=== PATIENT | male | born 1980 | race Caucasian/White ===

== ENCOUNTER 2017-03-17 15:28 | Emergency (ER) | payer MEDICAID ==
[~2017-03-17] VITALS: Ht 188 cm; Wt 129.7 kg
[2017-03-17 15:42] VITALS: BP 139/88
[2017-03-17 16:25] LABS: Basophils # (auto) 0.1 uL; Basophils % (auto) 1.5 % (0.0-2.0); CONDITION Y; Eosinophils # (auto) 0.3 uL; Eosinophils % (auto) 4.4 % (0.0-7.0); Hematocrit 28.3 % (41.0-53.0); Hemoglobin 9.5 g/dL (13.5-17.5); Lymphocytes # (auto) 1.1 uL; Lymphocytes % (auto) 18.2 % (10.0-50.0); Mean Corpuscular Hemoglobin 28.4 pg (28.0-32.0); Mean Corpuscular Hgb Conc. 33.5 g/dL (32.0-36.0); Mean Corpuscular Volume 84.9 fL (80.0-100.0); Mean Platelet Volume 8.2 fL (7.4-10.4); Monocytes # (auto) 0.4 uL; Monocytes % (auto) 6.9 % (0.0-12.0); Neutrophils # (auto) 4.1 uL; Platelet Count (auto) 464 10^3/uL (140-450); Red Cell Distribution Width 14.1 % (11.6-16.0); White Blood Cell 5.9 10^3/uL (4.4-10.8)
[2017-03-17 16:45] LABS: Albumin 2.4 g/dL (3.4-5.0); BUN/Creatinine Ratio 4.9; Calcium 8.5 mg/dL (8.5-10.1); Potassium 4.1 mmol/L (3.5-5.1)
[2017-03-17 16:55] LABS: Bilirubin, Total 0.2 mg/dL (0.2-1.0); Total Protein 7.8 g/dL (6.4-8.2)
== END 2017-03-17 21:22 | disposition left against medical advice (07) ==
LOC: ER 15:28
DX: M79.672 Pain in left foot (principal); Z53.21 Procedure and treatment not carried out due to patient leaving prior to being seen by health care provider
CPT/HCPCS: 36415; 80053; 85025

== ENCOUNTER 2017-03-18 08:30 | Emergency (ER) | payer MEDICAID ==
[~2017-03-18] VITALS: Ht 205.7 cm; Wt 127.0 kg
[2017-03-18 08:46] VITALS: BP 145/92
[2017-03-18 09:14] LABS: Basophils # (auto) 0 uL; Basophils % (auto) 0.7 % (0.0-2.0); CONDITION Y; Eosinophils # (auto) 0.3 uL; Eosinophils % (auto) 4.1 % (0.0-7.0); Hematocrit 29.2 % (41.0-53.0); Hemoglobin 9.9 g/dL (13.5-17.5); Lymphocytes % (auto) 16.4 % (10.0-50.0); Mean Corpuscular Hemoglobin 28.4 pg (28.0-32.0); Mean Corpuscular Hgb Conc. 34.1 g/dL (32.0-36.0); Mean Corpuscular Volume 83.4 fL (80.0-100.0); Monocytes # (auto) 0.5 uL; Monocytes % (auto) 7.9 % (0.0-12.0); Neutrophils # (auto) 4.3 uL; Neutrophils % (auto) 70.9 % (37.0-80.0); Platelet Count (auto) 502 10^3/uL (140-450); Red Cell Distribution Width 14.2 % (11.6-16.0); White Blood Cell 6.1 10^3/uL (4.4-10.8)
[2017-03-18 09:33] LABS: Albumin 2.5 g/dL (3.4-5.0); BUN/Creatinine Ratio 5.3; Calcium 8.9 mg/dL (8.5-10.1); Potassium 4.1 mmol/L (3.5-5.1)
[2017-03-18 09:35] LABS: Bilirubin, Total 0.3 mg/dL (0.2-1.0)
== END 2017-03-18 10:05 | disposition home or self-care (01) ==
LOC: ER 08:30
DX: M79.672 Pain in left foot (principal); E11.9 Type 2 diabetes mellitus without complications; F17.210 Nicotine dependence, cigarettes, uncomplicated
CPT/HCPCS: 36415; 73630; 80053; 85025

== ENCOUNTER 2021-09-18 11:24 | Emergency (ER) | payer MEDICAID ==
[~2021-09-18] VITALS: Ht 205.7 cm; Wt 136.1 kg
[2021-09-18 11:26] VITALS: BP 121/82
[2021-09-18] MEDS ORDERED: PERCOT PO (17:58)
== END 2021-09-18 18:01 | disposition home or self-care (01) ==
LOC: ER 11:43
DX: S29.011A Strain of muscle and tendon of front wall of thorax, initial encounter (principal); M25.532 Pain in left wrist; M79.601 Pain in right arm; M54.9 Dorsalgia, unspecified; R51.9 Headache, unspecified; E11.9 Type 2 diabetes mellitus without complications; F17.210 Nicotine dependence, cigarettes, uncomplicated; V49.49XA Driver injured in collision with other motor vehicles in traffic accident, initial encounter; Y93.89 Activity, other specified; Y92.410 Unspecified street and highway as the place of occurrence of the external cause; Y99.8 Other external cause status
CPT/HCPCS: 70450; 71045; 71250; 73130

== ENCOUNTER 2021-12-02 16:54 | Emergency (ER) | payer MEDICAID ==
[~2021-12-02] VITALS: Ht 205.7 cm; Wt 133.8 kg
[~2021-12-02 16:54] MED LIST: PERCOT PO
[2021-12-02 18:10] LABS: Urine Bacteria NONE SEEN /hpf (None Seen); Urine Blood TRACE /uL (Negative); Urine WBC 1 /hpf (0 - 3)
[2021-12-02 18:48] LABS: Basophils # (auto) 0.1 10 ^3/uL (0-0.2); Basophils % (auto) 0.8 % (0.0-2.0); Eosinophils # (auto) 0 10 ^3/uL (0-0.8); Eosinophils % (auto) 0.1 % (0.0-7.0); Hematocrit 35.9 % (41.0-53.0); Hemoglobin 12.7 g/dL (13.5-17.5); Lymphocytes # (auto) 1.1 10 ^3/uL (0.4-5.4); Lymphocytes % (auto) 11.9 % (10.0-50.0); Mean Corpuscular Hemoglobin 30.8 pg (28.0-32.0); Mean Corpuscular Hgb Conc. 35.4 g/dL (32.0-36.0); Monocytes # (auto) 0.4 10 ^3/uL (0-1.3); Monocytes % (auto) 4.5 % (0.0-12.0); Neutrophils # (auto) 7.7 10 ^3/uL (1.6-8.6); Neutrophils % (auto) 82.7 % (37.0-80.0); Nucleated Red Blood Cells % 0.1 %; Red Blood Cells 4.13 10^6/uL (4.5-5.90); Red Cell Distribution Width 13.1 % (11.8-14.3); White Blood Cell 9.3 10^3/uL (4.4-10.8)
[2021-12-02 19:03] LABS: Potassium 3.7 mmol/L (3.5-5.1)
[2021-12-02 19:07] LABS: Albumin 2.9 g/dL (3.4-5.0); BUN/Creatinine Ratio 11.4; Calcium 8.9 mg/dL (8.5-10.1)
[2021-12-02 19:10] LABS: Bilirubin, Total 0.6 mg/dL (0.2-1.0)
[2021-12-02] MEDS ORDERED: ONDANSETRON HCL 4 MG/2 ML VIAL IV ONE (19:15)
[2021-12-02] MEDS ORDERED: SODIUM CHLORIDE 0.9% 1,000 ML IV ONE ×2 (19:15→20:15)
[2021-12-02] MEDS ORDERED: INSLANTI SC (20:18)
[2021-12-02 23:33] VITALS: BP 137/81
== END 2021-12-02 23:35 | disposition home or self-care (01) ==
LOC: ER 16:54
DX: R53.1 Weakness (principal); R11.2 Nausea with vomiting, unspecified; E11.65 Type 2 diabetes mellitus with hyperglycemia; F17.210 Nicotine dependence, cigarettes, uncomplicated; Z79.899 Other long term (current) drug therapy
CPT/HCPCS: 36415; 80053; 81001; 83690; 85025; 96361; 96374; 99285; J2405; J7030

== ENCOUNTER 2021-12-04 13:22 | Inpatient (IN) | payer MEDICAID, OTHER ==
[~2021-12-04] VITALS: Ht 177.8 cm; Wt 130.8 kg
[~2021-12-04 13:22] MED LIST changes: +INSLANTI SC
[2021-12-04] MEDS ORDERED: PANTOPRAZOLE 40 MG/10 ML VIAL INJ IV ONE (13:45)
[2021-12-04] MEDS ORDERED: MORPHINE SULFATE 4 MG/ML SYR/VIAL IV ONE (13:45)
[2021-12-04] MEDS ORDERED: SODIUM CHLORIDE 0.9% 1,000 ML IVB ONE (13:45)
[2021-12-04] MEDS ORDERED: PROCHLORPERAZINE EDISYLATE 5 MG/ML 2ML VIAL IV ONE (13:45)
[2021-12-04 14:15] LABS: Basophils # (auto) 0.1 10 ^3/uL (0-0.2); Basophils % (auto) 1.2 % (0.0-2.0); Eosinophils # (auto) 0 10 ^3/uL (0-0.8); Eosinophils % (auto) 0.6 % (0.0-7.0); Hematocrit 38.4 % (41.0-53.0); Hemoglobin 13.3 g/dL (13.5-17.5); Lymphocytes # (auto) 1.4 10 ^3/uL (0.4-5.4); Lymphocytes % (auto) 18.7 % (10.0-50.0); Mean Corpuscular Hemoglobin 29.9 pg (28.0-32.0); Mean Corpuscular Hgb Conc. 34.5 g/dL (32.0-36.0); Mean Corpuscular Volume 86.7 fL (80.0-100.0); Monocytes # (auto) 0.5 10 ^3/uL (0-1.3); Monocytes % (auto) 7.4 % (0.0-12.0); Neutrophils # (auto) 5.3 10 ^3/uL (1.6-8.6); Neutrophils % (auto) 72.1 % (37.0-80.0); Nucleated Red Blood Cells % 0.1 %; Red Blood Cells 4.43 10^6/uL (4.5-5.90); Red Cell Distribution Width 13.5 % (11.8-14.3); White Blood Cell 7.3 10^3/uL (4.4-10.8)
[2021-12-04 14:32] LABS: Albumin 2.8 g/dL (3.4-5.0); Calcium 9.1 mg/dL (8.5-10.1); Potassium 3.4 mmol/L (3.5-5.1)
[2021-12-04 14:34] LABS: Bilirubin, Total 0.4 mg/dL (0.2-1.0); Total Protein 7.9 g/dL (6.4-8.2)
[2021-12-04] MEDS ORDERED: TEMAZEPAM 15 MG CAP PO PRN (22:30)
[2021-12-04] MEDS ORDERED: ACETAMINOPHEN 325 MG TAB PO PRN (22:30)
[2021-12-04] MEDS ORDERED: POTASSIUM CHL 20 Meq TABLET PO ONE (22:30)
[2021-12-04] MEDS ORDERED: DEXTROSE (50%) 50ML SYRG IV PRN (22:30)
[2021-12-04] MEDS: CARVEDILOL 3.125 MG TAB PO SCH (23:08)
[2021-12-04] MEDS: MORPHINE SULFATE INJECTION 2 MG/ML SYRG IV PRN (23:09)
[2021-12-04] MEDS: ONDANSETRON HCL 4 MG/2 ML VIAL IV PRN (23:09)
[2021-12-05 01:44] VITALS: BP 164/84
[2021-12-05] MEDS: HYDROcodone-ACET 5/325MG TAB PO PRN ×5 (01:53→20:46)
[2021-12-05] MEDS: ONDANSETRON HCL 4 MG/2 ML VIAL IV PRN ×3 (03:28→12:46)
[2021-12-05] MEDS ORDERED: CARV3.1240 PO (04:35)
[2021-12-05] MEDS ORDERED: LOSA25TA38 PO (04:35)
[2021-12-05 04:58] VITALS: BP 170/91
[2021-12-05] MEDS ORDERED: hydrALAZINE HCL 20 MG/ML VL IV ONE (05:15)
[2021-12-05] MEDS: ACCU-CHEK COMFORT CURVE STRIP VI SCH ×4 (06:39→22:06)
[2021-12-05] MEDS: InsuLIN REG 1unit/0.01ml Soln (100units/ml) SC SCH ×4 (06:44→22:08)
[2021-12-05] MEDS: MORPHINE SULFATE INJECTION 2 MG/ML SYRG IV PRN ×3 (06:51→18:51)
[2021-12-05 08:00] LABS: Basophils # (auto) 0.1 10 ^3/uL (0-0.2); Basophils % (auto) 1.1 % (0.0-2.0); Eosinophils # (auto) 0.1 10 ^3/uL (0-0.8); Eosinophils % (auto) 1.2 % (0.0-7.0); Hematocrit 35.8 % (41.0-53.0); Hemoglobin 12.2 g/dL (13.5-17.5); Lymphocytes # (auto) 1.3 10 ^3/uL (0.4-5.4); Mean Corpuscular Hemoglobin 29.6 pg (28.0-32.0); Mean Corpuscular Volume 87.1 fL (80.0-100.0); Monocytes # (auto) 0.6 10 ^3/uL (0-1.3); Monocytes % (auto) 9.5 % (0.0-12.0); Neutrophils # (auto) 4.3 10 ^3/uL (1.6-8.6); Neutrophils % (auto) 68.2 % (37.0-80.0); Nucleated Red Blood Cells % 0.1 %; Red Blood Cells 4.11 10^6/uL (4.5-5.90); Red Cell Distribution Width 13.4 % (11.8-14.3); White Blood Cell 6.3 10^3/uL (4.4-10.8)
[2021-12-05 08:16] LABS: Albumin 2.4 g/dL (3.4-5.0); Calcium 8.1 mg/dL (8.5-10.1); Potassium 3.2 mmol/L (3.5-5.1)
[2021-12-05 08:20] LABS: BUN/Creatinine Ratio 17.4; Bilirubin, Total 0.4 mg/dL (0.2-1.0); Total Protein 6.9 g/dL (6.4-8.2)
[2021-12-05 09:31] VITALS: BP 133/71
[2021-12-05] MEDS: LOSARTAN POTASSIUM 50 MG TAB PO SCH (09:53)
[2021-12-05] MEDS: CARVEDILOL 3.125 MG TAB PO SCH ×2 (09:53→22:26)
[2021-12-05] MEDS ORDERED: PANTOPRAZOLE 40 MG TAB PO SCH (10:00)
[2021-12-05 13:00] VITALS: BP 173/97
[2021-12-05] MEDS ORDERED: POTASSIUM EFFERVESENT TAB 25 MEQ PO ONE (14:00)
[2021-12-05 14:37] LABS: INR 1.14 (0.9-1.15); Partial Thromboplastin Time 21.9 sec (23.6-33.0)
[2021-12-05] MEDS: PROMETHAZINE HCL 25 MG/ML 1ML IV PRN ×2 (16:48→20:46)
[2021-12-05] MEDS: SUCRALFATE 1 GM/10 ML ORAL SUSP PO SCH ×2 (16:48→22:25)
[2021-12-05 22:00] VITALS: BP 130/79
[2021-12-05] MEDS: ATORVASTATIN 20 MG TAB PO SCH (22:27)
[2021-12-05] MEDS: PANTOPRAZOLE 40 MG/10 ML VIAL INJ IV SCH (22:27)
[2021-12-06] MEDS: MORPHINE SULFATE INJECTION 2 MG/ML SYRG IV PRN ×4 (00:54→19:06)
[2021-12-06] MEDS: PROMETHAZINE HCL 25 MG/ML 1ML IV PRN ×6 (01:22→23:06)
[2021-12-06] MEDS: HYDROcodone-ACET 5/325MG TAB PO PRN ×2 (02:39→09:41)
[2021-12-06 05:00] VITALS: BP 149/100
[2021-12-06] MEDS: InsuLIN REG 1unit/0.01ml Soln (100units/ml) SC SCH ×4 (06:44→22:00)
[2021-12-06] MEDS: SUCRALFATE 1 GM/10 ML ORAL SUSP PO SCH ×4 (06:47→22:25)
[2021-12-06] MEDS: ACCU-CHEK COMFORT CURVE STRIP VI SCH ×4 (06:48→22:27)
[2021-12-06] MEDS ORDERED: LIDOCAINE VISCOUS 2% 15ML UD ONE (08:38)
[2021-12-06] MEDS ORDERED: diphenhdrAMINE HCL 50 MG/1 ML VL ONE (08:38)
[2021-12-06 09:00] VITALS: BP 153/77
[2021-12-06 09:06] LABS: Hematocrit 40.5 % (41.0-53.0); Hemoglobin 14.1 g/dL (13.5-17.5)
[2021-12-06] MEDS: PANTOPRAZOLE 40 MG/10 ML VIAL INJ IV SCH ×2 (09:38→22:27)
[2021-12-06] MEDS: CARVEDILOL 3.125 MG TAB PO SCH ×2 (09:42→22:25)
[2021-12-06 09:43] LABS: Magnesium 1.7 mg/dL (1.6-2.6); Potassium 3.3 mmol/L (3.5-5.1)
[2021-12-06] MEDS: LOSARTAN POTASSIUM 50 MG TAB PO SCH (09:43)
[2021-12-06] MEDS ORDERED: MAGNESIUM SULFATE 1GM/100ML 100 ML IV ONE (12:00)
[2021-12-06] MEDS: POTASSIUM CHL 20MEQ/100ML 100 ML IV SCH ×2 (12:52→20:37)
[2021-12-06 13:00] VITALS: BP 176/95
[2021-12-06] MEDS: fentaNYL CITRATE 100 MCG/2 ML VL ONE ×2 (15:13→15:19)
[2021-12-06] MEDS: MIDAZOLAM HCL 5 MG/ML-1ML VIAL ONE ×2 (15:13→15:19)
[2021-12-06 17:00] VITALS: BP 101/61
[2021-12-06] MEDS ORDERED: POTASSIUM CHL 20MEQ/100ML 100 ML IV ONE (20:22)
[2021-12-06 22:00] VITALS: BP 161/104
[2021-12-06] MEDS ORDERED: INSULIN LANTUS (GLARGINE) 1 /0.01ml (100units/ml) SC SCH (22:00)
[2021-12-06] MEDS: ATORVASTATIN 20 MG TAB PO SCH (22:25)
[2021-12-07] MEDS: MORPHINE SULFATE INJECTION 2 MG/ML SYRG IV PRN ×2 (01:23→07:31)
[2021-12-07] MEDS: PROMETHAZINE HCL 25 MG/ML 1ML IV PRN ×3 (03:06→11:54)
[2021-12-07 05:00] VITALS: BP 126/72
[2021-12-07] MEDS: ACCU-CHEK COMFORT CURVE STRIP VI SCH ×2 (05:44→11:54)
[2021-12-07] MEDS: SUCRALFATE 1 GM/10 ML ORAL SUSP PO SCH ×2 (05:47→11:53)
[2021-12-07] MEDS: InsuLIN REG 1unit/0.01ml Soln (100units/ml) SC SCH ×2 (05:56→13:25)
[2021-12-07 08:34] LABS: Magnesium 1.7 mg/dL (1.6-2.6); Potassium 3.2 mmol/L (3.5-5.1)
[2021-12-07 09:09] VITALS: BP 164/99
[2021-12-07] MEDS ORDERED: PANT40TA2 PO (09:24)
[2021-12-07] MEDS ORDERED: SUCR1TAB22 PO (09:24)
[2021-12-07] MEDS ORDERED: MAGNESIUM SULFATE 1GM/100ML 100 ML IV ONE (09:30)
[2021-12-07] MEDS ORDERED: POTASSIUM EFFERVESENT TAB 25 MEQ PO ONE (09:30)
[2021-12-07] MEDS: PANTOPRAZOLE 40 MG/10 ML VIAL INJ IV SCH (10:32)
[2021-12-07] MEDS: CARVEDILOL 3.125 MG TAB PO SCH (10:33)
[2021-12-07] MEDS: LOSARTAN POTASSIUM 50 MG TAB PO SCH (10:33)
[2021-12-07] MEDS ORDERED: CARV6.25 PO (12:07)
[2021-12-07] MEDS ORDERED: POTASSIUM CHL 20MEQ/100ML 100 ML IV ONE (12:15)
[2021-12-07 13:00] VITALS: BP 139/94
[2021-12-07 14:06] VITALS: BP 164/94
== END 2021-12-07 15:54 | disposition home or self-care (01) | DRG 241 ==
LOC: ER 13:22 → EDBD 13:22 → OVERFLOW 22:30 → WEST WING 12-05 01:31
PROVIDERS: ADMIT Nurse Practitioner; ATTEND Internal Medicine
PROC: 0DB68ZX Excision of Stomach, Via Natural or Artificial Opening Endoscopic, Diagnostic (ICD-10-PCS; 2021-12-06)
PROC: 0DB98ZX Excision of Duodenum, Via Natural or Artificial Opening Endoscopic, Diagnostic (ICD-10-PCS; principal; 2021-12-06 15:07)
DX: K29.70 Gastritis, unspecified, without bleeding (principal); K31.84 Gastroparesis; E11.43 Type 2 diabetes mellitus with diabetic autonomic (poly)neuropathy; R16.0 Hepatomegaly, not elsewhere classified; E11.65 Type 2 diabetes mellitus with hyperglycemia; K52.9 Noninfective gastroenteritis and colitis, unspecified; E78.5 Hyperlipidemia, unspecified; G89.4 Chronic pain syndrome; E87.6 Hypokalemia; F17.210 Nicotine dependence, cigarettes, uncomplicated; I10 Essential (primary) hypertension; Z89.512 Acquired absence of left leg below knee; Z20.822 Contact with and (suspected) exposure to COVID-19
CPT/HCPCS: 36415; 43239; 74176; 80053; 80061; 82150; 82962; 83036; 83690; 83735; 84132; 84443; 85014; 85018; 85025; 85610; 85730; 93005; 96361; 96374; 96375; C9113; G0378; J1815; J2250; J2405; J3480

== ENCOUNTER 2022-12-28 09:01 | Emergency (ER) | payer MEDICAID ==
[~2022-12-28] VITALS: Ht 205.7 cm; Wt 127.0 kg
[~2022-12-28 09:01] MED LIST changes: +LOSA25TA38 PO; +PANT40TA2 PO; +SUCR1TAB22 PO
[2022-12-28 09:28] VITALS: BP 105/69
[2022-12-28] MEDS ORDERED: cefTRIAXone SOD 1,000 MG VL IM ONE ×2 (10:00)
[2022-12-28] MEDS ORDERED: IBUP800T27 PO (10:05)
[2022-12-28] MEDS ORDERED: CLIN300C8 PO (10:05)
[2022-12-28] MEDS ORDERED: CEPH-510 PO (10:05)
== END 2022-12-28 10:26 | disposition home or self-care (01) ==
LOC: ER 09:01
DX: L08.89 Other specified local infections of the skin and subcutaneous tissue (principal); E11.9 Type 2 diabetes mellitus without complications; E78.5 Hyperlipidemia, unspecified; I10 Essential (primary) hypertension; Z89.512 Acquired absence of left leg below knee
CPT/HCPCS: 96372; 99284; J0696

== ENCOUNTER → 2023-05-17 | Emergency (ER) | payer MEDICAID ==
[~2023-05-17] VITALS: Ht 205.7 cm; Wt 118.1 kg
[~2023-05-17] MED LIST changes: +CEPH-510 PO; +CLIN300C70 PO; +HYDROcodone-ACET 10/325MG TAB PO ONE; +IBUP-1456 PO; +LOSA25TA15 PO; -LOSA25TA38 PO
[2023-05-17 07:42] VITALS: BP 121/80; PULSE 85; RESP 16; O2SAT 99
[2023-05-17 08:33] LABS: Basophils # (auto) 0 10 ^3/uL (0-0.2); Basophils % (auto) 0.6 % (0.0-2.0); Eosinophils # (auto) 0.1 10 ^3/uL (0-0.8); Eosinophils % (auto) 1.7 % (0.0-7.0); Hematocrit 40.3 % (41.0-53.0); Hemoglobin 13.6 g/dL (13.5-17.5); Lymphocytes # (auto) 1.3 10 ^3/uL (0.4-5.4); Lymphocytes % (auto) 21.1 % (10.0-50.0); Mean Corpuscular Hemoglobin 30.2 pg (28.0-32.0); Mean Corpuscular Hgb Conc. 33.7 g/dL (32.0-36.0); Mean Corpuscular Volume 89.9 fL (80.0-100.0); Monocytes # (auto) 0.6 10 ^3/uL (0-1.3); Monocytes % (auto) 9.6 % (0.0-12.0); Neutrophils # (auto) 4.1 10 ^3/uL (1.6-8.6); Nucleated Red Blood Cells % 0.1 %; Red Blood Cells 4.48 10^6/uL (4.5-5.90); Red Cell Distribution Width 13.4 % (11.8-14.3); White Blood Cell 6.1 10^3/uL (4.4-10.8)
[2023-05-17 08:39] LABS: Alanine Aminotransferase 10 U/L (7-40); Albumin 4.6 g/dL (3.2-4.8); Alkaline Phosphatase 61 U/L (46-116); Anion Gap 7 (5-15); Aspartate Aminotransferase 9 U/L (13-40); BUN/Creatinine Ratio 8.5 (10.0-20.0); Blood Urea Nitrogen 7 mg/dL (9-23); Calcium 9.6 mg/dL (8.5-10.1); Carbon Dioxide 24 mmol/L (20-30); Chloride 106 mmol/L (98-107); Glucose 97 mg/dL (74-106); Potassium 4.4 mmol/L (3.5-5.1); Sodium 137 mmol/L (136-145)
[2023-05-17 08:40] LABS: Bilirubin, Total 0.6 mg/dL (0.2-1.0); Total Protein 7.9 g/dL (5.7-8.2)
== END | disposition left against medical advice (07) ==
LOC: ER 07:34
DX: T87.89 Other complications of amputation stump (principal); M79.662 Pain in left lower leg; E11.9 Type 2 diabetes mellitus without complications; E78.5 Hyperlipidemia, unspecified; I10 Essential (primary) hypertension; F17.210 Nicotine dependence, cigarettes, uncomplicated
CPT/HCPCS: 36415; 80053; 84484; 85025; 93971

== ENCOUNTER 2023-05-24 14:21 | Inpatient (IN) | payer MEDICAID ==
[~2023-05-24] VITALS: Ht 177.8 cm; Wt 117.0 kg
[~2023-05-24 14:21] MED LIST changes: -HYDROcodone-ACET 10/325MG TAB PO ONE
[2023-05-24] MEDS ORDERED: LORazepam 2MG/ML-1ML VIAL IV ONE (14:30)
[2023-05-24] MEDS ORDERED: SODIUM CHLORIDE 0.9% 1,000 ML IVB ONE ×2 (14:30)
[2023-05-24] MEDS ORDERED: METOCLOPRAMIDE HCL 5MG/ml INJ 2ml VIAL IV ONE (14:30)
[2023-05-24] MEDS ORDERED: HYDROmorphone HCL 2 MG/ML VL/or syr IV ONE (14:30)
[2023-05-24] MEDS ORDERED: PANTOPRAZOLE 40 MG/10 ML VIAL INJ IV ONE ×2 (14:30→17:45)
[2023-05-24] MEDS ORDERED: ONDANSETRON HCL 4 MG/2 ML VIAL IV ONE (14:30)
[2023-05-24 15:00] LABS: Base Excess -7.2 mmol/L (-2.0-2.0)
[2023-05-24 15:13] LABS: Basophils # (auto) 0 10 ^3/uL (0-0.2); Basophils % (auto) 0.4 % (0.0-2.0); Eosinophils # (auto) 0 10 ^3/uL (0-0.8); Eosinophils % (auto) 0.2 % (0.0-7.0); Hematocrit 42.7 % (41.0-53.0); Hemoglobin 14.4 g/dL (13.5-17.5); Lymphocytes # (auto) 1.4 10 ^3/uL (0.4-5.4); Lymphocytes % (auto) 16.5 % (10.0-50.0); Mean Corpuscular Hemoglobin 30.3 pg (28.0-32.0); Mean Corpuscular Hgb Conc. 33.8 g/dL (32.0-36.0); Mean Corpuscular Volume 89.8 fL (80.0-100.0); Monocytes # (auto) 0.6 10 ^3/uL (0-1.3); Monocytes % (auto) 6.4 % (0.0-12.0); Neutrophils # (auto) 6.7 10 ^3/uL (1.6-8.6); Neutrophils % (auto) 76.5 % (37.0-80.0); Nucleated Red Blood Cells % 0.2 %; Red Blood Cells 4.76 10^6/uL (4.5-5.90); Red Cell Distribution Width 13.1 % (11.8-14.3); White Blood Cell 8.8 10^3/uL (4.4-10.8)
[2023-05-24 15:29] LABS: INR 1.19 (0.9-1.15); Partial Thromboplastin Time 30.5 SEC (24.5-34.5); Prothrombin Time 12.4 sec (9.3-11.8)
[2023-05-24] MEDS ORDERED: SODIUM BICARBONATE 8.4 % INJ 50ML VIAL IV ONE (15:30)
[2023-05-24 15:33] LABS: Alanine Aminotransferase < 9 U/L (7-40); Albumin 5.1 g/dL (3.2-4.8); Alkaline Phosphatase 69 U/L (46-116); Anion Gap 20 (5-15); Aspartate Aminotransferase 10 U/L (13-40); BUN/Creatinine Ratio 18.5 (10.0-20.0); Bilirubin, Total 0.4 mg/dL (0.2-1.0); Blood Urea Nitrogen 20 mg/dL (9-23); Calcium 9.9 mg/dL (8.7-10.4); Carbon Dioxide 15 mmol/L (20-30); Chloride 101 mmol/L (98-107); Glucose 194 mg/dL (74-106); Lipase 37 U/L (12-53); Magnesium 1.8 mg/dL (1.6-2.6); Potassium 4.1 mmol/L (3.5-5.1); Sodium 136 mmol/L (136-145); Total Protein 8.9 g/dL (5.7-8.2)
[2023-05-24] MEDS ORDERED: IOHEXOL 300 MG/ML 100ML BOTTLE IJ ONE (16:07)
[2023-05-24] MEDS ORDERED: InsuLIN REG 1unit/0.01ml Soln (100units/ml) SC ONE (17:45)
[2023-05-24] MEDS ORDERED: LABETALOL HCL 5 MG/ML 4ML SYRINGE IV ONE (18:00)
[2023-05-24] MEDS ORDERED: DEXTROSE (50%) 50ML SYRG IV PRN (18:45)
[2023-05-24] MEDS ORDERED: ACETAMINOPHEN 325 MG TAB PO PRN (18:45)
[2023-05-24] MEDS ORDERED: MORPHINE SULFATE INJ 2 MG/ml SYRG IV PRN (18:45)
[2023-05-24] MEDS ORDERED: NITROGLYCERIN 0.4 MG SL TAB SL PRN (18:45)
[2023-05-24 19:03] LABS: Urine Bacteria NONE SEEN /hpf (None Seen); Urine Blood Negative /uL (Negative); Urine Clarity Clear (Clear); Urine Color Yellow (Yellow); Urine Hyaline Cast FEW /lpf (0 - 2); Urine Protein, UAD 3+ (Negative); Urine Specific Gravity 1.024 (1.001-1.035); Urine WBC 1 /hpf (0 - 3); Urine pH 5.5 (5.0-8.0)
[2023-05-24 19:13] LABS: Amphetamine Screen, Urine Neg (NEGATIVE); Barbiturate Scree,Urine Neg (NEGATIVE); Benzodiazephine Screen, Urine Neg (NEGATIVE); Cannabinoid Screen, Urine Pos (NEGATIVE); Cocaine Screen, Urine Neg (NEGATIVE); Opiate Scree,Urine Neg (NEGATIVE); Phencyclidine Screen, Urine Neg (NEGATIVE)
[2023-05-24] MEDS ORDERED: GABA800T97 PO (19:29)
[2023-05-24] MEDS ORDERED: SERT25TA28 PO (19:29)
[2023-05-24] MEDS ORDERED: METF-372 PO (19:29)
[2023-05-24] MEDS ORDERED: PREG-111 PO (19:29)
[2023-05-24] MEDS ORDERED: CARV6.2551 PO (19:29)
[2023-05-24 20:08] LABS: Base Excess -11.1 mmol/L (-2.0-2.0)
[2023-05-24 20:18] LABS: Chloride 103 mmol/L (98-107); Potassium 3.9 mmol/L (3.5-5.1); Sodium 136 mmol/L (136-145)
[2023-05-24 20:19] LABS: Anion Gap 20 (5-15); Calcium 9.3 mg/dL (8.7-10.4); Carbon Dioxide 13 mmol/L (20-30)
[2023-05-24 20:24] LABS: BUN/Creatinine Ratio 17.9 (10.0-20.0); Blood Urea Nitrogen 21 mg/dL (9-23); Glucose 252 mg/dL (74-106)
[2023-05-24] MEDS: SODIUM CHLORIDE 0.9% 1,000 ML IV SCH (21:05)
[2023-05-24 21:12] LABS: COVID19 ANTIGEN SOFIA FIA NEGATIVE (NEGATIVE)
[2023-05-24] MEDS ORDERED: SODIUM CHLORIDE 0.9% 1,000 ML IV SCH (23:30)
[2023-05-25] VITALS (7 sets, daily range): BP systolic 135–171; BP diastolic 85–98; PULSE 84–95; RESP 14–20; TEMP 98.4–99.1; O2SAT 98
[2023-05-25] MEDS: CARVEDILOL 3.125 MG TAB PO SCH ×3 (00:10→22:02)
[2023-05-25] MEDS: ONDANSETRON HCL 4 MG/2 ML VIAL IV PRN ×2 (00:10→03:11)
[2023-05-25] MEDS: PREGABALIN CAPSULE 75 MG CAP PO SCH ×3 (00:11→22:00)
[2023-05-25] MEDS: SUCRALFATE 1 GM TAB PO SCH ×5 (00:11→22:00)
[2023-05-25] MEDS: ACCU-CHEK COMFORT CURVE STRIP VI SCH ×5 (00:12→22:00)
[2023-05-25] MEDS: InsuLIN REG 1unit/0.01ml Soln (100units/ml) SC SCH ×5 (00:12→22:09)
[2023-05-25 04:13] LABS: Basophils # (auto) 0 10 ^3/uL (0-0.2); Basophils % (auto) 0.1 % (0.0-2.0); Eosinophils # (auto) 0 10 ^3/uL (0-0.8); Eosinophils % (auto) 0.1 % (0.0-7.0); Hematocrit 38.4 % (41.0-53.0); Hemoglobin 12.7 g/dL (13.5-17.5); Lymphocytes # (auto) 1.3 10 ^3/uL (0.4-5.4); Lymphocytes % (auto) 11.6 % (10.0-50.0); Mean Corpuscular Hemoglobin 29.9 pg (28.0-32.0); Mean Corpuscular Hgb Conc. 33.2 g/dL (32.0-36.0); Mean Corpuscular Volume 90.1 fL (80.0-100.0); Monocytes # (auto) 0.9 10 ^3/uL (0-1.3); Monocytes % (auto) 8.1 % (0.0-12.0); Neutrophils # (auto) 9.2 10 ^3/uL (1.6-8.6); Neutrophils % (auto) 80.1 % (37.0-80.0); Red Blood Cells 4.26 10^6/uL (4.5-5.90); Red Cell Distribution Width 12.9 % (11.8-14.3); White Blood Cell 11.5 10^3/uL (4.4-10.8)
[2023-05-25 04:31] LABS: Alanine Aminotransferase 11 U/L (7-40); Albumin 4.3 g/dL (3.2-4.8); Alkaline Phosphatase 60 U/L (46-116); Anion Gap 17 (5-15); Aspartate Aminotransferase 9 U/L (13-40); BUN/Creatinine Ratio 20.2 (10.0-20.0); Bilirubin, Total 0.2 mg/dL (0.2-1.0); Blood Urea Nitrogen 20 mg/dL (9-23); Calcium 8.5 mg/dL (8.7-10.4); Carbon Dioxide 17 mmol/L (20-30); Chloride 104 mmol/L (98-107); Glucose 218 mg/dL (74-106); Potassium 3.8 mmol/L (3.5-5.1); Sodium 138 mmol/L (136-145); Total Protein 7.1 g/dL (5.7-8.2)
[2023-05-25] MEDS: SODIUM CHLORIDE 0.9% 1,000 ML IV SCH ×4 (05:49→20:36)
[2023-05-25] MEDS: METOCLOPRAMIDE HCL 5MG/ml INJ 2ml VIAL IV PRN ×3 (06:04→22:27)
[2023-05-25] MEDS: MORPHINE SULFATE INJ 2 MG/ml SYRG IV PRN ×4 (07:59→20:36)
[2023-05-25] MEDS: GABAPENTIN 400 MG CAP PO SCH (09:38)
[2023-05-25] MEDS: SERTRALINE HCL 50 MG TAB PO SCH (09:38)
[2023-05-25] MEDS: PANTOPRAZOLE 40 MG/10 ML VIAL INJ IV SCH (09:38)
[2023-05-25] MEDS: ENOXAPARIN SOD 40 MG/0.4 ML SYRINGE SC SCH (09:39)
[2023-05-25] MEDS: INSULIN LANTUS (GLARGINE) 1 /0.01ml (100units/ml) SC SCH (09:49)
[2023-05-25] MEDS: hydrALAZINE HCL 20 MG/ML VL IV PRN (14:24)
[2023-05-26] VITALS (7 sets, daily range): BP systolic 108–177; BP diastolic 74–109; PULSE 85–103; RESP 16–20; TEMP 97.5–98.2; O2SAT 97–98
[2023-05-26] MEDS: MORPHINE SULFATE INJ 2 MG/ml SYRG IV PRN ×3 (00:37→08:59)
[2023-05-26] MEDS: hydrALAZINE HCL 20 MG/ML VL IV PRN ×3 (00:37→15:55)
[2023-05-26] MEDS: METOCLOPRAMIDE HCL 5MG/ml INJ 2ml VIAL IV PRN ×2 (04:50→17:27)
[2023-05-26] MEDS: SODIUM CHLORIDE 0.9% 1,000 ML IV SCH ×3 (04:58→17:35)
[2023-05-26] MEDS: ACCU-CHEK COMFORT CURVE STRIP VI SCH ×4 (06:12→22:04)
[2023-05-26] MEDS: InsuLIN REG 1unit/0.01ml Soln (100units/ml) SC SCH ×4 (06:13→22:09)
[2023-05-26] MEDS: SUCRALFATE 1 GM TAB PO SCH ×4 (06:14→22:05)
[2023-05-26] MEDS: CARVEDILOL 3.125 MG TAB PO SCH ×2 (08:58→22:06)
[2023-05-26] MEDS: GABAPENTIN 400 MG CAP PO SCH (08:58)
[2023-05-26] MEDS: SERTRALINE HCL 50 MG TAB PO SCH (09:01)
[2023-05-26] MEDS: PANTOPRAZOLE 40 MG/10 ML VIAL INJ IV SCH (09:01)
[2023-05-26] MEDS: ENOXAPARIN SOD 40 MG/0.4 ML SYRINGE SC SCH (09:02)
[2023-05-26] MEDS: PREGABALIN CAPSULE 75 MG CAP PO SCH ×2 (09:12→22:07)
[2023-05-26] MEDS: INSULIN LANTUS (GLARGINE) 1 /0.01ml (100units/ml) SC SCH (09:13)
[2023-05-26] MEDS ORDERED: cloNIDine 0.1 mg/24hr 7 DAY PATCH TD ONE (11:45)
[2023-05-26] MEDS ORDERED: MORPHINE SULFATE INJ 2 MG/ml SYRG IV PRN (12:00)
[2023-05-26] MEDS: MORPHINE SULFATE 4 MG/ML SYR/VIAL IV PRN ×4 (15:50→22:03)
[2023-05-26] MEDS: METOPROLOL TARTRATE 25 MG TAB PO SCH (22:05)
[2023-05-27] VITALS (7 sets, daily range): BP systolic 114–161; BP diastolic 72–102; PULSE 79–89; RESP 14–20; TEMP 98.1–98.7; O2SAT 96–98
[2023-05-27] MEDS: SODIUM CHLORIDE 0.9% 1,000 ML IV SCH ×2 (00:05→05:25)
[2023-05-27] MEDS: MORPHINE SULFATE 4 MG/ML SYR/VIAL IV PRN ×11 (00:05→22:37)
[2023-05-27] MEDS: METOCLOPRAMIDE HCL 5MG/ml INJ 2ml VIAL IV PRN ×2 (00:09→06:08)
[2023-05-27] MEDS: hydrALAZINE HCL 20 MG/ML VL IV PRN (06:09)
[2023-05-27] MEDS: SUCRALFATE 1 GM TAB PO SCH ×4 (06:09→21:46)
[2023-05-27] MEDS: ACCU-CHEK COMFORT CURVE STRIP VI SCH ×4 (06:09→21:43)
[2023-05-27] MEDS: InsuLIN REG 1unit/0.01ml Soln (100units/ml) SC SCH ×4 (06:21→21:57)
[2023-05-27] MEDS: GABAPENTIN 400 MG CAP PO SCH (09:57)
[2023-05-27] MEDS: METOPROLOL TARTRATE 25 MG TAB PO SCH ×2 (09:57→21:46)
[2023-05-27] MEDS: SERTRALINE HCL 50 MG TAB PO SCH (09:58)
[2023-05-27] MEDS: CARVEDILOL 3.125 MG TAB PO SCH ×2 (09:58→21:46)
[2023-05-27] MEDS: PANTOPRAZOLE 40 MG/10 ML VIAL INJ IV SCH (09:58)
[2023-05-27] MEDS: ENOXAPARIN SOD 40 MG/0.4 ML SYRINGE SC SCH (09:59)
[2023-05-27] MEDS: PREGABALIN CAPSULE 75 MG CAP PO SCH ×2 (09:59→21:44)
[2023-05-27] MEDS: INSULIN LANTUS (GLARGINE) 1 /0.01ml (100units/ml) SC SCH (10:34)
[2023-05-27] MEDS ORDERED: ONDANSETRON HCL 4 MG/2 ML VIAL IV PRN (11:45)
[2023-05-27] MEDS ORDERED: SODIUM CHLORIDE 0.9% 1,000 ML IV SCH (11:45)
[2023-05-27] MEDS ORDERED: PROMETHAZINE HCL 25 MG/ML 1ML IV PRN (11:45)
[2023-05-27 13:04] LABS: Basophils # (auto) 0 10 ^3/uL (0-0.2); Basophils % (auto) 0.3 % (0.0-2.0); Eosinophils # (auto) 0.1 10 ^3/uL (0-0.8); Hematocrit 40.5 % (41.0-53.0); Hemoglobin 13.9 g/dL (13.5-17.5); Lymphocytes % (auto) 28.3 % (10.0-50.0); Mean Corpuscular Hgb Conc. 34.3 g/dL (32.0-36.0); Mean Corpuscular Volume 87.4 fL (80.0-100.0); Monocytes # (auto) 0.7 10 ^3/uL (0-1.3); Monocytes % (auto) 9.8 % (0.0-12.0); Neutrophils # (auto) 4.3 10 ^3/uL (1.6-8.6); Neutrophils % (auto) 60.6 % (37.0-80.0); Nucleated Red Blood Cells % 0.1 %; Red Blood Cells 4.64 10^6/uL (4.5-5.90)
[2023-05-27 13:20] LABS: Anion Gap 12 (5-15); Calcium 8.4 mg/dL (8.7-10.4); Carbon Dioxide 24 mmol/L (20-30); Chloride 97 mmol/L (98-107)
[2023-05-27 13:26] LABS: BUN/Creatinine Ratio 9.2 (10.0-20.0); Blood Urea Nitrogen 6 mg/dL (9-23); Glucose 191 mg/dL (74-106); Magnesium 1.5 mg/dL (1.6-2.6)
[2023-05-27 13:30] LABS: Sodium 133 mmol/L (136-145)
[2023-05-27 13:31] LABS: Potassium 2.7 mmol/L (3.5-5.1)
[2023-05-27] MEDS: METOCLOPRAMIDE HCL 5MG/ml INJ 2ml VIAL IV SCH ×2 (13:51→21:46)
[2023-05-27] MEDS ORDERED: POTASSIUM CHL 20MEQ/100ML 100 ML IV ONE (15:30)
[2023-05-27] MEDS: MAGNESIUM SULFATE 1GM/100ML 100 ML IV SCH ×2 (16:38→18:06)
[2023-05-28] VITALS (7 sets, daily range): BP systolic 112–144; BP diastolic 59–86; PULSE 19–81; RESP 16–19; TEMP 97–98.3; O2SAT 93–99
[2023-05-28] MEDS: MORPHINE SULFATE 4 MG/ML SYR/VIAL IV PRN ×8 (01:34→21:58)
[2023-05-28] MEDS: SOD CHL 0.9%/ KCL 20MEQ 1,000 ML IV SCH ×3 (01:41→19:40)
[2023-05-28] MEDS: METOCLOPRAMIDE HCL 5MG/ml INJ 2ml VIAL IV SCH ×3 (06:22→21:58)
[2023-05-28] MEDS: SUCRALFATE 1 GM TAB PO SCH ×5 (06:24→21:59)
[2023-05-28] MEDS: ACCU-CHEK COMFORT CURVE STRIP VI SCH ×4 (06:24→21:59)
[2023-05-28] MEDS: InsuLIN REG 1unit/0.01ml Soln (100units/ml) SC SCH ×4 (06:37→22:00)
[2023-05-28 06:41] LABS: Basophils # (auto) 0 10 ^3/uL (0-0.2); Basophils % (auto) 0.5 % (0.0-2.0); Eosinophils # (auto) 0.1 10 ^3/uL (0-0.8); Hemoglobin 13.1 g/dL (13.5-17.5); Lymphocytes # (auto) 2.2 10 ^3/uL (0.4-5.4); Lymphocytes % (auto) 35.7 % (10.0-50.0); Mean Corpuscular Hemoglobin 30.2 pg (28.0-32.0); Mean Corpuscular Hgb Conc. 34.5 g/dL (32.0-36.0); Mean Corpuscular Volume 87.4 fL (80.0-100.0); Monocytes # (auto) 0.7 10 ^3/uL (0-1.3); Monocytes % (auto) 12.2 % (0.0-12.0); Neutrophils % (auto) 49.6 % (37.0-80.0); Nucleated Red Blood Cells % 0.1 %; Red Blood Cells 4.35 10^6/uL (4.5-5.90); Red Cell Distribution Width 12.7 % (11.8-14.3)
[2023-05-28 06:47] LABS: Anion Gap 8 (5-15); Calcium 8.2 mg/dL (8.7-10.4); Carbon Dioxide 28 mmol/L (20-30); Chloride 101 mmol/L (98-107); Sodium 137 mmol/L (136-145)
[2023-05-28 06:53] LABS: BUN/Creatinine Ratio 11.5 (10.0-20.0); Blood Urea Nitrogen 7 mg/dL (9-23); Glucose 114 mg/dL (74-106)
[2023-05-28 07:04] LABS: Potassium 2.7 mmol/L (3.5-5.1)
[2023-05-28] MEDS: ENOXAPARIN SOD 40 MG/0.4 ML SYRINGE SC SCH (10:45)
[2023-05-28] MEDS: METOPROLOL TARTRATE 25 MG TAB PO SCH ×2 (10:46→21:55)
[2023-05-28] MEDS: GABAPENTIN 400 MG CAP PO SCH (10:46)
[2023-05-28] MEDS: SERTRALINE HCL 50 MG TAB PO SCH (10:47)
[2023-05-28] MEDS: CARVEDILOL 3.125 MG TAB PO SCH ×2 (10:47→21:56)
[2023-05-28] MEDS: PANTOPRAZOLE 40 MG/10 ML VIAL INJ IV SCH (11:38)
[2023-05-28] MEDS: PREGABALIN CAPSULE 75 MG CAP PO SCH ×2 (11:40→21:59)
[2023-05-28] MEDS: POTASSIUM CHL 20MEQ/100ML 100 ML IV SCH ×2 (13:03→15:49)
[2023-05-28] MEDS: INSULIN LANTUS (GLARGINE) 1 /0.01ml (100units/ml) SC SCH (13:07)
[2023-05-28] MEDS ORDERED: POTASSIUM CHL 20 Meq TABLET PO ONE (18:00)
[2023-05-29] VITALS (7 sets, daily range): BP systolic 108–126; BP diastolic 53–74; PULSE 64–78; RESP 16–18; TEMP 98–98.6; O2SAT 96–98
[2023-05-29] MEDS: MORPHINE SULFATE 4 MG/ML SYR/VIAL IV PRN ×4 (04:04→14:27)
[2023-05-29] MEDS: METOCLOPRAMIDE HCL 5MG/ml INJ 2ml VIAL IV SCH ×2 (06:19→14:27)
[2023-05-29] MEDS: SUCRALFATE 1 GM TAB PO SCH ×3 (06:19→17:03)
[2023-05-29 06:20] LABS: Basophils # (auto) 0 10 ^3/uL (0-0.2); Basophils % (auto) 0.8 % (0.0-2.0); Eosinophils # (auto) 0.1 10 ^3/uL (0-0.8); Eosinophils % (auto) 2.6 % (0.0-7.0); Hematocrit 37.7 % (41.0-53.0); Hemoglobin 12.9 g/dL (13.5-17.5); Lymphocytes % (auto) 34.7 % (10.0-50.0); Mean Corpuscular Hemoglobin 30.3 pg (28.0-32.0); Mean Corpuscular Hgb Conc. 34.2 g/dL (32.0-36.0); Mean Corpuscular Volume 88.5 fL (80.0-100.0); Monocytes # (auto) 0.6 10 ^3/uL (0-1.3); Monocytes % (auto) 10.5 % (0.0-12.0); Neutrophils # (auto) 2.9 10 ^3/uL (1.6-8.6); Neutrophils % (auto) 51.4 % (37.0-80.0); Nucleated Red Blood Cells % 0.1 %; Red Blood Cells 4.26 10^6/uL (4.5-5.90); Red Cell Distribution Width 12.7 % (11.8-14.3); White Blood Cell 5.6 10^3/uL (4.4-10.8)
[2023-05-29] MEDS: InsuLIN REG 1unit/0.01ml Soln (100units/ml) SC SCH ×3 (06:20→17:00)
[2023-05-29] MEDS: ACCU-CHEK COMFORT CURVE STRIP VI SCH ×3 (06:20→17:03)
[2023-05-29 06:38] LABS: Anion Gap 9 (5-15); Carbon Dioxide 26 mmol/L (20-30); Chloride 104 mmol/L (98-107); Sodium 139 mmol/L (136-145)
[2023-05-29 06:39] LABS: Calcium 8.4 mg/dL (8.7-10.4)
[2023-05-29 06:44] LABS: BUN/Creatinine Ratio 11.1 (10.0-20.0); Blood Urea Nitrogen 6 mg/dL (9-23); Glucose 92 mg/dL (74-106)
[2023-05-29 06:45] LABS: Magnesium 1.7 mg/dL (1.6-2.6)
[2023-05-29 06:50] LABS: Potassium 2.7 mmol/L (3.5-5.1)
[2023-05-29] MEDS: ENOXAPARIN SOD 40 MG/0.4 ML SYRINGE SC SCH (08:06)
[2023-05-29] MEDS: PANTOPRAZOLE 40 MG/10 ML VIAL INJ IV SCH (08:06)
[2023-05-29] MEDS: METOPROLOL TARTRATE 25 MG TAB PO SCH (08:07)
[2023-05-29] MEDS: SERTRALINE HCL 50 MG TAB PO SCH (08:07)
[2023-05-29] MEDS: CARVEDILOL 3.125 MG TAB PO SCH (08:08)
[2023-05-29] MEDS: GABAPENTIN 400 MG CAP PO SCH (08:08)
[2023-05-29] MEDS: PREGABALIN CAPSULE 75 MG CAP PO SCH (08:22)
[2023-05-29] MEDS: INSULIN LANTUS (GLARGINE) 1 /0.01ml (100units/ml) SC SCH (08:25)
[2023-05-29] MEDS ORDERED: POTASSIUM CHL 20 Meq TABLET PO ONE ×3 (10:45→15:45)
[2023-05-29] MEDS: SOD CHL 0.9%/ KCL 20MEQ 1,000 ML IV SCH (10:48)
[2023-05-29 14:51] LABS: Chloride 104 mmol/L (98-107); Potassium 3.4 mmol/L (3.5-5.1); Sodium 136 mmol/L (136-145)
[2023-05-29 14:52] LABS: Anion Gap 5 (5-15); Calcium 8.5 mg/dL (8.5-10.1); Carbon Dioxide 27 mmol/L (20-30)
[2023-05-29 14:57] LABS: BUN/Creatinine Ratio 10.7 (10.0-20.0); Blood Urea Nitrogen 6 mg/dL (9-23); Glucose 170 mg/dL (74-106)
[2023-05-29] MEDS ORDERED: PANT40TA2 PO (15:42)
[2023-05-29] MEDS ORDERED: POTA-228 PO (15:42)
[2023-05-29] MEDS ORDERED: SUCR1TAB22 OR (15:42)
== END 2023-05-29 18:24 | disposition home or self-care (01) | DRG 420 ==
LOC: EDBD 14:21 → ER 14:21 → TELE 18:45 → TELE-WESTW 05-25 06:23
PROVIDERS: ADMIT Nurse Practitioner Family; ATTEND Internal Medicine Geriatric Medicine
DX: E11.10 Type 2 diabetes mellitus with ketoacidosis without coma (principal); I21.A1 Myocardial infarction type 2; E11.43 Type 2 diabetes mellitus with diabetic autonomic (poly)neuropathy; I16.0 Hypertensive urgency; K31.84 Gastroparesis; I10 Essential (primary) hypertension; E66.9 Obesity, unspecified; F12.90 Cannabis use, unspecified, uncomplicated; E78.5 Hyperlipidemia, unspecified; E11.65 Type 2 diabetes mellitus with hyperglycemia; E87.6 Hypokalemia; G89.4 Chronic pain syndrome; Z79.4 Long term (current) use of insulin; Z89.512 Acquired absence of left leg below knee; Z68.37 Body mass index [BMI] 37.0-37.9, adult
CPT/HCPCS: 36415; 36600; 71045; 80048; 80053; 80307; 80320; 81001; 82010; 82805; 82962; 83036; 83605; 83690; 83735; 83930; 84484; 85025; 85610; 85730; 87040; 87086; 87426; 96361; 96374; 96375; 96376; C9113; G0378; J1815; J2405; J3480; J3490

== ENCOUNTER 2023-07-04 07:37 | Inpatient (IN) | payer MEDICAID ==
[~2023-07-04] VITALS: Ht 205.7 cm; Wt 115.5 kg
[~2023-07-04 07:37] MED LIST changes: +CARV6.2551 PO; -CEPH-510 PO; -CLIN300C70 PO; +GABA800T97 PO; -IBUP-1456 PO; +METF-372 PO; +POTA-228 PO; +PREG-111 PO; +SERT25TA28 PO; +SUCR1TAB22 OR
[2023-07-04 08:00] VITALS: PULSE 102; RESP 12; O2SAT 99
[2023-07-04] MEDS ORDERED: SODIUM CHLORIDE 0.9% 1,000 ML IVB ONE (08:15)
[2023-07-04] MEDS ORDERED: KETOROLAC TROMETH 30 MG/ML 1ML VIAL IV ONE (08:15)
[2023-07-04] MEDS ORDERED: ONDANSETRON HCL 4 MG/2 ML VIAL IV ONE (08:15)
[2023-07-04 08:33] LABS: Basophils # (auto) 0 10 ^3/uL (0-0.2); Basophils % (auto) 0.6 % (0.0-2.0); Eosinophils # (auto) 0 10 ^3/uL (0-0.8); Eosinophils % (auto) 0.4 % (0.0-7.0); Hematocrit 41.6 % (41.0-53.0); Hemoglobin 14.3 g/dL (13.5-17.5); Lymphocytes # (auto) 1.2 10 ^3/uL (0.4-5.4); Lymphocytes % (auto) 16.8 % (10.0-50.0); Mean Corpuscular Hemoglobin 30.2 pg (28.0-32.0); Mean Corpuscular Hgb Conc. 34.5 g/dL (32.0-36.0); Mean Corpuscular Volume 87.6 fL (80.0-100.0); Monocytes # (auto) 0.3 10 ^3/uL (0-1.3); Monocytes % (auto) 4.8 % (0.0-12.0); Neutrophils # (auto) 5.6 10 ^3/uL (1.6-8.6); Neutrophils % (auto) 77.4 % (37.0-80.0); Red Blood Cells 4.75 10^6/uL (4.5-5.90); Red Cell Distribution Width 13.3 % (11.8-14.3); White Blood Cell 7.3 10^3/uL (4.4-10.8)
[2023-07-04 08:59] LABS: Alanine Aminotransferase 16 U/L (7-40); Albumin 5.1 g/dL (3.2-4.8); Alkaline Phosphatase 102 U/L (46-116); Anion Gap 12 (5-15); Aspartate Aminotransferase 10 U/L (13-40); BUN/Creatinine Ratio 14.6 (10.0-20.0); Bilirubin, Total 0.6 mg/dL (0.2-1.0); Blood Urea Nitrogen 12 mg/dL (9-23); Calcium 10.2 mg/dL (8.5-10.1); Carbon Dioxide 23 mmol/L (20-30); Chloride 100 mmol/L (98-107); Glucose 262 mg/dL (74-106); Potassium 4.2 mmol/L (3.5-5.1); Sodium 135 mmol/L (136-145); Total Protein 8.7 g/dL (5.7-8.2)
[2023-07-04] MEDS ORDERED: MAALOX PLUS or MAALOX 30 ML PO ONE (11:30)
[2023-07-04] MEDS ORDERED: LIDOCAINE VISCOUS 2% 15ML UD PO ONE (11:30)
[2023-07-04] MEDS ORDERED: DONNATAL 5ml ORAL Elix (BELLADONNA ALK-PHENOBARB) PO ONE (11:30)
[2023-07-04 12:55] LABS: Amphetamine Screen, Urine Neg (NEGATIVE); Barbiturate Scree,Urine Neg (NEGATIVE); Benzodiazephine Screen, Urine Neg (NEGATIVE); Cocaine Screen, Urine Neg (NEGATIVE); Opiate Scree,Urine Neg (NEGATIVE)
[2023-07-04 12:56] LABS: Cannabinoid Screen, Urine Pos (NEGATIVE); Phencyclidine Screen, Urine Neg (NEGATIVE)
[2023-07-04 13:10] LABS: Urine Bacteria NONE SEEN /hpf (None Seen); Urine Blood Negative /uL (Negative); Urine Clarity Clear (Clear); Urine Protein, UAD 2+ (Negative); Urine Specific Gravity 1.027 (1.001-1.035); Urine Urobilinogen Normal (Negative); Urine WBC <1 /hpf (0 - 3)
[2023-07-04 13:11] LABS: Urine Color Yellow (Yellow)
[2023-07-04 13:46] LABS: Lipase 30 U/L (12-53); Magnesium 1.6 mg/dL (1.6-2.6)
[2023-07-04 14:21] LABS: Base Excess -4.4 mmol/L (-2.0-2.0)
[2023-07-04] MEDS ORDERED: chlorproMAZINE HCL 25 MG/1 ML AMP IV ONE (14:30)
[2023-07-04] MEDS ORDERED: chlorproMAZINE INECTION 25 MG in SODIUM CHL 0.9% 50 ML IV ONE (15:00)
[2023-07-04 15:24] LABS: Anion Gap 16 (5-15); Carbon Dioxide 19 mmol/L (20-30); Chloride 100 mmol/L (98-107); Potassium 3.9 mmol/L (3.5-5.1); Sodium 135 mmol/L (136-145)
[2023-07-04 15:25] LABS: Calcium 9.7 mg/dL (8.5-10.1)
[2023-07-04 15:29] LABS: Glucose 281 mg/dL (74-106)
[2023-07-04 15:30] LABS: BUN/Creatinine Ratio 12.4 (10.0-20.0); Blood Urea Nitrogen 11 mg/dL (9-23)
[2023-07-04] MEDS ORDERED: InsuLIN REG 1unit/0.01ml Soln (100units/ml) IV ONE (16:00)
[2023-07-04] MEDS ORDERED: LACTATED RINGER'S 2,000 ML IV ONE (16:00)
[2023-07-04] MEDS ORDERED: ACETAMINOPHEN 500 MG TAB PO PRN (17:00)
[2023-07-04] MEDS ORDERED: DEXTROSE (50%) 50ML SYRG IV PRN (17:00)
[2023-07-04] MEDS: ACCU-CHEK COMFORT CURVE STRIP VI SCH ×2 (18:18→22:38)
[2023-07-04] MEDS: InsuLIN REG 1unit/0.01ml Soln (100units/ml) SC SCH ×2 (18:29→22:35)
[2023-07-04] MEDS: SUCRALFATE 1 GM/10 ML ORAL SUSP GT SCH ×2 (18:30→22:19)
[2023-07-04 19:51] VITALS: PULSE 124; RESP 15; O2SAT 96
[2023-07-04] MEDS ORDERED: LABETALOL HCL 5 MG/ML 4ML SYRINGE IV PRN (20:30)
[2023-07-04] MEDS: ONDANSETRON HCL 4 MG/2 ML VIAL IV PRN (20:35)
[2023-07-04] MEDS: CARVEDILOL 3.125 MG TAB PO SCH (20:36)
[2023-07-04 21:20] LABS: Chloride 101 mmol/L (98-107); Potassium 4.3 mmol/L (3.5-5.1); Sodium 137 mmol/L (136-145)
[2023-07-04 21:21] LABS: Anion Gap 16 (5-15); Calcium 9.5 mg/dL (8.7-10.4); Carbon Dioxide 20 mmol/L (20-30)
[2023-07-04 21:26] LABS: BUN/Creatinine Ratio 12.6 (10.0-20.0); Blood Urea Nitrogen 12 mg/dL (9-23); Glucose 253 mg/dL (74-106)
[2023-07-04] MEDS: METOCLOPRAMIDE HCL 5MG/ml INJ 2ml VIAL IV PRN (21:54)
[2023-07-04] MEDS: PANTOPRAZOLE 40 MG TAB PO SCH ×2 (22:00→22:19)
[2023-07-04] MEDS: PREGABALIN CAPSULE 75 MG CAP PO SCH (22:19)
[2023-07-04] MEDS: MORPHINE SULFATE INJ 2 MG/ml SYRG IV PRN (22:20)
[2023-07-04 23:02] VITALS: BP_SYST 152; BP_SYST 187; BP_DIAS 126; BP_DIAS 92; PULSE 103; PULSE 117; RESP 18; RESP 20; TEMP 36.4; O2SAT 100; O2SAT 98
[2023-07-04] MEDS ORDERED: SUCR1TAB PO (23:05)
[2023-07-04] MEDS ORDERED: GEMF-66 PO (23:05)
[2023-07-04] MEDS ORDERED: ONDA-188 PO (23:05)
[2023-07-04] MEDS ORDERED: ATOR40TA52 PO (23:05)
[2023-07-04] MEDS ORDERED: HYDR-4072 (23:08)
[2023-07-04 23:15] VITALS: BP 146/87; PULSE 102
[2023-07-04] MEDS: LACTATED RINGER'S 1,000 ML IV SCH (23:35)
[2023-07-05] MEDS: LACTATED RINGER'S 1,000 ML IV SCH ×3 (03:00→23:00)
[2023-07-05] MEDS: METOCLOPRAMIDE HCL 5MG/ml INJ 2ml VIAL IV PRN ×3 (04:20→17:37)
[2023-07-05] MEDS: MORPHINE SULFATE INJ 2 MG/ml SYRG IV PRN ×4 (04:28→21:38)
[2023-07-05 05:00] VITALS: BP 160/99; PULSE 94; RESP 20; TEMP 97.9; O2SAT 98
[2023-07-05 05:57] LABS: Anion Gap 13 (5-15); Carbon Dioxide 24 mmol/L (20-30); Chloride 98 mmol/L (98-107); Potassium 3.8 mmol/L (3.5-5.1); Sodium 135 mmol/L (136-145)
[2023-07-05 05:58] LABS: Basophils # (auto) 0 10 ^3/uL (0-0.2); Basophils % (auto) 0.3 % (0.0-2.0); Calcium 9.6 mg/dL (8.5-10.1); Eosinophils # (auto) 0 10 ^3/uL (0-0.8); Eosinophils % (auto) 0.4 % (0.0-7.0); Hematocrit 41.2 % (41.0-53.0); Hemoglobin 14.1 g/dL (13.5-17.5); Lymphocytes # (auto) 1.8 10 ^3/uL (0.4-5.4); Lymphocytes % (auto) 20.3 % (10.0-50.0); Mean Corpuscular Hemoglobin 29.9 pg (28.0-32.0); Mean Corpuscular Hgb Conc. 34.2 g/dL (32.0-36.0); Mean Corpuscular Volume 87.5 fL (80.0-100.0); Monocytes # (auto) 0.8 10 ^3/uL (0-1.3); Monocytes % (auto) 8.8 % (0.0-12.0); Neutrophils # (auto) 6.3 10 ^3/uL (1.6-8.6); Neutrophils % (auto) 70.2 % (37.0-80.0); Nucleated Red Blood Cells % 0.2 %; Red Blood Cells 4.71 10^6/uL (4.5-5.90); Red Cell Distribution Width 13.3 % (11.8-14.3)
[2023-07-05 06:03] LABS: BUN/Creatinine Ratio 11.6 (10.0-20.0); Blood Urea Nitrogen 11 mg/dL (9-23); Glucose 170 mg/dL (74-106)
[2023-07-05] MEDS: SUCRALFATE 1 GM/10 ML ORAL SUSP GT SCH ×4 (06:41→21:38)
[2023-07-05] MEDS: ACCU-CHEK COMFORT CURVE STRIP VI SCH ×4 (06:45→21:40)
[2023-07-05] MEDS: ONDANSETRON HCL 4 MG/2 ML VIAL IV PRN (07:05)
[2023-07-05] MEDS: InsuLIN REG 1unit/0.01ml Soln (100units/ml) SC SCH ×4 (07:11→22:08)
[2023-07-05 08:00] VITALS: PULSE 96; RESP 22; O2SAT 98
[2023-07-05 08:30] VITALS: BP 155/91; PULSE 100; RESP 20; TEMP 97.7; O2SAT 97
[2023-07-05] MEDS: HYDROcodone-ACET 5/325MG TAB PO PRN ×3 (09:03→23:49)
[2023-07-05] MEDS ORDERED: GABAPENTIN 400 MG CAP PO SCH (10:00)
[2023-07-05] MEDS: LOSARTAN POTASSIUM 25 MG TAB PO SCH (10:45)
[2023-07-05] MEDS: PREGABALIN CAPSULE 75 MG CAP PO SCH ×2 (10:45→22:02)
[2023-07-05] MEDS: CARVEDILOL 3.125 MG TAB PO SCH ×2 (10:46→21:39)
[2023-07-05 12:30] VITALS: BP 165/83; PULSE 93; RESP 18; TEMP 98.1; O2SAT 96
[2023-07-05] MEDS: metroNIDAZOLE 500MG/100ML 100 ML IV SCH ×2 (14:52→21:39)
[2023-07-05 16:41] VITALS: BP 100/69; PULSE 87; RESP 19; TEMP 98.2; O2SAT 97
[2023-07-05 20:00] VITALS: BP 105/83; PULSE 93; PULSE 96; RESP 18; TEMP 36.8; O2SAT 100
[2023-07-05] MEDS: PANTOPRAZOLE 40 MG TAB PO SCH (21:39)
[2023-07-06] VITALS (7 sets, daily range): BP systolic 108–148; BP diastolic 69–90; PULSE 76–95; RESP 16–20; TEMP 36.7; O2SAT 96–99
[2023-07-06] MEDS: LACTATED RINGER'S 1,000 ML IV SCH ×2 (01:41→19:00)
[2023-07-06] MEDS: MORPHINE SULFATE INJ 2 MG/ml SYRG IV PRN ×6 (01:49→22:08)
[2023-07-06] MEDS: METOCLOPRAMIDE HCL 5MG/ml INJ 2ml VIAL IV PRN ×3 (02:47→22:06)
[2023-07-06] MEDS: SUCRALFATE 1 GM/10 ML ORAL SUSP GT SCH ×4 (06:08→21:53)
[2023-07-06] MEDS: metroNIDAZOLE 500MG/100ML 100 ML IV SCH ×3 (06:08→21:40)
[2023-07-06] MEDS: ACCU-CHEK COMFORT CURVE STRIP VI SCH ×4 (06:34→22:13)
[2023-07-06] MEDS: InsuLIN REG 1unit/0.01ml Soln (100units/ml) SC SCH ×4 (06:38→22:48)
[2023-07-06] MEDS: HYDROcodone-ACET 5/325MG TAB PO PRN (07:01)
[2023-07-06] MEDS: ONDANSETRON HCL 4 MG/2 ML VIAL IV PRN ×2 (07:17→13:05)
[2023-07-06] MEDS: PREGABALIN CAPSULE 75 MG CAP PO SCH ×2 (10:04→21:40)
[2023-07-06] MEDS: CARVEDILOL 3.125 MG TAB PO SCH ×2 (10:04→22:09)
[2023-07-06] MEDS: LOSARTAN POTASSIUM 25 MG TAB PO SCH (10:05)
[2023-07-06] MEDS: PANTOPRAZOLE 40 MG TAB PO SCH ×2 (10:05→21:41)
[2023-07-06] MEDS: HYDROcodone-ACET 10/325MG TAB PO PRN (13:07)
[2023-07-07] VITALS (8 sets, daily range): BP systolic 121–187; BP diastolic 78–119; PULSE 83–107; RESP 16–20; TEMP 97.6–98.8; O2SAT 96–98
[2023-07-07] MEDS: LACTATED RINGER'S 1,000 ML IV SCH ×2 (00:18→15:00)
[2023-07-07] MEDS: MORPHINE SULFATE INJ 2 MG/ml SYRG IV PRN ×5 (02:32→21:41)
[2023-07-07] MEDS: ONDANSETRON HCL 4 MG/2 ML VIAL IV PRN ×3 (03:22→21:37)
[2023-07-07] MEDS: metroNIDAZOLE 500MG/100ML 100 ML IV SCH ×3 (06:44→21:43)
[2023-07-07] MEDS: SUCRALFATE 1 GM/10 ML ORAL SUSP GT SCH ×4 (06:44→21:43)
[2023-07-07] MEDS: ACCU-CHEK COMFORT CURVE STRIP VI SCH ×4 (06:46→21:43)
[2023-07-07] MEDS: InsuLIN REG 1unit/0.01ml Soln (100units/ml) SC SCH ×4 (07:01→22:02)
[2023-07-07] MEDS: METOCLOPRAMIDE HCL 5MG/ml INJ 2ml VIAL IV PRN ×2 (08:31→16:45)
[2023-07-07] MEDS: LOSARTAN POTASSIUM 25 MG TAB PO SCH (10:42)
[2023-07-07] MEDS: CARVEDILOL 3.125 MG TAB PO SCH ×2 (10:42→21:43)
[2023-07-07] MEDS: PANTOPRAZOLE 40 MG TAB PO SCH ×2 (10:43→21:43)
[2023-07-07] MEDS: PREGABALIN CAPSULE 75 MG CAP PO SCH ×2 (10:47→21:43)
[2023-07-07] MEDS ORDERED: MAALOX PLUS or MAALOX 30 ML PO ONE (11:15)
[2023-07-07 11:29] LABS: Urine Bacteria NONE SEEN /hpf (None Seen); Urine Blood TRACE /uL (Negative); Urine Clarity Clear (Clear); Urine Color Yellow (Yellow); Urine Mucus FEW (None Seen); Urine Protein, UAD 3+ (Negative); Urine Specific Gravity 1.024 (1.001-1.035); Urine Urobilinogen Normal (Negative); Urine WBC 2 /hpf (0 - 3); Urine pH 6.5 (5.0-8.0)
[2023-07-07] MEDS: MAALOX PLUS or MAALOX 30 ML PO PRN (17:54)
[2023-07-08] MEDS: LACTATED RINGER'S 1,000 ML IV SCH ×3 (01:26→22:15)
[2023-07-08] MEDS: MORPHINE SULFATE INJ 2 MG/ml SYRG IV PRN ×3 (04:11→20:04)
[2023-07-08] MEDS: METOCLOPRAMIDE HCL 5MG/ml INJ 2ml VIAL IV PRN ×2 (04:11→12:02)
[2023-07-08 05:15] VITALS: BP 136/96; PULSE 83; RESP 20; TEMP 98; O2SAT 97
[2023-07-08] MEDS: metroNIDAZOLE 500MG/100ML 100 ML IV SCH ×3 (05:48→21:50)
[2023-07-08] MEDS: SUCRALFATE 1 GM/10 ML ORAL SUSP GT SCH ×4 (05:56→21:50)
[2023-07-08] MEDS: MAALOX PLUS or MAALOX 30 ML PO PRN ×2 (05:56→12:02)
[2023-07-08] MEDS: ACCU-CHEK COMFORT CURVE STRIP VI SCH ×4 (05:57→22:00)
[2023-07-08] MEDS: InsuLIN REG 1unit/0.01ml Soln (100units/ml) SC SCH ×4 (06:03→22:00)
[2023-07-08 08:00] VITALS: PULSE 88; RESP 20; O2SAT 98
[2023-07-08 09:00] VITALS: BP 127/77; PULSE 88; RESP 20; TEMP 98; O2SAT 98
[2023-07-08] MEDS: PANTOPRAZOLE 40 MG TAB PO SCH ×2 (09:02→21:50)
[2023-07-08] MEDS: ONDANSETRON HCL 4 MG/2 ML VIAL IV PRN ×2 (09:02→20:04)
[2023-07-08] MEDS: LOSARTAN POTASSIUM 25 MG TAB PO SCH (09:03)
[2023-07-08] MEDS: PREGABALIN CAPSULE 75 MG CAP PO SCH ×2 (09:03→21:50)
[2023-07-08] MEDS: CARVEDILOL 3.125 MG TAB PO SCH ×2 (09:03→21:54)
[2023-07-08] MEDS: HYDROcodone-ACET 10/325MG TAB PO PRN (12:03)
[2023-07-08 13:00] VITALS: BP 125/83; PULSE 96; RESP 19; TEMP 97.9; O2SAT 98
[2023-07-08 17:00] VITALS: BP 120/77; PULSE 85; RESP 18; TEMP 97.8; O2SAT 100
[2023-07-08 21:54] VITALS: BP_SYST 130; BP_SYST 131; BP_DIAS 46; BP_DIAS 77; PULSE 101; PULSE 68; RESP 16; TEMP 97.5; TEMP 97.6; O2SAT 96; O2SAT 98
[2023-07-09] MEDS: METOCLOPRAMIDE HCL 5MG/ml INJ 2ml VIAL IV PRN (00:47)
[2023-07-09] MEDS: MORPHINE SULFATE INJ 2 MG/ml SYRG IV PRN (00:48)
[2023-07-09 05:00] VITALS: BP 119/56; PULSE 72; RESP 16; TEMP 97.6; O2SAT 98
[2023-07-09] MEDS: metroNIDAZOLE 500MG/100ML 100 ML IV SCH ×2 (05:43→14:09)
[2023-07-09] MEDS: HYDROcodone-ACET 10/325MG TAB PO PRN ×2 (05:51→14:10)
[2023-07-09] MEDS: ONDANSETRON HCL 4 MG/2 ML VIAL IV PRN (05:52)
[2023-07-09] MEDS: SUCRALFATE 1 GM/10 ML ORAL SUSP GT SCH ×2 (06:00→11:30)
[2023-07-09] MEDS: ACCU-CHEK COMFORT CURVE STRIP VI SCH ×2 (06:01→11:30)
[2023-07-09] MEDS: InsuLIN REG 1unit/0.01ml Soln (100units/ml) SC SCH ×2 (06:04→11:30)
[2023-07-09 08:00] VITALS: PULSE 80; RESP 18; O2SAT 96
[2023-07-09 08:41] LABS: Basophils # (auto) 0.1 10 ^3/uL (0-0.2); Basophils % (auto) 0.8 % (0.0-2.0); Eosinophils # (auto) 0.1 10 ^3/uL (0-0.8); Hemoglobin 12.9 g/dL (13.5-17.5); Lymphocytes # (auto) 2.1 10 ^3/uL (0.4-5.4); Lymphocytes % (auto) 22.1 % (10.0-50.0); Mean Corpuscular Hemoglobin 29.2 pg (28.0-32.0); Monocytes # (auto) 0.8 10 ^3/uL (0-1.3); Monocytes % (auto) 8.3 % (0.0-12.0); Neutrophils # (auto) 6.4 10 ^3/uL (1.6-8.6); Neutrophils % (auto) 67.8 % (37.0-80.0); Red Blood Cells 4.42 10^6/uL (4.5-5.90); Red Cell Distribution Width 12.9 % (11.8-14.3); White Blood Cell 9.5 10^3/uL (4.4-10.8)
[2023-07-09 08:53] LABS: Chloride 97 mmol/L (98-107); Potassium 3.3 mmol/L (3.5-5.1); Sodium 135 mmol/L (136-145)
[2023-07-09 08:54] LABS: Anion Gap 8 (5-15); Carbon Dioxide 30 mmol/L (20-30)
[2023-07-09 08:59] LABS: BUN/Creatinine Ratio 12.5 (10.0-20.0); Blood Urea Nitrogen 8 mg/dL (9-23); Glucose 142 mg/dL (74-106)
[2023-07-09 09:00] VITALS: BP 130/78; PULSE 77; RESP 16; TEMP 98; O2SAT 94
[2023-07-09] MEDS: PANTOPRAZOLE 40 MG TAB PO SCH (09:42)
[2023-07-09] MEDS: PREGABALIN CAPSULE 75 MG CAP PO SCH (09:42)
[2023-07-09] MEDS: CARVEDILOL 3.125 MG TAB PO SCH (09:43)
[2023-07-09] MEDS: LOSARTAN POTASSIUM 25 MG TAB PO SCH (09:43)
[2023-07-09] MEDS: LACTATED RINGER'S 1,000 ML IV SCH (12:00)
[2023-07-09] MEDS ORDERED: HYDR-4798 PO (15:25)
[2023-07-09] MEDS ORDERED: PANT40T PO (15:25)
[2023-07-09] MEDS ORDERED: POTASSIUM EFFERVESENT TAB 25 MEQ PO ONE (15:30)
[2023-07-09 16:18] VITALS: BP 130/78; PULSE 77
== END 2023-07-09 17:17 | disposition home or self-care (01) | DRG 241 ==
LOC: ER 07:37 → EDBD 07:37 → OVERFLOW 17:00 → WEST WING 17:00
PROVIDERS: ADMIT Nurse Practitioner Acute Care; ATTEND Nurse Practitioner Acute Care
DX: K29.70 Gastritis, unspecified, without bleeding (principal); E87.20 Acidosis, unspecified; K31.84 Gastroparesis; E11.40 Type 2 diabetes mellitus with diabetic neuropathy, unspecified; E11.43 Type 2 diabetes mellitus with diabetic autonomic (poly)neuropathy; I10 Essential (primary) hypertension; E78.5 Hyperlipidemia, unspecified; E11.65 Type 2 diabetes mellitus with hyperglycemia; F12.10 Cannabis abuse, uncomplicated; Z82.0 Family history of epilepsy and other diseases of the nervous system; Z89.512 Acquired absence of left leg below knee; Z87.11 Personal history of peptic ulcer disease
CPT/HCPCS: 36415; 36600; 74177; 80048; 80053; 80307; 81001; 82805; 82962; 83690; 83735; 85025; 96365; 96372; 96375; 96376; G0378; J1815; J1885; J2405; J3490

== ENCOUNTER 2023-07-20 10:37 | Inpatient (IN) | payer MEDICAID ==
[~2023-07-20] VITALS: Ht 205.7 cm; Wt 117.4 kg
[~2023-07-20 10:37] MED LIST changes: +ATOR40TA52 PO; +GEMF-66 PO; +HYDR-4072; +HYDR-4798 PO; +ONDA-188 PO; +PANT40T PO
[2023-07-20 12:18] VITALS: PULSE 93; RESP 12; O2SAT 98
[2023-07-20 12:19] LABS: Basophils # (auto) 0.1 10 ^3/uL (0-0.2); Eosinophils # (auto) 0.3 10 ^3/uL (0-0.8); Eosinophils % (auto) 4.6 % (0.0-7.0); Hematocrit 38.5 % (41.0-53.0); Hemoglobin 12.7 g/dL (13.5-17.5); Lymphocytes # (auto) 2.3 10 ^3/uL (0.4-5.4); Lymphocytes % (auto) 36.8 % (10.0-50.0); Mean Corpuscular Hemoglobin 29.8 pg (28.0-32.0); Mean Corpuscular Hgb Conc. 33.1 g/dL (32.0-36.0); Mean Corpuscular Volume 90.1 fL (80.0-100.0); Monocytes # (auto) 0.5 10 ^3/uL (0-1.3); Monocytes % (auto) 7.5 % (0.0-12.0); Neutrophils # (auto) 3.1 10 ^3/uL (1.6-8.6); Neutrophils % (auto) 50.1 % (37.0-80.0); Nucleated Red Blood Cells % 0.1 %; Red Blood Cells 4.27 10^6/uL (4.5-5.90); Red Cell Distribution Width 13.9 % (11.8-14.3); White Blood Cell 6.3 10^3/uL (4.4-10.8)
[2023-07-20] MEDS ORDERED: DEXTROSE (50%) 50ML SYRG IV PRN (12:30)
[2023-07-20] MEDS ORDERED: ACETAMINOPHEN 325 MG TAB PO PRN (12:30)
[2023-07-20 12:35] LABS: INR 1.04 (0.9-1.15); Partial Thromboplastin Time 27.9 SEC (24.5-34.5); Prothrombin Time 10.9 sec (9.3-11.8)
[2023-07-20 12:38] LABS: Alanine Aminotransferase 10 U/L (7-40); Alkaline Phosphatase 72 U/L (46-116); Anion Gap 6 (5-15); Aspartate Aminotransferase 10 U/L (13-40); BUN/Creatinine Ratio 7.8 (10.0-20.0); Bilirubin, Total 0.4 mg/dL (0.2-1.0); Blood Urea Nitrogen 7 mg/dL (9-23); Carbon Dioxide 25 mmol/L (20-30); Chloride 104 mmol/L (98-107); Glucose 237 mg/dL (74-106); Potassium 4.8 mmol/L (3.5-5.1); Sodium 135 mmol/L (136-145); Total Protein 7.5 g/dL (5.7-8.2)
[2023-07-20] MEDS ORDERED: VANCOMYCIN PER PHARMACY 0 MG IV SCH (13:45)
[2023-07-20] MEDS ORDERED: PIPERACILLIN-TAZOB 3.375GM 100 ML IV ONE ×3 (13:45→18:06)
[2023-07-20] MEDS: VANCOMYCIN 1GM/200ML 250 ML IV SCH ×2 (15:00→17:21)
[2023-07-20] MEDS ORDERED: SUCRALFATE 1 GM TAB PO ONE ×2 (17:00→22:04)
[2023-07-20] MEDS ORDERED: InsuLIN REG 1unit/0.01ml Soln (100units/ml) ONE ×2 (17:00→22:06)
[2023-07-20] MEDS: SUCRALFATE 1 GM TAB PO SCH ×2 (17:01→22:08)
[2023-07-20] MEDS: InsuLIN REG 1unit/0.01ml Soln (100units/ml) SC SCH ×2 (17:01→22:12)
[2023-07-20] MEDS: HYDROcodone-ACET 5/325MG TAB PO PRN (17:01)
[2023-07-20] MEDS ORDERED: HYDROcodone-ACET 5/325MG TAB ONE (17:01)
[2023-07-20] MEDS: ACCU-CHEK COMFORT CURVE STRIP VI SCH ×2 (17:02→21:56)
[2023-07-20] MEDS ORDERED: VANCOMYCIN 1GM/200ML 250 ML IV ONE (17:21)
[2023-07-20] MEDS: PIPERACILLIN-TAZOB 3.375GM 100 ML IV SCH (18:17)
[2023-07-20 20:00] VITALS: BP 134/73; PULSE 84; RESP 16; TEMP 97.8
[2023-07-20 21:42] VITALS: BP 134/73; PULSE 84; RESP 16; TEMP 97.8; O2SAT 98
[2023-07-20] MEDS ORDERED: CARVEDILOL 3.125 MG TAB ONE (21:43)
[2023-07-20] MEDS ORDERED: PANTOPRAZOLE 40 MG TAB PO ONE (21:44)
[2023-07-20] MEDS ORDERED: OXYCODONE W/ ACETAMINOPHEN 5/325MG TABLET ONE (21:44)
[2023-07-20] MEDS ORDERED: PREGABALIN CAPSULE 75 MG CAP ONE (21:45)
[2023-07-20] MEDS ORDERED: GEMFIBROZIL 600 MG TAB ONE (21:45)
[2023-07-20] MEDS ORDERED: ATORVASTATIN 20 MG TAB ONE (21:45)
[2023-07-20] MEDS ORDERED: SUCRALFATE 1 GM/10 ML ORAL SUSP ONE (21:45)
[2023-07-20] MEDS: OXYCODONE W/ ACETAMINOPHEN 5/325MG TABLET PO SCH (21:54)
[2023-07-20] MEDS: ATORVASTATIN 20 MG TAB PO SCH (21:54)
[2023-07-20] MEDS: PANTOPRAZOLE 40 MG TAB PO SCH (21:55)
[2023-07-20] MEDS: CARVEDILOL 3.125 MG TAB PO SCH (21:55)
[2023-07-20] MEDS: GEMFIBROZIL 600 MG TAB PO SCH (21:56)
[2023-07-20] MEDS: PREGABALIN CAPSULE 75 MG CAP PO SCH (21:56)
[2023-07-21] VITALS (7 sets, daily range): BP systolic 109–143; BP diastolic 62–88; PULSE 73–82; RESP 16–22; TEMP 97.4–98.7; O2SAT 93–97
[2023-07-21] MEDS: PIPERACILLIN-TAZOB 3.375GM 100 ML IV SCH ×5 (00:08→23:53)
[2023-07-21 06:32] LABS: Anion Gap 6 (5-15); Carbon Dioxide 27 mmol/L (20-30); Chloride 104 mmol/L (98-107); Potassium 4.4 mmol/L (3.5-5.1); Sodium 137 mmol/L (136-145)
[2023-07-21 06:33] LABS: Calcium 8.6 mg/dL (8.7-10.4)
[2023-07-21 06:38] LABS: BUN/Creatinine Ratio 13.2 (10.0-20.0); Blood Urea Nitrogen 10 mg/dL (9-23); Glucose 154 mg/dL (74-106)
[2023-07-21] MEDS: HYDROcodone-ACET 5/325MG TAB PO PRN ×3 (06:48→17:28)
[2023-07-21] MEDS: SUCRALFATE 1 GM TAB PO SCH ×4 (06:48→21:29)
[2023-07-21] MEDS: ACCU-CHEK COMFORT CURVE STRIP VI SCH ×4 (06:50→21:53)
[2023-07-21] MEDS: InsuLIN REG 1unit/0.01ml Soln (100units/ml) SC SCH ×4 (07:01→21:50)
[2023-07-21] MEDS: VANCOMYCIN 1GM/200ML 250 ML IV SCH ×3 (08:43→21:30)
[2023-07-21] MEDS: LOSARTAN POTASSIUM 25 MG TAB PO SCH (08:48)
[2023-07-21] MEDS: SERTRALINE HCL 50 MG TAB PO SCH (08:48)
[2023-07-21] MEDS: PANTOPRAZOLE 40 MG TAB PO SCH ×2 (08:49→21:30)
[2023-07-21] MEDS: GEMFIBROZIL 600 MG TAB PO SCH ×2 (08:49→21:30)
[2023-07-21] MEDS: PREGABALIN CAPSULE 75 MG CAP PO SCH ×2 (08:49→21:29)
[2023-07-21] MEDS: CARVEDILOL 3.125 MG TAB PO SCH ×2 (08:49→21:54)
[2023-07-21] MEDS: ENOXAPARIN SOD 40 MG/0.4 ML SYRINGE SC SCH (08:50)
[2023-07-21] MEDS: OXYCODONE W/ ACETAMINOPHEN 5/325MG TABLET PO SCH ×2 (09:51→21:29)
[2023-07-21] MEDS ORDERED: GABAPENTIN 400 MG CAP PO SCH (10:00)
[2023-07-21] MEDS ORDERED: CLINDAMYCIN 600MG IV 50 ML IV SCH (10:00)
[2023-07-21] MEDS: MORPHINE SULFATE INJ 2 MG/ml SYRG IV PRN ×2 (14:11→20:11)
[2023-07-21] MEDS: ATORVASTATIN 20 MG TAB PO SCH (21:30)
[2023-07-21] MEDS: INSULIN LANTUS (GLARGINE) 1 /0.01ml (100units/ml) SC SCH (21:52)
[2023-07-22] MEDS: MORPHINE SULFATE INJ 2 MG/ml SYRG IV PRN ×3 (03:56→17:16)
[2023-07-22 05:00] VITALS: BP 131/84; PULSE 74; RESP 22; TEMP 97.7; O2SAT 97
[2023-07-22] MEDS: PIPERACILLIN-TAZOB 3.375GM 100 ML IV SCH ×3 (05:29→17:20)
[2023-07-22] MEDS: SUCRALFATE 1 GM TAB PO SCH ×4 (05:44→22:01)
[2023-07-22] MEDS: INSULIN LANTUS (GLARGINE) 1 /0.01ml (100units/ml) SC SCH ×2 (06:01→22:05)
[2023-07-22] MEDS: InsuLIN REG 1unit/0.01ml Soln (100units/ml) SC SCH ×4 (06:01→22:00)
[2023-07-22] MEDS: ACCU-CHEK COMFORT CURVE STRIP VI SCH ×4 (06:02→22:05)
[2023-07-22 06:56] LABS: Alanine Aminotransferase 10 U/L (7-40); Albumin 4.1 g/dL (3.2-4.8); Alkaline Phosphatase 64 U/L (46-116); Anion Gap 6 (5-15); Aspartate Aminotransferase 13 U/L (13-40); BUN/Creatinine Ratio 12.9 (10.0-20.0); Bilirubin, Total 0.5 mg/dL (0.2-1.0); Blood Urea Nitrogen 11 mg/dL (9-23); Carbon Dioxide 28 mmol/L (20-30); Chloride 103 mmol/L (98-107); Glucose 159 mg/dL (74-106); Potassium 4.7 mmol/L (3.5-5.1); Sodium 137 mmol/L (136-145); Total Protein 7.4 g/dL (5.7-8.2)
[2023-07-22 07:20] LABS: Basophils # (auto) 0.1 10 ^3/uL (0-0.2); Basophils % (auto) 2.2 % (0.0-2.0); Eosinophils # (auto) 0.3 10 ^3/uL (0-0.8); Eosinophils % (auto) 6.6 % (0.0-7.0); Hemoglobin 12.6 g/dL (13.5-17.5); Lymphocytes # (auto) 1.9 10 ^3/uL (0.4-5.4); Lymphocytes % (auto) 43.5 % (10.0-50.0); Mean Corpuscular Hemoglobin 29.8 pg (28.0-32.0); Mean Corpuscular Hgb Conc. 33.2 g/dL (32.0-36.0); Mean Corpuscular Volume 89.7 fL (80.0-100.0); Monocytes # (auto) 0.4 10 ^3/uL (0-1.3); Monocytes % (auto) 9.6 % (0.0-12.0); Neutrophils # (auto) 1.6 10 ^3/uL (1.6-8.6); Neutrophils % (auto) 38.1 % (37.0-80.0); Red Blood Cells 4.24 10^6/uL (4.5-5.90); Red Cell Distribution Width 13.9 % (11.8-14.3); White Blood Cell 4.3 10^3/uL (4.4-10.8)
[2023-07-22 08:51] VITALS: BP 122/72; PULSE 84; RESP 17; TEMP 98; O2SAT 97
[2023-07-22] MEDS: OXYCODONE W/ ACETAMINOPHEN 5/325MG TABLET PO SCH ×2 (10:00→22:01)
[2023-07-22] MEDS: VANCOMYCIN 1GM/200ML 250 ML IV SCH ×2 (10:09→20:33)
[2023-07-22] MEDS: PREGABALIN CAPSULE 75 MG CAP PO SCH ×2 (10:10→21:59)
[2023-07-22] MEDS: SERTRALINE HCL 50 MG TAB PO SCH (10:12)
[2023-07-22] MEDS: CARVEDILOL 3.125 MG TAB PO SCH ×2 (10:13→22:00)
[2023-07-22] MEDS: ENOXAPARIN SOD 40 MG/0.4 ML SYRINGE SC SCH (10:14)
[2023-07-22] MEDS: GEMFIBROZIL 600 MG TAB PO SCH ×2 (10:14→21:59)
[2023-07-22] MEDS: PANTOPRAZOLE 40 MG TAB PO SCH ×2 (10:14→22:01)
[2023-07-22] MEDS: MUPIROCIN 2% OINT 15gm or 22gm FOR MRSA NARES EACHNOSTRI SCH ×2 (10:14→22:05)
[2023-07-22] MEDS: LOSARTAN POTASSIUM 25 MG TAB PO SCH (10:14)
[2023-07-22] MEDS ORDERED: LIDOCAINE 1% (LOCAL ANESTH.) PF 5ml SDV ID ONE (15:15)
[2023-07-22 16:26] VITALS: BP 108/68; PULSE 85; RESP 17; TEMP 98.4; O2SAT 98
[2023-07-22 20:00] VITALS: BP 123/74; PULSE 98; RESP 16; TEMP 98.2; O2SAT 96
[2023-07-22 22:00] VITALS: BP_SYST 106; BP_SYST 123; BP_DIAS 68; BP_DIAS 74; PULSE 102; PULSE 81; RESP 16; TEMP 97.8; TEMP 98.2; O2SAT 96
[2023-07-22] MEDS: ATORVASTATIN 20 MG TAB PO SCH (22:01)
[2023-07-22] MEDS: SODIUM CHLOR 0.9% PF (SALINE LOCK) 10ML VIAL/SYR IV SCH (22:05)
[2023-07-23] MEDS: HYDROcodone-ACET 5/325MG TAB PO PRN ×2 (00:49→00:50)
[2023-07-23] MEDS: MORPHINE SULFATE INJ 2 MG/ml SYRG IV PRN ×4 (00:58→22:05)
[2023-07-23] MEDS: PIPERACILLIN-TAZOB 3.375GM 100 ML IV SCH ×3 (01:02→12:24)
[2023-07-23 05:00] VITALS: BP 121/75; PULSE 81; RESP 16; TEMP 98; O2SAT 97
[2023-07-23] MEDS: VANCOMYCIN 1GM/200ML 250 ML IV SCH ×2 (05:47→16:08)
[2023-07-23] MEDS: SUCRALFATE 1 GM TAB PO SCH ×4 (05:48→22:03)
[2023-07-23 06:50] LABS: Basophils # (auto) 0.1 10 ^3/uL (0-0.2); Eosinophils # (auto) 0.4 10 ^3/uL (0-0.8); Eosinophils % (auto) 7.5 % (0.0-7.0); Hematocrit 33.7 % (41.0-53.0); Hemoglobin 11.4 g/dL (13.5-17.5); Lymphocytes % (auto) 41.5 % (10.0-50.0); Mean Corpuscular Hemoglobin 29.7 pg (28.0-32.0); Mean Corpuscular Hgb Conc. 33.7 g/dL (32.0-36.0); Mean Corpuscular Volume 88.1 fL (80.0-100.0); Monocytes # (auto) 0.5 10 ^3/uL (0-1.3); Monocytes % (auto) 10.6 % (0.0-12.0); Neutrophils # (auto) 1.8 10 ^3/uL (1.6-8.6); Neutrophils % (auto) 38.4 % (37.0-80.0); Nucleated Red Blood Cells % 0.1 %; Red Blood Cells 3.83 10^6/uL (4.5-5.90); Red Cell Distribution Width 14.1 % (11.8-14.3); White Blood Cell 4.8 10^3/uL (4.4-10.8)
[2023-07-23 07:05] LABS: Chloride 105 mmol/L (98-107); Potassium 4.4 mmol/L (3.5-5.1); Sodium 137 mmol/L (136-145)
[2023-07-23 07:06] LABS: Anion Gap 7 (5-15); Carbon Dioxide 25 mmol/L (20-30)
[2023-07-23 07:07] LABS: Calcium 8.8 mg/dL (8.5-10.1)
[2023-07-23 07:12] LABS: Blood Urea Nitrogen 12 mg/dL (9-23); Glucose 139 mg/dL (74-106)
[2023-07-23 08:00] VITALS: BP 107/61; PULSE 72; RESP 20; TEMP 97.6; O2SAT 98
[2023-07-23] MEDS: OXYCODONE W/ ACETAMINOPHEN 5/325MG TABLET PO SCH ×2 (10:00→23:16)
[2023-07-23] MEDS: LOSARTAN POTASSIUM 25 MG TAB PO SCH (10:00)
[2023-07-23] MEDS: ENOXAPARIN SOD 40 MG/0.4 ML SYRINGE SC SCH (10:00)
[2023-07-23] MEDS: GEMFIBROZIL 600 MG TAB PO SCH ×2 (10:33→22:03)
[2023-07-23] MEDS: PANTOPRAZOLE 40 MG TAB PO SCH ×2 (10:34→22:04)
[2023-07-23] MEDS: PREGABALIN CAPSULE 75 MG CAP PO SCH ×2 (10:34→22:04)
[2023-07-23] MEDS: SERTRALINE HCL 50 MG TAB PO SCH (10:34)
[2023-07-23] MEDS: SODIUM CHLOR 0.9% PF (SALINE LOCK) 10ML VIAL/SYR IV SCH ×2 (10:35→22:02)
[2023-07-23] MEDS: CARVEDILOL 3.125 MG TAB PO SCH ×2 (10:35→22:03)
[2023-07-23] MEDS: MUPIROCIN 2% OINT 15gm or 22gm FOR MRSA NARES EACHNOSTRI SCH ×2 (10:38→22:02)
[2023-07-23] MEDS: InsuLIN REG 1unit/0.01ml Soln (100units/ml) SC SCH ×3 (11:30→21:55)
[2023-07-23 12:00] VITALS: BP 120/91; PULSE 85; RESP 20; TEMP 98.1; O2SAT 96
[2023-07-23] MEDS: ACCU-CHEK COMFORT CURVE STRIP VI SCH ×3 (12:24→21:54)
[2023-07-23 16:00] VITALS: BP 118/86; PULSE 100; RESP 20; TEMP 98.1; O2SAT 97
[2023-07-23 20:00] VITALS: PULSE 61; RESP 19; O2SAT 95
[2023-07-23] MEDS: INSULIN LANTUS (GLARGINE) 1 /0.01ml (100units/ml) SC SCH (21:59)
[2023-07-23 22:00] VITALS: BP 109/67; PULSE 61; RESP 19; TEMP 98.1; O2SAT 95
[2023-07-23] MEDS: ATORVASTATIN 20 MG TAB PO SCH (22:03)
[2023-07-24] MEDS: VANCOMYCIN 1GM/200ML 250 ML IV SCH (02:47)
[2023-07-24 05:00] VITALS: BP 97/59; PULSE 70; RESP 20; TEMP 97.4; O2SAT 97
[2023-07-24] MEDS: ACCU-CHEK COMFORT CURVE STRIP VI SCH (06:06)
[2023-07-24] MEDS: SUCRALFATE 1 GM TAB PO SCH (06:06)
[2023-07-24] MEDS: MORPHINE SULFATE INJ 2 MG/ml SYRG IV PRN (06:06)
[2023-07-24] MEDS: InsuLIN REG 1unit/0.01ml Soln (100units/ml) SC SCH (06:15)
[2023-07-24] MEDS: INSULIN LANTUS (GLARGINE) 1 /0.01ml (100units/ml) SC SCH (06:17)
[2023-07-24 08:00] VITALS: BP 123/81; PULSE 75; RESP 20; TEMP 97.9; O2SAT 98
[2023-07-24 09:34] LABS: Basophils # (auto) 0.1 10 ^3/uL (0-0.2); Basophils % (auto) 2.3 % (0.0-2.0); Eosinophils # (auto) 0.5 10 ^3/uL (0-0.8); Eosinophils % (auto) 9.4 % (0.0-7.0); Hematocrit 38.6 % (41.0-53.0); Hemoglobin 12.6 g/dL (13.5-17.5); Lymphocytes # (auto) 1.9 10 ^3/uL (0.4-5.4); Lymphocytes % (auto) 38.1 % (10.0-50.0); Mean Corpuscular Hemoglobin 29.4 pg (28.0-32.0); Mean Corpuscular Hgb Conc. 32.5 g/dL (32.0-36.0); Mean Corpuscular Volume 90.3 fL (80.0-100.0); Monocytes # (auto) 0.4 10 ^3/uL (0-1.3); Monocytes % (auto) 8.1 % (0.0-12.0); Neutrophils # (auto) 2.1 10 ^3/uL (1.6-8.6); Neutrophils % (auto) 42.1 % (37.0-80.0); Nucleated Red Blood Cells % 0.2 %; Red Blood Cells 4.28 10^6/uL (4.5-5.90); Red Cell Distribution Width 14.2 % (11.8-14.3)
[2023-07-24 09:55] LABS: Chloride 105 mmol/L (98-107); Potassium 4.6 mmol/L (3.5-5.1); Sodium 139 mmol/L (136-145)
[2023-07-24 09:56] LABS: Anion Gap 8 (5-15); Calcium 9.3 mg/dL (8.5-10.1); Carbon Dioxide 26 mmol/L (20-30)
[2023-07-24 10:01] LABS: BUN/Creatinine Ratio 16.7 (10.0-20.0); Blood Urea Nitrogen 12 mg/dL (9-23); Glucose 132 mg/dL (74-106)
[2023-07-24 10:50] LABS: Magnesium 1.8 mg/dL (1.6-2.6)
== END 2023-07-24 09:05 | disposition left against medical advice (07) | DRG 349 ==
LOC: ER 10:37 → OVERFLOW 12:24 → EAST 16:43
PROVIDERS: ADMIT Internal Medicine; ATTEND Internal Medicine
PROC: 02HV33Z Insertion of Infusion Device into Superior Vena Cava, Percutaneous Approach (ICD-10-PCS; principal; 2023-07-22)
DX: T87.44 Infection of amputation stump, left lower extremity (principal); E11.69 Type 2 diabetes mellitus with other specified complication; E11.40 Type 2 diabetes mellitus with diabetic neuropathy, unspecified; L03.116 Cellulitis of left lower limb; M86.9 Osteomyelitis, unspecified; E11.65 Type 2 diabetes mellitus with hyperglycemia; Z89.512 Acquired absence of left leg below knee; I10 Essential (primary) hypertension; E78.2 Mixed hyperlipidemia; F32.A Depression, unspecified; Y83.5 Amputation of limb(s) as the cause of abnormal reaction of the patient, or of later complication, without mention of misadventure at the time of the procedure; Z82.0 Family history of epilepsy and other diseases of the nervous system
CPT/HCPCS: 36415; 36569; 73718; 80048; 80053; 80202; 82962; 83036; 83735; 84443; 85025; 85610; 85730; 87040; 87081; 87205; 96365; G0378; J1815; J2543

== ENCOUNTER 2023-08-03 17:25 | Inpatient (IN) | payer MEDICAID, MEDICARE ==
[~2023-08-03] VITALS: Ht 205.7 cm; Wt 113.6 kg
[2023-08-03 18:43] LABS: Urine Bacteria FEW /hpf (None Seen); Urine Blood Negative /uL (Negative); Urine Clarity HAZY (Clear); Urine Color Yellow (Yellow); Urine Hyaline Cast FEW /lpf (0 - 2); Urine Mucus FEW (None Seen); Urine Protein, UAD 2+ (Negative); Urine Specific Gravity 1.011 (1.001-1.035); Urine Urobilinogen Normal (Negative); Urine WBC 4 /hpf (0 - 3); Urine pH 5.5 (5.0-8.0)
[2023-08-03] MEDS ORDERED: METOCLOPRAMIDE HCL 5MG/ml INJ 2ml VIAL IM ONE (18:45)
[2023-08-03 19:09] LABS: Alanine Aminotransferase 15 U/L (7-40); Albumin 4.6 g/dL (3.2-4.8); Alkaline Phosphatase 78 U/L (46-116); Anion Gap 19 (5-15); Aspartate Aminotransferase 18 U/L (13-40); BUN/Creatinine Ratio 11.5 (10.0-20.0); Bilirubin, Total 0.6 mg/dL (0.2-1.0); Blood Urea Nitrogen 26 mg/dL (9-23); Calcium 9.3 mg/dL (8.7-10.4); Carbon Dioxide 16 mmol/L (20-30); Chloride 100 mmol/L (98-107); Glucose 134 mg/dL (74-106); Lipase 22 U/L (12-53); Potassium 4.5 mmol/L (3.5-5.1); Sodium 135 mmol/L (136-145); Total Protein 7.9 g/dL (5.7-8.2)
[2023-08-03 19:15] LABS: Basophils # (auto) 0 10 ^3/uL (0-0.2); Basophils % (auto) 0.8 % (0.0-2.0); Eosinophils # (auto) 0.3 10 ^3/uL (0-0.8); Eosinophils % (auto) 5.8 % (0.0-7.0); Hematocrit 42.7 % (41.0-53.0); Hemoglobin 14.5 g/dL (13.5-17.5); Lymphocytes # (auto) 0.9 10 ^3/uL (0.4-5.4); Lymphocytes % (auto) 16.2 % (10.0-50.0); Mean Corpuscular Hemoglobin 29.4 pg (28.0-32.0); Mean Corpuscular Hgb Conc. 33.9 g/dL (32.0-36.0); Mean Corpuscular Volume 86.6 fL (80.0-100.0); Monocytes # (auto) 0.7 10 ^3/uL (0-1.3); Monocytes % (auto) 13.2 % (0.0-12.0); Neutrophils # (auto) 3.5 10 ^3/uL (1.6-8.6); Nucleated Red Blood Cells % 1.3 %; Red Blood Cells 4.93 10^6/uL (4.5-5.90); Red Cell Distribution Width 14.5 % (11.8-14.3); White Blood Cell 5.5 10^3/uL (4.4-10.8)
[2023-08-03] MEDS ORDERED: SODIUM CHLORIDE 0.9% 1,000 ML IV ONE (20:00)
[2023-08-03 20:31] LABS: Platelet Estimate Adequate
[2023-08-03] MEDS ORDERED: DOCUSATE SOD 100 MG CAP PO PRN (21:30)
[2023-08-03] MEDS ORDERED: LACTATED RINGER'S 1,000 ML IV ONE (21:30)
[2023-08-03] MEDS ORDERED: ONDANSETRON HCL 4 MG/2 ML VIAL IV PRN (21:30)
[2023-08-03] MEDS ORDERED: ACETAMINOPHEN 325 MG TAB PO PRN (21:30)
[2023-08-03] MEDS ORDERED: PANTOPRAZOLE 40 MG TAB PO SCH (22:00)
[2023-08-03] MEDS: SUCRALFATE 1 GM TAB PO SCH (22:37)
[2023-08-03] MEDS: GEMFIBROZIL 600 MG TAB PO SCH (22:38)
[2023-08-03] MEDS: SODIUM CHLOR 0.9% PF (SALINE LOCK) 10ML VIAL/SYR IV SCH (22:38)
[2023-08-03] MEDS: HEPARIN SODIUM (PORCINE) 5000 UNITS/ML 1ML VIAL SC SCH (22:39)
[2023-08-03 23:15] VITALS: PULSE 106; RESP 15; O2SAT 93
[2023-08-03] MEDS: HYDROmorphone HCL 2 MG/ML VL/or syr IV PRN (23:40)
[2023-08-04] MEDS ORDERED: hydrALAZINE HCL 20 MG/ML VL IV PRN
[2023-08-04] MEDS ORDERED: METOCLOPRAMIDE HCL 5MG/ml INJ 2ml VIAL IV PRN (01:00)
[2023-08-04] MEDS: HYDROcodone-ACET 5/325MG TAB PO PRN (01:48)
[2023-08-04] MEDS: SODIUM CHLOR 0.9% PF (SALINE LOCK) 10ML VIAL/SYR IV SCH ×3 (06:17→21:17)
[2023-08-04] MEDS: HEPARIN SODIUM (PORCINE) 5000 UNITS/ML 1ML VIAL SC SCH ×3 (06:18→21:22)
[2023-08-04] MEDS: SUCRALFATE 1 GM TAB PO SCH ×4 (06:46→21:15)
[2023-08-04] MEDS: HYDROmorphone HCL 2 MG/ML VL/or syr IV PRN ×3 (06:49→21:13)
[2023-08-04 07:45] VITALS: RESP 15
[2023-08-04] MEDS: CARVEDILOL 3.125 MG TAB PO SCH ×2 (10:44→21:16)
[2023-08-04] MEDS: GEMFIBROZIL 600 MG TAB PO SCH (10:44)
[2023-08-04] MEDS: GABAPENTIN 400 MG CAP PO SCH (10:45)
[2023-08-04] MEDS: SERTRALINE HCL 50 MG TAB PO SCH (10:45)
[2023-08-04] MEDS: PANTOPRAZOLE 40 MG TAB PO SCH (10:45)
[2023-08-04] MEDS: PREGABALIN CAPSULE 75 MG CAP PO SCH ×2 (10:46→21:15)
[2023-08-04] MEDS: INSULIN LANTUS (GLARGINE) 1 /0.01ml (100units/ml) SC SCH (10:46)
[2023-08-04 12:04] LABS: Chloride 104 mmol/L (98-107); Potassium 3.8 mmol/L (3.5-5.1); Sodium 136 mmol/L (136-145)
[2023-08-04 12:05] LABS: Anion Gap 15 (5-15); Calcium 8.6 mg/dL (8.5-10.1); Carbon Dioxide 17 mmol/L (20-30)
[2023-08-04 12:10] LABS: BUN/Creatinine Ratio 10.3 (10.0-20.0); Blood Urea Nitrogen 24 mg/dL (9-23); Glucose 149 mg/dL (74-106)
[2023-08-04] MEDS ORDERED: ONDANSETRON ODT 4 MG TAB PO PRN (17:15)
[2023-08-04 18:51] VITALS: PULSE 72; RESP 18; O2SAT 94
[2023-08-04 20:00] VITALS: PULSE 82; RESP 22; O2SAT 97
[2023-08-04] MEDS: LACTATED RINGER'S 1,000 ML IV SCH (21:17)
[2023-08-04 22:00] VITALS: BP 129/77; PULSE 82; RESP 22; TEMP 97.6; O2SAT 97
[2023-08-04] MEDS ORDERED: ATORVASTATIN 20 MG TAB PO SCH (22:00)
[2023-08-05] MEDS: HYDROmorphone HCL 2 MG/ML VL/or syr IV PRN ×2 (02:33→07:37)
[2023-08-05 05:00] VITALS: BP 138/66; PULSE 77; RESP 22; TEMP 97.4; O2SAT 96
[2023-08-05 05:24] LABS: Anion Gap 12 (5-15); Carbon Dioxide 20 mmol/L (20-30); Chloride 104 mmol/L (98-107); Potassium 3.5 mmol/L (3.5-5.1); Sodium 136 mmol/L (136-145)
[2023-08-05 05:26] LABS: Calcium 8.5 mg/dL (8.7-10.4)
[2023-08-05 05:30] LABS: Glucose 128 mg/dL (74-106)
[2023-08-05 05:31] LABS: BUN/Creatinine Ratio 12.8 (10.0-20.0); Blood Urea Nitrogen 27 mg/dL (9-23)
[2023-08-05] MEDS: SUCRALFATE 1 GM TAB PO SCH (06:20)
[2023-08-05] MEDS: HEPARIN SODIUM (PORCINE) 5000 UNITS/ML 1ML VIAL SC SCH (06:22)
[2023-08-05] MEDS: SODIUM CHLOR 0.9% PF (SALINE LOCK) 10ML VIAL/SYR IV SCH (06:22)
[2023-08-05 08:00] VITALS: PULSE 82; RESP 22; O2SAT 97
[2023-08-05] MEDS: LACTATED RINGER'S 1,000 ML IV SCH (08:20)
[2023-08-05 09:00] VITALS: BP 151/91; PULSE 77; RESP 20; TEMP 98; O2SAT 95
[2023-08-05] MEDS: PREGABALIN CAPSULE 75 MG CAP PO SCH (09:23)
[2023-08-05] MEDS: CARVEDILOL 3.125 MG TAB PO SCH (09:23)
[2023-08-05] MEDS: GABAPENTIN 400 MG CAP PO SCH (09:24)
[2023-08-05] MEDS: SERTRALINE HCL 50 MG TAB PO SCH (09:24)
[2023-08-05] MEDS: PANTOPRAZOLE 40 MG TAB PO SCH (09:24)
[2023-08-05] MEDS: INSULIN LANTUS (GLARGINE) 1 /0.01ml (100units/ml) SC SCH (10:00)
[2023-08-05 10:47] VITALS: BP 151/91; PULSE 77; RESP 20; TEMP 36.7; O2SAT 77
[2023-08-05] MEDS: HYDROcodone-ACET 5/325MG TAB PO PRN (11:20)
== END 2023-08-05 12:26 | disposition home or self-care (01) | DRG 244 ==
LOC: ER 17:25 → OVERFLOW 21:35 → CENTRAL 08-04 16:14
PROVIDERS: ADMIT Internal Medicine; ATTEND Family Medicine
DX: K57.30 Diverticulosis of large intestine without perforation or abscess without bleeding (principal); N17.0 Acute kidney failure with tubular necrosis; L03.116 Cellulitis of left lower limb; K31.84 Gastroparesis; E11.40 Type 2 diabetes mellitus with diabetic neuropathy, unspecified; E11.51 Type 2 diabetes mellitus with diabetic peripheral angiopathy without gangrene; E11.43 Type 2 diabetes mellitus with diabetic autonomic (poly)neuropathy; T36.8X5A Adverse effect of other systemic antibiotics, initial encounter; E11.65 Type 2 diabetes mellitus with hyperglycemia; I10 Essential (primary) hypertension; E11.69 Type 2 diabetes mellitus with other specified complication; M86.9 Osteomyelitis, unspecified; F32.A Depression, unspecified; E78.00 Pure hypercholesterolemia, unspecified; Z82.0 Family history of epilepsy and other diseases of the nervous system
CPT/HCPCS: 36415; 74176; 76775; 80048; 80053; 80202; 81001; 83690; 85025; 87081; G0378; J1815; J2405

== ENCOUNTER → 2023-08-07 | Outpatient (CLI) | payer MEDICAID ==
[2023-08-07 11:21] LABS: Alanine Aminotransferase 11 U/L (7-40); Albumin 4.4 g/dL (3.2-4.8); Alkaline Phosphatase 75 U/L (46-116); Anion Gap 8 (5-15); Aspartate Aminotransferase 15 U/L (13-40); Bilirubin, Total 0.5 mg/dL (0.2-1.0); Blood Urea Nitrogen 24 mg/dL (9-23); Calcium 9.5 mg/dL (8.5-10.1); Carbon Dioxide 26 mmol/L (20-30); Chloride 105 mmol/L (98-107); Glucose 113 mg/dL (74-106); Potassium 4.2 mmol/L (3.5-5.1); Sodium 139 mmol/L (136-145); Total Protein 7.8 g/dL (5.7-8.2)
== END | disposition home or self-care (01) ==
LOC: LAB 09:42
PROVIDERS: ATTEND Family Medicine
DX: N17.9 Acute kidney failure, unspecified (principal)
CPT/HCPCS: 36415; 80053

== ENCOUNTER 2023-08-21 06:00 | Inpatient (IN) | payer MEDICAID ==
[2023-08-21] VITALS (15 sets, daily range): BP systolic 103–132; BP diastolic 68–91; PULSE 20–114; RESP 13–79; TEMP 98.3–98.4; O2SAT 91–100
[~2023-08-21] VITALS: Ht 175.3 cm; Wt 115.6 kg
[2023-08-21] MEDS: ALBUTEROL SULF 2.5 MG/0.5ML(0.5%) NEB SOLN ONE (06:09)
[2023-08-21 06:27] LABS: Base Excess -6.2 mmol/L (-2.0-2.0)
[2023-08-21] MEDS: ALBUTEROL SULF 2.5 MG/0.5ML(0.5%) NEB SOLN NEB ONE (06:43)
[2023-08-21] MEDS: BUDESONIDE (INHALATION) 0.5 MG/2 ML NEB NEB ONE (06:44)
[2023-08-21] MEDS: IPRATROPIUM BROM 0.5 MG/2.5ML INH SOL NEB ONE (06:44)
[2023-08-21 07:17] LABS: Alanine Aminotransferase 11 U/L (7-40); Albumin 4.4 g/dL (3.2-4.8); Alkaline Phosphatase 103 U/L (46-116); Anion Gap 7 (5-15); Aspartate Aminotransferase 17 U/L (13-40); BUN/Creatinine Ratio 12.1 (10.0-20.0); Blood Urea Nitrogen 17 mg/dL (9-23); Calcium 8.7 mg/dL (8.5-10.1); Carbon Dioxide 24 mmol/L (20-30); Chloride 105 mmol/L (98-107); Glucose 314 mg/dL (74-106); Potassium 4.1 mmol/L (3.5-5.1); Sodium 136 mmol/L (136-145)
[2023-08-21 07:18] LABS: Bilirubin, Total 0.3 mg/dL (0.2-1.0); Total Protein 7.6 g/dL (5.7-8.2)
[2023-08-21 08:33] LABS: Urine Epithelial Cast None Seen /hpf (<5)
[2023-08-21 08:41] LABS: Urine Bacteria MANY /hpf (None Seen); Urine Blood 1+ /uL (Negative); Urine Clarity Clear (Clear); Urine Color Yellow (Yellow); Urine Hyaline Cast MOD /lpf (0 - 2); Urine Mucus FEW (None Seen); Urine Protein, UAD 3+ (Negative); Urine Sperm PRESENT /hpf (None Seen); Urine Urobilinogen Normal (Negative); Urine WBC 6 /hpf (0 - 3)
[2023-08-21 08:54] LABS: Amphetamine Screen, Urine Neg (NEGATIVE); Barbiturate Scree,Urine Neg (NEGATIVE); Benzodiazephine Screen, Urine Neg (NEGATIVE); Cannabinoid Screen, Urine Pos (NEGATIVE); Cocaine Screen, Urine Neg (NEGATIVE); Opiate Scree,Urine Neg (NEGATIVE); Phencyclidine Screen, Urine Neg (NEGATIVE)
[2023-08-21] MEDS: FUROSEMIDE 40 MG/4 ML VIAL IV ONE (08:56)
[2023-08-21] MEDS: SPIRONOLACTONE 25 MG TAB PO ONE (08:56)
[2023-08-21] MEDS: ASPirin-EC 81 mg tab PO ONE (08:56)
[2023-08-21 11:04] LABS: Basophils # (auto) 0.1 10 ^3/uL (0-0.2); Basophils % (auto) 0.7 % (0.0-2.0); Eosinophils # (auto) 0.1 10 ^3/uL (0-0.8); Eosinophils % (auto) 1.2 % (0.0-7.0); Hematocrit 35.6 % (41.0-53.0); Hemoglobin 11.9 g/dL (13.5-17.5); Lymphocytes # (auto) 1.5 10 ^3/uL (0.4-5.4); Lymphocytes % (auto) 16.2 % (10.0-50.0); Mean Corpuscular Hemoglobin 29.6 pg (28.0-32.0); Mean Corpuscular Hgb Conc. 33.3 g/dL (32.0-36.0); Monocytes # (auto) 0.6 10 ^3/uL (0-1.3); Monocytes % (auto) 6.3 % (0.0-12.0); Neutrophils # (auto) 6.9 10 ^3/uL (1.6-8.6); Neutrophils % (auto) 75.6 % (37.0-80.0); Red Cell Distribution Width 14.3 % (11.8-14.3); White Blood Cell 9.2 10^3/uL (4.4-10.8)
[2023-08-21] MEDS ORDERED: DEXTROSE (50%) 50ML SYRG IV PRN (11:30)
[2023-08-21] MEDS ORDERED: VANCOMYCIN PER PHARMACY 0 MG IV SCH (11:30)
[2023-08-21 11:32] LABS: INR 1.04 (0.9-1.15); Partial Thromboplastin Time 26.5 SEC (24.5-34.5); Prothrombin Time 10.9 sec (9.3-11.8)
[2023-08-21] MEDS: OXYCODONE W/ ACETAMINOPHEN 5/325MG TABLET PO ONE ×2 (11:53→21:00)
[2023-08-21] MEDS: METOPROLOL TARTRATE 1MG/1ML-5ML VIAL IV ONE (11:54)
[2023-08-21] MEDS: ACCU-CHEK COMFORT CURVE STRIP VI SCH (12:16)
[2023-08-21] MEDS: SUCRALFATE 1 GM TAB PO SCH (12:16)
[2023-08-21] MEDS: InsuLIN REG 1unit/0.01ml Soln (100units/ml) SC SCH ×2 (12:16→21:33)
[2023-08-21] MEDS: VANCOMYCIN 1GM/200ML 200 ML IV ONE (12:26)
[2023-08-21] MEDS: HEPARIN SODIUM (PORCINE) 5000 UNITS/ML 1ML VIAL IV ONE ×2 (13:58→22:05)
[2023-08-21] MEDS ORDERED: HEPARIN 1,000 UNITS/ml 1ML VIAL SC SCH (14:00)
[2023-08-21] MEDS ORDERED: HEPARIN DRIP/D5W 100UNITS/ML 250 ML IV SCH (14:30)
[2023-08-21] MEDS: HEPARIN DRIP/D5W 100UNITS/ML 250 ML IV SCH (14:55)
[2023-08-21] MEDS: IODIXANOL 320MG/ML 100ML BTL IV ONE (15:07)
[2023-08-21] MEDS: LIDOCAINE 2%HCL (LOCAL ANESTH.) INJ 20ML MDV ONE (15:07)
[2023-08-21] MEDS: ANGIOMAX 250 MG VIAL IV ONE (15:32)
[2023-08-21] MEDS: HEPARIN SODIUM (PORCINE) 5000 UNITS/ML 1ML VIAL ONE (15:32)
[2023-08-21] MEDS: VERAPAMIL 2.5MG/ML INJ 2ML VIAL IV ONE (15:33)
[2023-08-21] MEDS: fentaNYL CITRATE 100 MCG/2 ML VL ONE (15:33)
[2023-08-21] MEDS: SODIUM CHL 0.9% 0 ML ONE (15:33)
[2023-08-21] MEDS: MIDAZOLAM HCL 2MG/2ML 2ml VIAL (1mg/ml) ONE (15:33)
[2023-08-21] MEDS: GEMFIBROZIL 600 MG TAB PO SCH (17:53)
[2023-08-21] MEDS: FUROSEMIDE 20 MG/2 ML VIAL IV SCH (17:53)
[2023-08-21] MEDS: OXYCODONE W/ ACETAMINOPHEN 5/325MG TABLET PO PRN (18:49)
[2023-08-21] MEDS: PANTOPRAZOLE 40 MG TAB PO SCH (21:06)
[2023-08-21 21:31] LABS: INR 1.09 (0.9-1.15); Partial Thromboplastin Time 29.9 SEC (24.5-34.5); Prothrombin Time 11.4 sec (9.3-11.8)
[2023-08-21] MEDS: VANCOMYCIN 1GM/200ML 200 ML IV SCH (21:31)
[2023-08-21] MEDS: CARVEDILOL 3.125 MG TAB PO SCH (21:31)
[2023-08-22] VITALS (7 sets, daily range): BP systolic 111–136; BP diastolic 63–98; PULSE 67–84; RESP 17–20; TEMP 97.8–98.3; O2SAT 96–98
[2023-08-22 04:45] LABS: Basophils # (auto) 0.1 10 ^3/uL (0-0.2); Basophils % (auto) 0.9 % (0.0-2.0); Eosinophils # (auto) 0.4 10 ^3/uL (0-0.8); Eosinophils % (auto) 6.2 % (0.0-7.0); Lymphocytes # (auto) 2.6 10 ^3/uL (0.4-5.4); Lymphocytes % (auto) 42.7 % (10.0-50.0); Mean Corpuscular Hgb Conc. 32.4 g/dL (32.0-36.0); Mean Corpuscular Volume 89.3 fL (80.0-100.0); Monocytes # (auto) 0.5 10 ^3/uL (0-1.3); Monocytes % (auto) 8.4 % (0.0-12.0); Neutrophils # (auto) 2.6 10 ^3/uL (1.6-8.6); Neutrophils % (auto) 41.8 % (37.0-80.0); Nucleated Red Blood Cells % 0.1 %; Red Blood Cells 3.47 10^6/uL (4.5-5.90); Red Cell Distribution Width 14.5 % (11.8-14.3); White Blood Cell 6.1 10^3/uL (4.4-10.8)
[2023-08-22 05:17] LABS: INR 1.11 (0.9-1.15); Partial Thromboplastin Time 46.3 SEC (24.5-34.5); Prothrombin Time 11.6 sec (9.3-11.8)
[2023-08-22] MEDS: ASPirin 81 mg TAB PO SCH (09:18)
[2023-08-22] MEDS: GABAPENTIN 400 MG CAP PO SCH (09:19)
[2023-08-22] MEDS: ATORVASTATIN 20 MG TAB PO SCH (09:19)
[2023-08-22] MEDS: SERTRALINE HCL 50 MG TAB PO SCH (09:20)
[2023-08-22] MEDS: LOSARTAN POTASSIUM 25 MG TAB PO SCH (09:22)
[2023-08-22 12:44] LABS: INR 1.09 (0.9-1.15); Partial Thromboplastin Time 35.1 SEC (24.5-34.5); Prothrombin Time 11.4 sec (9.3-11.8)
[2023-08-22] MEDS: HEPARIN SODIUM (PORCINE) 5000 UNITS/ML 1ML VIAL IV ONE (13:20)
[2023-08-22] MEDS: HEPARIN DRIP/D5W 100UNITS/ML 250 ML IV SCH (13:28)
[2023-08-22] MEDS: HYDROmorphone HCL 2 MG TAB PO PRN (16:19)
[2023-08-22 20:21] LABS: INR 1.08 (0.9-1.15); Partial Thromboplastin Time 60.1 SEC (24.5-34.5); Prothrombin Time 11.3 sec (9.3-11.8)
[2023-08-23] VITALS (7 sets, daily range): BP systolic 103–145; BP diastolic 70–93; PULSE 70–86; RESP 18–20; TEMP 36.5; O2SAT 96–99
[2023-08-23 02:06] LABS: INR 1.06 (0.9-1.15); Partial Thromboplastin Time 53.5 SEC (24.5-34.5); Prothrombin Time 11.1 sec (9.3-11.8)
[2023-08-23 08:40] LABS: INR 1.07 (0.9-1.15); Partial Thromboplastin Time 48.3 SEC (24.5-34.5); Prothrombin Time 11.2 sec (9.3-11.8)
[2023-08-23] MEDS: HEPARIN DRIP/D5W 100UNITS/ML 250 ML IV SCH ×2 (09:06→16:54)
[2023-08-23 15:13] LABS: COVID19 ANTIGEN SOFIA FIA NEGATIVE (NEGATIVE)
[2023-08-23 16:23] LABS: INR 1.08 (0.9-1.15); Partial Thromboplastin Time 48.1 SEC (24.5-34.5); Prothrombin Time 11.3 sec (9.3-11.8)
[2023-08-23] MEDS ORDERED: VANCOMYCIN 1GM/200ML 200 ML IV SCH (22:00)
== END 2023-08-23 20:50 | disposition short-term general hospital (02) | DRG 190 ==
LOC: ER 06:00 → EDBD 06:04 → TELE 11:33 → TELE-WESTW 18:37
PROVIDERS: ADMIT Nurse Practitioner Family; ATTEND Family Medicine
PROC: 4A023N7 Measurement of Cardiac Sampling and Pressure, Left Heart, Percutaneous Approach (ICD-10-PCS; principal; 2023-08-21)
PROC: B211YZZ Fluoroscopy of Multiple Coronary Arteries using Other Contrast (ICD-10-PCS; 2023-08-21)
PROC: B215YZZ Fluoroscopy of Left Heart using Other Contrast (ICD-10-PCS; 2023-08-21)
DX: I21.4 Non-ST elevation (NSTEMI) myocardial infarction (principal); J96.01 Acute respiratory failure with hypoxia; I50.23 Acute on chronic systolic (congestive) heart failure; M86.162 Other acute osteomyelitis, left tibia and fibula; N17.9 Acute kidney failure, unspecified; I25.10 Atherosclerotic heart disease of native coronary artery without angina pectoris; I13.0 Hypertensive heart and chronic kidney disease with heart failure and stage 1 through stage 4 chronic kidney disease, or unspecified chronic kidney disease; E87.21 Acute metabolic acidosis; E11.40 Type 2 diabetes mellitus with diabetic neuropathy, unspecified; I25.2 Old myocardial infarction; N18.9 Chronic kidney disease, unspecified; E11.22 Type 2 diabetes mellitus with diabetic chronic kidney disease; E66.9 Obesity, unspecified; E78.00 Pure hypercholesterolemia, unspecified; I16.1 Hypertensive emergency; K21.9 Gastro-esophageal reflux disease without esophagitis; E11.69 Type 2 diabetes mellitus with other specified complication; N39.0 Urinary tract infection, site not specified; F32.A Depression, unspecified; G89.29 Other chronic pain; Z20.822 Contact with and (suspected) exposure to COVID-19; Y83.5 Amputation of limb(s) as the cause of abnormal reaction of the patient, or of later complication, without mention of misadventure at the time of the procedure; T87.44 Infection of amputation stump, left lower extremity; Z68.37 Body mass index [BMI] 37.0-37.9, adult; Y92.89 Other specified places as the place of occurrence of the external cause; Z82.0 Family history of epilepsy and other diseases of the nervous system; Z79.4 Long term (current) use of insulin
CPT/HCPCS: 36415; 36600; 71045; 78582; 80053; 80202; 80307; 81001; 82565; 82805; 82962; 83036; 83605; 83880; 84484; 85025; 85379; 85610; 85730; 87040; 87077; 87081; 87186; 87205; 87426; 93005; 93306; 93458; 94640; 99152; 99291; G0378; J1815; J2250; Q9967

== ENCOUNTER 2024-06-03 04:41 | Inpatient (IN) | payer MEDICAID ==
[~2024-06-03] VITALS: Ht 205.7 cm; Wt 111.9 kg
[~2024-06-03 04:41] MED LIST changes: -HYDR-4072; -HYDR-4798 PO; +LOSA-533 PO; -LOSA25TA15 PO; -PANT40TA2 PO; -PERCOT PO; -PREG-111 PO; +PREG150C63 PO; -SUCR1TAB22 OR; -SUCR1TAB22 PO; +SUCR1TAB31 OR
[2024-06-03] MEDS: ONDANSETRON HCL 4 MG/2 ML VIAL IV ONE (05:36)
[2024-06-03] MEDS: KETOROLAC TROMETH 30 MG/ML 1ML VIAL IV ONE (05:36)
[2024-06-03 05:37] VITALS: PULSE 120; RESP 21; O2SAT 99
[2024-06-03] MEDS: PANTOPRAZOLE 40 MG/10 ML VIAL INJ IV ONE (06:50)
[2024-06-03] MEDS: MORPHINE SULFATE INJ 2 MG/ml SYRG IV ONE (06:51)
[2024-06-03] MEDS: SODIUM CHLORIDE 0.9% 1,000 ML IV ONE ×2 (07:08→08:15)
[2024-06-03 07:21] LABS: Basophils # (auto) 0 10 ^3/uL (0-0.2); Basophils % (auto) 0.3 % (0.0-2.0); Eosinophils # (auto) 0 10 ^3/uL (0-0.8); Hematocrit 47.5 % (41.0-53.0); Hemoglobin 16.2 g/dL (13.5-17.5); Lymphocytes # (auto) 1.1 10 ^3/uL (0.4-5.4); Lymphocytes % (auto) 9.1 % (10.0-50.0); Mean Corpuscular Hemoglobin 29.8 pg (28.0-32.0); Mean Corpuscular Volume 87.6 fL (80.0-100.0); Monocytes # (auto) 0.6 10 ^3/uL (0-1.3); Monocytes % (auto) 5.1 % (0.0-12.0); Neutrophils # (auto) 10.5 10 ^3/uL (1.6-8.6); Neutrophils % (auto) 85.5 % (37.0-80.0); Nucleated Red Blood Cells % 0.1 %; Platelet Count (auto) 402 10^3/uL (140-450); Red Blood Cells 5.43 10^6/uL (4.5-5.90); Red Cell Distribution Width 13.3 % (11.8-14.3); White Blood Cell 12.2 10^3/uL (4.4-10.8)
[2024-06-03 07:38] LABS: Alanine Aminotransferase 10 U/L (7-40); Alkaline Phosphatase 82 U/L (46-116); Anion Gap 16 (5-15); Aspartate Aminotransferase 14 U/L (13-40); BUN/Creatinine Ratio 18.3 (10.0-20.0); Blood Urea Nitrogen 45 mg/dL (9-23); Calcium 9.6 mg/dL (8.7-10.4); Carbon Dioxide 19 mmol/L (20-31); Chloride 93 mmol/L (98-107); Lipase 47 U/L (12-53); Potassium 3.8 mmol/L (3.5-5.1); Sodium 128 mmol/L (136-145)
[2024-06-03 07:39] LABS: Bilirubin, Total 0.4 mg/dL (0.2-1.0); Total Protein 8.8 g/dL (5.7-8.2)
[2024-06-03 07:42] LABS: Lactic Acid w/Reflex 2.4 mmol/L (0.4-2.0)
[2024-06-03 07:57] LABS: Glucose 434 mg/dL (74-106)
[2024-06-03 08:42] LABS: Base Excess -2.8 mmol/L (-2.0-3.0)
[2024-06-03] MEDS: METOPROLOL TARTRATE 25 MG TAB PO ONE (09:07)
[2024-06-03] MEDS: NITROGLYCERIN 2% OINT 1GM PKG TD ONE (09:08)
[2024-06-03] MEDS: ASPirin 81 mg TAB PO ONE (09:09)
[2024-06-03] MEDS: InsuLIN REG 1unit/0.01ml Soln (100units/ml) IV ONE (09:17)
[2024-06-03] MEDS: HEPARIN SODIUM (PORCINE) 5000 UNITS/ML 1ML VIAL IV ONE ×2 (09:19→09:20)
[2024-06-03] MEDS: HEPARIN DRIP/D5W 100UNITS/ML 250 ML IV SCH (09:28)
[2024-06-03] MEDS ORDERED: ACETAMINOPHEN 325 MG TAB PO PRN (09:30)
[2024-06-03] MEDS ORDERED: ONDANSETRON HCL PO PRN (09:30)
[2024-06-03] MEDS ORDERED: hydrALAZINE HCL 20 MG/ML VL IV PRN (09:30)
[2024-06-03] MEDS ORDERED: DOCUSATE SOD 100 MG CAP PO PRN (09:30)
[2024-06-03] MEDS: POTASSIUM CHL 20MEQ/100ML 100 ML IV ONE (09:32)
[2024-06-03 09:58] LABS: INR 1.18 (0.9-1.15); Prothrombin Time 12.4 sec (9.3-11.8)
[2024-06-03] MEDS ORDERED: PATIENTS OWN MEDICATION (Pregabalin 1 CAP) PO SCH (10:00)
[2024-06-03] MEDS ORDERED: PATIENTS OWN MEDICATION (Atorvastatin Calcium 1 TAB) PO SCH (10:00)
[2024-06-03] MEDS ORDERED: ONDANSETRON ODT 4 MG TAB PO PRN (10:00)
[2024-06-03] MEDS ORDERED: PATIENTS OWN MEDICATION (Sertraline Hcl 1 TAB) PO SCH (10:00)
[2024-06-03] MEDS ORDERED: PATIENTS OWN MEDICATION (Carvedilol 1 TAB) PO SCH (10:00)
[2024-06-03] MEDS: LACTATED RINGER'S 1,000 ML IV ONE (10:15)
[2024-06-03] MEDS: PREGABALIN CAPSULE 75 MG CAP PO SCH (10:15)
[2024-06-03] MEDS: PANTOPRAZOLE 40 MG/10 ML VIAL INJ IV SCH (10:15)
[2024-06-03] MEDS: CARVEDILOL 3.125 MG TAB PO SCH (10:16)
[2024-06-03] MEDS: SERTRALINE HCL 50 MG TAB PO SCH (10:16)
[2024-06-03] MEDS: GEMFIBROZIL 600 MG TAB PO SCH (10:16)
[2024-06-03] MEDS: LABETALOL HCL 20 MG/4 ML VL IV ONE (10:18)
[2024-06-03] MEDS: HYDROmorphone HCL 2 MG/ML VL/or syr IV PRN (10:18)
[2024-06-03] MEDS: ONDANSETRON HCL 4 MG/2 ML VIAL IV PRN (10:19)
[2024-06-03 11:05] LABS: COVID19 ANTIGEN SOFIA FIA NEGATIVE (NEGATIVE)
[2024-06-03] MEDS: SUCRALFATE 1 GM TAB PO SCH (11:06)
[2024-06-03] MEDS ORDERED: DEXTROSE (50%) 50ML SYRG IV PRN (11:30)
[2024-06-03 11:32] LABS: Urine Bacteria None Seen /hpf (None Seen)
[2024-06-03] MEDS ORDERED: ACCU-CHEK COMFORT CURVE STRIP VI SCH ×2 (12:00)
[2024-06-03 12:19] LABS: Alanine Aminotransferase 10 U/L (7-40); Albumin 3.9 g/dL (3.2-4.8); Alkaline Phosphatase 65 U/L (46-116); Anion Gap 12 (5-15); Aspartate Aminotransferase 15 U/L (13-40); BUN/Creatinine Ratio 19.4 (10.0-20.0); Blood Urea Nitrogen 42 mg/dL (9-23); Calcium 8.6 mg/dL (8.7-10.4); Carbon Dioxide 21 mmol/L (20-31); Chloride 102 mmol/L (98-107); Potassium 3.7 mmol/L (3.5-5.1)
[2024-06-03 12:20] LABS: Bilirubin, Total 0.2 mg/dL (0.2-1.0); Total Protein 7.2 g/dL (5.7-8.2)
[2024-06-03 12:24] LABS: Glucose 179 mg/dL (74-106); Sodium 135 mmol/L (136-145)
[2024-06-03] MEDS: ACCU-CHEK COMFORT CURVE STRIP VI SCH (12:42)
[2024-06-03] MEDS: InsuLIN REG 1unit/0.01ml Soln (100units/ml) SC SCH (12:42)
[2024-06-03] MEDS: SODIUM CHLOR 0.9% PF (SALINE LOCK) 10ML VIAL/SYR IV SCH (12:42)
[2024-06-03 13:10] LABS: Amphetamine Screen, Urine Neg (NEGATIVE); Barbiturate Scree,Urine Neg (NEGATIVE); Benzodiazephine Screen, Urine Neg (NEGATIVE); Cocaine Screen, Urine Neg (NEGATIVE); Opiate Scree,Urine Neg (NEGATIVE)
[2024-06-03 13:11] LABS: Cannabinoid Screen, Urine Pos (NEGATIVE); Phencyclidine Screen, Urine Neg (NEGATIVE)
[2024-06-03 13:15] LABS: Urine Blood 1+ /uL (Negative); Urine Clarity Clear (Clear); Urine Color Light-Yellow (Yellow); Urine Hyaline Cast FEW /lpf (0 - 2); Urine Mucus FEW (None Seen); Urine Protein, UAD 3+ (Negative); Urine Specific Gravity 1.027 (1.001-1.035); Urine Urobilinogen Normal (Negative); Urine WBC 3 /hpf (0 - 3); Urine pH 5.5 (5.0-9.0)
[2024-06-03 13:19] LABS: Creatinine, Urine 118.65 mg/dL (30.0-125.0)
[2024-06-03 13:48] LABS: Lactic Acid w/Reflex 2.2 mmol/L (0.4-2.0)
[2024-06-03] MEDS: SODIUM CHLORIDE 0.9% 500 ML IV ONE (15:52)
[2024-06-03 16:27] LABS: Triglycerides 171 mg/dL (< 150)
[2024-06-03 16:28] LABS: LDL Cholesterol 98 mg/dL (< 100)
[2024-06-03 16:29] LABS: Cholesterol 155 mg/dL (< 200); HDL Cholesterol 32 mg/dL (40-59)
[2024-06-03] MEDS: INSULIN LANTUS (GLARGINE) 1 /0.01ml (100units/ml) SC SCH (16:57)
[2024-06-03] MEDS: HYDROcodone-ACET 5/325MG TAB PO PRN (17:01)
[2024-06-03 19:20] VITALS: PULSE 76; RESP 12; O2SAT 99
[2024-06-03] MEDS: ATORVASTATIN 20 MG TAB PO SCH (23:09)
[2024-06-03] MEDS: TICAGRELOR 90 MG TAB PO SCH (23:11)
[2024-06-04] MEDS: InsuLIN REG 1unit/0.01ml Soln (100units/ml) SC SCH (00:49)
[2024-06-04] MEDS: HEPARIN SODIUM (PORCINE) 5000 UNITS/ML 1ML VIAL SC SCH (01:09)
[2024-06-04 05:43] LABS: Basophils # (auto) 0 10 ^3/uL (0-0.2); Basophils % (auto) 0.6 % (0.0-2.0); Eosinophils # (auto) 0.1 10 ^3/uL (0-0.8); Eosinophils % (auto) 1.7 % (0.0-7.0); Hematocrit 37.5 % (41.0-53.0); Hemoglobin 12.8 g/dL (13.5-17.5); Lymphocytes # (auto) 1.6 10 ^3/uL (0.4-5.4); Lymphocytes % (auto) 22.3 % (10.0-50.0); Mean Corpuscular Hemoglobin 30.1 pg (28.0-32.0); Mean Corpuscular Hgb Conc. 34.1 g/dL (32.0-36.0); Mean Corpuscular Volume 88.3 fL (80.0-100.0); Monocytes # (auto) 0.6 10 ^3/uL (0-1.3); Monocytes % (auto) 8.5 % (0.0-12.0); Neutrophils # (auto) 4.8 10 ^3/uL (1.6-8.6); Neutrophils % (auto) 66.9 % (37.0-80.0); Nucleated Red Blood Cells % 0.1 %; Platelet Count (auto) 292 10^3/uL (140-450); Red Blood Cells 4.25 10^6/uL (4.5-5.90); Red Cell Distribution Width 13.2 % (11.8-14.3); White Blood Cell 7.2 10^3/uL (4.4-10.8)
[2024-06-04 05:58] LABS: Alkaline Phosphatase 61 U/L (46-116)
[2024-06-04 05:59] LABS: Anion Gap 10 (5-15); Aspartate Aminotransferase 18 U/L (13-40); BUN/Creatinine Ratio 24.8 (10.0-20.0); Bilirubin, Total 0.4 mg/dL (0.2-1.0); Calcium 8.4 mg/dL (8.7-10.4); Carbon Dioxide 21 mmol/L (20-31); Chloride 105 mmol/L (98-107); Glucose 173 mg/dL (74-106); Potassium 3.7 mmol/L (3.5-5.1); Sodium 136 mmol/L (136-145); Total Protein 6.8 g/dL (5.7-8.2)
[2024-06-04 06:10] LABS: Alanine Aminotransferase < 9 U/L (7-40); Blood Urea Nitrogen 29 mg/dL (9-23)
[2024-06-04 07:30] VITALS: PULSE 81; RESP 16; O2SAT 99
[2024-06-04] MEDS: EMPAGLIFLOZIN 10 MG TAB PO SCH (10:00)
[2024-06-04 13:00] VITALS: BP 177/13; PULSE 83; RESP 17; TEMP 98.1; O2SAT 98
[2024-06-04] MEDS: ASPirin 81 mg TAB PO SCH (13:04)
[2024-06-04] MEDS ORDERED: NIFEdipine ER 30 MG TAB PO PRN (14:30)
[2024-06-04] MEDS: NITROGLYCERIN 0.2MG/HR TOPICAL PATCH TD ONE (14:45)
[2024-06-04 17:00] VITALS: BP 125/75; PULSE 78; RESP 18; TEMP 98; O2SAT 97
[2024-06-04 20:00] VITALS: PULSE 80; PULSE 81; RESP 22; O2SAT 98
[2024-06-04 21:00] VITALS: BP 146/87; PULSE 80; RESP 22; TEMP 98; O2SAT 98
[2024-06-05] VITALS (13 sets, daily range): BP systolic 100–163; BP diastolic 62–109; PULSE 72–88; RESP 12–20; TEMP 96.5–98.4; O2SAT 96–100
[2024-06-05 08:02] LABS: Basophils # (auto) 0.1 10 ^3/uL (0-0.2); Basophils % (auto) 0.8 % (0.0-2.0); Eosinophils # (auto) 0.1 10 ^3/uL (0-0.8); Eosinophils % (auto) 1.6 % (0.0-7.0); Hemoglobin 14.1 g/dL (13.5-17.5); Lymphocytes # (auto) 1.6 10 ^3/uL (0.4-5.4); Lymphocytes % (auto) 25.9 % (10.0-50.0); Mean Corpuscular Hemoglobin 29.9 pg (28.0-32.0); Mean Corpuscular Hgb Conc. 33.7 g/dL (32.0-36.0); Mean Corpuscular Volume 88.7 fL (80.0-100.0); Monocytes # (auto) 0.6 10 ^3/uL (0-1.3); Monocytes % (auto) 9.2 % (0.0-12.0); Neutrophils % (auto) 62.5 % (37.0-80.0); Nucleated Red Blood Cells % 0.2 %; Platelet Count (auto) 285 10^3/uL (140-450); Red Blood Cells 4.73 10^6/uL (4.5-5.90); Red Cell Distribution Width 13.2 % (11.8-14.3); White Blood Cell 6.4 10^3/uL (4.4-10.8)
[2024-06-05 08:14] LABS: Alkaline Phosphatase 66 U/L (46-116); Anion Gap 13 (5-15); Calcium 9.3 mg/dL (8.7-10.4); Carbon Dioxide 22 mmol/L (20-31); Chloride 104 mmol/L (98-107); Glucose 130 mg/dL (74-106); Potassium 3.6 mmol/L (3.5-5.1); Sodium 139 mmol/L (136-145)
[2024-06-05 08:15] LABS: Aspartate Aminotransferase 16 U/L (13-40); BUN/Creatinine Ratio 21.4 (10.0-20.0); Bilirubin, Total 0.5 mg/dL (0.2-1.0); Blood Urea Nitrogen 22 mg/dL (9-23); Total Protein 7.3 g/dL (5.7-8.2)
[2024-06-05 08:16] LABS: Alanine Aminotransferase 9 U/L (7-40)
[2024-06-05] MEDS: HEPARIN IN NS 1000Units/500mL 1,500 ML ONE (08:31)
[2024-06-05] MEDS: IODIXANOL 320MG/ML 100ML BTL IV ONE (08:31)
[2024-06-05] MEDS: ANGIOMAX 250 MG VIAL IV ONE (09:12)
[2024-06-05] MEDS: MIDAZOLAM HCL 2MG/2ML 2ml VIAL (1mg/ml) ONE (09:13)
[2024-06-05] MEDS: VERAPAMIL 2.5MG/ML INJ 2ML VIAL IV ONE (09:13)
[2024-06-05] MEDS: fentaNYL CITRATE 100 MCG/2 ML VL ONE (09:13)
[2024-06-05] MEDS: LIDOCAINE 2%HCL (LOCAL ANESTH.) INJ 20ML MDV ONE (09:14)
[2024-06-05] MEDS: SODIUM CHL 0.9% 0 ML ONE (09:14)
[2024-06-05] MEDS: NITROGLYCERIN 50MG/250ML 250 ML IV ONE (09:14)
[2024-06-05] MEDS ORDERED: METOPROLOL SUCCINATE XL 50 MG TAB PO SCH (10:00)
[2024-06-05] MEDS: HEPARIN SODIUM (PORCINE) 5000 UNITS/ML 1ML VIAL ONE (10:53)
[2024-06-05] MEDS ORDERED: INSU1INJ19 SC (15:53)
[2024-06-05] MEDS ORDERED: DAPA1TAB4 PO (15:53)
[2024-06-05] MEDS ORDERED: TICA90TA PO (15:53)
[2024-06-05] MEDS ORDERED: SPIR25TA8 PO (15:53)
[2024-06-05] MEDS ORDERED: LOSA-534 PO (15:53)
[2024-06-05] MEDS ORDERED: FAMO-12 PO (15:53)
[2024-06-05] MEDS ORDERED: NIFE90TA75 PO (15:53)
[2024-06-05] MEDS: FUROSEMIDE 40 MG TAB PO ONE (17:47)
[2024-06-05] MEDS: SACUBITRIL-VALSARTAN 24mg/26mg TAB PO SCH (21:16)
[2024-06-06 01:00] VITALS: BP 111/79; PULSE 78; RESP 17; TEMP 98.7; O2SAT 97
[2024-06-06 05:00] VITALS: BP 85/52; PULSE 69; RESP 18; TEMP 97.6; O2SAT 97
[2024-06-06 07:26] LABS: Basophils # (auto) 0 10 ^3/uL (0-0.2); Basophils % (auto) 0.6 % (0.0-2.0); Eosinophils # (auto) 0.2 10 ^3/uL (0-0.8); Eosinophils % (auto) 2.6 % (0.0-7.0); Hematocrit 39.8 % (41.0-53.0); Hemoglobin 13.6 g/dL (13.5-17.5); Lymphocytes # (auto) 2.2 10 ^3/uL (0.4-5.4); Lymphocytes % (auto) 31.8 % (10.0-50.0); Mean Corpuscular Hgb Conc. 34.1 g/dL (32.0-36.0); Mean Corpuscular Volume 88.1 fL (80.0-100.0); Monocytes # (auto) 0.9 10 ^3/uL (0-1.3); Monocytes % (auto) 12.5 % (0.0-12.0); Neutrophils # (auto) 3.7 10 ^3/uL (1.6-8.6); Neutrophils % (auto) 52.5 % (37.0-80.0); Platelet Count (auto) 266 10^3/uL (140-450); Red Blood Cells 4.52 10^6/uL (4.5-5.90); White Blood Cell 7.1 10^3/uL (4.4-10.8)
[2024-06-06 07:41] LABS: Alkaline Phosphatase 64 U/L (46-116); Anion Gap 11 (5-15); BUN/Creatinine Ratio 18.5 (10.0-20.0); Blood Urea Nitrogen 22 mg/dL (9-23); Calcium 9.2 mg/dL (8.7-10.4); Carbon Dioxide 23 mmol/L (20-31); Chloride 103 mmol/L (98-107); Glucose 129 mg/dL (74-106); Potassium 3.4 mmol/L (3.5-5.1); Sodium 137 mmol/L (136-145)
[2024-06-06 07:42] LABS: Alanine Aminotransferase < 9 U/L (7-40); Albumin 3.9 g/dL (3.2-4.8); Aspartate Aminotransferase 16 U/L (13-40); Bilirubin, Total 0.5 mg/dL (0.2-1.0)
[2024-06-06 08:00] VITALS: PULSE 70
[2024-06-06] MEDS: FUROSEMIDE 40 MG TAB PO SCH (08:54)
[2024-06-06] MEDS: SPIRONOLACTONE 25 MG TAB PO SCH (08:55)
[2024-06-06 09:00] VITALS: BP 144/85; PULSE 76; RESP 18; TEMP 97.5; O2SAT 96
[2024-06-06 13:00] VITALS: RESP 18
[2024-06-06] MEDS ORDERED: SACU1TAB PO (13:30)
[2024-06-06] MEDS ORDERED: ZOFR4T PO (13:30)
[2024-06-06] MEDS ORDERED: ROSU40TA81 PO (13:30)
[2024-06-06 15:09] VITALS: BP 144/85; PULSE 76; TEMP 36.4
== END 2024-06-06 16:00 | disposition home or self-care (01) | DRG 192 ==
LOC: EDBD 04:41 → ER 04:41 → TELE 09:25 → TELE-WESTW 06-04 12:07
PROVIDERS: ADMIT Student in an Organized Health Care Education/Training Program; ATTEND Student in an Organized Health Care Education/Training Program
PROC: 4A023N7 Measurement of Cardiac Sampling and Pressure, Left Heart, Percutaneous Approach (ICD-10-PCS; principal; 2024-06-03)
PROC: B211YZZ Fluoroscopy of Multiple Coronary Arteries using Other Contrast (ICD-10-PCS; 2024-06-03)
DX: I13.0 Hypertensive heart and chronic kidney disease with heart failure and stage 1 through stage 4 chronic kidney disease, or unspecified chronic kidney disease (principal); N17.0 Acute kidney failure with tubular necrosis; I21.A1 Myocardial infarction type 2; E11.10 Type 2 diabetes mellitus with ketoacidosis without coma; E11.43 Type 2 diabetes mellitus with diabetic autonomic (poly)neuropathy; I50.23 Acute on chronic systolic (congestive) heart failure; E11.22 Type 2 diabetes mellitus with diabetic chronic kidney disease; Z20.822 Contact with and (suspected) exposure to COVID-19; A08.4 Viral intestinal infection, unspecified; K31.84 Gastroparesis; E11.65 Type 2 diabetes mellitus with hyperglycemia; I25.5 Ischemic cardiomyopathy; N18.9 Chronic kidney disease, unspecified; I25.10 Atherosclerotic heart disease of native coronary artery without angina pectoris; E66.9 Obesity, unspecified; E78.5 Hyperlipidemia, unspecified; Z82.0 Family history of epilepsy and other diseases of the nervous system; Z95.5 Presence of coronary angioplasty implant and graft; Z89.512 Acquired absence of left leg below knee; Z68.26 Body mass index [BMI] 26.0-26.9, adult; Z79.899 Other long term (current) drug therapy
CPT/HCPCS: 36415; 36600; 71045; 74176; 76775; 80053; 80061; 80307; 81001; 82570; 82805; 82962; 83036; 83605; 83690; 83735; 83880; 84300; 84443; 84484; 85025; 85610; 85730; 87426; 93005; 93306; 93458; 96361; 96374; 96375; 99152; G0378; J1815; J1885; J2250; J2405; J2470; J3480; Q9967

== ENCOUNTER 2024-06-09 17:57 | Emergency (ER) | payer MEDICAID ==
[~2024-06-09] VITALS: Ht 205.7 cm; Wt 119.7 kg
[~2024-06-09 17:57] MED LIST changes: +DAPA1TAB4 PO; +FAMO-12 PO; -GEMF-66 PO; -INSLANTI SC; +INSU1INJ19 SC; -LOSA-533 PO; +NIFE90TA75 PO; -POTA-228 PO; -PREG150C63 PO; +ROSU40TA81 PO; +SACU1TAB PO; +SPIR25TA8 PO; +TICA90TA PO; +ZOFR4T PO
[2024-06-09 18:08] VITALS: BP 150/87; PULSE 125; RESP 18; O2SAT 100
== END 2024-06-09 20:46 | disposition left against medical advice (07) ==
LOC: ER 18:03
DX: S50.912A Unspecified superficial injury of left forearm, initial encounter (principal); X58.XXXA Exposure to other specified factors, initial encounter; Y93.89 Activity, other specified; Y92.89 Other specified places as the place of occurrence of the external cause; Y99.8 Other external cause status; M25.542 Pain in joints of left hand; Z53.21 Procedure and treatment not carried out due to patient leaving prior to being seen by health care provider

== ENCOUNTER 2024-07-12 16:19 | Inpatient (IN) | payer MEDICAID ==
[~2024-07-12] VITALS: Ht 182.9 cm; Wt 86.3 kg
--- NOTE | 2024-07-12 16:27 | ED.PDOC ---
History of Present Illness HPI Comments 43-year-old male brought by paramedics because of chest pain which started two days ago. Chest pain associated with nausea vomiting with abdominal discomfort. Has been here many times for similar symptom. He was here for chest pain in August for which he had some stents placed. Few months ago he had an angiogram for similar symptoms for which no abnormalities have been detected. History of hypertension diabetes. 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 He is very emotional. She denies any other symptoms. Time Seen by MD: 16:21 Primary Care Provider: Hema Reviewed Notes: Nurses Notes, Medications, Allergies Allergies: Coded Allergies: NO KNOWN ALLERGIES (Unverified , 12/04/21) Home Meds Active Scripts Ondansetron Odt 4MG Tab (ZOFRAN PO) 4 Mg Tb, 4 MG PO TIDPRN PRN for 5 Days, #15 TAB 0 Refills ODT TAB-DISSOLVE IN MOUTH, THEN SWALLOW Prov:KUNAL LERMA MD 06/06/24 Sacubitril-Valsartan (Entresto 24-26 mg) 1 Tab Tab, 1 TAB PO BID for 30 Days, #60 TAB 1 Refill Prov:KUNAL LERMA MD 06/06/24 Rosuvastatin Calcium (Crestor) 40 Mg Tab, 1 TAB PO DAILY for 30 Days, #30 TAB 1 Refill Prov:KUNAL LERMA MD 06/06/24 Pantoprazole Sodium Sesquihydr (Pantoprazole Sodium) 40 Mg Tab, 40 MG PO BID for 30 Days, #60 TAB Prov:JOE GUNDERSON NP 07/09/23 Sucralfate (CARAFATE) 1 Gm Tab, 1 GM OR QIDACHS for 30 Days, #120 TAB 2 Refills Prov:VENTURA LOWE MD 05/29/23 Reported Medications Famotidine (Famotidine) 20 Mg Tab, 20 MG PO BID, MG 06/05/24 Spironolactone (Spironolactone) 25 Mg Tab, 25 MG PO BID, TAB 06/05/24 Nifedipine (Nifedipine Er) 90 Mg Tab, 90 MG PO DAILY, TAB 06/05/24 Insulin Glargine (Basaglar Kwikpen) 100 Unit/Ml Inj, 20 UNIT SC BID, INJ 06/05/24 Ticagrelor Base (BRILINTA) 90 Mg Tab, 90 MG PO BID, TAB 06/05/24 Dapagliflozin Propanediol (Farxiga) 10 Mg Tab, 10 MG PO QAM, TAB 06/05/24 Ondansetron HCl (Ondansetron Hydrochloride) 4 Mg Tab, 2 TAB PO DAILYPRN PRN for nausea/vomiting 07/04/23 Atorvastatin Calcium (ATORVASTATIN CALCIUM) 40 Mg Tab, 1 TAB PO DAILY 07/04/23 Metformin Hydrochloride (Metformin Hcl) 1,000 Mg Tab, 1 TAB PO BIDWM 05/24/23 Sertraline Hcl (Sertraline Hcl) 25 Mg Tab, 1 TAB PO DAILY 05/24/23 Carvedilol (Carvedilol) 6.25 Mg Tab, 1 TAB PO BID 05/24/23 Gabapentin (Gabapentin) 800 Mg Tab, 1 TAB PO DAILY 05/24/23 Information Source: Patient, Emergency Med Personnel Mode of Arrival: EMS Severity: Mild Timing: Days Duration: Since onset Past Medical History PAST MEDICAL HISTORY: DM, High Lipids, HTN Surgical History: BKA Family History Family History: Reviewed,noncontributory to illness, Unknown Social History Smoker: Non-Smoker Alcohol: Denies ETOH Use Drugs: Denies Drug Use Lives In: Home Constitutional: denies: chills, diaphoresis, fatigue, fever, malaise, sweats, weakness, others EENTM: denies: blurred vision, double vision, ear bleeding, ear discharge, ear drainage, ear pain, ear ringing, eye pain, eye redness, hearing loss, mouth pain, mouth swelling, nasal discharge, nose bleeding, nose congestion, nose pain, photophobia, tearing, throat pain, throat swelling, voice changes, others Respiratory: denies: cough, hemoptysis, orthopnea, SOB at rest, shortness of b reath, SOB with excertion, stridor, wheezing, others Cardiovascular: reports: chest pain; denies: dizzy spells, diaphoresis, Dyspnea on exertion, edema, irregular heart beat, left arm pain, lightheadedness, palpit ations, PND, syncope, others Gastrointestinal: reports: nausea, vomiting; denies: abdomen distended, abdominal pain, blood streaked bowels, constipated, diarrhea, dysphagia, difficulty swallowing, hematemesis, melena, poor appetite, poor fluid intake, rectal bleeding, rectal pain, others Genitourinary: denies: burning, dysuria, flank pain, frequency, hematuria, incontinence, penile discharge, penile sore, pain, testicle pain, testicle swelling, urgency, others Neurological: denies: dizziness, fainting, headache, left sided numbness, left sided weakness, numbness, paresthesia, pre-existing deficit, right sided numbness, right sided weakness, seizure, speech problems, tingling, tremors, weakness, others Musculoskeletal: denies: back pain, gout, joint pain, joint swelling, muscle pain, muscle stiffness, neck pain, others Integumetry: denies: bruises, change in color, change in hair/nails, dryness, laceration, lesions, lumps, rash, wounds, others Allergic/Immunocompromised: denies: Difficulty Healing, Frequent Infections, Hives, Itching, others Hematologic/Lymphatic: denies: anemia, blood clots, easy bleeding, easy bruising, swollen glands, others Endocrine: denies: excessive hunger, excessive sweating, excessive thirst, excessive urination, flushing, intolerance to cold, intolerance to heat, unexplained weight gain, unexplained weight loss, others Psychiatric: denies: anxiety, bipolar disorder, depression, hopeless, panic disorder, schizophrenia, sleepless, suicidal, others Physical Exam General Appearance: Moderate Distress HEENT: Normal ENT Inspection, Pharynx Normal, TMs Normal Neck: Full Range of Motion, Non-Tender, Normal, Normal Inspection Respiratory: Chest Non-Tender, Lungs Clear, No Accessory Muscle Use, No Respiratory Distress, Normal Breath Sounds Cardiovascular: No Edema, No JVD, No Murmur, No Gallop, Normal Peripheral Pulses, Regular Rate/Rhythm Breast Exam: Deferred Gastrointestinal: No Organomegaly, Non Tender, No Pulsatile Mass, Normal Bowel Sounds, Soft Genitalia: Deferred Pelvic: Deferred Rectal: Deferred Extremities: Other (Old left below-knee amputation) Musculoskeletal : Apperance: Normal Neurologic: Alert, No Motor Deficits, No Sensory Deficits Cerebellar Function: NOT DONE Reflexes: NOT DONE Skin: Normal Color Peripheral Pulses: 3+ Radial (R), 3+ Radial (L) Lymphatic: No Adenopathy Was a procedure done? Was a procedure done?: No Differential Dx Considerations may include: Chest wall pain Anxiety X-Ray, Labs, Meds, VS Vital Signs Date Time Temp Pulse Resp B/P (MAP) Pulse Ox O2 Delivery O2 Flow Rate FiO2 07/12/24 16:28 93 07/12/24 16:21 99.1 105 15 145/96 (112) 96 Patient alert. Complaining of chest wall pain. Vitals stable. Answering all questions. Was given aspirin. Reviewed his previous visit. EKG reviewed does not show any acute changes. Has risk factors. Echocardiogram. Spoke with his primary care physician. Explained to the patient. Continue cardiac monitoring. Time of 1ST Reevaluation: 16:25 Reevaluation 1ST: Unchanged Patient Education/Counseling: Diagnosis, Treatment, Prognosis, Need For Follow Up Family Education/Counseling: No Family Present Departure 1 Departure Time of Disposition: 16:26 Impression: Primary Impression: Chest pain of unknown etiology Additional Impression: HTN (hypertension) Qualified Codes: I10 - Essential (primary) hypertension Disposition: ADMITTED INPATIENT Admit to: Med Surg Condition: Guarded Critical Care Note Critical Care Time?: Yes (45 min-critical care time only) Stability Stability form required: No Heart Score Heart Score: Heart Score Response (Comments) Value History Slightly Suspicious 0 EKG Normal 0 Age <45 0 Risk Factors >3 or Hx ASHD 2 Troponin Normal limit 0 Total 2 DINA ABREU MD Jul 12, 2024 16:27
[2024-07-12 17:25] LABS: Basophils # (auto) 0 10 ^3/uL (0-0.2); Basophils % (auto) 0.1 % (0.0-2.0); Eosinophils # (auto) 0.3 10 ^3/uL (0-0.8); Eosinophils % (auto) 3.2 % (0.0-7.0); Hematocrit 47.3 % (41.0-53.0); Hemoglobin 14.9 g/dL (13.5-17.5); Lymphocytes # (auto) 1.3 10 ^3/uL (0.4-5.4); Lymphocytes % (auto) 14.3 % (10.0-50.0); Mean Corpuscular Hemoglobin 29.7 pg (28.0-32.0); Mean Corpuscular Hgb Conc. 31.4 g/dL (32.0-36.0); Mean Corpuscular Volume 94.6 fL (80.0-100.0); Monocytes # (auto) 0.5 10 ^3/uL (0-1.3); Monocytes % (auto) 5.5 % (0.0-12.0); Neutrophils # (auto) 7.1 10 ^3/uL (1.6-8.6); Neutrophils % (auto) 76.9 % (37.0-80.0); Nucleated Red Blood Cells % 0.1 %; Platelet Count (auto) 121 10^3/uL (140-450); Red Blood Cells 4.99 10^6/uL (4.5-5.90); Red Cell Distribution Width 15.1 % (11.8-14.3); White Blood Cell 9.3 10^3/uL (4.4-10.8)
[2024-07-12 17:26] LABS: Potassium 3.7 mmol/L (3.5-5.1)
[2024-07-12 17:27] LABS: Anion Gap 10 (5-15); Calcium 9.8 mg/dL (8.7-10.4); Carbon Dioxide 31 mmol/L (20-31)
[2024-07-12] MEDS: ASPirin 325 MG TAB PO ONE (18:03)
[2024-07-12 18:04] VITALS: PULSE 110; RESP 18; O2SAT 98
[2024-07-12 18:06] LABS: Blood Urea Nitrogen 39 mg/dL (9-23); Chloride 130 mmol/L (98-107); Glucose 129 mg/dL (74-106)
[2024-07-12 18:08] LABS: Sodium 171 mmol/L (136-145)
[2024-07-12] MEDS ORDERED: ONDANSETRON HCL PO PRN (18:45)
[2024-07-12] MEDS ORDERED: NITROGLYCERIN 0.4 MG SL TAB SL PRN (18:45)
[2024-07-12] MEDS ORDERED: DOCUSATE SOD 100 MG CAP PO PRN (18:45)
[2024-07-12] MEDS ORDERED: ACETAMINOPHEN 325 MG TAB PO PRN (18:45)
[2024-07-12] MEDS ORDERED: MORPHINE SULFATE INJ 2 MG/ml SYRG IV PRN ×2 (18:45)
[2024-07-12] MEDS ORDERED: MAALOX PLUS or MAALOX 30 ML PO PRN (18:45)
[2024-07-12] MEDS ORDERED: TEMAZEPAM 15 MG CAP PO PRN (18:45)
[2024-07-12] MEDS ORDERED: HYDROcodone-ACET 5/325MG TAB PO PRN (18:45)
[2024-07-12] MEDS ORDERED: ONDANSETRON ODT 4 MG TAB PO PRN (18:45)
[2024-07-12] MEDS ORDERED: LORazepam 0.5 MG TAB PO PRN (18:45)
[2024-07-12] MEDS: PANTOPRAZOLE 40 MG/10 ML VIAL INJ IV ONE (18:46)
[2024-07-12] MEDS: ONDANSETRON HCL 4 MG/2 ML VIAL IV ONE (18:46)
[2024-07-12] MEDS: SODIUM CHLORIDE 0.9% 1,000 ML IV ONE (18:48)
[2024-07-12] MEDS: MORPHINE SULFATE 4 MG/ML SYR/VIAL IV ONE (18:49)
[2024-07-12 18:54] LABS: Platelet Estimate Decreased
--- NOTE | 2024-07-12 19:11 | DVHHP2 ---
History of Present Illness Reason for Visit: Chest pain History of Present Illness 43-year-old male brought in by the paramedics patient states he was having chest pain 2 days ago associated with nausea vomiting abdominal pain patient has had this pain on and off since his initial chest pain which led to him having stents placed last year in August patient states a few months ago he had an angiogram completed and was told that he had no abnormalities but as of now patient is complaining about having severe abdominal pain and chest pain and is under the impression that he is having similar pain to before patient was recommended by the ED for further evaluation and management Cardiovascular: CAD, HTN Review of Systems Constitutional: Yes: Weakness; No: Fever, Chills, Sweats, Malaise, Other Eyes: No: Pain, Vision change, Conjunctivae inflammation, Eyelid inflammation, Other, Redness ENT: No: Ear pain, Ear discharge, Nose pain, Nose discharge, Nose congestion, Mouth pain, Mouth swelling, Throat pain, Throat swelling, Other Respiratory: No: Cough, Dry, Shortness of breath, SOB with excertion, Wheezing, Hemoptysis, Pleuritic Pain, Sputum, Wheezing, Other Cardiovascular: Chest Pain, Palpitations; No: Orthopnea, Paroxysmal Noc. Dyspnea, Edema, Lt Headedness, Other Gastrointestinal: No: Nausea, Vomiting, Abdominal Pain, Diarrhea, Constipation, Melena, Hematochezia, Other Genitourinary: No Dysuria, No Frequency, No Incontinence, No Hematuria, No Retention, No Other Musculoskeletal: No: other, neck pain, shoulder pain, arm pain, back pain, hand pain, leg pain, foot pain Skin: No: Rash, Lesions, Jaundice, Bruising, Other Neurological: No: Weakness, Numbness, Incoordination, Change in speech, Confusion, Seizures, Other Allergies: Coded Allergies: NO KNOWN ALLERGIES (Unverified , 12/04/21) Exam Vital Signs Vital Signs Date Time Temp Pulse Resp B/P (MAP) Pulse Ox O2 Delivery O2 Flow Rate FiO2 07/12/24 18:05 98.7 110 18 202/121 (148) 97 98.7 07/12/24 18:04 Room Air* 0 21 General Appearance: Alert, Oriented X3, mild distress HEENT: Atraumatic, PERRLA Respiratory: Clear to auscultation, Normal air movement Cardiovascular: Regular rate, Normal S1, Normal S2 Abdominal: Normal bowel sounds, Soft, No tenderness Extremities: No clubbing, No cyanosis, No edema Skin: No rashes, No breakdown Neuro: Normal gait, Normal speech Psych/Mental Status: Mood NL Labs/Xrays Labs Test 07/12/24 16:57 Range/Units White Blood Count 9.3 4.4-10.8 10^3/uL Red Blood Count 4.99 4.5-5.90 10^6/uL Hemoglobin 14.9 13.5-17.5 g/dL Hematocrit 47.3 41.0-53.0 % Mean Corpuscular Volume 94.6 80.0-100.0 fL Mean Corpuscular Hemoglobin 29.7 28.0-32.0 pg Mean Corpuscular Hemoglobin Concent 31.4 L 32.0-36.0 g/dL Red Cell Distribution Width 15.1 H 11.8-14.3 % Platelet Count 121 L 140-450 10^3/uL Mean Platelet Volume 11.8 H 6.9-10.8 fL Neutrophils (%) (Auto) 76.9 37.0-80.0 % Lymphocytes (%) (Auto) 14.3 10.0-50.0 % Monocytes (%) (Auto) 5.5 0.0-12.0 % Eosinophils (%) (Auto) 3.2 0.0-7.0 % Basophils (%) (Auto) 0.1 0.0-2.0 % Neutrophils # (Auto) 7.1 1.6-8.6 10 ^3/uL Lymphocytes # (Auto) 1.3 0.4-5.4 10 ^3/uL Monocytes # (Auto) 0.5 0-1.3 10 ^3/uL Eosinophils # (Auto) 0.3 0-0.8 10 ^3/uL Basophils # (Auto) 0 0-0.2 10 ^3/uL Nucleated Red Blood Cells 0.1 % Platelet Estimate Decreased D-Dimer, Quantitative 0.53 H 0.0-0.49 mg/L FEU Sodium Level 171 *H 136-145 mmol/L Potassium Level 3.7 3.5-5.1 mmol/L Chloride Level 130 H 98-107 mmol/L Carbon Dioxide Level 31 20-31 mmol/L Anion Gap 10 5-15 Blood Urea Nitrogen 39 H 9-23 mg/dL Creatinine 1.22 0.700-1.30 mg/dL Glomerular Filtration Rate Calc 75 >90 mL/min BUN/Creatinine Ratio 32.0 H 10.0-20.0 Serum Glucose 129 H 74-106 mg/dL Calcium Level 9.8 8.7-10.4 mg/dL Troponin I High Sensitivity 8 </=54 ng/L Assessment/Plan Assessment/Plan Admit to [facility] Chest pain rule out ACS History of hypertension Patient on extensive cardiac regimen at home we will continue with medications from home Patient with a history of diabetes Continue with patient's home medications Including insulin sliding scale as needed Insulin long-acting 20 units b.i.d. Plan discussed with: Patient My Orders Orders - NASEEM MCKEON MD Procedure Category Date Status Time Ct Angio Chest CT 07/12/24 Logged Contrast 18:31 Famotidine Tablet PHA 07/12/24 In Process (Pepcid Tablet) 22:00 Ondansetron Po PHA 07/12/24 In Process (Zofran Po) 18:45 Pantoprazole Tablet PHA 07/12/24 Logged (Protonix Tablet) 22:00 Sacubitril-Valsartan PHA 07/12/24 In Process (Entresto 24-26 Mg 22:00 Spironolactone PHA 07/12/24 In Process (Aldactone) 22:00 Ticagrelor (Brilinta) PHA 07/12/24 In Process 22:00 (Nf) Insulin Glargine PHA 07/12/24 Logged (Basaglar Kwikpen) 22:00 (Nf) Nifedipine PHA 07/13/24 Logged (Nifedipine Er) 10:00 (Nf) Ondansetron Hcl PHA 07/12/24 Logged (Ondansetron Hydroc 18:45 (Nf) Rosuvastatin PHA 07/13/24 Logged Calcium (Crestor) 10:00 * Cardiology Consult CONS 07/12/24 Transmitted 18:31 Admit ADMIT 07/12/24 Transmitted 18:31 Code Status CODE 07/12/24 Transmitted 18:31 Vital Signs BRADY 07/12/24 In Process 18:31 Review Orders With BRADY 07/12/24 In Process Adm. 18:31 Consistent DIET 07/13/24 Transmitted Carb(Ccho)Diabetes Breakfast Sodium Chloride 0.9% PHA 07/12/24 In Process 18:45 Lorazepam Tablet PHA 07/12/24 In Process (Ativan Tablet) 18:45 Alum & Mag PHA 07/12/24 In Process Hydrox-Simethicone 18:45 Metoclopramide PHA 07/12/24 In Process Injection (Reglan 18:45 Docusate Sodium PHA 07/12/24 In Process Capsule (Colace 18:45 Acetaminophen Tablet PHA 07/12/24 In Process (Tylenol Tablet) 18:45 Temazepam (Restoril) PHA 07/12/24 In Process 18:45 Notify Md Of Changes [facility] 07/12/24 In Process From Base 18:31 Advance Directive BRADY 07/12/24 In Process 18:31 Basic Metabolic Panel LAB 07/13/24 Verified 04:00 Complete Blood Count LAB 07/13/24 Verified 04:00 Patient Condition ORDERS 07/12/24 Transmitted 18:31 Allergies BRADY 07/12/24 In Process 18:31 Hydrocodone-Acet PHA 07/12/24 In Process 5/325mg Tab ([place] 18:45 Ondansetron Hcl PHA 07/12/24 In Process (Zofran) 18:45 Morphine Sulfate PHA 07/12/24 In Process Injection 18:45 Nitroglycerin PHA 07/12/24 Logged Sublingual (Ntrostat 18:45 Morphine Sulfate PHA 07/12/24 Logged Injection 18:45 Stat Ekg For Chest [facility] 07/12/24 In Process Pain 18:31 Notify Md Of Changes [facility] 07/12/24 In Process From Base 18:31 Skilled Nursing Case Manager For [facility] 07/12/24 In Process 24 Hours 18:31 Emergency Dysrhythmia [facility] 07/12/24 In Process Protocol 18:31 Rhythm Strips Once [facility] 07/12/24 In Process Every Shift 18:31 Oxygen By Nasal RT 07/12/24 Transmitted Cannula 18:31 Problem List: (1) Intractable vomiting (2) Abdominal pain of unknown etiology (3) Vomiting (4) Chest pain of unknown etiology (5) HTN (hypertension) (6) History of diabetes mellitus Date of Service: Jul 12, 2024 Billing Provider: NASEEM MCKEON MD Common Visit Codes: [id number] INP/OBS CARE (HIGH) NASEEM MCKEON MD Jul 12, 2024 19:11
[2024-07-12] MEDS ORDERED: DEXTROSE (50%) 50ML SYRG IV PRN (19:15)
[2024-07-12] MEDS: SODIUM CHLORIDE 0.9% 1,000 ML IV SCH (19:27)
[2024-07-12] MEDS: METOCLOPRAMIDE HCL 5MG/ml INJ 2ml VIAL IV PRN (19:41)
[2024-07-12] MEDS: cloNIDine HCL 0.1 MG TAB PO SCH (19:59)
[2024-07-12] MEDS: IOHEXOL 350 MG/ML 100ML IJ ONE (20:03)
[2024-07-12] MEDS: ACCU-CHEK COMFORT CURVE STRIP VI SCH (20:46)
[2024-07-12] MEDS: InsuLIN REG 1unit/0.01ml Soln (100units/ml) SC SCH (20:53)
--- NOTE | 2024-07-12 21:27 | DVH ---
CT CT ANGIO CHEST CONTRAST INDICATION: elevated d-dimer EXAM DATE: 07/12/2024 08:04 PM COMPARISON: None RADIATION DOSE: CTDIvol: 28.42 mGy, DLP: 1168.38 mGy*cm PROCEDURE: Helical CT angiographic images were obtained of the chest with intravenous contrast. Sagi ttal and coronal reconstructions as well as MIPS are provided. Maximum intensity projections performe d (MIPs) were performed for CTA. ADDITIONAL IMAGES / REFORMATS: None All CT scans at this medical facility are performed using dose modulation techniques as appropriate t o a performed exam including the following: Automated exposure control was utilized; adjustment of th e MA and/or KV according to patient size; and use of iterative reconstruction technique. FINDINGS: Bones: Scattered degenerative changes are noted in the visualized osseous structures. Visualized Abdomen: Unremarkable. Chest Wall: Normal. Soft tissues: Normal. Mediastinum: Normal. Heart: Normal. Vessels: No filling defects in the visualized pulmonary arteries including the segmental and subsegme ntal pulmonary arteries. Lymph Nodes: Normal. Pleura: Normal. Airways: Normal. Lung: Normal. Other: None IMPRESSION: No pulmonary embolism in the visualized pulmonary arteries including the segmental and subsegmental p ulmonary arteries.
[2024-07-12] MEDS: HYDROmorphone HCL 2 MG/ML VL/or syr IV PRN (21:50)
[2024-07-12] MEDS: hydrALAZINE HCL 20 MG/ML VL IV PRN (21:51)
[2024-07-12] MEDS: SPIRONOLACTONE 25 MG TAB PO SCH (21:58)
[2024-07-12] MEDS: SACUBITRIL-VALSARTAN 24mg/26mg TAB PO SCH (21:58)
[2024-07-12] MEDS: TICAGRELOR 90 MG TAB PO SCH (21:58)
[2024-07-12] MEDS: FAMOTIDINE 20 MG TAB PO SCH (21:58)
[2024-07-12] MEDS: MELATONIN 5 MG TAB PO ONE (21:58)
[2024-07-12] MEDS ORDERED: INSULIN GLARGINE 20 UNIT SC SCH (22:00)
[2024-07-12] MEDS: INSULIN LANTUS (GLARGINE) 1 /0.01ml (100units/ml) SC SCH (22:02)
[2024-07-12 23:30] VITALS: PULSE 98; RESP 20; O2SAT 90
[2024-07-13] MEDS ORDERED: SOD CHL 0.45% 1,000 ML IV SCH (01:00)
[2024-07-13 06:34] LABS: Chloride 105 mmol/L (98-107); Potassium 4.3 mmol/L (3.5-5.1); Sodium 137 mmol/L (136-145)
[2024-07-13 06:35] LABS: Anion Gap 9 (5-15); Calcium 9.7 mg/dL (8.7-10.4); Carbon Dioxide 23 mmol/L (20-31)
[2024-07-13 06:40] LABS: BUN/Creatinine Ratio 20.9 (10.0-20.0)
[2024-07-13 06:46] LABS: Blood Urea Nitrogen 27 mg/dL (9-23); Glucose 165 mg/dL (74-106)
[2024-07-13 06:56] LABS: Basophils # (auto) 0 10 ^3/uL (0-0.2); Basophils % (auto) 0.3 % (0.0-2.0); Eosinophils # (auto) 0 10 ^3/uL (0-0.8); Eosinophils % (auto) 0.1 % (0.0-7.0); Hematocrit 39.7 % (41.0-53.0); Hemoglobin 13.5 g/dL (13.5-17.5); Lymphocytes # (auto) 1.3 10 ^3/uL (0.4-5.4); Lymphocytes % (auto) 15.7 % (10.0-50.0); Mean Corpuscular Hemoglobin 29.6 pg (28.0-32.0); Mean Corpuscular Volume 87.2 fL (80.0-100.0); Monocytes # (auto) 0.6 10 ^3/uL (0-1.3); Monocytes % (auto) 8.1 % (0.0-12.0); Neutrophils # (auto) 6.1 10 ^3/uL (1.6-8.6); Neutrophils % (auto) 75.8 % (37.0-80.0); Nucleated Red Blood Cells % 0.1 %; Platelet Count (auto) 402 10^3/uL (140-450); Red Blood Cells 4.55 10^6/uL (4.5-5.90); Red Cell Distribution Width 14.2 % (11.8-14.3)
[2024-07-13 08:00] VITALS: PULSE 76; RESP 14; TEMP 99.2; O2SAT 97
[2024-07-13] MEDS: ONDANSETRON HCL 4 MG/2 ML VIAL IV PRN (08:39)
[2024-07-13] MEDS: PANTOPRAZOLE 40 MG TAB PO SCH (08:40)
[2024-07-13] MEDS ORDERED: PATIENTS OWN MEDICATION (Rosuvastatin Calcium (Crestor) 1 TAB) PO SCH (10:00)
[2024-07-13] MEDS: NIFEdipine ER 30 MG TAB PO SCH (10:12)
--- NOTE | 2024-07-13 10:37 | DVHINCON2 ---
Date Seen: Jul 13, 2024 Referring Physician MD Funmi Reason for Consultation Chest pain History of Present Illness This is a 43 year old male who presented to the emergency room via EMS with a chief complaint of chest pain for two days. Describes his chest pain as left- sided, radiating to the epigastric area and associated with nausea, and vomiting. The chest pain is worse with inspiration. He underwent a 12 lead electrocardiogram revealing a normal sinus rhythm. Baseline troponin level is negative. He had a recent admission to this facility undergoing a cardiac catheterization without catheter based intervention given widely patent stent to the LAD as well as a left circumflex artery with a chronically occluded right coronary artery. The patient was found with diffuse three-vessel disease involving the ramus intermedius and obtuse marginal branches in addition to the distal LAD and circumflex as well as right coronary artery with recommendations for an eventual CABG. States he has been compliant with all his cardiac medications at home including dual antiplatelet therapy with Brilinta. Significant past medical history includes coronary artery disease status post PTCA X 4 EMPERATRIZ (on ASA and Brilinta) at [facility] on 08/2023, myocardial infarction, congestive heart failure, ischemic cardiomyopathy, hypertension, hyperlipidemia, insulin-dependent type 2 diabetes mellitus, gastroparesis, left rgxru-[id number]-[id number] amputation, cannabinoid use, and obesity. Past Medical History Past medical history reviewed. No other significant than mentioned above. Past Surgical History PTCA with four EMPERATRIZ, on 08/2023 Left [id number] amputation Family History: FH: multiple sclerosis G8 MOTHER Family History Family history reviewed. Social History Denies the use of alcohol or tobacco use. Admits to cannabinoid use. Allergies: Coded Allergies: NO KNOWN ALLERGIES (Unverified , 12/04/21) Home Meds Active Scripts Ondansetron Odt 4MG Tab (ZOFRAN PO) 4 Mg Tb, 4 MG PO TIDPRN PRN for 5 Days, #15 TAB 0 Refills ODT TAB-DISSOLVE IN MOUTH, THEN SWALLOW Prov:KUNAL LERMA MD 06/06/24 Sacubitril-Valsartan (Entresto 24-26 mg) 1 Tab Tab, 1 TAB PO BID for 30 Days, #60 TAB 1 Refill Prov:KUNAL LERMA MD 06/06/24 Rosuvastatin Calcium (Crestor) 40 Mg Tab, 1 TAB PO DAILY for 30 Days, #30 TAB 1 Refill Prov:KUNAL LERMA MD 06/06/24 Pantoprazole Sodium Sesquihydr (Pantoprazole Sodium) 40 Mg Tab, 40 MG PO BID for 30 Days, #60 TAB Prov:JOE GUNDERSON NP 07/09/23 Sucralfate (CARAFATE) 1 Gm Tab, 1 GM OR QIDACHS for 30 Days, #120 TAB 2 Refills Prov:VENTURA LOWE MD 05/29/23 Reported Medications Famotidine (Famotidine) 20 Mg Tab, 20 MG PO BID, MG 06/05/24 Spironolactone (Spironolactone) 25 Mg Tab, 25 MG PO BID, TAB 06/05/24 Nifedipine (Nifedipine Er) 90 Mg Tab, 90 MG PO DAILY, TAB 06/05/24 Insulin Glargine (Basaglar Kwikpen) 100 Unit/Ml Inj, 20 UNIT SC BID, INJ 06/05/24 Ticagrelor Base (BRILINTA) 90 Mg Tab, 90 MG PO BID, TAB 06/05/24 Dapagliflozin Propanediol (Farxiga) 10 Mg Tab, 10 MG PO QAM, TAB 06/05/24 Ondansetron HCl (Ondansetron Hydrochloride) 4 Mg Tab, 2 TAB PO DAILYPRN PRN for nausea/vomiting 07/04/23 Atorvastatin Calcium (ATORVASTATIN CALCIUM) 40 Mg Tab, 1 TAB PO DAILY 07/04/23 Metformin Hydrochloride (Metformin Hcl) 1,000 Mg Tab, 1 TAB PO BIDWM 05/24/23 Sertraline Hcl (Sertraline Hcl) 25 Mg Tab, 1 TAB PO DAILY 05/24/23 Carvedilol (Carvedilol) 6.25 Mg Tab, 1 TAB PO BID 05/24/23 Gabapentin (Gabapentin) 800 Mg Tab, 1 TAB PO DAILY 05/24/23 Home Meds Home medications reviewed. Current Medications Current Medications Medications (Trade) Dose Ordered Sig/Sreekanth Route PRN Reason Start Time Stop Time Status Last Admin Famotidine (Pepcid Tablet) 20 mg BID PO 07/12/24 22:00 07/13/24 10:12 Ondansetron HCl (Zofran Po) 4 mg TIDPRN PRN PO NAUSEA / VOMITING 07/12/24 18:45 Pantoprazole Sodium (Protonix Tablet) 40 mg BID PO 07/12/24 22:00 07/13/24 10:11 Sacubitril/ Valsartan (Entresto 24-26 Mg tab) 1 tab BID PO 07/12/24 22:00 07/13/24 10:15 Spironolactone (Aldactone) 25 mg BID PO 07/12/24 22:00 07/13/24 10:12 Ticagrelor (Brilinta) 90 mg BID PO 07/12/24 22:00 07/13/24 10:15 Patient Own Medication 20 unit BID SC 07/12/24 22:00 07/12/24 19:16 DC Nifedipine (Procardia Xl (Time-Release)) 90 mg DAILY PO 07/13/24 10:00 07/13/24 10:12 Patient Own Medication 2 tab DAILYPRN PRN PO nausea/vomiting 07/12/24 18:45 07/12/24 19:10 DC Patient Own Medication 1 tab DAILY PO 07/13/24 10:00 UNV Sodium Chloride 1,000 ml @ 60 mls/hr [id number] IV 07/12/24 18:45 07/12/24 20:41 Lorazepam (Ativan Tablet) 0.5 mg Q6HP PRN PO ANXIETY 07/12/24 18:45 Al Hydrox/Mg Hydrox/Simethicone (Maalox Plus) 30 ml Q6HP PRN PO FOR STOMACH DISTRESS 07/12/24 18:45 Metoclopramide HCl (Reglan Injection) 10 mg Q4HP PRN IV NAUSEA / VOMITING 07/12/24 18:45 07/13/24 03:09 Docusate Sodium (Colace Capsule) 100 mg BIDPRN PRN PO FOR CONSTIPATION 07/12/24 18:45 Acetaminophen (Tylenol Tablet) 650 mg Q6HP PRN PO PAIN SCALE 1-3 OR TEMP>100.4 07/12/24 18:45 Temazepam (Restoril) 15 mg QHSP PRN PO FOR INSOMNIA 07/12/24 18:45 Acetaminophen/ Hydrocodone Bitart (Hudson 5/325MG Tab) 1 tab Q4HP PRN PO MODERATE PAIN (4-6 PAIN SCALE) 07/12/24 18:45 Ondansetron HCl (Zofran) 4 mg Q4HP PRN IV NAUSEA / VOMITING 07/12/24 18:45 07/13/24 08:39 Morphine Sulfate 2 mg Q4HPRN PRN IV SEVERE PAIN (7-10 PAIN SCALE) 07/12/24 18:45 07/12/24 21:37 DC Nitroglycerin (Ntrostat Sublingual) 0.4 mg Q5MINP PRN SL FOR CHEST PAIN 07/12/24 18:45 Morphine Sulfate 2 mg Q30M PRN IV FOR CHEST PAIN 07/12/24 18:45 Insulin Glargine (Lantus) 20 units BID@1000,2200 SC 07/12/24 22:00 07/13/24 10:09 Diagnostic Test (Pha) (Accu-Chek Comfort Curve T) 1 strip IQ4HR 07/12/24 20:00 07/13/24 08:00 Insulin Human Regular (InsuLIN R) IQ4HR SC 07/12/24 20:00 07/13/24 08:29 Dextrose 50 ml UD PRN IV Blood Sugar LESS THAN 60 07/12/24 19:15 Clonidine HCl (Catapres Tablet) 0.2 mg TID PO 07/12/24 19:45 07/12/24 19:59 Hydralazine HCl (Apresoline Injection) 10 mg Q6HP PRN IV SBP>160 07/12/24 21:30 07/12/24 21:51 Hydromorphone HCl (Dilaudid Injection) 1 mg Q4HP PRN IV SEVERE PAIN (7-10 PAIN SCALE) 07/12/24 21:30 07/13/24 08:39 Sodium Chloride 1,000 ml @ 80 mls/hr [id number] IV 07/13/24 01:00 07/13/24 01:46 DC Atorvastatin Calcium (Lipitor) 80 mg HS PO 07/13/24 22:00 Review of Systems Constitutional: No symptom reported Ears, Nose, & Throat: No symptom reported Eyes: No symptom reported Neurological: No symptoms reported Pulmonary/Respiratory: No symptom reported Cardiovascular: Chest pain Gastrointestinal: No symptom reported Genitourinary: No symptom reported Musculoskeletal: No symptom reported Skin: No symptom reported Psychiatric: No symptom reported Endocrine: No symptom reported Hemotologic/Lymphatic: No symptom reported Vital Signs Vital Signs Date Time Temp Pulse Resp B/P (MAP) Pulse Ox O2 Delivery O2 Flow Rate FiO2 07/13/24 10:12 179/104 07/13/24 09:09 73 15 07/13/24 08:00 97 Room Air* 0 21 07/13/24 08:00 99.2 99.2 Physical Exam General Appearance: Cooperative. Well developed. Well nourished. In no acute distress Head Exam: Normal inspection Neck Exam: Normal inspection. Non-tender. Normal alignment Pulmonary/Respiratory: Chest non-tender. Clear bilateral breath sounds Cardiovascular/Chest: Regular rate and rhythm. S1, S2. NSR. No murmurs. No JVD. Peripheral Pulses: 2+ Radial (R). 2+ Radial (L). 2+ Pedal (R). 2+ Pedal (L) Abdominal Exam: Normal bowel sounds. Soft. Nontender. No hepatospenomegaly. No masses Ankle Exam: Negative ankle edema Lower extremities: Negative lower extremity edema Neuro/Mental Status: A&O x4. Coherent Thoughts/Psych: Normal thought pattern. Somewhat anxious Appearance: In no acute distress Skin Exam: Normal inspection. Normal color. Warm. Dry Labs/Diagnostic Data Labs Test 07/13/24 08:19 07/13/24 05:34 07/12/24 16:57 Range/Units POC Glucose 152 H 70-106 mg/dl White Blood Count 8.0 4.4-10.8 10^3/uL Red Blood Count 4.55 4.5-5.90 10^6/uL Hemoglobin 13.5 13.5-17.5 g/dL Hematocrit 39.7 #L 41.0-53.0 % Mean Corpuscular Volume 87.2 # 80.0-100.0 fL Mean Corpuscular Hemoglobin 29.6 28.0-32.0 pg Mean Corpuscular Hemoglobin Concent 34.0 32.0-36.0 g/dL Red Cell Distribution Width 14.2 11.8-14.3 % Platelet Count 402 # 140-450 10^3/uL Mean Platelet Volume 8.5 6.9-10.8 fL Neutrophils (%) (Auto) 75.8 37.0-80.0 % Lymphocytes (%) (Auto) 15.7 10.0-50.0 % Monocytes (%) (Auto) 8.1 0.0-12.0 % Eosinophils (%) (Auto) 0.1 0.0-7.0 % Basophils (%) (Auto) 0.3 0.0-2.0 % Neutrophils # (Auto) 6.1 1.6-8.6 10 ^3/uL Lymphocytes # (Auto) 1.3 0.4-5.4 10 ^3/uL Monocytes # (Auto) 0.6 0-1.3 10 ^3/uL Eosinophils # (Auto) 0 0-0.8 10 ^3/uL Basophils # (Auto) 0 0-0.2 10 ^3/uL Nucleated Red Blood Cells 0.1 % Sodium Level 137 136-145 mmol/L Potassium Level 4.3 3.5-5.1 mmol/L Chloride Level 105 # 98-107 mmol/L Carbon Dioxide Level 23 20-31 mmol/L Anion Gap 9 5-15 Blood Urea Nitrogen 27 #H 9-23 mg/dL Creatinine 1.29 0.700-1.30 mg/dL Glomerular Filtration Rate Calc 70 >90 mL/min BUN/Creatinine Ratio 20.9 H 10.0-20.0 Serum Glucose 165 H 74-106 mg/dL Calcium Level 9.7 8.7-10.4 mg/dL Platelet Estimate Decreased D-Dimer, Quantitative 0.53 H 0.0-0.49 mg/L FEU Troponin I High Sensitivity 8 </=54 ng/L Assessment Stable angina Acute on chronic compensated HFrEF, NYHA class III Coronary artery disease s/p PTCA X 4 EMPERATRIZ (on ASA and Brilinta) Ischemic cardiomyopathy with an EF of 35-40% Type 2 diabetes mellitus, uncontrolled (Hgb A1c 7.9%) Hypertension Hyperlipidemia Gastroparesis Cannabinoid use Obesity Plan/Recommendation (Dr. Marin) * Echocardiogram from 06/03/24 revealed EF 35-40% * GDMT for CHF and uptitrate as tolerated * Continue dual-antiplatelet therapy with Brilinta and aspirin * Lipid-lowering agent The patient underwent a cardiac catheterization and coronary angiogram revealing a widely patent stent to the LAD as well as the left circumflex artery with a chronically occluded right coronary artery on 06/05/2024. There is diffuse three-vessel disease involving the ramus intermedius and obtuse marginal branches in addition to the distal LAD and circumflex as well as right coronary artery. The patient eventually will need a coronary artery bypass grafting surgery. He was offered transfer to [facility] for cardiothoracic evaluation which he refused given family constraints. We recommend to continue aggressive medical therapy in the time being including GDMT for CHF, dual-antiplatelet therapy, and lipid lowering agent. Scheduled for follow-up with Dr. Marin on Saturday07/20/24 at 1415. There is no further cardiac workup indicated at this time. Please call if you need to re-consult. Thank you for allowing us to care for this patient. This medical document was created using an electronic medical record system with voice recognition software and computerized dictation system. Although this document has been carefully reviewed, there might still be some phonetic and typographical errors. Occasional wrong-word or ``sound-alike substitutions may have occurred due to the inherent limitations of voice recognition software. These areas are purely typographical due to imperfections of the software programs and do not reflect any compromise in the patient's medical care. Please read the chart carefully and recognize, using context, where these substitutions have occurred. Plan discussed with: Patient, Other NYHA Physical activity limitations: Class3(Marked) ordinary (activity causes symtoms) Date of Service: Jul 13, 2024 Billing Provider: ALESSANDRO MARIN MD Cardiology Common Codes: [id number] INP/OBS CARE (High) VIMAL BERRY [facility] Jul 13, 2024 10:37
--- NOTE | 2024-07-13 11:56 | DVHPN2 ---
Eyes: No Pain, No Vision change, No Conjunctivae inflammation, No Eyelid inflammation, No Other, No Redness ENT: No Ear pain, No Ear discharge, No Nose pain, No Nose discharge, No Nose congestion, No Mouth pain, No Mouth swelling, No Throat pain, No Throat swelling, No Other Cardiovascular: Chest Pain, Palpitations; No Orthopnea, No Paroxysmal Noc. Dyspnea, No Edema, No Lt Headedness, No Other Respiratory: No Cough, No Dry, No Shortness of breath, No SOB with excertion, No Wheezing, No Hemoptysis, No Pleuritic Pain, No Sputum, No Other Gastrointestinal: No Nausea, No Vomiting, No Abdominal Pain, No Diarrhea, No Constipation, No Melena, No Hematochezia, No Other Genitourinary: No Dysuria, No Frequency, No Incontinence, No Hematuria, No Retention, No Other Musculoskeletal: No other, No neck pain, No shoulder pain, No arm pain, No back pain, No hand pain, No leg pain, No foot pain Skin: No Rash, No Lesions, No Jaundice, No Bruising, No Other Objective Vitals Vital Signs Date Time Temp Pulse Resp B/P (MAP) Pulse Ox O2 Delivery O2 Flow Rate FiO2 07/13/24 11:01 85 16 94/76 (82) 96 07/13/24 08:00 Room Air* 0 21 07/13/24 08:00 99.2 99.2 Intake/Output Intake and Output 07/13/24 07:00 Output Total 1250 ml Balance -1250 ml Output Urine Total 1250 ml Medications Current Medications Medications Dose Ordered Sig/Sreekanth Route Start Time Stop Time Status Last Admin Dose Admin Famotidine 20 mg BID PO 07/12/24 22:00 07/13/24 10:12 20 MG Ondansetron HCl 4 mg TIDPRN PRN PO 07/12/24 18:45 Pantoprazole Sodium 40 mg BID PO 07/12/24 22:00 07/13/24 10:11 40 MG Sacubitril/ Valsartan 1 tab BID PO 07/12/24 22:00 07/13/24 10:15 1 TAB Spironolactone 25 mg BID PO 07/12/24 22:00 07/13/24 10:12 25 MG Ticagrelor 90 mg BID PO 07/12/24 22:00 07/13/24 10:15 90 MG Nifedipine 90 mg DAILY PO 07/13/24 10:00 07/13/24 10:12 90 MG Patient Own Medication 1 tab DAILY PO 07/13/24 10:00 UNV Lorazepam 0.5 mg Q6HP PRN PO 07/12/24 18:45 Al Hydrox/Mg Hydrox/Simethicone 30 ml Q6HP PRN PO 07/12/24 18:45 Metoclopramide HCl 10 mg Q4HP PRN IV 07/12/24 18:45 07/13/24 03:09 10 MG Docusate Sodium 100 mg BIDPRN PRN PO 07/12/24 18:45 Acetaminophen 650 mg Q6HP PRN PO 07/12/24 18:45 Temazepam 15 mg QHSP PRN PO 07/12/24 18:45 Acetaminophen/ Hydrocodone Bitart 1 tab Q4HP PRN PO 07/12/24 18:45 Ondansetron HCl 4 mg Q4HP PRN IV 07/12/24 18:45 07/13/24 08:39 4 MG Nitroglycerin 0.4 mg Q5MINP PRN SL 07/12/24 18:45 Morphine Sulfate 2 mg Q30M PRN IV 07/12/24 18:45 Insulin Glargine 20 units BID@1000,2200 SC 07/12/24 22:00 07/13/24 10:09 20 UNITS Diagnostic Test (Pha) 1 strip IQ4HR 07/12/24 20:00 07/13/24 11:47 1 STRIP Insulin Human Regular IQ4HR SC 07/12/24 20:00 07/13/24 08:29 2 UNITS Dextrose 50 ml UD PRN IV 07/12/24 19:15 Hydralazine HCl 10 mg Q6HP PRN IV 07/12/24 21:30 07/12/24 21:51 10 MG Atorvastatin Calcium 80 mg HS PO 07/13/24 22:00 Aspirin 81 mg DAILY PO 07/14/24 10:00 Carvedilol 6.25 mg Q12HR PO 07/13/24 22:00 Empaglifozin 10 mg DAILY PO 07/14/24 10:00 Laboratory Results Laboratory Tests 07/13/24 05:34 Chemistry Test 07/12/24 16:57 07/13/24 05:34 Calcium Level 9.8 mg/dL (8.7-10.4) 9.7 mg/dL (8.7-10.4) Coagulation Test 07/12/24 16:57 D-Dimer, Quantitative 0.53 mg/L FEU (0.0-0.49) H JAROD SMITH MD Jul 13, 2024 11:56
[2024-07-13 12:00] VITALS: BP 150/99; PULSE 86; RESP 12; O2SAT 91
[2024-07-13] MEDS: ASPirin 81 mg TAB PO ONE (12:01)
[2024-07-13] MEDS: CARVEDILOL 3.125 MG TAB PO ONE (12:02)
[2024-07-13] MEDS ORDERED: CARVEDILOL 3.125 MG TAB PO SCH (22:00)
[2024-07-13] MEDS ORDERED: ATORVASTATIN 20 MG TAB PO SCH (22:00)
--- NOTE | 2024-07-14 06:32 | DVHDS2 ---
Discharge Summary Date of Admission Jul 12, 2024 at 18:31 Date of Discharge: Jul 13, 2024 Admitting Diagnosis Stable angina Acute on chronic compensated HFrEF, NYHA class III Coronary artery disease s/p PTCA X 4 EMPERATRIZ (on ASA and Brilinta) Ischemic cardiomyopathy with an EF of 35-40% Type 2 diabetes mellitus, uncontrolled (Hgb A1c 7.9%) Hypertension Hyperlipidemia Gastroparesis Cannabinoid use Obesity Labs/Diagnostic Data: Laboratory Results Test 07/13/24 12:00 07/13/24 11:47 07/13/24 05:34 07/12/24 16:57 Sodium Level 139 mmol/L (136-145) POC Glucose 82 mg/dl (70-106) White Blood Count 8.0 10^3/uL (4.4-10.8) Red Blood Count 4.55 10^6/uL (4.5-5.90) Hemoglobin 13.5 g/dL (13.5-17.5) Hematocrit 39.7 % (41.0-53.0) Mean Corpuscular Volume 87.2 fL (80.0-100.0) Mean Corpuscular Hemoglobin 29.6 pg (28.0-32.0) Mean Corpuscular Hemoglobin Concent 34.0 g/dL (32.0-36.0) Red Cell Distribution Width 14.2 % (11.8-14.3) Platelet Count 402 10^3/uL (140-450) Mean Platelet Volume 8.5 fL (6.9-10.8) Neutrophils (%) (Auto) 75.8 % (37.0-80.0) Lymphocytes (%) (Auto) 15.7 % (10.0-50.0) Monocytes (%) (Auto) 8.1 % (0.0-12.0) Eosinophils (%) (Auto) 0.1 % (0.0-7.0) Basophils (%) (Auto) 0.3 % (0.0-2.0) Neutrophils # (Auto) 6.1 10 ^3/uL (1.6-8.6) Lymphocytes # (Auto) 1.3 10 ^3/uL (0.4-5.4) Monocytes # (Auto) 0.6 10 ^3/uL (0-1.3) Eosinophils # (Auto) 0 10 ^3/uL (0-0.8) Basophils # (Auto) 0 10 ^3/uL (0-0.2) Nucleated Red Blood Cells 0.1 % Potassium Level 4.3 mmol/L (3.5-5.1) Chloride Level 105 mmol/L (98-107) Carbon Dioxide Level 23 mmol/L (20-31) Anion Gap 9 (5-15) Blood Urea Nitrogen 27 mg/dL (9-23) Creatinine 1.29 mg/dL (0.700-1.30) Glomerular Filtration Rate Calc 70 mL/min (>90) BUN/Creatinine Ratio 20.9 (10.0-20.0) Serum Glucose 165 mg/dL (74-106) Calcium Level 9.7 mg/dL (8.7-10.4) Platelet Estimate Decreased D-Dimer, Quantitative 0.53 mg/L FEU (0.0-0.49) Troponin I High Sensitivity 8 ng/L (</=54) Other Laboratory Tests 07/13/24 12:00 07/13/24 05:34 Brief Hx & Hospital Course: This is a 43 years old male come to emergency department because of chest pain for two day. He described his chest pain on the left side radiating to epigastric area and associated with nausea and vomiting. Chest pain worsening with inspiration. EKG showed normal sinus rhythm. Baseline troponin level is negative. The patient was recently admitted to this facility and undergo a cardiac catheterization. The cardiac catheterization on June 05 showed wide patent stent at LAD as well as left circumflex artery with a chronically occluded right coronary artery. The patient was found with diffuse three-vessel disease involving the ramus intermedius and obtuse marginal branches in addition to the distal LAD and circumflex as well as right coronary artery with recommendations for an eventual CABG. States he has been compliant with all his cardiac medications at home including dual antiplatelet therapy with Brilinta. Apparently, he has a status post PTCA X 4 EMPERATRIZ (on ASA and Brilinta) at [facility] on 08/2023. There is diffuse three-vessel disease involving the ramus intermedius and obtuse marginal branches in addition to the distal LAD and circumflex as well as right coronary artery. The patient eventually will need a coronary artery bypass grafting surgery. He was offered transfer to [facility] for cardiothoracic evaluation which he refused given family constraints. Significant past medical history includes coronary artery disease , myocardial infarction, congestive heart failure, ischemic cardiomyopathy, hypertension, hyperlipidemia, insulin-dependent type 2 diabetes mellitus, gastroparesis, left [id number] amputation, cannabinoid use, and obesity. The patient pain is not controlled and he adamant request Dilaudid. The patient get upset because his pain medication is not at the level he want so he decided to leave against medical advice. Physical exam prior to leaving against medical advice: HEENT: Normocephalic atraumatic pupils equal react to light and accommodation. Extraocular muscles intact, conjunctiva pink, oropharynx moist, no thrush, no exudate. Lymphatic: No lymphadenopathy Cardiovascular exam: S1, S2 was heard. No murmurs, rubs, gallops Lung: Clear on auscultation bilaterally, no wheeze, rale, rhonchi. GI: Abdominal soft, nondistended, nontenderness, positive bowel sounds. Extremity: No crepitus, cyanosis, edema. Pedal pulses present bilateral. Full range of motion. Skin: Normal turgor, no rash. Psych: Alert, oriented x3. Neurology: No focal deficits, cranial nerve II to XII grossly intact. This medical document was created using an electronic medical record system with [employer] direct computerized dictation system. Although this document has been carefully reviewed, there may still be some phonetic and typographical errors. These areas are purely typographical due to imperfections of the software programs, and do not reflect any compromise in the patient's medical care. Condition at Discharge: Guarded Final Diagnosis/Problems List Stable angina Acute on chronic compensated HFrEF, NYHA class III Coronary artery disease s/p PTCA X 4 EMPERATRIZ (on ASA and Brilinta) Ischemic cardiomyopathy with an EF of 35-40% Type 2 diabetes mellitus, uncontrolled (Hgb A1c 7.9%) Hypertension Hyperlipidemia Gastroparesis Cannabinoid use Obesity Discharge Disposition: AMA Discharge Statement: "Patient was advised to return to the ER or call 911 if any headaches, dizziness, shortness of breath, chest pain, abdominal pain, bleeding, fevers, or worsening of medical condition. Patient was counseled about treatment plan, medications, possible side effects, patientverbalized understanding. All questions were answered to the best of my ability. This discharge took greater then 30 minutes in planning, reviewing documentation, counseling the patient, and discussing with other team members." ASSESSMENT ASSESSMENT Assessment Date of Service: Jul 13, 2024 Billing Provider: JAROD SMITH MD Common Visit Codes: 86755-KOI/OBS DISCH DAY >30min JAROD SMITH MD Jul 14, 2024 06:32
[2024-07-14] MEDS ORDERED: ASPirin 81 mg TAB PO SCH (10:00)
[2024-07-14] MEDS ORDERED: EMPAGLIFLOZIN 10 MG TAB PO SCH (10:00)
== END 2024-07-13 12:40 | disposition left against medical advice (07) | DRG 198 ==
LOC: ER 16:19 → EDBD 16:19 → OVERFLOW 18:31
PROVIDERS: ADMIT Hospitalist; ATTEND Internal Medicine
DX: I25.118 Atherosclerotic heart disease of native coronary artery with other forms of angina pectoris (principal); I50.23 Acute on chronic systolic (congestive) heart failure; I11.0 Hypertensive heart disease with heart failure; E11.43 Type 2 diabetes mellitus with diabetic autonomic (poly)neuropathy; Z53.29 Procedure and treatment not carried out because of patient's decision for other reasons; K31.84 Gastroparesis; E66.9 Obesity, unspecified; E78.5 Hyperlipidemia, unspecified; Z98.61 Coronary angioplasty status; Z89.512 Acquired absence of left leg below knee; Z82.0 Family history of epilepsy and other diseases of the nervous system; Z79.4 Long term (current) use of insulin; I25.2 Old myocardial infarction; Z68.25 Body mass index [BMI] 25.0-25.9, adult; Z79.899 Other long term (current) drug therapy; Z79.84 Long term (current) use of oral hypoglycemic drugs
CPT/HCPCS: 36415; 71275; 80048; 82962; 84295; 84484; 85025; 85379; 96374; 96375; 99291; G0378; J1815; J2405; J2470; Q0162

== ENCOUNTER 2024-10-07 05:59 | Inpatient (IN) | payer MEDICAID ==
[~2024-10-07] VITALS: Ht 188 cm; Wt 77.0 kg
--- NOTE | 2024-10-07 06:13 | ECG ---
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
--- NOTE | 2024-10-07 06:47 | ED.PDOC ---
History of Present Illness HPI Comments 43M BIBA w/ prior Hx of DM, High Lipids, HTN, [place] and Stents which all may be associated to the c/c of ABD pain since Saturday of 10/05/24. Pt reports on also having SOB, N/V Diffuse ABD pain but mostly in the epigastric area radiating up the the chest. SHx of Stents. Denies chills, fever, or no other associated symptom's, modifiers, recent injuries or sick contact at this time. Chief Complaint: Abdominal Pain Time Seen by MD: 06:20 Primary Care Provider: DESTINY Reviewed Notes: Nurses Notes, Associate Professor Notes, Medications, Allergies Allergies: Coded Allergies: NO KNOWN ALLERGIES (Unverified , 12/04/21) Home Meds Active Scripts Ondansetron Odt 4MG Tab (ZOFRAN PO) 4 Mg Tb, 4 MG PO TIDPRN PRN for 5 Days, #15 TAB 0 Refills ODT TAB-DISSOLVE IN MOUTH, THEN SWALLOW Prov:KUNAL LERMA MD 06/06/24 Sacubitril-Valsartan (Entresto 24-26 mg) 1 Tab Tab, 1 TAB PO BID for 30 Days, #60 TAB 1 Refill Prov:KUNAL LERMA MD 06/06/24 Rosuvastatin Calcium (Crestor) 40 Mg Tab, 1 TAB PO DAILY for 30 Days, #30 TAB 1 Refill Prov:KUNAL LERMA MD 06/06/24 Pantoprazole Sodium Sesquihydr (Pantoprazole Sodium) 40 Mg Tab, 40 MG PO BID for 30 Days, #60 TAB Prov:JOE GUNDERSON NP 07/09/23 Sucralfate (CARAFATE) 1 Gm Tab, 1 GM OR QIDACHS for 30 Days, #120 TAB 2 Refills Prov:VENTURA LOWE MD 05/29/23 Reported Medications Famotidine (Famotidine) 20 Mg Tab, 20 MG PO BID, MG 06/05/24 Spironolactone (Spironolactone) 25 Mg Tab, 25 MG PO BID, TAB 06/05/24 Nifedipine (Nifedipine Er) 90 Mg Tab, 90 MG PO DAILY, TAB 06/05/24 Insulin Glargine (Basaglar Kwikpen) 100 Unit/Ml Inj, 20 UNIT SC BID, INJ 06/05/24 Ticagrelor Base (BRILINTA) 90 Mg Tab, 90 MG PO BID, TAB 06/05/24 Dapagliflozin Propanediol (Farxiga) 10 Mg Tab, 10 MG PO QAM, TAB 06/05/24 Ondansetron HCl (Ondansetron Hydrochloride) 4 Mg Tab, 2 TAB PO DAILYPRN PRN for nausea/vomiting 07/04/23 Atorvastatin Calcium (ATORVASTATIN CALCIUM) 40 Mg Tab, 1 TAB PO DAILY 07/04/23 Metformin Hydrochloride (Metformin Hcl) 1,000 Mg Tab, 1 TAB PO BIDWM 05/24/23 Sertraline Hcl (Sertraline Hcl) 25 Mg Tab, 1 TAB PO DAILY 05/24/23 Carvedilol (Carvedilol) 6.25 Mg Tab, 1 TAB PO BID 05/24/23 Gabapentin (Gabapentin) 800 Mg Tab, 1 TAB PO DAILY 05/24/23 Information Source: Patient, Emergency Med Personnel Mode of Arrival: EMS Severity: Moderate Timing: Days Duration: Since onset, Days Prehospital treatment: None Past Medical History PAST MEDICAL HISTORY: DM, High Lipids, HTN, [place] Surgical History: BKA (Left Extremity) Surgical History (Other): Stents Family History Family History: Reviewed,noncontributory to illness, Unknown Social History Smoker: Non-Smoker Alcohol: Denies ETOH Use Drugs: Denies Drug Use Lives In: Home Constitutional: denies: chills, diaphoresis, fatigue, fever, malaise, sweats, weakness, others EENTM: denies: blurred vision, double vision, ear bleeding, ear discharge, ear drainage, ear pain, ear ringing, eye pain, eye redness, hearing loss, mouth pain, mouth swelling, nasal discharge, nose bleeding, nose congestion, nose pain, photophobia, tearing, throat pain, throat swelling, voice changes, others Respiratory: reports: shortness of breath; denies: cough, hemoptysis, orthopnea, SOB at rest, SOB with excertion, stridor, wheezing, others Cardiovascular: reports: chest pain; denies: dizzy spells, diaphoresis, Dyspnea on exertion, edema, irregular heart beat, left arm pain, lightheadedness, palpitations, PND, syncope, others Gastrointestinal: reports: abdominal pain, nausea, vomiting; denies: abdomen distended, blood streaked bowels, constipated, diarrhea, dysphagia, difficulty swallowing, hematemesis, melena, poor appetite, poor fluid intake, rectal bleeding, rectal pain, others Genitourinary: denies: burning, dysuria, flank pain, frequency, hematuria, incontinence, penile discharge, penile sore, pain, testicle pain, testicle swelling, urgency, others Neurological: denies: dizziness, fainting, headache, left sided numbness, left sided weakness, numbness, paresthesia, pre-existing deficit, right sided numbness, right sided weakness, seizure, speech problems, tingling, tremors, weakness, others Musculoskeletal: denies: back pain, gout, joint pain, joint swelling, muscle pain, muscle stiffness, neck pain, others Integumetry: denies: bruises, change in color, change in hair/nails, dryness, laceration, lesions, lumps, rash, wounds, others Allergic/Immunocompromised: denies: Difficulty Healing, Frequent Infections, Hives, Itching, others Hematologic/Lymphatic: denies: anemia, blood clots, easy bleeding, easy bruising, swollen glands, others Endocrine: denies: excessive hunger, excessive sweating, excessive thirst, excessive urination, flushing, intolerance to cold, intolerance to heat, unexplained weight gain, unexplained weight loss, others Psychiatric: denies: anxiety, bipolar disorder, depression, hopeless, panic disorder, schizophrenia, sleepless, suicidal, others All Other Systems: Reviewed and Negative Physical Exam General Appearance: Moderate Distress, Normal HEENT: Normal ENT Inspection, Pharynx Normal, TMs Normal Neck: Full Range of Motion, Non-Tender, Normal, Normal Inspection Respiratory: Chest Non-Tender, Lungs Clear, No Accessory Muscle Use, No Respiratory Distress, Normal Breath Sounds Cardiovascular: No Edema, No JVD, No Murmur, No Gallop, Normal Peripheral Pulses, Regular Rate/Rhythm Breast Exam: Deferred Gastrointestinal: No Organomegaly, Non Tender, No Pulsatile Mass, Normal Bowel Sounds, Soft Genitalia: Deferred Pelvic: Deferred Rectal: Deferred Extremities: No calf tenderness, Normal capillary refill, Normal range of motion, Non-tender, No pedal edema, Other (Old left above knee amputation) Musculoskeletal : Apperance: Normal Neurologic: Alert, medical sociologist II-XII nml as Tested, No Motor Deficits, Normal Affect, Normal Mood, No Sensory Deficits Cerebellar Function: NOT DONE Reflexes: NOT DONE Skin: Dry, Normal Color, Warm Peripheral Pulses: 3+ Radial (R), 3+ Radial (L) Lymphatic: No Adenopathy Was a procedure done? Was a procedure done?: No Differential Dx Considerations may include: Gastroenteritis Electrolyte imbalance X-Ray, Labs, Meds, VS Vital Signs Date Time Temp Pulse Resp B/P (MAP) Pulse Ox O2 Delivery O2 Flow Rate FiO2 10/07/24 11:24 98 16 98/63 10/07/24 11:04 122 16 184/124 10/07/24 10:34 201/115 10/07/24 10:00 98.7 114 22 201/115 (143) 96 98.7 10/07/24 09:05 110 196/124 10/07/24 08:00 109 12 189/122 (144) 96 10/07/24 08:00 106 10/07/24 07:55 98.5 127 208/129 (155) 96 98.5 10/07/24 07:55 110 208/129 10/07/24 07:00 98.7 123 20 216/131 (159) 99 98.7 10/07/24 07:00 123 20 99 Room Air* 0 21 10/07/24 06:09 120 10/07/24 06:09 98.3 108 16 213/126 (155) 96 Lab Test 10/07/24 11:47 10/07/24 11:06 10/07/24 07:13 10/07/24 06:36 Range/Units POC Glucose 339 H 394 H 70-106 mg/dl Beta-Hydroxybutyric Acid 3.474 H < 0.4 mmol/L Urine Color Light-yellow Yellow Urine Clarity Clear Clear Urine pH 6.0 5.0-9.0 Urine Specific [place] 1.027 1.001-1.035 Urine Protein 3+ H Negative Urine Ketones 2+ H Negative Urine Blood 1+ H Negative /uL Urine Nitrite Negative Negative Urine Bilirubin Negative Negative Urine Urobilinogen Normal Negative mg/dL Urine Leukocyte Esterase Negative Negative /uL Urine RBC 2 0 - 3 /hpf Urine Microscopic WBC 4 H 0-3 /HPF Urine Squamous Epithelial Cells Few <5 /hpf Urine Bacteria None seen None Seen /hpf Urine Glucose 4+ H Normal mg/dL Test 10/07/24 06:03 Range/Units White Blood Count 10.9 H 4.4-10.8 10^3/uL Red Blood Count 4.75 4.5-5.90 10^6/uL Hemoglobin 14.6 13.5-17.5 g/dL Hematocrit 42.8 41.0-53.0 % Mean Corpuscular Volume 90.1 80.0-100.0 fL Mean Corpuscular Hemoglobin 30.8 28.0-32.0 pg Mean Corpuscular Hemoglobin Concent 34.2 32.0-36.0 g/dL Red Cell Distribution Width 15.2 H 11.8-14.3 % Platelet Count 382 140-450 10^3/uL Mean Platelet Volume 8.0 6.9-10.8 fL Neutrophils (%) (Auto) 83.2 H 37.0-80.0 % Lymphocytes (%) (Auto) 11.5 10.0-50.0 % Monocytes (%) (Auto) 4.8 0.0-12.0 % Eosinophils (%) (Auto) 0.1 0.0-7.0 % Basophils (%) (Auto) 0.4 0.0-2.0 % Neutrophils # (Auto) 9.0 H 1.6-8.6 10 ^3/uL Lymphocytes # (Auto) 1.3 0.4-5.4 10 ^3/uL Monocytes # (Auto) 0.5 0-1.3 10 ^3/uL Eosinophils # (Auto) 0 0-0.8 10 ^3/uL Basophils # (Auto) 0 0-0.2 10 ^3/uL Nucleated Red Blood Cells 0.1 % Sodium Level 134 L 136-145 mmol/L Potassium Level 4.3 3.5-5.1 mmol/L Chloride Level 100 98-107 mmol/L Carbon Dioxide Level 16 L 20-31 mmol/L Anion Gap 18 H 5-15 Blood Urea Nitrogen 27 H 9-23 mg/dL Creatinine 1.31 H 0.700-1.30 mg/dL Glomerular Filtration Rate Calc 68 >90 mL/min BUN/Creatinine Ratio 20.6 H 10.0-20.0 Serum Glucose 402 *H 74-106 mg/dL Calcium Level 10.6 H 8.7-10.4 mg/dL Troponin I High Sensitivity 42 </=54 ng/L Current Medications Medications (Trade) Dose Ordered Sig/Sreekanth Route Start Time Stop Time Status Last Admin Ondansetron HCl (Zofran) 4 mg ONCE ONCE IV 10/07/24 06:45 10/07/24 06:46 DC 10/07/24 08:19 Sodium Chloride 1,000 ml @ 1,000 mls/hr Q1H ONCE IV 10/07/24 06:45 10/07/24 07:44 DC 10/07/24 07:55 Sodium Chloride 1,000 ml @ 150 mls/hr Q6H40M ONCE IV 10/07/24 06:45 10/07/24 13:24 10/07/24 08:44 Labetalol HCl (Labetalol HCl) 10 mg ONCE ONCE IV 10/07/24 07:00 10/07/24 07:01 DC 10/07/24 07:55 Ketorolac Tromethamine (Toradol Injection) 30 mg ONCE ONCE IV 10/07/24 10:30 10/07/24 10:31 DC 10/07/24 10:29 Amlodipine Besylate (Norvasc Tablet) 10 mg ONCE ONCE PO 10/07/24 10:30 10/07/24 10:31 DC 10/07/24 10:34 Lorazepam (Ativan Inj) 1 mg ONCE ONCE IV 10/07/24 11:00 10/07/24 11:01 DC 10/07/24 11:04 Morphine Sulfate 4 mg ONCE ONCE IV 10/07/24 11:00 10/07/24 11:01 DC 10/07/24 11:04 Patient alert. Complaining of nausea vomiting chest pain. Vitals stable. Blood pressure elevated. Was given labetalol. Establish intravenous access. Was given fluids. Abdomen is soft nontender. History of cardiac. Continue to monitor. Time of 1ST Reevaluation: 06:50 Reevaluation 1ST: Unchanged Patient Education/Counseling: Diagnosis, Treatment, Prognosis Family Education/Counseling: No Family Present Departure 1 Departure Time of Disposition: 06:53 Impression: Primary Impression: Chest pain of unknown etiology Additional Impressions: Hypertensive emergency Uncontrolled diabetes mellitus Qualified Codes: E13.65 - Other specified diabetes mellitus with hyperglycemia Disposition: ADMITTED INPATIENT Admit to: Med Surg Condition: Guarded Critical Care Note Critical Care Time?: Yes (90 min-critical care time only) Critical care comment: Blood pressure elevated continues to have nausea vomiting chest pain Stability Stability form required: No Heart Score Heart Score: Heart Score Response (Comments) Value History Slightly Suspicious 0 EKG Normal 0 Age <45 0 Risk Factors >3 or Hx ASHD 2 Troponin Normal limit 0 Total 2 I personally scribed for DINA ABREU MD ([email or web address]) on 10/07/24 at 06:47. Electronically submitted by Marcus Ayala ([email or web address]). DINA ABREU MD Oct 07, 2024 06:47
[2024-10-07 07:00] VITALS: PULSE 123; RESP 20; O2SAT 99
[2024-10-07 07:27] LABS: Basophils # (auto) 0 10 ^3/uL (0-0.2); Basophils % (auto) 0.4 % (0.0-2.0); Eosinophils # (auto) 0 10 ^3/uL (0-0.8); Eosinophils % (auto) 0.1 % (0.0-7.0); Hematocrit 42.8 % (41.0-53.0); Hemoglobin 14.6 g/dL (13.5-17.5); Lymphocytes # (auto) 1.3 10 ^3/uL (0.4-5.4); Lymphocytes % (auto) 11.5 % (10.0-50.0); Mean Corpuscular Hemoglobin 30.8 pg (28.0-32.0); Mean Corpuscular Hgb Conc. 34.2 g/dL (32.0-36.0); Mean Corpuscular Volume 90.1 fL (80.0-100.0); Monocytes # (auto) 0.5 10 ^3/uL (0-1.3); Monocytes % (auto) 4.8 % (0.0-12.0); Neutrophils % (auto) 83.2 % (37.0-80.0); Nucleated Red Blood Cells % 0.1 %; Platelet Count (auto) 382 10^3/uL (140-450); Red Blood Cells 4.75 10^6/uL (4.5-5.90); Red Cell Distribution Width 15.2 % (11.8-14.3); White Blood Cell 10.9 10^3/uL (4.4-10.8)
[2024-10-07 07:30] LABS: Chloride 100 mmol/L (98-107); Potassium 4.3 mmol/L (3.5-5.1)
[2024-10-07 07:31] LABS: Anion Gap 18 (5-15)
[2024-10-07 07:36] LABS: Calcium 10.6 mg/dL (8.7-10.4); Carbon Dioxide 16 mmol/L (20-31); Sodium 134 mmol/L (136-145)
[2024-10-07 07:37] LABS: BUN/Creatinine Ratio 20.6 (10.0-20.0)
[2024-10-07 07:42] LABS: Blood Urea Nitrogen 27 mg/dL (9-23)
[2024-10-07 07:43] LABS: Glucose 402 mg/dL (74-106)
[2024-10-07] MEDS: MORPHINE SULFATE 4 MG/ML SYR/VIAL IV ONE ×2 (07:50→11:04)
[2024-10-07] MEDS: LABETALOL HCL 20 MG/4 ML VL IV ONE (07:55)
[2024-10-07] MEDS: SODIUM CHLORIDE 0.9% 1,000 ML IV ONE ×2 (07:55→08:44)
[2024-10-07 08:00] LABS: Urine Bacteria None Seen /hpf (None Seen)
[2024-10-07] MEDS: ONDANSETRON HCL 4 MG/2 ML VIAL IV ONE (08:19)
[2024-10-07 08:21] LABS: Urine Blood 1+ /uL (Negative); Urine Clarity Clear (Clear); Urine Color Light-Yellow (Yellow); Urine Protein, UAD 3+ (Negative); Urine Specific Gravity 1.027 (1.001-1.035); Urine Squamous Epithelial Cell FEW /hpf (<5); Urine Urobilinogen Normal (Negative); Urine WBC 4 /HPF (0-3)
--- NOTE | 2024-10-07 08:28 | DVH ---
EXAM: XY CHEST PORTABLE Indication: sob Technique: Single frontal view of the chest was obtained Comparison: XY CHEST PORTABLE on DOS: 06/03/24, XY CHEST PORTABLE on DOS: 08/21/23, XY CHEST PORTABLE on DOS: 05/24/23, CHEST PORTABLE on DOS: 09/18/21 FINDINGS: Lines and Tubes: None Lungs: No focal consolidation. Pleura: No effusion. No pneumothorax. Cardiomediastinal contours: Unremarkable Bones: No acute osseous abnormality. IMPRESSION: No acute cardiopulmonary disease.
[2024-10-07] MEDS: KETOROLAC TROMETH 30 MG/ML 1ML VIAL IV ONE (10:29)
[2024-10-07] MEDS: amLODIPine BESYLATE 5 MG TAB PO ONE (10:34)
[2024-10-07] MEDS: LORazepam 2MG/ML-1ML VIAL IV ONE (11:04)
[2024-10-07] MEDS: INSULIN DRIP 100 UNIT/100ML 100 ML IV SCH (12:15)
[2024-10-07] MEDS ORDERED: ACETAMINOPHEN 325 MG TAB PO PRN (12:15)
[2024-10-07] MEDS ORDERED: MORPHINE SULFATE INJ 2 MG/ml SYRG IV PRN (12:15)
[2024-10-07] MEDS ORDERED: DEXTROSE (50%) 50ML SYRG IV PRN (12:15)
[2024-10-07] MEDS ORDERED: NITROGLYCERIN 0.4 MG SL TAB SL PRN (12:15)
[2024-10-07] MEDS ORDERED: DOCUSATE SOD 100 MG CAP PO PRN (12:15)
[2024-10-07] MEDS: InsuLIN REG 1unit/0.01ml Soln (100units/ml) IV ONE ×3 (12:25→16:31)
[2024-10-07] MEDS: SODIUM CHLORIDE 0.9% 1,000 ML IV SCH (12:42)
--- NOTE | 2024-10-07 12:42 | DVHHP2 ---
History of Present Illness Reason for Visit: Abdominal Pain History of Present Illness Phoenix Rendon is a 43-year-old male with past medical history of diabetes, coronary artery disease, [place] in August 2023 with 2 stents placed, hypertension, and hyperlipidemia, who came in with complaints of abdominal pain. Patient states his abdominal pain with associated nausea, vomiting, began on Saturday, he was unable to eat or drink yesterday, and his symptoms continued to worsen prompting him to come in. Patient states that he has been taking his medications, but that he has been vomiting all of them up. Cardiovascular: HTN, [place] (August 2023 with 2 stents placed), hyperipidemia Endocrine: Diabetes Past Surgical History: Other (Left BKA, PTCA) Smoke: No ALCOHOL: none Drugs: None Lives: with Family Domestic Violence: Neg Review of Systems Constitutional: No: Fever, Chills, Sweats, Weakness, Malaise, Other Eyes: No: Pain, Vision change, Conjunctivae inflammation, Eyelid inflammation, Other, Redness ENT: No: Ear pain, Ear discharge, Nose pain, Nose discharge, Nose congestion, Mouth pain, Mouth swelling, Throat pain, Throat swelling, Other Respiratory: No: Cough, Dry, Shortness of breath, SOB with excertion, Wheezing, Hemoptysis, Pleuritic Pain, Sputum, Wheezing, Other Cardiovascular: No: Chest Pain, Palpitations, Orthopnea, Paroxysmal Noc. Dyspnea, Edema, Lt Headedness, Other Gastrointestinal: Nausea, Abdominal Pain; No: Vomiting, Diarrhea, Constipation, Melena, Hematochezia, Other Genitourinary: No Dysuria, No Frequency, No Incontinence, No Hematuria, No Retention, No Other Musculoskeletal: No: other, neck pain, shoulder pain, arm pain, back pain, hand pain, leg pain, foot pain Skin: No: Rash, Lesions, Jaundice, Bruising, Other Neurological: No: Weakness, Numbness, Incoordination, Change in speech, Confusion, Seizures, Other Allergies: Coded Allergies: NO KNOWN ALLERGIES (Unverified , 12/04/21) Medications Current Medications Medications Dose Ordered Sig/Sreekanth Route Start Time Stop Time Status Last Admin Dose Admin Acetaminophen/ Hydrocodone Bitart 1 tab Q4HP PRN PO 10/07/24 12:15 UNV Exam Vital Signs Vital Signs Date Time Temp Pulse Resp B/P (MAP) Pulse Ox O2 Delivery O2 Flow Rate FiO2 3/5/25 11:24 98 16 98/63 10/07/24 10:00 98.7 96 98.7 10/07/24 07:00 Room Air* 0 21 General Appearance: Alert, Oriented X3, Cooperative, moderate distress HEENT: Atraumatic, PERRLA Respiratory: Clear to auscultation, Normal air movement Cardiovascular: Normal S1, Normal S2, No murmurs, Other (Tachycardia, hypertension) Abdominal: Normal bowel sounds, Soft, No tenderness, No hepatospenomegaly Extremities: No clubbing, No cyanosis, No edema, Normal pulses, No tenderness/swelling Skin: No rashes, No breakdown, No significant lesion Neuro: Normal gait, Normal speech, Strength at 5/5 X4 ext Psych/Mental Status: Mental status NL, Mood NL Labs/Xrays Labs Test 10/07/24 11:47 10/07/24 11:06 10/07/24 06:36 10/07/24 06:03 Range/Units POC Glucose 339 H 70-106 mg/dl Beta-Hydroxybutyric Acid 3.474 H < 0.4 mmol/L Urine Color Light-yellow Yellow Urine Clarity Clear Clear Urine pH 6.0 5.0-9.0 Urine Specific [place] 1.027 1.001-1.035 Urine Protein 3+ H Negative Urine Ketones 2+ H Negative Urine Blood 1+ H Negative /uL Urine Nitrite Negative Negative Urine Bilirubin Negative Negative Urine Urobilinogen Normal Negative mg/dL Urine Leukocyte Esterase Negative Negative /uL Urine RBC 2 0 - 3 /hpf Urine Microscopic WBC 4 H 0-3 /HPF Urine Squamous Epithelial Cells Few <5 /hpf Urine Bacteria None seen None Seen /hpf Urine Glucose 4+ H Normal mg/dL White Blood Count 10.9 H 4.4-10.8 10^3/uL Red Blood Count 4.75 4.5-5.90 10^6/uL Hemoglobin 14.6 13.5-17.5 g/dL Hematocrit 42.8 41.0-53.0 % Mean Corpuscular Volume 90.1 80.0-100.0 fL Mean Corpuscular Hemoglobin 30.8 28.0-32.0 pg Mean Corpuscular Hemoglobin Concent 34.2 32.0-36.0 g/dL Red Cell Distribution Width 15.2 H 11.8-14.3 % Platelet Count 382 140-450 10^3/uL Mean Platelet Volume 8.0 6.9-10.8 fL Neutrophils (%) (Auto) 83.2 H 37.0-80.0 % Lymphocytes (%) (Auto) 11.5 10.0-50.0 % Monocytes (%) (Auto) 4.8 0.0-12.0 % Eosinophils (%) (Auto) 0.1 0.0-7.0 % Basophils (%) (Auto) 0.4 0.0-2.0 % Neutrophils # (Auto) 9.0 H 1.6-8.6 10 ^3/uL Lymphocytes # (Auto) 1.3 0.4-5.4 10 ^3/uL Monocytes # (Auto) 0.5 0-1.3 10 ^3/uL Eosinophils # (Auto) 0 0-0.8 10 ^3/uL Basophils # (Auto) 0 0-0.2 10 ^3/uL Nucleated Red Blood Cells 0.1 % Sodium Level 134 L 136-145 mmol/L Potassium Level 4.3 3.5-5.1 mmol/L Chloride Level 100 98-107 mmol/L Carbon Dioxide Level 16 L 20-31 mmol/L Anion Gap 18 H 5-15 Blood Urea Nitrogen 27 H 9-23 mg/dL Creatinine 1.31 H 0.700-1.30 mg/dL Glomerular Filtration Rate Calc 68 >90 mL/min BUN/Creatinine Ratio 20.6 H 10.0-20.0 Serum Glucose 402 *H 74-106 mg/dL Calcium Level 10.6 H 8.7-10.4 mg/dL Troponin I High Sensitivity 42 </=54 ng/L EXAM: XY CHEST PORTABLE FINDINGS: Lines and Tubes: None Lungs: No focal consolidation. Pleura: No effusion. No pneumothorax. Cardiomediastinal contours: Unremarkable Bones: No acute osseous abnormality. IMPRESSION: No acute cardiopulmonary disease. Assessment/Plan Assessment/Plan Assessment: DKA (diabetic ketoacidosis), Gastroparesis, Plan: Admit to [facility], IV insulin drip, IV hydration, Manage/Monitor electrolytes closely, BMP Q 6/hours, Pain management, Home medications reconciled, Plan discussed with: Patient My Orders Orders - DUONG BRADFORD Procedure Category Date Status Time Accucheck BD 10/07/24 Transmitted 13:00 Admit ADMIT 3/5/25 Transmitted 12:09 Code Status CODE 10/07/24 Transmitted 12:09 Hydrocodone-Acet [facility] 10/07/24 Logged 5/325mg Tab ([place] 12:15 Ondansetron Hcl [facility] 10/07/24 Transmitted (Zofran) 12:15 Docusate Sodium [facility] 10/07/24 Transmitted Capsule (Colace 12:15 Complete Blood Count LAB 10/08/24 Verified 04:00 Comprehensive LAB 10/08/24 Verified Metabolic Panel 04:00 Npo (Nothing By DIET 10/07/24 Transmitted Mouth) Diet Lunch Condition: Critical [facility] 10/07/24 In Process 12:09 Acetaminophen Tablet [facility] 10/07/24 Transmitted (Tylenol Tablet) 12:15 Morphine Sulfate [facility] 10/07/24 Transmitted Injection 12:15 Nitroglycerin [facility] 10/07/24 Transmitted Sublingual (Ntrostat 12:15 Morphine Sulfate [facility] 10/07/24 Transmitted Injection 12:15 Stat Ekg For Chest [facility] 10/07/24 In Process Pain 12:09 Notify Of Changes [facility] 10/07/24 In Process From Base 12:09 Quill Skinner For [facility] 10/07/24 In Process 24 Hours 12:09 Emergency Dysrhythmia [facility] 10/07/24 In Process Protocol 12:09 Rhythm Strips Once [facility] 10/07/24 In Process Every Shift 12:09 Oxygen By Nasal 10/07/24 Transmitted Cannula 12:09 Insulin Drip Protocol [facility] 10/07/24 In Process Sodium Chloride 0.9% [facility] 10/07/24 Transmitted 12:15 Insulin Algorithm # 1 [facility] 10/07/24 Transmitted 12:15 Dextrose 50% Syringe [facility] 10/07/24 Transmitted 12:15 Glucose Blood [facility] 10/07/24 Transmitted (Accu-Chek Comfort 13:30 Phosphorus [facility] 10/07/24 Logged 12:09 Magnesium LAB 10/07/24 Logged 12:09 Osmolality, Serum [facility] 10/07/24 Logged 12:09 Abg W/ Co-Ox RT 10/07/24 Logged 12:09 Urinalysis LAB 10/07/24 Logged 12:09 Neurological [facility] 10/07/24 In Process Assessment 12:09 Vs/Hemodynamics [facility] 10/07/24 In Process 12:09 Acetone LAB 10/07/24 Logged 12:09 Long Acting Insulin [facility] 10/07/24 Transmitted 12:15 Long Acting Insulin [facility] 10/08/24 Transmitted 10:00 Spironolactone [facility] 10/07/24 Transmitted (Aldactone) 22:00 (Nf) Atorvastatin [facility] 10/08/24 Transmitted Calcium 10:00 (Nf) Carvedilol [facility] 10/07/24 Transmitted 22:00 (Nf) Dapagliflozin [facility] 10/08/24 Transmitted Propanediol (Farxiga) 07:00 (Nf) Gabapentin [facility] 10/08/24 Transmitted 10:00 (Nf) Insulin Glargine [facility] 10/07/24 Transmitted (Basaglar Kwikpen) 22:00 (Nf) Nifedipine [facility] 10/08/24 Transmitted (Nifedipine Er) 10:00 (Nf) Sertraline Hcl [facility] 10/08/24 Transmitted 10:00 Date of Service: Oct 07, 2024 Billing Provider: DUONG BRADFORD Common Visit Codes: [id number] INP/OBS CARE (HIGH) DUONG BRADFORD Oct 07, 2024 12:42
[2024-10-07 12:45] LABS: Base Excess -4.4 mmol/L (-2.0-3.0)
[2024-10-07] MEDS: INSULIN LANTUS (GLARGINE) 1 /0.01ml (100units/ml) SC ONE (12:48)
[2024-10-07 13:36] LABS: Magnesium 2.2 mg/dL (1.6-2.6)
[2024-10-07 13:37] LABS: Phosphorus 2.9 mg/dL (2.4-5.1)
[2024-10-07] MEDS: ACCU-CHEK COMFORT CURVE STRIP VI SCH ×2 (13:48→20:29)
[2024-10-07 14:00] LABS: Chloride 102 mmol/L (98-107); Potassium 3.6 mmol/L (3.5-5.1)
[2024-10-07 14:01] LABS: Anion Gap 14 (5-15); Calcium 9.8 mg/dL (8.7-10.4); Carbon Dioxide 19 mmol/L (20-31); Sodium 135 mmol/L (136-145)
[2024-10-07 14:06] LABS: Blood Urea Nitrogen 22 mg/dL (9-23)
[2024-10-07 14:07] LABS: Glucose 302 mg/dL (74-106)
[2024-10-07] MEDS: ONDANSETRON HCL 4 MG/2 ML VIAL IV PRN (15:06)
[2024-10-07] MEDS: MORPHINE SULFATE INJ 2 MG/ml SYRG IV PRN (15:08)
[2024-10-07] MEDS: POTASSIUM CHLORIDE 20 MEQ in SODIUM CHLORIDE 0.9% 1,000 ML IV SCH (15:57)
[2024-10-07] MEDS: POTASSIUM CHL 20 Meq TABLET PO ONE (16:29)
[2024-10-07 18:34] LABS: Chloride 101 mmol/L (98-107)
[2024-10-07 18:35] LABS: Anion Gap 13 (5-15); Carbon Dioxide 20 mmol/L (20-31)
[2024-10-07 18:40] LABS: BUN/Creatinine Ratio 18.4 (10.0-20.0); Blood Urea Nitrogen 21 mg/dL (9-23)
[2024-10-07] MEDS: HYDROcodone-ACET 5/325MG TAB PO PRN (18:43)
[2024-10-07 18:48] LABS: Glucose 275 mg/dL (74-106); Sodium 134 mmol/L (136-145)
[2024-10-07 19:19] VITALS: PULSE 123; RESP 12; O2SAT 100
[2024-10-07] MEDS: InsuLIN REG 1unit/0.01ml Soln (100units/ml) SC SCH (20:33)
[2024-10-07] MEDS: SPIRONOLACTONE 25 MG TAB PO SCH (21:37)
[2024-10-07] MEDS ORDERED: INSULIN GLARGINE 20 UNIT SC SCH (22:00)
[2024-10-07] MEDS: CARVEDILOL 3.125 MG TAB PO SCH (22:02)
[2024-10-08 00:52] LABS: Chloride 100 mmol/L (98-107); Potassium 4.9 mmol/L (3.5-5.1)
[2024-10-08 00:53] LABS: Anion Gap 9 (5-15); Carbon Dioxide 24 mmol/L (20-31)
[2024-10-08 00:57] LABS: Sodium 133 mmol/L (136-145)
[2024-10-08 00:58] LABS: Blood Urea Nitrogen 18 mg/dL (9-23); Glucose 238 mg/dL (74-106)
[2024-10-08] MEDS: LABETALOL HCL 20 MG/4 ML VL IV ONE (04:42)
[2024-10-08 06:57] LABS: Alanine Aminotransferase 16 U/L (7-40); Alkaline Phosphatase 85 U/L (46-116); Anion Gap 11 (5-15); BUN/Creatinine Ratio 15.8 (10.0-20.0); Blood Urea Nitrogen 16 mg/dL (9-23); Chloride 101 mmol/L (98-107)
[2024-10-08 06:58] LABS: Aspartate Aminotransferase 25 U/L (13-40)
[2024-10-08 06:59] LABS: Bilirubin, Total 0.3 mg/dL (0.2-1.0); Carbon Dioxide 20 mmol/L (20-31); Glucose 236 mg/dL (74-106); Sodium 132 mmol/L (136-145); Total Protein 8.4 g/dL (5.7-8.2)
[2024-10-08 07:26] LABS: Basophils # (auto) 0 10 ^3/uL (0-0.2); Basophils % (auto) 0.4 % (0.0-2.0); Eosinophils # (auto) 0.1 10 ^3/uL (0-0.8); Eosinophils % (auto) 0.7 % (0.0-7.0); Hematocrit 43.3 % (41.0-53.0); Hemoglobin 14.6 g/dL (13.5-17.5); Lymphocytes # (auto) 1.9 10 ^3/uL (0.4-5.4); Lymphocytes % (auto) 17.3 % (10.0-50.0); Mean Corpuscular Hemoglobin 29.6 pg (28.0-32.0); Mean Corpuscular Hgb Conc. 33.8 g/dL (32.0-36.0); Mean Corpuscular Volume 87.6 fL (80.0-100.0); Monocytes # (auto) 0.8 10 ^3/uL (0-1.3); Monocytes % (auto) 7.6 % (0.0-12.0); Neutrophils # (auto) 8.2 10 ^3/uL (1.6-8.6); Nucleated Red Blood Cells % 0.1 %; Platelet Count (auto) 210 10^3/uL (140-450); Red Blood Cells 4.94 10^6/uL (4.5-5.90); Red Cell Distribution Width 14.9 % (11.8-14.3); White Blood Cell 11.1 10^3/uL (4.4-10.8)
[2024-10-08 08:00] VITALS: PULSE 101; RESP 17; O2SAT 97
[2024-10-08] MEDS: Dapagliflozin Propanediol (Farxiga) 10 MG TABLET PO SCH (08:28)
[2024-10-08 08:51] LABS: Platelet Estimate Adequate
[2024-10-08 09:15] VITALS: BP 185/126; PULSE 116; RESP 19; TEMP 98.3; O2SAT 99
[2024-10-08 09:30] VITALS: RESP 19; O2SAT 96
[2024-10-08] MEDS: SERTRALINE HCL 50 MG TAB PO SCH (09:50)
[2024-10-08] MEDS: GABAPENTIN 400 MG CAP PO SCH (09:52)
[2024-10-08] MEDS: NIFEdipine ER 30 MG TAB PO SCH (09:53)
[2024-10-08] MEDS: ATORVASTATIN 20 MG TAB PO SCH (09:54)
[2024-10-08] MEDS: INSULIN LANTUS (GLARGINE) 1 /0.01ml (100units/ml) SC SCH (10:30)
[2024-10-08 13:00] VITALS: BP 185/129; PULSE 111; RESP 18; TEMP 97.4; O2SAT 100
[2024-10-08] MEDS ORDERED: OXYCODONE W/ ACETAMINOPHEN 5/325MG TABLET PO PRN (14:00)
[2024-10-08] MEDS: MORPHINE SULFATE 4 MG/ML SYR/VIAL IV PRN (14:48)
--- NOTE | 2024-10-08 15:01 | DVHPN2 ---
Subjective Patient reporting having epigastric and periumbilical pain. Also reports not tolerating oral intake. Generalized body 05/14 Reviewed: Care Plan, H&P, Labs, Medications, Previous Orders Changes from previous H/P or p: No Changes General: Per HPI Eyes: No Pain, No Vision change, No Conjunctivae inflammation, No Eyelid inflammation, No Other, No Redness ENT: No Ear pain, No Ear discharge, No Nose pain, No Nose discharge, No Nose congestion, No Mouth pain, No Mouth swelling, No Throat pain, No Throat swelling, No Other Cardiovascular: No Chest Pain, No Palpitations, No Orthopnea, No Paroxysmal Noc. Dyspnea, No Edema, No Lt Headedness, No Other Respiratory: No Cough, No Dry, No Shortness of breath, No SOB with excertion, No Wheezing, No Hemoptysis, No Pleuritic Pain, No Sputum, No Other Gastrointestinal: Nausea; No Vomiting; Abdominal Pain; No Diarrhea, No Constipation, No Melena, No Hematochezia, No Other Genitourinary: No Dysuria, No Frequency, No Incontinence, No Hematuria, No Retention, No Other Musculoskeletal: No other, No neck pain, No shoulder pain, No arm pain, No back pain, No hand pain, No leg pain, No foot pain Skin: No Rash, No Lesions, No Jaundice, No Bruising, No Other Objective Vitals Vital Signs Date Time Temp Pulse Resp B/P (MAP) Pulse Ox O2 Delivery O2 Flow Rate FiO2 10/08/24 14:48 105 19 148/105 10/08/24 09:30 96 Room Air* 0 21 10/08/24 09:15 98.3 98.3 Intake/Output Intake and Output 10/08/24 07:00 Intake Total 4400 ml Balance 4400 ml Intake IV Total 4400 ml General Appearance: Alert, Oriented X3, Cooperative, mild distress HEENT: Atraumatic, PERRLA Lungs: Clear to auscultation, Normal air movement Cardiovascular: Normal S1, Normal S2 Back: Flank Tenderness, Midline Tenderness Musculoskeletal: Normal sensory function, Normal motor function Extremities: Other (Left BKA) Neuro: Normal gait, Normal speech Psych/Mental Status: Mental status NL, Mood NL Medications Current Medications Medications Dose Ordered Sig/Sreekanth Route Start Time Stop Time Status Last Admin Dose Admin Ondansetron HCl 4 mg Q4HP PRN IV 10/07/24 12:15 10/07/24 19:21 4 MG Docusate Sodium 100 mg BIDPRN PRN PO 10/07/24 12:15 Acetaminophen 650 mg Q6HP PRN PO 10/07/24 12:15 Nitroglycerin 0.4 mg Q5MINP PRN SL 10/07/24 12:15 Morphine Sulfate 2 mg Q30M PRN IV 10/07/24 12:15 Dextrose 50 ml UD PRN IV 10/07/24 12:15 Insulin Glargine 15 units DAILY SC 10/08/24 10:00 10/08/24 10:30 15 UNITS Spironolactone 25 mg BID PO 10/07/24 22:00 10/08/24 09:51 25 MG Atorvastatin Calcium 40 mg DAILY PO 10/08/24 10:00 10/08/24 09:54 40 MG Carvedilol 6.25 mg BID PO 10/07/24 22:00 10/08/24 09:51 6.25 MG Patient Own Medication 10 mg QAM PO 10/08/24 07:00 Gabapentin 800 mg DAILY PO 10/08/24 10:00 10/08/24 09:52 800 MG Nifedipine 90 mg DAILY PO 10/08/24 10:00 10/08/24 09:53 90 MG Sertraline HCl 25 mg DAILY PO 10/08/24 10:00 10/08/24 09:50 25 MG Potassium Chloride 20 meq/ Sodium Chloride 1,010 ml @ 150 mls/hr Q6H44M IV 10/07/24 12:45 10/08/24 08:23 150 MLS/HR Diagnostic Test (Pha) 1 strip IQ4HR 10/07/24 20:00 10/08/24 11:41 1 STRIP Insulin Human Regular IQ4HR SC 10/07/24 20:00 10/08/24 12:09 6 UNITS Oxycodone/ Acetaminophen 1 tab Q4HP PRN PO 10/08/24 14:00 Morphine Sulfate 4 mg Q6HPRN PRN IV 10/08/24 14:00 10/08/24 14:48 4 MG Laboratory Results Laboratory Tests 10/08/24 05:14 Chemistry Test 10/07/24 17:59 10/08/24 00:25 10/08/24 05:14 Calcium Level 10.0 mg/dL (8.7-10.4) 10.0 mg/dL (8.7-10.4) 10.0 mg/dL (8.7-10.4) Albumin 5.0 g/dL (3.2-4.8) H Total Protein 8.4 g/dL (5.7-8.2) H LFT Test 10/08/24 05:14 Alanine Aminotransferase (ALT) 16 U/L (7-40) Alkaline Phosphatase 85 U/L (46-116) Aspartate Amino Transferase (AST) 25 U/L (13-40) Total Bilirubin 0.3 mg/dL (0.2-1.0) Urinalysis Test 10/07/24 06:36 Urine Color Light-yellow (Yellow) Urine Clarity Clear (Clear) Urine pH 6.0 (5.0-9.0) Urine Specific [place] 1.027 (1.001-1.035) Urine Protein 3+ (Negative) H Urine Ketones 2+ (Negative) H Urine Blood 1+ /uL (Negative) H Urine Nitrite Negative (Negative) Urine Bilirubin Negative (Negative) Urine Urobilinogen Normal mg/dL (Negative) Urine Leukocyte Esterase Negative /uL (Negative) Urine RBC 2 /hpf (0 - 3) Urine Microscopic WBC 4 /HPF (0-3) H Urine Squamous Epithelial Cells Few /hpf (<5) Urine Bacteria None seen /hpf (None Seen) Urine Glucose 4+ mg/dL (Normal) H Labs and/or images reviewed: Labs reviewed by me, Image(s) reviewed by me Assessment/Plan Assessment/Plan Impression: -diabetic ketoacidosis -left BKA -abdominal pain with nausea, probable diabetic gastroparesis -pain medication seeking behavior. Patient states that he was only taking [place] as by his pain management doctor, and states that it is not enough for his abdominal pain. -primary hypertension -sirs secondary to DKA Plan: -stop IV fluids -continue Lantus and regular insulin sliding scale -CT of abdomen and pelvis -start Reglan a.c. HS -continue pain management -antiemetics -discharge planning in a.m. Total time spent with patient discussing and formulating plan of care: 35 minutes. This medical document was created using an electronic medical record system with [employer] dictation system. Although this document has been carefully reviewed, there may still be some phonetic and typographical errors. These areas are purely typographical due to imperfections of the software programs, and do not reflect any compromise in the patient's medical care. Plan discussed with: Patient, Other (RN) My Orders Orders - JOE GUNDERSON NP Procedure Category Date Status Time Oxycodone W/ Acet PHA 10/08/24 In Process 5/325mg Tab (Percocet 14:00 Morphine Sulfate PHA 10/08/24 In Process Injection 14:00 Ct Ab Pel Wo Con-No CT 10/08/24 Verified Oral Or Iv 14:56 Metoclopramide Tablet PHA 10/08/24 Verified (Reglan Tablet) 17:00 Date of Service: Oct 08, 2024 Billing Provider: JOE GUNDERSON NP Common Visit Codes: [id number] INP/OBS CARE(HIGH) JEO GUNDERSON NP Oct 08, 2024 15:01
--- NOTE | 2024-10-08 15:53 | DVH ---
Exam: CT CT AB PEL WO CON-NO ORAL OR IV History: abdominal pain Comparison Study: 06/03/2024 TECHNIQUE: Multidetector CT of the abdomen and pelvis without contrast. Axial, coronal and sagittal m ultiplanar reformats were obtained from the axial data set by the technologist. Radiation Dose Information: CT Dose: CTDI volume is 27.24 mGy. Dose-length product is 1838.69 mGy*cm FINDINGS: The lung bases are clear. Partially visualized heart is unremarkable. Liver, spleen, gallbladder, pancreas are unremarkable. Mild fat stranding adjacent to The Otherwise n ormal adrenal glands. Mild nonspecific bilateral perirenal fat stranding. No renal calculi, or hydronephrosis. Urinary simona dder is unremarkable. Prostate is unremarkable. Hyperdense foci within the distal stomach which may represent ingested medication. Otherwise, stomach is unremarkable. Small bowel loops are unremarkable. Appendix is unremarkable. Moderate amount of f ecal material within the colon. No evidence of intraperitoneal free air or free fluid. No evidence of aortic aneurysm. No significant lymphadenopathy. Small fat containing bilateral inguinal hernias. Minimal soft tissue edema. No destructive osseous le sions are noted. IMPRESSION: Mild nonspecific bilateral perirenal fat stranding. Infectious process can not be excluded. Nonspecific fat stranding adjacent to the bilateral adrenal glands which are otherwise unremarkable. Moderate amount of fecal material within the colon.
[2024-10-08 17:00] VITALS: BP 96/59; PULSE 98; RESP 19; TEMP 98; O2SAT 90
[2024-10-08] MEDS: METOCLOPRAMIDE HCL 10 MG TAB PO SCH (17:28)
[2024-10-08 21:00] VITALS: BP 101/60; PULSE 100; RESP 18; TEMP 98.4; O2SAT 94
[2024-10-09 05:00] VITALS: BP 119/90; PULSE 96; RESP 20; TEMP 97.4; O2SAT 100
[2024-10-09 08:33] VITALS: BP_SYST 114; BP_SYST 128; BP_DIAS 68; BP_DIAS 81; PULSE 52; PULSE 89; RESP 16; RESP 17; TEMP 97.4; TEMP 98.1; O2SAT 92; O2SAT 99
[2024-10-09] MEDS: LACTULOSE 20Gm/30ML SOLN PO ONE (09:28)
[2024-10-09] MEDS: DOCUSATE SOD 100 MG CAP PO SCH (09:29)
--- NOTE | 2024-10-09 12:42 | DVHDS2 ---
Discharge Summary Date of Admission Oct 07, 2024 at 12:09 Date of Discharge: Oct 09, 2024 Admitting Diagnosis Diabetic ketoacidosis Labs/Diagnostic Data: Laboratory Results Test 10/09/24 11:40 10/08/24 05:14 10/07/24 12:45 10/07/24 12:36 POC Glucose 259 mg/dl (70-106) White Blood Count 11.1 10^3/uL (4.4-10.8) Red Blood Count 4.94 10^6/uL (4.5-5.90) Hemoglobin 14.6 g/dL (13.5-17.5) Hematocrit 43.3 % (41.0-53.0) Mean Corpuscular Volume 87.6 fL (80.0-100.0) Mean Corpuscular Hemoglobin 29.6 pg (28.0-32.0) Mean Corpuscular Hemoglobin Concent 33.8 g/dL (32.0-36.0) Red Cell Distribution Width 14.9 % (11.8-14.3) Platelet Count 210 10^3/uL (140-450) Mean Platelet Volume 8.5 fL (6.9-10.8) Neutrophils (%) (Auto) 74.0 % (37.0-80.0) Lymphocytes (%) (Auto) 17.3 % (10.0-50.0) Monocytes (%) (Auto) 7.6 % (0.0-12.0) Eosinophils (%) (Auto) 0.7 % (0.0-7.0) Basophils (%) (Auto) 0.4 % (0.0-2.0) Neutrophils # (Auto) 8.2 10 ^3/uL (1.6-8.6) Lymphocytes # (Auto) 1.9 10 ^3/uL (0.4-5.4) Monocytes # (Auto) 0.8 10 ^3/uL (0-1.3) Eosinophils # (Auto) 0.1 10 ^3/uL (0-0.8) Basophils # (Auto) 0 10 ^3/uL (0-0.2) Nucleated Red Blood Cells 0.1 % Platelet Estimate Adequate Clumped Platelets Moderate Sodium Level 132 mmol/L (136-145) Potassium Level 4.0 mmol/L (3.5-5.1) Chloride Level 101 mmol/L (98-107) Carbon Dioxide Level 20 mmol/L (20-31) Anion Gap 11 (5-15) Blood Urea Nitrogen 16 mg/dL (9-23) Creatinine 1.01 mg/dL (0.700-1.30) Glomerular Filtration Rate Calc 93 mL/min (>90) BUN/Creatinine Ratio 15.8 (10.0-20.0) Serum Glucose 236 mg/dL (74-106) Calcium Level 10.0 mg/dL (8.7-10.4) Total Bilirubin 0.3 mg/dL (0.2-1.0) Aspartate Amino Transferase (AST) 25 U/L (13-40) Alanine Aminotransferase (ALT) 16 U/L (7-40) Alkaline Phosphatase 85 U/L (46-116) Total Protein 8.4 g/dL (5.7-8.2) Albumin 5.0 g/dL (3.2-4.8) Beta-Hydroxybutyric Acid 1.342 mmol/L (< 0.4) Serum Osmolality 306 mOsm/kg (278-298) Phosphorus Level 2.9 mg/dL (2.4-5.1) Magnesium Level 2.2 mg/dL (1.6-2.6) Blood Gas Specimen Type Arterial Blood Gas Sample Site Right radial Blood Gas Patient Temperature 37.0 Arterial Blood Date Drawn [id number] Arterial Blood pH 7.379 (7.350-7.450) Arterial Blood Partial Pressure CO2 34.4 mmHg (35.0-48.0) Arterial Blood Partial Pressure O2 68.2 mmHg (83.0-108.0) Arterial Blood HCO3 19.8 mmol/L (21.0-28.0) Arterial Blood Oxygen Saturation 93.1 % (94.0-98.0) Arterial Blood Base Excess -4.4 mmol/L (-2.0-3.0) Arterial Blood Oxyhemoglobin 91.4 % (94.0-98.0) Arterial Blood Carboxyhemoglobin 1.4 % (0.5-1.5) Arterial Blood Methemoglobin 0.4 % (0.0-1.5) John Test Yes Blood Gas Total Hemoglobin 14.30 g/dL (13.5-17.5) Blood Gas Modality Room air FiO2 % 21.0 Test 10/07/24 06:36 10/07/24 06:03 Urine Color Light-yellow (Yellow) Urine Clarity Clear (Clear) Urine pH 6.0 (5.0-9.0) Urine Specific [place] 1.027 (1.001-1.035) Urine Protein 3+ (Negative) Urine Ketones 2+ (Negative) Urine Blood 1+ /uL (Negative) Urine Nitrite Negative (Negative) Urine Bilirubin Negative (Negative) Urine Urobilinogen Normal mg/dL (Negative) Urine Leukocyte Esterase Negative /uL (Negative) Urine RBC 2 /hpf (0 - 3) Urine Microscopic WBC 4 /HPF (0-3) Urine Squamous Epithelial Cells Few /hpf (<5) Urine Bacteria None seen /hpf (None Seen) Urine Glucose 4+ mg/dL (Normal) Troponin I High Sensitivity 42 ng/L (</=54) Other Laboratory Tests 10/08/24 05:14 Brief Hx & Hospital Course: History of Present Illness Phoenix Rendon is a 43-year-old male with past medical history of diabetes, coronary artery disease, CA in August 2023 with 2 stents placed, hypertension, and hyperlipidemia, who came in with complaints of abdominal pain. Patient states his abdominal pain with associated nausea, vomiting, began on Saturday, he was unable to eat or drink yesterday, and his symptoms continued to worsen prompting him to come in. Patient states that he has been taking his medications, but that he has been vomiting all of them up. Course of hospitalization: Patient was treated with regular insulin drip, which was switched to Lantus and regular insulin sliding scale once his anion gap closed. Patient was also given adequate IV hydration as well as restarting the patient's home antihypertensives. Patient complained of extreme abdominal pain for which she had CT scan of the abdomen and pelvis. Pain was located in his epigastric and periumbilical area. CT scan was essentially unremarkable other than a tremendous stool burden. Patient was given adequate bowel regimen. Patient will be discharged home on his home medications once he evacuate his bowels. Education was given to the patient regarding probable etiology of his constipation abdominal pain being continuous narcotic use at home. He verbalized understanding. Patient will be prescribed Colace 100 mg p.o. b.i.d. as instructed to follow up with both his pain management doctor and PCP in 1-2 weeks. Physical examination General: Alert and Oriented x3. No acute distress. Well-nourished. Eyes: EOMI. Anicteric. HENT: Moist mucous membranes. Lungs: Clear to auscultation bilaterally. No accessory muscle use. Cardiovascular: Regular rate and rhythm. No murmur. No JVD. Abdomen: Soft, non-tender and non-distended. No palpable masses. Extremities: No edema. Non-tender. Skin: No rashes or lesions. Warm. Neurologic: No focal neurological deficits. CN II-XII grossly intact, but not individually tested. Psychiatric: Cooperative. Appropriate mood and affect. Total time spent with patient discussing and formulating plan of care: 35 minutes. This medical document was created using an electronic medical record system with [employer] dictation system. Although this document has been carefully reviewed, there may still be some phonetic and typographical errors. These areas are purely typographical due to imperfections of the software programs, and do not reflect any compromise in the patient's medical care. Condition at Discharge: Guarded Final Diagnosis/Problems List Diabetic ketoacidosis Secondary diagnosis: -left BKA -abdominal pain with nausea, probable diabetic gastroparesis -pain medication seeking behavior. Patient states that he was only taking [place] as by his pain management doctor, and states that it is not enough for his abdominal pain. -primary hypertension -sirs secondary to DKA Discharge Disposition: Home Discharge Instruct/Medications Diet: Consistent carbohydrate, Cardiac 2g Na,low cholest Follow Up/Referral: PCP in 1-2 weeks Chronic pain management doctor in one week Medications: Continue all home medications Colace 100 mg p.o. b.i.d. 36 Discharge Statement: "Patient was advised to return to the ER or call 911 if any headaches, dizziness, shortness of breath, chest pain, abdominal pain, bleeding, fevers, or worsening of medical condition. Patient was counseled about treatment plan, medications, possible side effects, patientverbalized understanding. All questions were answered to the best of my ability. This discharge took greater then 30 minutes in planning, reviewing documentation, counseling the patient, and discussing with other team members." ASSESSMENT ASSESSMENT Assessment Date of Service: Oct 09, 2024 Billing Provider: JOE GUNDERSON NP Common Visit Codes: [id number] DISCH DAY >30min JOE GUNDERSON NP Oct 09, 2024 12:42
[2024-10-09 12:58] VITALS: BP 123/78; PULSE 110; RESP 17; TEMP 98.5; O2SAT 98
[2024-10-09] MEDS: BISACODYL 10 MG RECT SUPP PR ONE (13:08)
[2024-10-09 16:35] VITALS: BP 101/64; PULSE 109; RESP 19; TEMP 98.8; O2SAT 96
[2024-10-09 16:46] VITALS: BP 101/64; PULSE 101; RESP 19; TEMP 37.1; O2SAT 96
== END 2024-10-09 17:50 | disposition home or self-care (01) | DRG 48 ==
LOC: ER 05:59 → EDBD 05:59 → OVERFLOW 12:09 → TELE-WESTW 10-08 09:08 → WEST WING 10-08 18:45
PROVIDERS: ADMIT Nurse Practitioner Acute Care; ATTEND Nurse Practitioner Acute Care
DX: E11.43 Type 2 diabetes mellitus with diabetic autonomic (poly)neuropathy (principal); R65.10 Systemic inflammatory response syndrome (SIRS) of non-infectious origin without acute organ dysfunction; E11.10 Type 2 diabetes mellitus with ketoacidosis without coma; K31.84 Gastroparesis; I10 Essential (primary) hypertension; I16.1 Hypertensive emergency; E78.5 Hyperlipidemia, unspecified; K59.00 Constipation, unspecified; I25.10 Atherosclerotic heart disease of native coronary artery without angina pectoris; Z79.84 Long term (current) use of oral hypoglycemic drugs; I25.2 Old myocardial infarction; Z79.4 Long term (current) use of insulin; Z79.899 Other long term (current) drug therapy; Z89.512 Acquired absence of left leg below knee
CPT/HCPCS: 36415; 36600; 71045; 74176; 80048; 80053; 81001; 82010; 82805; 82962; 83735; 83930; 84100; 84484; 85025; 93005; 96361; 96372; 96374; 96375; 96376; G0378; J1815; J1885; J2405

== ENCOUNTER 2024-10-30 07:33 | Inpatient (IN) | payer MEDICAID ==
[~2024-10-30] VITALS: Ht 205.7 cm; Wt 116.9 kg
[~2024-10-30 07:33] MED LIST changes: +ASPI81CH59 PO; +CYCL-614 PO; +FAMO40TA7 PO; +GABA-1251 PO; +GEMF-66 PO; +HYDR1TAB97 PO; +INSU100I54 SC; +MAGN400T6 PO; +SUCR1TAB PO; -ZOFR4T PO
[2024-10-30 08:00] VITALS: PULSE 94; RESP 19; O2SAT 97
--- NOTE | 2024-10-30 08:20 | ED.PDOC ---
GI ASSESSMENT HPI Comments 43Y M with PMHx DM, HTN, HLD, AL, stenting, and gastroparesis presents to ED via EMS for chief complaint abd pain x2days with nausea, vomiting, and chest pain. Pt states chest pain began yesterday after vomiting. Chest pain is described as pressure and non-radiating. LBM was yesterday. Pt denies diarrhea. No other symptoms reported. Chief Complaint: Abdominal Pain Time Seen by MD: 07:58 Primary Care Provider: DESTINY Reviewed Notes: Nurses Notes, Physical Fitness Teacher Notes, Medications, Allergies Allergies: Coded Allergies: NO KNOWN ALLERGIES (Unverified , 12/04/21) Home Meds Active Scripts Sacubitril-Valsartan (Entresto 24-26 mg) 1 Tab Tab, 1 TAB PO BID for 30 Days, #60 TAB 1 Refill Prov:KUNAL LERMA MD 06/06/24 Rosuvastatin Calcium (Crestor) 40 Mg Tab, 1 TAB PO DAILY for 30 Days, #30 TAB 1 Refill Prov:KUNAL LERMA MD 06/06/24 Pantoprazole Sodium Sesquihydr (Pantoprazole Sodium) 40 Mg Tab, 40 MG PO BID for 30 Days, #60 TAB Prov:JOE GUNDERSON NP 07/09/23 Sucralfate (CARAFATE) 1 Gm Tab, 1 GM OR QIDACHS for 30 Days, #120 TAB 2 Refills Prov:VENTURA LOWE MD 05/29/23 Reported Medications Famotidine (Famotidine) 20 Mg Tab, 20 MG PO BID, MG 06/05/24 Spironolactone (Spironolactone) 25 Mg Tab, 25 MG PO BID, TAB 06/05/24 Nifedipine (Nifedipine Er) 90 Mg Tab, 90 MG PO DAILY, TAB 06/05/24 Insulin Glargine (Basaglar Kwikpen) 100 Unit/Ml Inj, 20 UNIT SC BID, INJ 06/05/24 Ticagrelor Base (BRILINTA) 90 Mg Tab, 90 MG PO BID, TAB 06/05/24 Dapagliflozin Propanediol (Farxiga) 10 Mg Tab, 10 MG PO QAM, TAB 06/05/24 Ondansetron HCl (Ondansetron Hydrochloride) 4 Mg Tab, 2 TAB PO DAILYPRN PRN for nausea/vomiting 07/04/23 Atorvastatin Calcium (ATORVASTATIN CALCIUM) 40 Mg Tab, 1 TAB PO DAILY 07/04/23 Metformin Hydrochloride (Metformin Hcl) 1,000 Mg Tab, 1 TAB PO BIDWM 05/24/23 Sertraline Hcl (Sertraline Hcl) 25 Mg Tab, 1 TAB PO DAILY 05/24/23 Carvedilol (Carvedilol) 6.25 Mg Tab, 1 TAB PO BID 05/24/23 Gabapentin (Gabapentin) 800 Mg Tab, 1 TAB PO DAILY 05/24/23 Information Source: Patient, Emergency Med Personnel Mode of Arrival: EMS Brought in by: EMS Timing: Days Duration: Since onset Prehospital treatment: 12 Lead EKG Quality: Other Vomitus: Food Particles Stool: Normal Severity: Moderate Recent: None Recent Hx of: None Pain Location: Diffuse Modifying Factors: Nothing Associated sign and symptoms: Nausea, Vomiting, Abdominal Pain, Other Past Medical History PAST MEDICAL HISTORY: DM, High Lipids, HTN, AL Surgical History: BKA, PTCA Family History Family History: Reviewed,noncontributory to illness, Unknown Social History Smoker: Non-Smoker Alcohol: Denies ETOH Use Drugs: Denies Drug Use Lives In: Home Constitutional: denies: chills, diaphoresis, fatigue, fever, malaise, sweats, weakness, others EENTM: denies: blurred vision, double vision, ear bleeding, ear discharge, ear drainage, ear pain, ear ringing, eye pain, eye redness, hearing loss, mouth pain, mouth swelling, nasal discharge, nose bleeding, nose congestion, nose pain, photophobia, tearing, throat pain, throat swelling, voice changes, others Respiratory: denies: cough, hemoptysis, orthopnea, SOB at rest, shortness of breath, SOB with excertion, stridor, wheezing, others Cardiovascular: reports: chest pain; denies: dizzy spells, diaphoresis, Dyspnea on exertion, edema, irregular heart beat, left arm pain, lightheadedness, palpitations, PND, syncope, others Gastrointestinal: reports: abdominal pain, nausea, vomiting; denies: abdomen distended, blood streaked bowels, constipated, diarrhea, dysphagia, difficulty swallowing, hematemesis, melena, poor appetite, poor fluid intake, rectal bleeding, rectal pain, others Genitourinary: denies: burning, dysuria, flank pain, frequency, hematuria, incontinence, penile discharge, penile sore, pain, testicle pain, testicle swelling, urgency, others Neurological: denies: dizziness, fainting, headache, left sided numbness, left sided weakness, numbness, paresthesia, pre-existing deficit, right sided numbness, right sided weakness, seizure, speech problems, tingling, tremors, weakness, others Musculoskeletal: denies: back pain, gout, joint pain, joint swelling, muscle pain, muscle stiffness, neck pain, others Integumetry: denies: bruises, change in color, change in hair/nails, dryness, laceration, lesions, lumps, rash, wounds, others Allergic/Immunocompromised: denies: Difficulty Healing, Frequent Infections, Hives, Itching, others Hematologic/Lymphatic: denies: anemia, blood clots, easy bleeding, easy bruising, swollen glands, others Endocrine: denies: excessive hunger, excessive sweating, excessive thirst, excessive urination, flushing, intolerance to cold, intolerance to heat, unexpl ained weight gain, unexplained weight loss, others Psychiatric: denies: anxiety, bipolar disorder, depression, hopeless, panic disorder, schizophrenia, sleepless, suicidal, others All Other Systems: Reviewed and Negative Physical Exam General Appearance: Mild Distress, Normal HEENT: Normal ENT Inspection, Pharynx Normal, TMs Normal Neck: Full Range of Motion, Non-Tender, Normal, Normal Inspection Respiratory: Chest Non-Tender, Lungs Clear, No Accessory Muscle Use, No Respiratory Distress, Normal Breath Sounds Cardiovascular: No Edema, No Murmur, No Gallop, Tachycardia Breast Exam: Deferred Gastrointestinal: Diffuse, Tenderness Genitalia: Deferred Pelvic: Deferred Rectal: Deferred Extremities: No calf tenderness, Normal capillary refill, Normal inspection, Normal range of motion, Non-tender, No pedal edema Musculoskeletal : Apperance: Normal Neurologic: Alert, No Motor Deficits, Normal Affect, Normal Mood, No Sensory Deficits Cerebellar Function: NOT DONE Reflexes: NOT DONE Skin: Dry, Warm, Other (absent rt big toenail) Lymphatic: No Adenopathy EKG EKG : Pulse Rate (adult): 127 Cardiac Rhythm: ST Block: None Hypertrophy: None ST: Normal Was a procedure done? Was a procedure done?: No GI differential Dx Differential Diagnosis: Gastritis/PUD, Gastroenteritis, Electrolyte Imbalance, Food Poisoning, Bacterial, Viral X-Ray, Labs, Meds, VS Vital Signs Date Time Temp Pulse Resp B/P (MAP) Pulse Ox O2 Delivery O2 Flow Rate FiO2 10/30/24 08:20 127 10/30/24 08:10 105 10/30/24 08:00 97.9 94 19 119/81 (94) 97 97.9 10/30/24 08:00 94 19 97 Room Air* 0 21 10/30/24 07:37 98.6 126 20 151/101 (118) 99 98.6 10/30/24 07:34 127 Lab Test 10/30/24 09:17 10/30/24 08:30 Range/Units Troponin I High Sensitivity 209 *H 178 *H </=54 ng/L White Blood Count 8.8 4.4-10.8 10^3/uL Red Blood Count 4.29 L 4.5-5.90 10^6/uL Hemoglobin 12.7 L 13.5-17.5 g/dL Hematocrit 38.7 L 41.0-53.0 % Mean Corpuscular Volume 90.3 80.0-100.0 fL Mean Corpuscular Hemoglobin 29.7 28.0-32.0 pg Mean Corpuscular Hemoglobin Concent 32.9 32.0-36.0 g/dL Red Cell Distribution Width 14.5 H 11.8-14.3 % Platelet Count 294 140-450 10^3/uL Mean Platelet Volume 9.2 6.9-10.8 fL Neutrophils (%) (Auto) 89.1 H 37.0-80.0 % Lymphocytes (%) (Auto) 7.0 L 10.0-50.0 % Monocytes (%) (Auto) 3.4 0.0-12.0 % Eosinophils (%) (Auto) 0.1 0.0-7.0 % Basophils (%) (Auto) 0.4 0.0-2.0 % Neutrophils # (Auto) 7.9 1.6-8.6 10 ^3/uL Lymphocytes # (Auto) 0.6 0.4-5.4 10 ^3/uL Monocytes # (Auto) 0.3 0-1.3 10 ^3/uL Eosinophils # (Auto) 0 0-0.8 10 ^3/uL Basophils # (Auto) 0 0-0.2 10 ^3/uL Nucleated Red Blood Cells 0.0 % Prothrombin Time 11.5 9.3-11.8 sec Prothrombin Time INR 1.09 0.9-1.15 Activated Partial Thromboplast Time 26.7 24.5-34.5 SEC D-Dimer, Quantitative 0.21 0.0-0.49 mg/L FEU Sodium Level 136 136-145 mmol/L Potassium Level 5.1 3.5-5.1 mmol/L Chloride Level 102 98-107 mmol/L Carbon Dioxide Level 19 L 20-31 mmol/L Anion Gap 15 5-15 Blood Urea Nitrogen 21 9-23 mg/dL Creatinine 1.45 H 0.700-1.30 mg/dL Glomerular Filtration Rate Calc 61 >90 mL/min BUN/Creatinine Ratio 14.5 10.0-20.0 Serum Glucose 255 H 74-106 mg/dL Calcium Level 10.0 8.7-10.4 mg/dL Total Bilirubin 0.3 0.2-1.0 mg/dL Aspartate Amino Transferase (AST) 30 13-40 U/L Alanine Aminotransferase (ALT) 30 7-40 U/L Alkaline Phosphatase 72 46-116 U/L B-Type Natriuretic Peptide 608.69 0-100 pg/mL Total Protein 8.1 5.7-8.2 g/dL Albumin 4.9 H 3.2-4.8 g/dL Current Medications Medications (Trade) Dose Ordered Sig/Sreekanth Route Start Time Stop Time Status Last Admin Sodium Chloride 1,000 ml @ 1,000 mls/hr Q1H ONCE IV 10/30/24 08:30 10/30/24 09:29 DC 10/30/24 08:39 Ondansetron HCl (Zofran Po) 4 mg ONCE ONCE PO 10/30/24 08:30 10/30/24 08:31 DC 10/30/24 08:39 Belladonna Alkaloids/ Phenobarbital ( Elixir) 10 ml ONCE ONCE PO 10/30/24 08:30 10/30/24 08:31 DC 10/30/24 08:39 Al Hydrox/Mg Hydrox/Simethicone (Maalox Plus) 30 ml ONCE ONCE PO 10/30/24 08:30 10/30/24 08:31 DC 10/30/24 08:39 [facility] [id number] [facility] [address] Ph: [phone] DIAGNOSTIC IMAGING Diagnostic Imaging Report : [id number] Signed PATIENT: URIEL DIOP AACCT: [id number] UNIT: [id number] : 1980 LOC: ER ROOM / BED: / AGE / SEX: 43 / M ADM STATUS: REG ER SERVICE 9 ORDERING PHYSICIAN: DARIO SUNG MD PROCEDURE(s): CXRP - CHEST PORTABLE REASON: chest pain sob ORDER NUMBER(s): [id number], ACCESSION NUMBER(s): [id number] INDICATION: chest pain sob TECHNIQUE: Frontal view of the chest. COMPARISON: XY CHEST PORTABLE on DOS: 10/07/24, XY CHEST PORTABLE on DOS: 06/03/24, XY CHEST PORTABLE on DOS: 08/21/23, XY CHEST PORTABLE on DOS: 05/24/23, CHEST PORTABLE on DOS: 09/18/21 FINDINGS: . The heart and mediastinal contours are grossly unremarkable. There is no evidence of pleural disease. The lungs are clear. The bony structures of the chest are intact without fracture. IMPRESSION: 1. No evidence of acute disease. ATED BY: ARLEY JACOBSEN MD DICTATED DATE/TIME: 10/30/24899 SIGNED BY: ARLEY JACOBSEN MD SIGNED DATE/TIME: 10/30/24899 CC: X-Ray, Labs, Meds, VS Comment This 53-year-old male presents secondary to epigastric abdominal pain with nausea and vomiting. However, after a few days of vomiting, he developed chest discomfort. He was concerned he may be having another cardiac event. Patient continues to have flatus and have bowel movements. He has a lengthy cardiac history. He has an up trending troponin here with inverted T-waves multiple leads on his EKG. As such, he will be admitted for for his NSTEMI. Time of 1ST Reevaluation: 08:28 Reevaluation 1ST: Unchanged Time of 2ND Reevaluation: 10:22 Reevaluation 2ND: Improved Patient Education/Counseling: Diagnosis, Treatment Family Education/Counseling: No Family Present Departure 1 Departure Time of Disposition: 10:23 Impression: Primary Impression: NSTEMI (non-ST elevated myocardial infarction) Additional Impressions: Chest pain of unknown etiology Nausea & vomiting Disposition: ADMITTED INPATIENT Admit to: Tele Condition: Serious Critical Care Note Critical Care Time?: No Stability Stability form required: No Heart Score Heart Score: Heart Score Response (Comments) Value History Slightly Suspicious 0 EKG Normal 0 Age 45-64 1 Risk Factors >3 or Hx ASHD 2 Troponin >3 x's Normal limit 2 Total 5 I personally scribed for DARIO SUNG MD ([email or web address]) on 10/30/24 at 08:20. Electronically submitted by Maria Ines Hernandez ([employer]). I personally scribed for DARIO SUNG MD ([email or web address]) on 10/30/24 at 09:11. Electronically submitted by Maria Ines Hernandez ([employer]). DARIO SUNG MD Oct 30, 2024 08:20
[2024-10-30] MEDS: ONDANSETRON ODT 4 MG TAB PO ONE (08:39)
[2024-10-30] MEDS: DONNATAL 5ml ORAL Elix (BELLADONNA ALK-PHENOBARB) PO ONE ×2 (08:39→16:40)
[2024-10-30] MEDS: MAALOX PLUS or MAALOX 30 ML PO ONE ×2 (08:39→16:40)
[2024-10-30] MEDS: SODIUM CHLORIDE 0.9% 1,000 ML IV ONE (08:39)
[2024-10-30] MEDS: LIDOCAINE VISCOUS 2% 15ML UD PO ONE (08:40)
[2024-10-30 09:01] LABS: Alanine Aminotransferase 30 U/L (7-40); Alkaline Phosphatase 72 U/L (46-116); Anion Gap 15 (5-15); Aspartate Aminotransferase 30 U/L (13-40); BUN/Creatinine Ratio 14.5 (10.0-20.0); Basophils # (auto) 0 10 ^3/uL (0-0.2); Basophils % (auto) 0.4 % (0.0-2.0); Blood Urea Nitrogen 21 mg/dL (9-23); Chloride 102 mmol/L (98-107); Eosinophils # (auto) 0 10 ^3/uL (0-0.8); Eosinophils % (auto) 0.1 % (0.0-7.0); Hematocrit 38.7 % (41.0-53.0); Hemoglobin 12.7 g/dL (13.5-17.5); Lymphocytes # (auto) 0.6 10 ^3/uL (0.4-5.4); Mean Corpuscular Hemoglobin 29.7 pg (28.0-32.0); Mean Corpuscular Hgb Conc. 32.9 g/dL (32.0-36.0); Mean Corpuscular Volume 90.3 fL (80.0-100.0); Monocytes # (auto) 0.3 10 ^3/uL (0-1.3); Monocytes % (auto) 3.4 % (0.0-12.0); Neutrophils # (auto) 7.9 10 ^3/uL (1.6-8.6); Neutrophils % (auto) 89.1 % (37.0-80.0); Platelet Count (auto) 294 10^3/uL (140-450); Potassium 5.1 mmol/L (3.5-5.1); Red Blood Cells 4.29 10^6/uL (4.5-5.90); Red Cell Distribution Width 14.5 % (11.8-14.3); Total Protein 8.1 g/dL (5.7-8.2); White Blood Cell 8.8 10^3/uL (4.4-10.8)
--- NOTE | 2024-10-30 09:02 | DVH ---
INDICATION: chest pain sob TECHNIQUE: Frontal view of the chest. COMPARISON: XY CHEST PORTABLE on DOS: 10/07/24, XY CHEST PORTABLE on DOS: 06/03/24, XY CHEST PORTABLE o n DOS: 08/21/23, XY CHEST PORTABLE on DOS: 05/24/23, CHEST PORTABLE on DOS: 09/18/21 FINDINGS: . The heart and mediastinal contours are grossly unremarkable. There is no evidence of pleural disea se. The lungs are clear. The bony structures of the chest are intact without fracture. IMPRESSION: 1. No evidence of acute disease.
[2024-10-30 09:08] LABS: INR 1.09 (0.9-1.15); Partial Thromboplastin Time 26.7 SEC (24.5-34.5); Prothrombin Time 11.5 sec (9.3-11.8)
[2024-10-30 09:48] LABS: Carbon Dioxide 19 mmol/L (20-31); Sodium 136 mmol/L (136-145)
[2024-10-30 09:49] LABS: Albumin 4.9 g/dL (3.2-4.8); Bilirubin, Total 0.3 mg/dL (0.2-1.0); Glucose 255 mg/dL (74-106)
[2024-10-30] MEDS: MORPHINE SULFATE INJ 2 MG/ml SYRG IV ONE (14:44)
[2024-10-30] MEDS: ONDANSETRON HCL 4 MG/2 ML VIAL IV ONE (14:44)
[2024-10-30] MEDS ORDERED: ACETAMINOPHEN 325 MG TAB PO PRN (16:15)
[2024-10-30] MEDS ORDERED: HYDROcodone-ACET 5/325MG TAB PO PRN (16:15)
[2024-10-30] MEDS ORDERED: ONDANSETRON HCL 4 MG/2 ML VIAL IV PRN (16:15)
[2024-10-30] MEDS ORDERED: DEXTROSE (50%) 50ML SYRG IV PRN (16:15)
[2024-10-30] MEDS ORDERED: LOSA-534 PO (16:55)
--- NOTE | 2024-10-30 16:57 | DVHHP2 ---
History of Present Illness Reason for Visit: Abdominal pain History of Present Illness Phoenix Rendon is a 43-year-old male with past medical history of CAD, hypertension, hyperlipidemia, diabetes, PR in August 2019 status post PTCA x3, gastroparesis, left foot amputee, left BKA, right toe wound, EGD, and anxiety who presents to the ED with abdominal pain with nausea and vomiting. Upon examination patient points to his epigastric area and states that the pain is 10/10 choking like and constant. Patient denies any recent trauma or injury, recent fever or chills, shortness of breath, lightheadedness, weakness, dizziness, or diarrhea. Cardiovascular: CAD, HTN, PR, hyperipidemia Psych: Anxiety Endocrine: Diabetes Past Medical History Gastroparesis Past Surgical History: Other (Status post PTCA x3 in August 2022, left foot amputee, left BKA, and right toe wound) Family History: Other (Both parents ) Smoke: No ALCOHOL: none Lives: with Family Domestic Violence: Neg Review of Systems Gastrointestinal: Nausea, Vomiting, Abdominal Pain Allergies: Coded Allergies: NO KNOWN ALLERGIES (Unverified , 12/04/21) Medications Current Medications Medications Dose Ordered Sig/Sreekanth Route Start Time Stop Time Status Last Admin Dose Admin Acetaminophen/ Hydrocodone Bitart 1 tab Q4HP PRN PO 10/30/24 16:15 UNV Ondansetron HCl 4 mg Q4HP PRN IV 10/30/24 16:15 UNV Enoxaparin Sodium 30 mg DAILY SC 10/31/24 10:00 UNV Acetaminophen 650 mg Q6HP PRN PO 10/30/24 16:15 UNV Morphine Sulfate 2 mg Q4HPRN PRN IV 10/30/24 16:15 UNV Diagnostic Test (Pha) 1 strip ACHS 10/30/24 17:00 UNV Insulin Human Regular ACHS SC 10/30/24 17:00 UNV Dextrose 50 ml UD PRN IV 10/30/24 16:15 UNV Exam Vital Signs Vital Signs Date Time Temp Pulse Resp B/P (MAP) Pulse Ox O2 Delivery O2 Flow Rate FiO2 10/30/24 14:44 142 20 138/77 10/30/24 14:00 97 10/30/24 12:00 98.3 98.3 10/30/24 08:00 Room Air* 0 21 General Appearance: Alert, Oriented X3, Cooperative, mild distress HEENT: Atraumatic, PERRLA, EOMI, Mucous membr. moist/pink Respiratory: Normal air movement Cardiovascular: Normal S1, Normal S2, No murmurs Abdominal: Soft Neuro: Normal speech, Normal tone, Sensation intact Psych/Mental Status: Mental status NL, Other (Anxious) Labs/Xrays Labs Test 10/30/24 09:17 10/30/24 08:30 Range/Units Troponin I High Sensitivity 209 *H </=54 ng/L White Blood Count 8.8 4.4-10.8 10^3/uL Red Blood Count 4.29 L 4.5-5.90 10^6/uL Hemoglobin 12.7 L 13.5-17.5 g/dL Hematocrit 38.7 L 41.0-53.0 % Mean Corpuscular Volume 90.3 80.0-100.0 fL Mean Corpuscular Hemoglobin 29.7 28.0-32.0 pg Mean Corpuscular Hemoglobin Concent 32.9 32.0-36.0 g/dL Red Cell Distribution Width 14.5 H 11.8-14.3 % Platelet Count 294 140-450 10^3/uL Mean Platelet Volume 9.2 6.9-10.8 fL Neutrophils (%) (Auto) 89.1 H 37.0-80.0 % Lymphocytes (%) (Auto) 7.0 L 10.0-50.0 % Monocytes (%) (Auto) 3.4 0.0-12.0 % Eosinophils (%) (Auto) 0.1 0.0-7.0 % Basophils (%) (Auto) 0.4 0.0-2.0 % Neutrophils # (Auto) 7.9 1.6-8.6 10 ^3/uL Lymphocytes # (Auto) 0.6 0.4-5.4 10 ^3/uL Monocytes # (Auto) 0.3 0-1.3 10 ^3/uL Eosinophils # (Auto) 0 0-0.8 10 ^3/uL Basophils # (Auto) 0 0-0.2 10 ^3/uL Nucleated Red Blood Cells 0.0 % Prothrombin Time 11.5 9.3-11.8 sec Prothrombin Time INR 1.09 0.9-1.15 Activated Partial Thromboplast Time 26.7 24.5-34.5 SEC D-Dimer, Quantitative 0.21 0.0-0.49 mg/L FEU Sodium Level 136 136-145 mmol/L Potassium Level 5.1 3.5-5.1 mmol/L Chloride Level 102 98-107 mmol/L Carbon Dioxide Level 19 L 20-31 mmol/L Anion Gap 15 5-15 Blood Urea Nitrogen 21 9-23 mg/dL Creatinine 1.45 H 0.700-1.30 mg/dL Glomerular Filtration Rate Calc 61 >90 mL/min BUN/Creatinine Ratio 14.5 10.0-20.0 Serum Glucose 255 H 74-106 mg/dL Calcium Level 10.0 8.7-10.4 mg/dL Total Bilirubin 0.3 0.2-1.0 mg/dL Aspartate Amino Transferase (AST) 30 13-40 U/L Alanine Aminotransferase (ALT) 30 7-40 U/L Alkaline Phosphatase 72 46-116 U/L B-Type Natriuretic Peptide 608.69 0-100 pg/mL Total Protein 8.1 5.7-8.2 g/dL Albumin 4.9 H 3.2-4.8 g/dL INDICATION: chest pain sob TECHNIQUE: Frontal view of the chest. COMPARISON: XY CHEST PORTABLE on DOS: 10/07/24, XY CHEST PORTABLE on DOS: 06/03/24, XY CHEST PORTABLE on DOS: 08/21/23, XY CHEST PORTABLE on DOS: 05/24/23, CHEST PORTABLE on DOS: 09/18/21 FINDINGS: . The heart and mediastinal contours are grossly unremarkable. There is no evidence of pleural disease. The lungs are clear. The bony structures of the chest are intact without fracture. IMPRESSION: 1. No evidence of acute disease. Assessment/Plan Assessment/Plan Assessment Intractable abdominal pain with nausea and vomiting BLAKE Diabetes type 2 NSTEMI History of anxiety History of CAD History of hypertension History of hyperlipidemia History of PR status post PTCA x3 in August 2022 History of gastroparesis History of left foot amputee History of left BKA History of right toe wound History of EGD Plan Admit to [facility] Elevated troponins X-ray Maalox and elixir given ED Antiemetics NS 1 L given ED UA D-dimer PT/PTT BNP EKG Anxiolytics Hemoglobin A1c ISS and Accu-Cheks Lovenox Echo ordered TSH Lipid UDS CT abdomen and pelvis Wound culture Wound consult Cardiology consult Home medications reconciled Discussed plan of care with patient and nurse DVT prophylaxis-Lovenox PUD prophylaxis-Protonix continue home medication Plan discussed with: Patient My Orders Orders - JEN CACERES Procedure Category Date Status Time Admit ADMIT 10/30/24 Transmitted 16:03 Allergies BRADY 10/30/24 In Process 16:03 Hydrocodone-Acet PHA 10/30/24 Logged 5/325mg Tab ([place] 16:15 Ondansetron Hcl PHA 10/30/24 Logged (Zofran) 16:15 Complete Blood Count LAB 10/31/24 Verified 04:00 Comprehensive LAB 10/31/24 Verified Metabolic Panel 04:00 Cardiac DIET 10/30/24 Transmitted Diet-2gna,Lofat,Lochol Dinner Enoxaparin Sodium PHA 10/31/24 Logged (Lovenox) 10:00 Acetaminophen Tablet PHA 10/30/24 Logged (Tylenol Tablet) 16:15 Morphine Sulfate PHA 10/30/24 Logged Injection 16:15 Glucose Blood PHA 10/30/24 Logged (Accu-Chek Comfort 17:00 Insulin R (Human) PHA 10/30/24 Logged (Insulin R) 17:00 Dextrose 50% Syringe PHA 10/30/24 Logged 16:15 Hemoglobin A1c LAB 10/30/24 Logged 16:03 Ct Ab Pel Wo Con-No CT 10/30/24 Logged Oral Or Iv 16:24 Date of Service: Oct 30, 2024 Billing Provider: JEN CACERES Common Visit Codes: [id number] INP/OBS CARE (HIGH) JEN CACERES Oct 30, 2024 16:57
--- NOTE | 2024-10-30 18:01 | DVH ---
Procedure: CT CT AB PEL WO CON-NO ORAL OR IV 10/30/2024 04:35 PM Indication: abd pain Comparison Study: CT CT AB PEL WO CON-NO ORAL OR IV on DOS: 10/08/24, CT CT AB PEL WO CON-NO ORAL OR I V on DOS: 06/03/24, CT CT AB PEL WO CON-NO ORAL OR IV on DOS: 08/04/23 Technique: Axial images were obtained and reformatted in coronal and sagittal planes. All CT scans at this medical facility are performed using dose modulation techniques as appropriate to a performed e xam including the following: Automated exposure control was utilized; adjustment of the MA and/or KV according to patient size; and use of iterative reconstruction technique. CT Dose: CTDI volume is 25. 1 mGy. Dose-length product is 1553.22 mGy*cm FINDINGS: Lower Chest: Unremarkable. Hepatobiliary: No acute abnormality. Hepatic steatosis. No calcified gallstone. Gallbladder is mode rately distended. No gallbladder wall thickening or pericholecystic edema. No calcified gallstones. N o intrahepatic or extrahepatic ductal dilatation. Spleen: Unremarkable. Pancreas: Unremarkable. Adrenal Glands: Unremarkable. tract: The kidneys are normal in size bilaterally without hydronephrosis or nephrolithiasis. The u rinary bladder is unremarkable. GI tract: The stomach is grossly normal in appearance. No evidence of small bowel obstruction. Scatte red colonic diverticula are noted without evidence of diverticulitis. The appendix is normal. Lymphatics: No mesenteric, retroperitoneal or periportal lymphadenopathy. Vasculature: The abdominal aorta is normal in in caliber. Mild scattered calcified plaques of the aor ta noted. Atherosclerotic calcification of branches of the aorta including the celiac trunk, SMA , I MA and bilateral renal arteries with involvement of the intrarenal arteries Pelvic Organs: Unrema yuen rkable Bones/soft tissues: No acute abnormality. Degenerative changes of the lumbar spine noted. Small fat-c ontaining umbilical hernia. Other: None. IMPRESSION: 1. No CT evidence of acute abnormality in the abdomen and pelvis. 2. Scattered colonic diverticula. 3. Atherosclerotic disease.
[2024-10-30] MEDS: InsuLIN REG 1unit/0.01ml Soln (100units/ml) SC SCH (18:39)
[2024-10-30] MEDS: hydrOXYzine 25 MG TAB or CAP PO ONE (18:42)
[2024-10-30] MEDS: ACCU-CHEK COMFORT CURVE STRIP VI SCH (18:42)
[2024-10-30] MEDS: SUCRALFATE 1 GM TAB PO SCH (18:44)
[2024-10-30 19:11] LABS: Triglycerides 136 mg/dL (< 150)
[2024-10-30 19:13] LABS: Cholesterol 180 mg/dL (< 200); HDL Cholesterol 52 mg/dL (40-59)
[2024-10-30 19:15] LABS: LDL Cholesterol 105 mg/dL (< 100)
[2024-10-30 19:45] LABS: Barbiturate Scree,Urine Neg (NEGATIVE); Opiate Scree,Urine Neg (NEGATIVE)
[2024-10-30 19:48] LABS: Amphetamine Screen, Urine Neg (NEGATIVE); Benzodiazephine Screen, Urine Neg (NEGATIVE); Cannabinoid Screen, Urine Pos (NEGATIVE); Cocaine Screen, Urine Neg (NEGATIVE); Phencyclidine Screen, Urine Neg (NEGATIVE)
[2024-10-30 20:18] LABS: Urine Bacteria FEW /hpf (None Seen); Urine Blood 1+ /uL (Negative); Urine Clarity Clear (Clear); Urine Color Light-Yellow (Yellow); Urine Protein, UAD 3+ (Negative); Urine Specific Gravity 1.017 (1.001-1.035); Urine Squamous Epithelial Cell FEW /hpf (<5); Urine Urobilinogen Normal (Negative); Urine WBC 1 /HPF (0-3)
[2024-10-30] MEDS: NITROGLYCERIN 0.4 MG SL TAB SL ONE (21:39)
[2024-10-30] MEDS: HYDROmorphone HCL 2 MG/ML VL/or syr IV ONE (21:41)
[2024-10-30] MEDS: hydrALAZINE HCL 20 MG/ML VL IV PRN (21:41)
[2024-10-30] MEDS ORDERED: NITROGLYCERIN 0.4 MG SL TAB SL PRN (21:45)
[2024-10-30] MEDS ORDERED: FAMOTIDINE 20 MG TAB PO SCH (22:00)
[2024-10-30 22:02] VITALS: BP 108/66; PULSE 98; RESP 17; TEMP 98.1; O2SAT 99
[2024-10-30 23:23] VITALS: BP 113/73; PULSE 93; RESP 16; TEMP 97.9; O2SAT 99
[2024-10-30 23:32] VITALS: PULSE 93; RESP 18
[2024-10-30] MEDS: SACUBITRIL-VALSARTAN 24mg/26mg TAB PO SCH (23:50)
[2024-10-30] MEDS: GABAPENTIN 400 MG CAP PO SCH (23:51)
[2024-10-30] MEDS: TICAGRELOR 90 MG TAB PO SCH (23:51)
[2024-10-30] MEDS: PANTOPRAZOLE 40 MG TAB PO SCH (23:51)
[2024-10-30] MEDS: SPIRONOLACTONE 25 MG TAB PO SCH (23:52)
[2024-10-30] MEDS: CARVEDILOL 3.125 MG TAB PO SCH (23:53)
[2024-10-31] VITALS (21 sets, daily range): BP systolic 78–188; BP diastolic 36–120; PULSE 62–138; RESP 9–20; TEMP 97.2–98; O2SAT 98–100
[2024-10-31] MEDS: MORPHINE SULFATE INJ 2 MG/ml SYRG IV PRN (00:16)
[2024-10-31 06:41] LABS: Basophils # (auto) 0 10 ^3/uL (0-0.2); Basophils % (auto) 0.7 % (0.0-2.0); Eosinophils # (auto) 0 10 ^3/uL (0-0.8); Eosinophils % (auto) 0.6 % (0.0-7.0); Hematocrit 45.5 % (41.0-53.0); Hemoglobin 15.4 g/dL (13.5-17.5); Lymphocytes # (auto) 1.3 10 ^3/uL (0.4-5.4); Mean Corpuscular Hemoglobin 29.6 pg (28.0-32.0); Mean Corpuscular Hgb Conc. 33.8 g/dL (32.0-36.0); Mean Corpuscular Volume 87.6 fL (80.0-100.0); Monocytes # (auto) 0.5 10 ^3/uL (0-1.3); Monocytes % (auto) 6.8 % (0.0-12.0); Neutrophils # (auto) 5.4 10 ^3/uL (1.6-8.6); Neutrophils % (auto) 73.9 % (37.0-80.0); Nucleated Red Blood Cells % 0.1 %; Platelet Count (auto) 394 10^3/uL (140-450); Red Blood Cells 5.19 10^6/uL (4.5-5.90); Red Cell Distribution Width 14.7 % (11.8-14.3); White Blood Cell 7.2 10^3/uL (4.4-10.8)
[2024-10-31 07:10] LABS: Alanine Aminotransferase 31 U/L (7-40); Alkaline Phosphatase 82 U/L (46-116); Anion Gap 12 (5-15); BUN/Creatinine Ratio 12.3 (10.0-20.0); Blood Urea Nitrogen 23 mg/dL (9-23); Carbon Dioxide 22 mmol/L (20-31); Potassium 4.7 mmol/L (3.5-5.1)
[2024-10-31 07:11] LABS: Aspartate Aminotransferase 31 U/L (13-40); Bilirubin, Total 0.4 mg/dL (0.2-1.0)
[2024-10-31 07:13] LABS: Albumin 5.6 g/dL (3.2-4.8); Calcium 10.8 mg/dL (8.7-10.4); Chloride 97 mmol/L (98-107); Glucose 231 mg/dL (74-106); Sodium 131 mmol/L (136-145); Total Protein 9.6 g/dL (5.7-8.2)
--- NOTE | 2024-10-31 09:44 | DVHINCON2 ---
Date Seen: Oct 31, 2024 Referring Physician CHIP Gotti Reason for Consultation Elevated troponin History of Present Illness This 43-year-old male with significant cardiac history, presents in the ED via EMS with a chief complaint abdominal pain. The patient reports epigastric abdominal pain is associated with sharp chest pain localized in the mid chest, nonradiating chest pain and worse on inspiration and exertion. The patient denies dizziness, diaphoresis, syncope, palpitations, or shortness of breath. In the emergency department, the patient underwent a 12 lead ECG which revealed normal sinus rhythm, serial troponins 178/209/309, BNP 608. The patient states that he has been compliant with his cardiac medication as ordered. He has an upcoming appointment with his Cardiology here at [facility] on 11/12/2024. Past medical history includes coronary artery disease status post PTCA X 4 EMPERATRIZ (on ASA and Brilinta) at [facility] on 08/2023, myocardial infarction, congestive heart failure, ischemic cardiomyopathy, hypertension, hy perlipidemia, insulin-dependent type 2 diabetes mellitus, gastroparesis, left eewys-ver-josh amputation, cannabinoid use, and obesity. Past Medical History As stated in HPI Past Surgical History PTCA Left BKA Family History: FH: multiple sclerosis G8 MOTHER Family History Reviewed, non-contributory to the management of this case. Social History The patient lives at home, denies smoking, alcohol abuse Admits to cannabis use Allergies: Coded Allergies: NO KNOWN ALLERGIES (Unverified , 12/04/21) Home Meds Active Scripts Sacubitril-Valsartan (Entresto 24-26 mg) 1 Tab Tab, 1 TAB PO BID for 30 Days, #60 TAB 1 Refill Prov:KUNAL LERMA MD 06/06/24 Rosuvastatin Calcium (Crestor) 40 Mg Tab, 1 TAB PO DAILY for 30 Days, #30 TAB 1 Refill Prov:KUNAL LERMA MD 06/06/24 Pantoprazole Sodium Sesquihydr (Pantoprazole Sodium) 40 Mg Tab, 40 MG PO BID for 30 Days, #60 TAB Prov:JOE GUNDERSON NP 07/09/23 Sucralfate (CARAFATE) 1 Gm Tab, 1 GM OR QIDACHS for 30 Days, #120 TAB 2 Refills Prov:VENTURA LOWE MD 05/29/23 Reported Medications Magnesium Oxide (Magnesium Oxide) 400 Mg Tab, 1 TAB PO 10/30/24 Gemfibrozil (Gemfibrozil) 600 Mg Tab, 1 TAB PO 10/30/24 Losartan Potassium (Losartan Potassium) 50 Mg Tab, 1 TAB PO BID 10/30/24 Famotidine (Famotidine) 20 Mg Tab, 20 MG PO BID, MG 06/05/24 Spironolactone (Spironolactone) 25 Mg Tab, 25 MG PO BID, TAB 06/05/24 Nifedipine (Nifedipine Er) 90 Mg Tab, 90 MG PO DAILY, TAB 06/05/24 Insulin Glargine (Basaglar Kwikpen) 100 Unit/Ml Inj, 20 UNIT SC BID, INJ 06/05/24 Ticagrelor Base (BRILINTA) 90 Mg Tab, 90 MG PO BID, TAB 06/05/24 Dapagliflozin Propanediol (Farxiga) 10 Mg Tab, 10 MG PO QAM, TAB 06/05/24 Ondansetron HCl (Ondansetron Hydrochloride) 4 Mg Tab, 2 TAB PO DAILYPRN PRN for nausea/vomiting 07/04/23 Atorvastatin Calcium (ATORVASTATIN CALCIUM) 40 Mg Tab, 1 TAB PO DAILY 07/04/23 Metformin Hydrochloride (Metformin Hcl) 1,000 Mg Tab, 1 TAB PO BIDWM 05/24/23 Sertraline Hcl (Sertraline Hcl) 25 Mg Tab, 1 TAB PO DAILY 05/24/23 Carvedilol (Carvedilol) 6.25 Mg Tab, 1 TAB PO BID 05/24/23 Gabapentin (Gabapentin) 800 Mg Tab, 1 TAB PO DAILY 05/24/23 Current Medications Current Medications Medications (Trade) Dose Ordered Sig/Sreekanth Route PRN Reason Start Time Stop Time Status Last Admin Acetaminophen/ Hydrocodone Bitart ([place] 5/325MG Tab) 1 tab Q4HP PRN PO MODERATE PAIN (4-6 PAIN SCALE) 10/30/24 16:15 Ondansetron HCl (Zofran) 4 mg Q4HP PRN IV NAUSEA / VOMITING 10/30/24 16:15 Enoxaparin Sodium (Lovenox) 40 mg DAILY SC 10/31/24 10:00 Acetaminophen (Tylenol Tablet) 650 mg Q6HP PRN PO PAIN SCALE 1-3 OR TEMP>100.4 10/30/24 16:15 Morphine Sulfate 2 mg Q4HPRN PRN IV SEVERE PAIN (7-10 PAIN SCALE) 10/30/24 16:15 10/31/24 00:16 Diagnostic Test (Pha) (Accu-Chek Comfort Curve T) 1 strip ACHS 10/30/24 17:00 10/31/24 06:08 Insulin Human Regular (InsuLIN R) ACHS SC 10/30/24 17:00 10/31/24 06:08 Dextrose 50 ml UD PRN IV Blood Sugar LESS THAN 60 10/30/24 16:15 Famotidine (Pepcid Tablet) 20 mg BID PO 10/30/24 22:00 10/30/24 17:50 DC Pantoprazole Sodium (Protonix Tablet) 40 mg BID PO 10/30/24 22:00 10/30/24 23:51 Sacubitril/ Valsartan (Entresto 24-26 Mg tab) 1 tab BID PO 10/30/24 22:00 10/30/24 23:50 Spironolactone (Aldactone) 25 mg BID PO 10/30/24 22:00 10/30/24 23:52 Sucralfate (Carafate Tab) 1 gm QIDACHS PO 10/30/24 17:00 10/31/24 06:08 Ticagrelor (Brilinta) 90 mg BID PO 10/30/24 22:00 10/30/24 23:51 Atorvastatin Calcium (Lipitor) 40 mg DAILY PO 10/31/24 10:00 Carvedilol (Coreg Tablet) 6.25 mg BID PO 10/30/24 22:00 10/30/24 23:53 Gabapentin (Neurontin Capsule) 400 mg TID PO 10/30/24 22:00 10/31/24 06:08 Nifedipine (Procardia Xl (Time-Release)) 90 mg DAILY PO 10/31/24 10:00 Sertraline HCl (Zoloft) 25 mg DAILY PO 10/31/24 10:00 Hydralazine HCl (Apresoline Injection) 10 mg Q6HP PRN IV SBP>150 10/30/24 21:15 10/30/24 21:41 Nitroglycerin (Ntrostat Sublingual) 0.4 mg Q5MINP PRN SL FOR CHEST PAIN 10/30/24 21:45 Review of Systems Constitutional: No symptom reported Ears, Nose, & Throat: No symptom reported Eyes: No symptom reported Neurological: No symptoms reported Pulmonary/Respiratory: No symptom reported Cardiovascular: Chest pain Gastrointestinal: Abdominal pain Genitourinary: No symptom reported Musculoskeletal: No symptom reported Skin: No symptom reported Psychiatric: No symptom reported Endocrine: No symptom reported Hematologic/Lymphatic: No symptom reported Vital Signs Vital Signs Date Time Temp Pulse Resp B/P (MAP) Pulse Ox O2 Delivery O2 Flow Rate FiO2 10/31/24 05:00 97.2 122 18 135/87 (103) 100 97.2 10/30/24 23:32 Room Air* 0 21 Physical Exam INITIAL VITAL SIGNS: Reviewed by me GENERAL: Alert and interactive. No acute distress. HEAD: Head is normocephalic and atraumatic. EYES: EOMI, PERRL. No scleral icterus. No conjunctival injection. ENT: Moist mucous membranes. NECK: Supple, No masses, Full range of motion. RESPIRATORY: No tachypnea. Clear breath sounds bilaterally. No wheezing, rales, rhonchi. CV: Regular rate and rhythm. Right lower extremity +1 pitting edema, dyspnea on exertion GI/: Active bowel sounds, soft, nondistended, nontender. INTEGUMENTARY: Warm and dry. No obvious rashes. Left BKA, right toes abrasion NEUROLOGIC: Alert and oriented x3. Face is symmetric. Speech is normal. Labs/Diagnostic Data Labs Test 10/31/24 06:08 10/31/24 05:45 10/30/24 18:09 10/30/24 09:30 Range/Units White Blood Count 7.2 4.4-10.8 10^3/uL Red Blood Count 5.19 4.5-5.90 10^6/uL Hemoglobin 15.4 # 13.5-17.5 g/dL Hematocrit 45.5 # 41.0-53.0 % Mean Corpuscular Volume 87.6 80.0-100.0 fL Mean Corpuscular Hemoglobin 29.6 28.0-32.0 pg Mean Corpuscular Hemoglobin Concent 33.8 32.0-36.0 g/dL Red Cell Distribution Width 14.7 H 11.8-14.3 % Platelet Count 394 140-450 10^3/uL Mean Platelet Volume 8.8 6.9-10.8 fL Neutrophils (%) (Auto) 73.9 37.0-80.0 % Lymphocytes (%) (Auto) 18.0 10.0-50.0 % Monocytes (%) (Auto) 6.8 0.0-12.0 % Eosinophils (%) (Auto) 0.6 0.0-7.0 % Basophils (%) (Auto) 0.7 0.0-2.0 % Neutrophils # (Auto) 5.4 1.6-8.6 10 ^3/uL Lymphocytes # (Auto) 1.3 0.4-5.4 10 ^3/uL Monocytes # (Auto) 0.5 0-1.3 10 ^3/uL Eosinophils # (Auto) 0 0-0.8 10 ^3/uL Basophils # (Auto) 0 0-0.2 10 ^3/uL Nucleated Red Blood Cells 0.1 % Sodium Level 131 #L 136-145 mmol/L Potassium Level 4.7 3.5-5.1 mmol/L Chloride Level 97 L 98-107 mmol/L Carbon Dioxide Level 22 20-31 mmol/L Anion Gap 12 5-15 Blood Urea Nitrogen 23 9-23 mg/dL Creatinine 1.87 H 0.700-1.30 mg/dL Glomerular Filtration Rate Calc 45 >90 mL/min BUN/Creatinine Ratio 12.3 10.0-20.0 Serum Glucose 231 H 74-106 mg/dL Calcium Level 10.8 H 8.7-10.4 mg/dL Total Bilirubin 0.4 0.2-1.0 mg/dL Aspartate Amino Transferase (AST) 31 13-40 U/L Alanine Aminotransferase (ALT) 31 7-40 U/L Alkaline Phosphatase 82 46-116 U/L Troponin I High Sensitivity 309 *H </=54 ng/L Total Protein 9.6 H 5.7-8.2 g/dL Albumin 5.6 H 3.2-4.8 g/dL POC Glucose 241 H 70-106 mg/dl Urine Color Light-yellow Yellow Urine Clarity Clear Clear Urine pH 6.0 5.0-9.0 Urine Specific [place] 1.017 1.001-1.035 Urine Protein 3+ H Negative Urine Ketones 1+ H Negative Urine Blood 1+ H Negative /uL Urine Nitrite Negative Negative Urine Bilirubin Negative Negative Urine Urobilinogen Normal Negative mg/dL Urine Leukocyte Esterase Negative Negative /uL Urine RBC 2 0 - 3 /hpf Urine Microscopic WBC 1 0-3 /HPF Urine Squamous Epithelial Cells Few <5 /hpf Urine Bacteria Few H None Seen /hpf Urine Glucose 4+ H Normal mg/dL Urine Opiates Screen Neg NEGATIVE Urine Fentanyl Screen Neg NEGATIVE Urine Barbiturates Screen Neg NEGATIVE Urine Phencyclidine Screen Neg NEGATIVE Urine Amphetamines Screen Neg NEGATIVE Urine Benzodiazepines Screen Neg NEGATIVE Urine Cocaine Screen Neg NEGATIVE Urine Cannabinoids Screen Pos NEGATIVE Hemoglobin A1c 7.3 H <5.7 % A1C Test 10/30/24 08:30 Range/Units Prothrombin Time 11.5 9.3-11.8 sec Prothrombin Time INR 1.09 0.9-1.15 Activated Partial Thromboplast Time 26.7 24.5-34.5 SEC D-Dimer, Quantitative 0.21 0.0-0.49 mg/L FEU B-Type Natriuretic Peptide 608.69 0-100 pg/mL Triglycerides Level 136 < 150 mg/dL Cholesterol Level 180 < 200 mg/dL LDL Cholesterol 105 H < 100 mg/dL HDL Cholesterol 52 40-59 mg/dL Thyroid Stimulating Hormone (TSH) 0.34 L 0.55-4.78 uIU/mL PROCEDURE(s): CXRP - CHEST PORTABLE REASON: chest pain sob ORDER NUMBER(s): [id number], ACCESSION NUMBER(s): [id number] INDICATION: chest pain sob TECHNIQUE: Frontal view of the chest. COMPARISON: XY CHEST PORTABLE on DOS: 10/07/24, XY CHEST PORTABLE on DOS: 06/03/24, XY CHEST PORTABLE on DOS: 08/21/23, XY CHEST PORTABLE on DOS: 05/24/23, CHEST PORTABLE on DOS: 09/18/21 FINDINGS: . The heart and mediastinal contours are grossly unremarkable. There is no evidence of pleural disease. The lungs are clear. The bony structures of the chest are intact without fracture. IMPRESSION: 1. No evidence of acute disease. Assessment Elevated trop equivocal Atypical chest pain Acute on chronic decompensated HFrEF, NYHA class III Coronary artery disease s/p PTCA --triple-vessel disease recommended CABG evaluation Ischemic cardiomyopathy with an EF of 35-40% BLAKE on CKD Diabetes type 2 with hyperglycemia Hypertension Hyperlipidemia Gastroparesis Cannabinoid use Obesity Plan/Recommendation (Dr. Alex Shine) * Trend troponin, repeat 12 lead EKG * Continue to diuresis * Echocardiogram from 06/03/24 revealed EF 35-40% * GDMT for CHF and uptitrate as tolerated * Continue dual-antiplatelet therapy with Brilinta and aspirin * Lipid-lowering agent * Monitor kidney function * Daily weight and accurate intake and output Atypical chest pain 2/2 to acute abdominal pain/gastroparesis, possible worsening HF, Troponin equivocal, 12 lead ECG does not reveal acute ND. The patient with significant cardiac history, underwent a cardiac catheterization and coronary angiogram last year 06/2024, revealing a widely patent stent to the LAD as well as the left circumflex artery with a chronically occluded right coronary artery. There is diffuse three-vessel disease involving the ramus intermedius and obtuse marginal branches in addition to the distal LAD and circumflex as well as right coronary artery. The patient eventually will need a coronary artery bypass grafting surgery. The patient reports has an upcoming Cardiology appointment on 11/12/2024. There is no further cardiac workup indicated at this time. Please call if you need to re-consult. Thank you for allowing us to care for this patient. This medical document was created using an electronic medical record system with voice recognition software and computerized dictation system. Although this d ocument has been carefully reviewed, there might still be some phonetic and typographical errors. Occasional wrong-word or ``sound-alike substitutions may have occurred due to the inherent limitations of voice recognition software. These areas are purely typographical due to imperfections of the software programs and do not reflect any compromise in the patient's medical care. Please read the chart carefully and recognize, using context, where these substitutions have occurred. Plan discussed with: Patient, RN Plan discussed with: Patient, Other (RN) NYHA Physical activity limitations: Class3(Marked) ordinary Date of Service: Oct 31, 2024 Billing Provider: MALOU SHINE MD Cardiology Common Codes: CONSULT ONLY Cardiology Consultation Codes: [id number] CONSULT <45MIN MIGUEL MERINO [facility] Oct 31, 2024 09:44
[2024-10-31] MEDS: ATORVASTATIN 20 MG TAB PO SCH (11:14)
[2024-10-31] MEDS: ENOXAPARIN SOD 40 MG/0.4 ML SYRINGE SC SCH ×2 (11:16→21:37)
[2024-10-31] MEDS: SERTRALINE HCL 50 MG TAB PO SCH (11:16)
[2024-10-31] MEDS: NIFEdipine ER 30 MG TAB PO SCH (11:23)
--- NOTE | 2024-10-31 11:29 | ECG ---
[facility] Test Date: 2024-10-31 Test Time: 10:47:35 Pat Name: URIEL DIOP Department: Respiratoy Room: 0236T Gender: M Home [employer] Expert: : 1980 Requested By: MIGUEL MERINO Order Number: [id number] Reading MD: Jin Connelly Measurements Intervals Leona Rate: 82 P: 51 WV: 136 QRS: 64 QRSD: 92 T: 106 QT: 369 QTc: 431 Interpretive Statements Sinus rhythm Abnormal inferior Q waves Abnormal T, consider ischemia, lateral leads Electronically Signed On 11-04-2024 20:53:59 PDT by Jin Connelly Please click the below link to view image of tracing.
[2024-10-31] MEDS: ASPirin 81 mg TAB PO ONE (12:26)
[2024-10-31] MEDS: FUROSEMIDE 40 MG/4 ML VIAL IV ONE (12:28)
--- NOTE | 2024-10-31 16:21 | DVHPN2 ---
Subjective Complains of chest pains on and off. Some of them feel like heaviness across the left chest area Reviewed: Care Plan, H&P, Labs, Medications, Previous Orders, Radiology, Other Changes from previous H/P or p: No Changes Gastrointestinal: Nausea, Vomiting, Abdominal Pain Objective Vitals Vital Signs Date Time Temp Pulse Resp B/P (MAP) Pulse Ox O2 Delivery O2 Flow Rate FiO2 10/31/24 13:00 97.9 82 20 91/50 (64) 100 97.9 10/31/24 08:00 Room Air* 0 21 Intake/Output Intake and Output 10/31/24 07:00 Intake Total 1480 ml Output Total 900 ml Balance 580 ml Intake Oral 480 ml IV Total 1000 ml Output Urine Total 900 ml # Voids 3 General Appearance: Alert, Oriented X3, Cooperative, No acute distress HEENT: Atraumatic Lungs: Clear to auscultation Cardiovascular: Regular rate Abdomen: Normal bowel sounds, Soft, No tenderness Extremities: No edema Medications Current Medications Medications Dose Ordered Sig/Sreekanth Route Start Time Stop Time Status Last Admin Dose Admin Acetaminophen/ Hydrocodone Bitart 1 tab Q4HP PRN PO 10/30/24 16:15 Ondansetron HCl 4 mg Q4HP PRN IV 10/30/24 16:15 Enoxaparin Sodium 40 mg DAILY SC 10/31/24 10:00 10/31/24 11:16 40 MG Acetaminophen 650 mg Q6HP PRN PO 10/30/24 16:15 Morphine Sulfate 2 mg Q4HPRN PRN IV 10/30/24 16:15 10/31/24 00:16 2 MG Diagnostic Test (Pha) 1 strip ACHS 10/30/24 17:00 10/31/24 11:30 1 STRIP Insulin Human Regular ACHS SC 10/30/24 17:00 10/31/24 11:30 4 UNITS Dextrose 50 ml UD PRN IV 10/30/24 16:15 Pantoprazole Sodium 40 mg BID PO 10/30/24 22:00 10/31/24 11:13 40 MG Sacubitril/ Valsartan 1 tab BID PO 10/30/24 22:00 10/31/24 11:14 1 TAB Spironolactone 25 mg BID PO 10/30/24 22:00 10/31/24 11:12 25 MG Sucralfate 1 gm QIDACHS PO 10/30/24 17:00 10/31/24 12:26 1 GM Ticagrelor 90 mg BID PO 10/30/24 22:00 10/31/24 11:13 90 MG Atorvastatin Calcium 40 mg DAILY PO 10/31/24 10:00 10/31/24 11:14 40 MG Carvedilol 6.25 mg BID PO 10/30/24 22:00 10/31/24 11:14 6.25 MG Gabapentin 400 mg TID PO 10/30/24 22:00 10/31/24 14:32 400 MG Nifedipine 90 mg DAILY PO 10/31/24 10:00 10/31/24 11:23 90 MG Sertraline HCl 25 mg DAILY PO 10/31/24 10:00 10/31/24 11:16 25 MG Hydralazine HCl 10 mg Q6HP PRN IV 10/30/24 21:15 10/30/24 21:41 10 MG Nitroglycerin 0.4 mg Q5MINP PRN SL 10/30/24 21:45 Furosemide 20 mg DAILY IV 11/01/24 10:00 Empaglifozin 10 mg QAM PO 11/01/24 07:00 Aspirin 81 mg DAILY PO 11/01/24 10:00 Laboratory Results Laboratory Tests 10/31/24 06:08 Chemistry Test 10/31/24 06:08 Albumin 5.6 g/dL (3.2-4.8) H Calcium Level 10.8 mg/dL (8.7-10.4) H Total Protein 9.6 g/dL (5.7-8.2) H Cardiac Markers Test 10/31/24 10:08 B-Type Natriuretic Peptide 1523.85 pg/mL (0-100) LFT Test 10/31/24 06:08 Alanine Aminotransferase (ALT) 31 U/L (7-40) Alkaline Phosphatase 82 U/L (46-116) Aspartate Amino Transferase (AST) 31 U/L (13-40) Total Bilirubin 0.4 mg/dL (0.2-1.0) Urinalysis Test 10/30/24 18:09 Urine Color Light-yellow (Yellow) Urine Clarity Clear (Clear) Urine pH 6.0 (5.0-9.0) Urine Specific [place] 1.017 (1.001-1.035) Urine Protein 3+ (Negative) H Urine Ketones 1+ (Negative) H Urine Blood 1+ /uL (Negative) H Urine Nitrite Negative (Negative) Urine Bilirubin Negative (Negative) Urine Urobilinogen Normal mg/dL (Negative) Urine Leukocyte Esterase Negative /uL (Negative) Urine RBC 2 /hpf (0 - 3) Urine Microscopic WBC 1 /HPF (0-3) Urine Squamous Epithelial Cells Few /hpf (<5) Urine Bacteria Few /hpf (None Seen) H Urine Glucose 4+ mg/dL (Normal) H Microbiology Microbiology Date/Time Source Procedure Growth Status 10/31/24 03:10 Nose MRSA Screen - Final Methicillin Resistant S.aureus Complete Assessment/Plan Assessment/Plan Chest pain Non-STEMI Acute on chronic heart failure Coronary artery disease with history of PTCAs and stent placement Hypertension Dyslipidemia Diabetes History of gastroparesis Diverticulosis Status post left BKA Cannabinoid use Chronic kidney disease stage 3 Heart failure with reduced ejection fraction Atherosclerotic vascular disease Plan: Reconsult Cardiology to do the recurrence of chest pain with increasing troponin. We will transferred to the ICU and start on nitroglycerin drip. Further plan per orders. Discussed with Cardiology. Total critical care time 45 minutes Plan discussed with: Patient, Other (Cardiology and nursing) My Orders Orders - FRANCES DAVEY MD Procedure Category Date Status Time Apply/Change Dressing BRADY 10/31/24 In Process 12:30 Date of Service: Oct 31, 2024 Billing Provider: FRANCES DAVEY MD Common Visit Codes: [id number] CARE 30-74 MIN FRANCES DAVYE MD Oct 31, 2024 16:21
[2024-10-31] MEDS: NOREPINEPHRINE 8 MG/250ML KIT 0 ML IV ONE (18:48)
[2024-10-31] MEDS: NOREPINEPHRINE 8 MG/250ML KIT 250 ML IV SCH (21:00)
[2024-10-31] MEDS: HYDROmorphone HCL 2 MG/ML VL/or syr IV ONE (22:25)
--- NOTE | 2024-10-31 23:23 | DVHINCON2 ---
Date Seen: Oct 31, 2024 Referring Physician CHIP Gotti Reason for Consultation Elevated troponin History of Present Illness This 43-year-old male with a past medical history of coronary artery disease status post PTCA X 4 EMPERATRIZ (on ASA and Brilinta) at [facility] on 08/2023, myocardial infarction, congestive heart failure, ischemic cardiomyopathy, hypertension, hyperlipidemia, insulin-dependent type 2 diabetes mellitus, gastroparesis, left [id number] amputation, cannabinoid use, and obesity significant cardiac history, presents to the ED via EMS with a complaint of epigastric abdominal pain with associated with sharp chest pain localized in the mid chest, nonradiating chest pain and worse on inspiration and exertion. The patient states that he has been fully compliant with his cardiac medication as ordered. 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 In the emergency department, the patient underwent a 12 lead ECG which revealed normal sinus rhythm, serial troponins 178/209/309, BNP 608. Chest x-ray showed NAD. CT ABD PEL showed scattered colonic diverticula and atherosclerotic disease. Patient was admitted to the hospital. I am asked to consult on this patient. Past Medical History As stated in HPI Past Surgical History PTCA Left BKA Family History: FH: multiple sclerosis G8 MOTHER Allergies: Coded Allergies: NO KNOWN ALLERGIES (Unverified , 12/04/21) Home Meds Active Scripts Sacubitril-Valsartan (Entresto 24-26 mg) 1 Tab Tab, 1 TAB PO BID for 30 Days, #60 TAB 1 Refill Prov:KUNAL LERMA MD 06/06/24 Rosuvastatin Calcium (Crestor) 40 Mg Tab, 1 TAB PO DAILY for 30 Days, #30 TAB 1 Refill Prov:KUNAL LERMA MD 06/06/24 Pantoprazole Sodium Sesquihydr (Pantoprazole Sodium) 40 Mg Tab, 40 MG PO BID for 30 Days, #60 TAB Prov:JOE GUNDERSON NP 07/09/23 Sucralfate (CARAFATE) 1 Gm Tab, 1 GM OR QIDACHS for 30 Days, #120 TAB 2 Refills Prov:VENTURA LOWE MD 05/29/23 Reported Medications Magnesium Oxide (Magnesium Oxide) 400 Mg Tab, 1 TAB PO 10/30/24 Gemfibrozil (Gemfibrozil) 600 Mg Tab, 1 TAB PO 10/30/24 Losartan Potassium (Losartan Potassium) 50 Mg Tab, 1 TAB PO BID 10/30/24 Famotidine (Famotidine) 20 Mg Tab, 20 MG PO BID, MG 06/05/24 Spironolactone (Spironolactone) 25 Mg Tab, 25 MG PO BID, TAB 06/05/24 Nifedipine (Nifedipine Er) 90 Mg Tab, 90 MG PO DAILY, TAB 06/05/24 Insulin Glargine (Basaglar Kwikpen) 100 Unit/Ml Inj, 20 UNIT SC BID, INJ 06/05/24 Ticagrelor Base (BRILINTA) 90 Mg Tab, 90 MG PO BID, TAB 06/05/24 Dapagliflozin Propanediol (Farxiga) 10 Mg Tab, 10 MG PO QAM, TAB 06/05/24 Ondansetron HCl (Ondansetron Hydrochloride) 4 Mg Tab, 2 TAB PO DAILYPRN PRN for nausea/vomiting 07/04/23 Atorvastatin Calcium (ATORVASTATIN CALCIUM) 40 Mg Tab, 1 TAB PO DAILY 07/04/23 Metformin Hydrochloride (Metformin Hcl) 1,000 Mg Tab, 1 TAB PO BIDWM 05/24/23 Sertraline Hcl (Sertraline Hcl) 25 Mg Tab, 1 TAB PO DAILY 05/24/23 Carvedilol (Carvedilol) 6.25 Mg Tab, 1 TAB PO BID 05/24/23 Gabapentin (Gabapentin) 800 Mg Tab, 1 TAB PO DAILY 05/24/23 Current Medications Current Medications Medications (Trade) Dose Ordered Sig/Sreekanth Route PRN Reason Start Time Stop Time Status Last Admin Acetaminophen/ Hydrocodone Bitart (Jack 5/325MG Tab) 1 tab Q4HP PRN PO MODERATE PAIN (4-6 PAIN SCALE) 10/30/24 16:15 Ondansetron HCl (Zofran) 4 mg Q4HP PRN IV NAUSEA / VOMITING 10/30/24 16:15 Enoxaparin Sodium (Lovenox) 40 mg DAILY SC 10/31/24 10:00 10/31/24 11:16 Acetaminophen (Tylenol Tablet) 650 mg Q6HP PRN PO PAIN SCALE 1-3 OR TEMP>100.4 10/30/24 16:15 Morphine Sulfate 2 mg Q4HPRN PRN IV SEVERE PAIN (7-10 PAIN SCALE) 10/30/24 16:15 10/31/24 00:16 Diagnostic Test (Pha) (Accu-Chek Comfort Curve T) 1 strip ACHS 10/30/24 17:00 10/31/24 06:08 Insulin Human Regular (InsuLIN R) ACHS SC 10/30/24 17:00 10/31/24 06:08 Dextrose 50 ml UD PRN IV Blood Sugar LESS THAN 60 10/30/24 16:15 Famotidine (Pepcid Tablet) 20 mg BID PO 10/30/24 22:00 10/30/24 17:50 DC Pantoprazole Sodium (Protonix Tablet) 40 mg BID PO 10/30/24 22:00 10/31/24 11:13 Sacubitril/ Valsartan (Entresto 24-26 Mg tab) 1 tab BID PO 10/30/24 22:00 10/31/24 11:14 Spironolactone (Aldactone) 25 mg BID PO 10/30/24 22:00 10/31/24 11:12 Sucralfate (Carafate Tab) 1 gm QIDACHS PO 10/30/24 17:00 10/31/24 06:08 Ticagrelor (Brilinta) 90 mg BID PO 10/30/24 22:00 10/31/24 11:13 Atorvastatin Calcium (Lipitor) 40 mg DAILY PO 10/31/24 10:00 10/31/24 11:14 Carvedilol (Coreg Tablet) 6.25 mg BID PO 10/30/24 22:00 10/31/24 11:14 Gabapentin (Neurontin Capsule) 400 mg TID PO 10/30/24 22:00 10/31/24 06:08 Nifedipine (Procardia Xl (Time-Release)) 90 mg DAILY PO 10/31/24 10:00 10/31/24 11:23 Sertraline HCl (Zoloft) 25 mg DAILY PO 10/31/24 10:00 10/31/24 11:16 Hydralazine HCl (Apresoline Injection) 10 mg Q6HP PRN IV SBP>150 10/30/24 21:15 10/30/24 21:41 Nitroglycerin (Ntrostat Sublingual) 0.4 mg Q5MINP PRN SL FOR CHEST PAIN 10/30/24 21:45 Furosemide (Lasix Injection) 20 mg DAILY IV 11/01/24 10:00 Empaglifozin (Jardiance) 10 mg QAM PO 11/01/24 07:00 Aspirin 81 mg DAILY PO 11/01/24 10:00 Review of Systems Constitutional: No symptom reported Ears, Nose, & Throat: No symptom reported Eyes: No symptom reported Neurological: No symptoms reported Pulmonary/Respiratory: No symptom reported Cardiovascular: Chest pain Gastrointestinal: Abdominal pain Genitourinary: No symptom reported Musculoskeletal: No symptom reported Skin: No symptom reported Psychiatric: No symptom reported Endocrine: No symptom reported Hematologic/Lymphatic: No symptom reported Vital Signs Vital Signs Date Time Temp Pulse Resp B/P (MAP) Pulse Ox O2 Delivery O2 Flow Rate FiO2 10/31/24 11:23 111/72 10/31/24 11:14 91 10/31/24 05:00 97.2 18 100 97.2 10/30/24 23:32 Room Air* 0 21 Physical Exam GENERAL: Awake, alert, oriented. LUNGS: Clear. CARDIOVASCULAR: Heart sounds are good. ABDOMEN: Soft. EXT: 1+ RLE pitting edema, Left BKA. SKIN: Abrasions on right toes. Labs/Diagnostic Data Labs Test 10/31/24 10:08 10/31/24 06:08 10/31/24 05:45 10/30/24 18:09 Range/Units B-Type Natriuretic Peptide 1523.85 0-100 pg/mL White Blood Count 7.2 4.4-10.8 10^3/uL Red Blood Count 5.19 4.5-5.90 10^6/uL Hemoglobin 15.4 # 13.5-17.5 g/dL Hematocrit 45.5 # 41.0-53.0 % Mean Corpuscular Volume 87.6 80.0-100.0 fL Mean Corpuscular Hemoglobin 29.6 28.0-32.0 pg Mean Corpuscular Hemoglobin Concent 33.8 32.0-36.0 g/dL Red Cell Distribution Width 14.7 H 11.8-14.3 % Platelet Count 394 140-450 10^3/uL Mean Platelet Volume 8.8 6.9-10.8 fL Neutrophils (%) (Auto) 73.9 37.0-80.0 % Lymphocytes (%) (Auto) 18.0 10.0-50.0 % Monocytes (%) (Auto) 6.8 0.0-12.0 % Eosinophils (%) (Auto) 0.6 0.0-7.0 % Basophils (%) (Auto) 0.7 0.0-2.0 % Neutrophils # (Auto) 5.4 1.6-8.6 10 ^3/uL Lymphocytes # (Auto) 1.3 0.4-5.4 10 ^3/uL Monocytes # (Auto) 0.5 0-1.3 10 ^3/uL Eosinophils # (Auto) 0 0-0.8 10 ^3/uL Basophils # (Auto) 0 0-0.2 10 ^3/uL Nucleated Red Blood Cells 0.1 % Sodium Level 131 #L 136-145 mmol/L Potassium Level 4.7 3.5-5.1 mmol/L Chloride Level 97 L 98-107 mmol/L Carbon Dioxide Level 22 20-31 mmol/L Anion Gap 12 5-15 Blood Urea Nitrogen 23 9-23 mg/dL Creatinine 1.87 H 0.700-1.30 mg/dL Glomerular Filtration Rate Calc 45 >90 mL/min BUN/Creatinine Ratio 12.3 10.0-20.0 Serum Glucose 231 H 74-106 mg/dL Calcium Level 10.8 H 8.7-10.4 mg/dL Total Bilirubin 0.4 0.2-1.0 mg/dL Aspartate Amino Transferase (AST) 31 13-40 U/L Alanine Aminotransferase (ALT) 31 7-40 U/L Alkaline Phosphatase 82 46-116 U/L Troponin I High Sensitivity 309 *H </=54 ng/L Total Protein 9.6 H 5.7-8.2 g/dL Albumin 5.6 H 3.2-4.8 g/dL POC Glucose 241 H 70-106 mg/dl Urine Color Light-yellow Yellow Urine Clarity Clear Clear Urine pH 6.0 5.0-9.0 Urine Specific [place] 1.017 1.001-1.035 Urine Protein 3+ H Negative Urine Ketones 1+ H Negative Urine Blood 1+ H Negative /uL Urine Nitrite Negative Negative Urine Bilirubin Negative Negative Urine Urobilinogen Normal Negative mg/dL Urine Leukocyte Esterase Negative Negative /uL Urine RBC 2 0 - 3 /hpf Urine Microscopic WBC 1 0-3 /HPF Urine Squamous Epithelial Cells Few <5 /hpf Urine Bacteria Few H None Seen /hpf Urine Glucose 4+ H Normal mg/dL Urine Opiates Screen Neg NEGATIVE Urine Fentanyl Screen Neg NEGATIVE Urine Barbiturates Screen Neg NEGATIVE Urine Phencyclidine Screen Neg NEGATIVE Urine Amphetamines Screen Neg NEGATIVE Urine Benzodiazepines Screen Neg NEGATIVE Urine Cocaine Screen Neg NEGATIVE Urine Cannabinoids Screen Pos NEGATIVE Test 10/30/24 09:30 10/30/24 08:30 Range/Units Hemoglobin A1c 7.3 H <5.7 % A1C Prothrombin Time 11.5 9.3-11.8 sec Prothrombin Time INR 1.09 0.9-1.15 Activated Partial Thromboplast Time 26.7 24.5-34.5 SEC D-Dimer, Quantitative 0.21 0.0-0.49 mg/L FEU Triglycerides Level 136 < 150 mg/dL Cholesterol Level 180 < 200 mg/dL LDL Cholesterol 105 H < 100 mg/dL HDL Cholesterol 52 40-59 mg/dL Thyroid Stimulating Hormone (TSH) 0.34 L 0.55-4.78 uIU/mL Assessment Elevated trop equivocal. Atypical chest pain. Acute on chronic decompensated HFrEF, NYHA class III. Coronary artery disease s/p PTCA --triple-vessel disease recommended CABG evaluation. Ischemic cardiomyopathy with an EF of 35-40%. BLAKE on CKD. Diabetes type 2 with hyperglycemia. Hypertension. Hyperlipidemia. Gastroparesis. Cannabinoid use. Obesity. Plan/Recommendation I agree with your ongoing assessment and care of plan. Patient has been seen by Ruma Neves NP on my behalf, her and I discussed the plan with the patient. Trend troponin, repeat 12 lead EKG. Continue to diuresis. Echocardiogram from 06/03/24 revealed EF 35-40%. GDMT for CHF and uptitrate as tolerated. Continue dual-antiplatelet therapy with Brilinta and aspirin. Lipid-lowering agent. Monitor kidney function. Daily weight and accurate intake and output. Additional plan as per the hospital course. Plan discussed with: Patient NYHA Physical activity limitations: Class3(Marked) ordinary Date of Service: Oct 31, 2024 Billing Provider: MALOU SOFIA MD Cardiology Common Codes: [id number] INP/OBS CARE (High), [id number] CARE 30-74 MIN MALOU SOFIA MD Oct 31, 2024 12:23
[2024-11-01] VITALS (101 sets, daily range): BP systolic 75–131; BP diastolic 36–83; PULSE 67–103; RESP 7–56; TEMP 98–98.8; O2SAT 87–100
--- NOTE | 2024-11-01 01:35 | DVH ---
CHEST RADIOGRAPH Indication: fu Technique: Single frontal view of the chest was obtained COMPARISON: XY CHEST PORTABLE on DOS: 10/30/24, XY CHEST PORTABLE on DOS: 10/07/24, XY CHEST PORTABLE on DOS: 06/03/24, XY CHEST PORTABLE on DOS: 08/21/23, XY CHEST PORTABLE on DOS: 05/24/23 FINDINGS: Lines and Tubes: None Lungs: Clear Pleura: No effusion. No pneumothorax. Cardiomediastinal contours: Unremarkable Bones: Unremarkable IMPRESSION: 1. No acute disease.
--- NOTE | 2024-11-01 02:17 | DVHSR ---
APPROVED REPORT EXAM: LIMITED Two-dimensional and M-mode echocardiogram with Doppler and color Doppler. Blood Pressure: 135/87 mmHg INDICATION Chest Pain RISK FACTORS Obesity: Height: 5'9, Weight: 257 DIMENSIONS LVDd4.1 (3.8-5.7cm)LA (2D)3.7 (1.9-4.0cm)Aortic Root3.5 (2.0-3.7cm) LVDs3.3 (2.5-4.0cm)LA (MM) (1.9-4.0cm)Aortic Cusp Exc1.8 (1.5-2.0cm) EF (%) 47.0 (55-70%)Rt. Atrium3.7 (1.9-4.0cm)Asc. Aorta cm IVSd1.1 (0.7-1.1cm)RV (D)4.1 (1.8-2.4cm) PWd1.3 (0.7-1.1cm) Mitral Valve MitralMitral Stenosis E wave0.42m/sMV Mean GR.mmHg A wave0.59m/sMV Peak GR.mmHg E/A ratio0.72D MVAcm2 DECEL [id number] 1/2 Timems Aortic Valve Aortic ValveAortic Stenosis V10.85m/Rickey Mean GR.mmHg V21.20m/Rickey Peak GR.6mmHg LVOT Diameter1.9 (1.8-2.4cm)Doppler AVA2.01cm2 Conclusion GLOBAL LV HYPOKINESIS LV EF IS IN RANGE OF ONLY 25% NORMAL VALVES NO EFFUSION
[2024-11-01] MEDS: EMPAGLIFLOZIN 10 MG TAB PO SCH (06:53)
[2024-11-01 07:34] LABS: Potassium 4.5 mmol/L (3.5-5.1)
[2024-11-01 07:35] LABS: Anion Gap 14 (5-15); Calcium 10.3 mg/dL (8.7-10.4); Carbon Dioxide 21 mmol/L (20-31)
[2024-11-01 07:37] LABS: Chloride 97 mmol/L (98-107); Sodium 132 mmol/L (136-145)
[2024-11-01 07:40] LABS: BUN/Creatinine Ratio 14.9 (10.0-20.0)
[2024-11-01 07:44] LABS: Blood Urea Nitrogen 34 mg/dL (9-23); Glucose 202 mg/dL (74-106)
[2024-11-01] MEDS ORDERED: HYDROMORPHONE HCL 1 MG/ML INJ IV PRN (09:15)
--- NOTE | 2024-11-01 09:42 | DVHPN2 ---
Subjective Still Complains of chest pains on and off. The pain became more dull. Unable to start nitroglycerin drip due to the low blood pressure. Patient started on Levophed. Blood pressure medications on hold Reviewed: Care Plan, H&P, Labs, Medications, Previous Orders, Radiology, Other Changes from previous H/P or p: No Changes Gastrointestinal: Nausea, Vomiting, Abdominal Pain Objective Vitals Vital Signs Date Time Temp Pulse Resp B/P (MAP) Pulse Ox O2 Delivery O2 Flow Rate FiO2 11/01/24 08:30 91 17 93/57 (69) 100 11/01/24 08:00 98.1 98.1 11/01/24 08:00 Nasal Cannula* 3 32 Intake/Output Intake and Output 11/01/24 07:00 Intake Total 2758 ml Balance 2758 ml Intake Oral 2738 ml IV Total 20 ml # Voids 7 General Appearance: Alert, Oriented X3, Cooperative, No acute distress HEENT: Atraumatic Lungs: Clear to auscultation Cardiovascular: Regular rate Abdomen: Normal bowel sounds, Soft, No tenderness Extremities: No edema Medications Current Medications Medications Dose Ordered Sig/Sreekanth Route Start Time Stop Time Status Last Admin Dose Admin Acetaminophen/ Hydrocodone Bitart 1 tab Q4HP PRN PO 10/30/24 16:15 Ondansetron HCl 4 mg Q4HP PRN IV 10/30/24 16:15 Acetaminophen 650 mg Q6HP PRN PO 10/30/24 16:15 Diagnostic Test (Pha) 1 strip ACHS 10/30/24 17:00 11/01/24 06:57 1 STRIP Insulin Human Regular ACHS SC 10/30/24 17:00 11/01/24 07:02 3 UNITS Dextrose 50 ml UD PRN IV 10/30/24 16:15 Pantoprazole Sodium 40 mg BID PO 10/30/24 22:00 10/31/24 21:36 40 MG Sacubitril/ Valsartan 1 tab BID PO 10/30/24 22:00 10/31/24 21:36 1 TAB Spironolactone 25 mg BID PO 10/30/24 22:00 10/31/24 21:35 25 MG Sucralfate 1 gm QIDACHS PO 10/30/24 17:00 11/01/24 06:53 1 GM Ticagrelor 90 mg BID PO 10/30/24 22:00 10/31/24 21:35 90 MG Atorvastatin Calcium 40 mg DAILY PO 10/31/24 10:00 10/31/24 11:14 40 MG Carvedilol 6.25 mg BID PO 10/30/24 22:00 Hold 10/31/24 11:14 6.25 MG Gabapentin 400 mg TID PO 10/30/24 22:00 11/01/24 06:53 400 MG Nifedipine 90 mg DAILY PO 10/31/24 10:00 10/31/24 11:23 90 MG Sertraline HCl 25 mg DAILY PO 10/31/24 10:00 10/31/24 11:16 25 MG Hydralazine HCl 10 mg Q6HP PRN IV 10/30/24 21:15 10/30/24 21:41 10 MG Nitroglycerin 0.4 mg Q5MINP PRN SL 10/30/24 21:45 Furosemide 20 mg DAILY IV 11/01/24 10:00 Empaglifozin 10 mg QAM PO 11/01/24 07:00 11/01/24 06:53 10 MG Aspirin 81 mg DAILY PO 11/01/24 10:00 Enoxaparin Sodium 80 mg BID SC 10/31/24 22:00 10/31/24 21:37 80 MG Norepinephrine Bitartrate 250 ml @ 3.75 mls/hr Q24H IV 10/31/24 17:30 10/31/24 21:00 3.75 MLS/HR Mupirocin 1 applic BID EACHNOSTRI 11/01/24 10:00 11/06/24 09:59 Hydromorphone HCl 0.5 mg Q4HPRN PRN IV 11/01/24 09:15 Laboratory Results Laboratory Tests 10/31/24 06:08 11/01/24 03:55 Chemistry Test 11/01/24 03:55 Calcium Level 10.3 mg/dL (8.7-10.4) Cardiac Markers Test 10/31/24 10:08 B-Type Natriuretic Peptide 1523.85 pg/mL (0-100) Urinalysis Test 10/30/24 18:09 Urine Color Light-yellow (Yellow) Urine Clarity Clear (Clear) Urine pH 6.0 (5.0-9.0) Urine Specific [place] 1.017 (1.001-1.035) Urine Protein 3+ (Negative) H Urine Ketones 1+ (Negative) H Urine Blood 1+ /uL (Negative) H Urine Nitrite Negative (Negative) Urine Bilirubin Negative (Negative) Urine Urobilinogen Normal mg/dL (Negative) Urine Leukocyte Esterase Negative /uL (Negative) Urine RBC 2 /hpf (0 - 3) Urine Microscopic WBC 1 /HPF (0-3) Urine Squamous Epithelial Cells Few /hpf (<5) Urine Bacteria Few /hpf (None Seen) H Urine Glucose 4+ mg/dL (Normal) H Microbiology Microbiology Date/Time Source Procedure Growth Status 10/31/24 03:10 Nose MRSA Screen - Final Methicillin Resistant S.aureus Complete Assessment/Plan Assessment/Plan Chest pain Non-STEMI Acute on chronic heart failure Coronary artery disease with history of PTCAs and stent placement Hypertension Dyslipidemia Diabetes History of gastroparesis Diverticulosis Status post left BKA Cannabinoid use Chronic kidney disease stage 3 Heart failure with reduced ejection fraction Atherosclerotic vascular disease Plan: The troponin is lower today compared to yesterday. Patient has appointment with Dr. Connelly in 10 days. We will go ahead and consult Dr. Connelly to see patient while in the ICU. Hold blood pressure medication while on Levophed. Continue current plan of care. Repeat labs Plan discussed with: Patient, Other (Nursing) My Orders Orders - FRANCES DAVEY MD Procedure Category Date Status Time Apply/Change Dressing BRADY 10/31/24 In Process 12:30 Enoxaparin Sodium PHA 10/31/24 In Process (Lovenox) 22:00 Chest Portable XY 11/01/24 Resulted 06:00 Mupirocin 2% Oint PHA 11/01/24 In Process Mrsa Nares (Bactroban 10:00 Hydromorphone Hcl Inj PHA 11/01/24 In Process (Dilaudid Innjecti 09:15 Communication Order ORDERS 11/01/24 Transmitted 09:14 Date of Service: Nov 01, 2024 Billing Provider: FRANCES DAVEY MD Common Visit Codes: [id number] CARE 30-74 MIN FRANCES DAVEY MD Nov 01, 2024 09:42
[2024-11-01] MEDS: ASPirin 81 mg TAB PO SCH (09:55)
[2024-11-01] MEDS ORDERED: FUROSEMIDE 20 MG/2 ML VIAL IV SCH (10:00)
[2024-11-01] MEDS: MUPIROCIN 2% OINT 15gm or 22gm FOR MRSA NARES EACHNOSTRI SCH (11:01)
[2024-11-01] MEDS: HYDROmorphone HCL 2 MG/ML VL/or syr IV PRN (11:14)
--- NOTE | 2024-11-01 12:06 | ECG ---
[facility] Test Date: 2024-10-31 Test Time: 10:45:38 Pat Name: URIEL DIOP Department: Respiratoy Room: 0236T Gender: M [employer]: : 1980 Requested By: FRANCES DAVEY Order Number: [id number] Reading MD: Jin Connelly Measurements Intervals [place] Rate: 83 P: 51 CT: 137 QRS: 62 QRSD: 90 T: 109 QT: 371 QTc: 436 Interpretive Statements Sinus rhythm Abnormal T, consider ischemia, lateral leads Electronically Signed On 11-04-2024 20:53:50 PDT by Jin Connelly Please click the below link to view image of tracing.
--- NOTE | 2024-11-01 16:11 | DVHPN2 ---
Reason for visit: cardiology follow-up Reviewed: Care Plan, H&P, Labs, Medications, Previous Orders, Radiology, Other Changes from previous H/P or p: No Changes Gastrointestinal: Nausea, Vomiting, Abdominal Pain Objective Vitals Vital Signs Date Time Temp Pulse Resp B/P (MAP) Pulse Ox O2 Delivery O2 Flow Rate FiO2 11/01/24 15:15 89 12 107/81 11/01/24 08:30 100 11/01/24 08:00 98.1 98.1 11/01/24 08:00 Nasal Cannula* 3 32 Intake/Output Intake and Output 11/01/24 07:00 Intake Total 2758 ml Balance 2758 ml Intake Oral 2738 ml IV Total 20 ml # Voids 7 Exam No cardiac events reported Currently on Levophed 2mcg for BP support Denies chest pain General Appearance: Alert, Oriented X3, Cooperative, No acute distress HEENT: Atraumatic Lungs: Clear to auscultation Cardiovascular: Regular rate Abdomen: Normal bowel sounds, Soft, No tenderness Extremities: No edema Medications Current Medications Medications Dose Ordered Sig/Sreekanth Route Start Time Stop Time Status Last Admin Dose Admin Acetaminophen/ Hydrocodone Bitart 1 tab Q4HP PRN PO 10/30/24 16:15 Ondansetron HCl 4 mg Q4HP PRN IV 10/30/24 16:15 Acetaminophen 650 mg Q6HP PRN PO 10/30/24 16:15 Diagnostic Test (Pha) 1 strip ACHS 10/30/24 17:00 11/01/24 12:01 1 STRIP Insulin Human Regular ACHS SC 10/30/24 17:00 11/01/24 12:03 4 UNITS Dextrose 50 ml UD PRN IV 10/30/24 16:15 Pantoprazole Sodium 40 mg BID PO 10/30/24 22:00 11/01/24 09:55 40 MG Sucralfate 1 gm QIDACHS PO 10/30/24 17:00 11/01/24 12:00 1 GM Ticagrelor 90 mg BID PO 10/30/24 22:00 11/01/24 09:56 90 MG Atorvastatin Calcium 40 mg DAILY PO 10/31/24 10:00 11/01/24 09:56 40 MG Carvedilol 6.25 mg BID PO 10/30/24 22:00 Hold 10/31/24 11:14 6.25 MG Gabapentin 400 mg TID PO 10/30/24 22:00 11/01/24 13:30 400 MG Sertraline HCl 25 mg DAILY PO 10/31/24 10:00 11/01/24 09:56 25 MG Hydralazine HCl 10 mg Q6HP PRN IV 10/30/24 21:15 10/30/24 21:41 10 MG Nitroglycerin 0.4 mg Q5MINP PRN SL 10/30/24 21:45 Empaglifozin 10 mg QAM PO 11/01/24 07:00 11/01/24 06:53 10 MG Aspirin 81 mg DAILY PO 11/01/24 10:00 11/01/24 09:55 81 MG Norepinephrine Bitartrate 250 ml @ 3.75 mls/hr Q24H IV 10/31/24 17:30 10/31/24 21:00 3.75 MLS/HR Mupirocin 1 applic BID EACHNOSTRI 11/01/24 10:00 11/06/24 09:59 11/01/24 11:01 1 APPLIC Enoxaparin Sodium 120 mg BID SC 11/01/24 22:00 Hydromorphone HCl 0.5 mg Q4HPRN PRN IV 11/01/24 11:15 11/01/24 15:15 0.5 MG Laboratory Results Laboratory Tests 10/31/24 06:08 11/01/24 03:55 Chemistry Test 11/01/24 03:55 Calcium Level 10.3 mg/dL (8.7-10.4) Urinalysis Test 10/30/24 18:09 Urine Color Light-yellow (Yellow) Urine Clarity Clear (Clear) Urine pH 6.0 (5.0-9.0) Urine Specific [place] 1.017 (1.001-1.035) Urine Protein 3+ (Negative) H Urine Ketones 1+ (Negative) H Urine Blood 1+ /uL (Negative) H Urine Nitrite Negative (Negative) Urine Bilirubin Negative (Negative) Urine Urobilinogen Normal mg/dL (Negative) Urine Leukocyte Esterase Negative /uL (Negative) Urine RBC 2 /hpf (0 - 3) Urine Microscopic WBC 1 /HPF (0-3) Urine Squamous Epithelial Cells Few /hpf (<5) Urine Bacteria Few /hpf (None Seen) H Urine Glucose 4+ mg/dL (Normal) H Microbiology Microbiology Date/Time Source Procedure Growth Status 10/31/24 03:10 Nose MRSA Screen - Final Methicillin Resistant S.aureus Complete Assessment/Plan Assessment/Plan Elevated trop equivocal Atypical chest pain Acute on chronic decompensated HFrEF, NYHA class III Coronary artery disease s/p PTCA --triple-vessel disease recommended CABG evaluation Ischemic cardiomyopathy with an EF of 35-40% BLAKE on CKD Diabetes type 2 with hyperglycemia Hypertension Hyperlipidemia Gastroparesis Cannabinoid use Obesity Plan/Recommendation (Dr. Alex Shine) * Titrate Levophed off * Echocardiogram revealed EF 25% * GDMT for CHF and uptitrate as tolerated * Continue dual-antiplatelet therapy with Brilinta and aspirin * Lipid-lowering agent * Monitor kidney function * Daily weight and accurate intake and output Atypical chest pain 2/2 to acute abdominal pain/gastroparesis, possible worsening HF, Troponin equivocal, 12 lead ECG does not reveal acute VT. The patient with significant cardiac history, underwent a cardiac catheterization and coronary angiogram last year 06/2024, revealing a widely patent stent to the LAD as well as the left circumflex artery with a chronically occluded right coronary artery. There is diffuse three-vessel disease involving the ramus intermedius and obtuse marginal branches in addition to the distal LAD and circumflex as well as right coronary artery. The patient eventually will need a coronary artery bypass grafting surgery. The patient reports has an upcoming Cardiology appointment on 11/12/2024. There is no further cardiac workup indicated at this time. Please call if you need to re-consult. Thank you for allowing us to care for this patient. This medical document was created using an electronic medical record system with voice recognition software and computerized dictation system. Although this document has been carefully reviewed, there might still be some phonetic and typographical errors. Occasional wrong-word or ``sound-alike substitutions may have occurred due to the inherent limitations of voice recognition software. These areas are purely typographical due to imperfections of the software programs and do not reflect any compromise in the patient's medical care. Please read the chart carefully and recognize, using context, where these substitutions have occurred. Plan discussed with: Patient, RN Plan discussed with: Patient Date of Service: Nov 01, 2024 Billing Provider: MINERVA RUIZ Sr., MD Common Visit Codes: CONSULT ONLY MIGUEL MERINO Nov 01, 2024 16:11
[2024-11-01] MEDS: ENOXAPARIN SOD 120 MG/0.8 ML SYRINGE SC SCH (21:31)
--- NOTE | 2024-11-01 23:10 | DVHINCON2 ---
Date of service: Nov 01, 2024 Referring Physician Jennifer Gotti NP Reason for Consultation Acute hypoxic respiratory failure with dependence on supplemental oxygen History of Present Illness A 43-year-old man with past medical history of CAD, hypertension, hyperlipidemia, diabetes, VA in August 2019 status post PTCA x3, gastroparesis, left BKA, and anxiety who presented to ED on 10/30/24 with abdominal pain with nausea and vomiting. He described pain in the epigastric area, 10/10, choking like and constant. Patient denied any recent trauma or injury, recent fever or chills, shortness of breath, lightheadedness, weakness, dizziness, or diarrhea. Patient was admitted for further care, and pulmonary consultation is requested for evaluation and management of acute hypoxic respiratory failure. Review of Systems: 14-point review of systems negative unless otherwise noted above. Past Medical History: CAD, hypertension, hyperlipidemia, diabetes, VA in August 2019 status post PTCA x3, gastroparesis, anxiety Past Surgical History: Status post PTCA x3 in August 2022, left BKA, and right toe wound Medications: Reviewed. Allergies: No known drug allergies. Family History: Mother with MS. Social History: Nonsmoker. No alcohol or illicit drug use. Family History: FH: multiple sclerosis G8 MOTHER Allergies: Coded Allergies: NO KNOWN ALLERGIES (Unverified , 12/04/21) Home Meds Active Scripts Nitroglycerin (NTROSTAT SUBLINGUAL) 0.4 Mg Sl, 0.4 MG SL Q5MINP PRN for 30 Days, #30 TAB Prov:VIMAL BERRY LAW WRITER 11/02/24 Sacubitril-Valsartan (Entresto 24-26 mg) 1 Tab Tab, 1 TAB PO BID for 30 Days, #60 TAB 1 Refill Prov:KUNAL LERMA MD 06/06/24 Rosuvastatin Calcium (Crestor) 40 Mg Tab, 1 TAB PO DAILY for 30 Days, #30 TAB 1 Refill Prov:KUNAL LERMA MD 06/06/24 Pantoprazole Sodium Sesquihydr (Pantoprazole Sodium) 40 Mg Tab, 40 MG PO BID for 30 Days, #60 TAB Prov:JOE GUNDERSON NP 07/09/23 Sucralfate (CARAFATE) 1 Gm Tab, 1 GM OR QIDACHS for 30 Days, #120 TAB 2 Refills Prov:VENTURA LOWE MD 05/29/23 Reported Medications Magnesium Oxide (Magnesium Oxide) 400 Mg Tab, 1 TAB PO 10/30/24 Gemfibrozil (Gemfibrozil) 600 Mg Tab, 1 TAB PO 10/30/24 Losartan Potassium (Losartan Potassium) 50 Mg Tab, 1 TAB PO BID 10/30/24 Famotidine (Famotidine) 20 Mg Tab, 20 MG PO BID, MG 06/05/24 Spironolactone (Spironolactone) 25 Mg Tab, 25 MG PO BID, TAB 06/05/24 Nifedipine (Nifedipine Er) 90 Mg Tab, 90 MG PO DAILY, TAB 06/05/24 Insulin Glargine (Basaglar Kwikpen) 100 Unit/Ml Inj, 20 UNIT SC BID, INJ 06/05/24 Ticagrelor Base (BRILINTA) 90 Mg Tab, 90 MG PO BID, TAB 06/05/24 Dapagliflozin Propanediol (Farxiga) 10 Mg Tab, 10 MG PO QAM, TAB 06/05/24 Ondansetron HCl (Ondansetron Hydrochloride) 4 Mg Tab, 2 TAB PO DAILYPRN PRN for nausea/vomiting 07/04/23 Atorvastatin Calcium (ATORVASTATIN CALCIUM) 40 Mg Tab, 1 TAB PO DAILY 07/04/23 Metformin Hydrochloride (Metformin Hcl) 1,000 Mg Tab, 1 TAB PO BIDWM 05/24/23 Sertraline Hcl (Sertraline Hcl) 25 Mg Tab, 1 TAB PO DAILY 05/24/23 Carvedilol (Carvedilol) 6.25 Mg Tab, 1 TAB PO BID 05/24/23 Gabapentin (Gabapentin) 800 Mg Tab, 1 TAB PO DAILY 05/24/23 Current Medications Current Medications Medications (Trade) Dose Ordered Sig/Sreekanth Route PRN Reason Start Time Stop Time Status Last Admin Furosemide (Lasix Injection) 20 mg DAILY IV 11/01/24 10:00 11/01/24 09:58 DC Empaglifozin (Jardiance) 10 mg QAM PO 11/01/24 07:00 11/01/24 06:53 Aspirin 81 mg DAILY PO 11/01/24 10:00 11/01/24 09:55 Mupirocin (Bactroban 2% Ointment) 1 applic BID EACHNOSTRI 11/01/24 10:00 11/06/24 09:59 11/01/24 21:39 Hydromorphone HCl (Dilaudid Innjection) 0.5 mg Q4HPRN PRN IV SEVERE PAIN (7-10 PAIN SCALE) 11/01/24 09:15 11/01/24 11:05 DC Enoxaparin Sodium (Lovenox) 120 mg BID SC 11/01/24 22:00 11/01/24 21:31 Hydromorphone HCl (Dilaudid Injection) 0.5 mg Q4HPRN PRN IV SEVERE PAIN (7-10 PAIN SCALE) 11/01/24 11:15 11/01/24 19:39 Vital Signs Vital Signs Date Time Temp Pulse Resp B/P (MAP) Pulse Ox O2 Delivery O2 Flow Rate FiO2 11/01/24 22:30 82 10 93/57 (69) 99 11/01/24 22:01 98.7 98.7 11/01/24 20:00 Nasal Cannula* 2 28 Physical Exam Gen.: Patient lying in bed in no apparent distress. On supplemental oxygen. Head: Normocephalic, atraumatic. Eyes: EOMI/PERRLA. Ears: Normal hearing. Normal anatomy. Neck/trachea: Trachea midline, supple. Nose: Normal external anatomy. Mouth: Moist mucous membranes. Chest: Decreased air entry bilaterally. No wheezing or rhonchi. Cardiovascular: Positive S1, positive S2. Regular rate and rhythm. Abdomen: Positive bowel sounds in all 4 quadrants. Soft, non-tender, non-distend ed. : Deferred. Rectal: Deferred. Skin: Warm, dry. Intact. Extremities: 2+ radial pulses bilaterally. Left BKA. No right lower extremity edema. Neuro: Awake, alert, oriented x3. No gross motor or sensory deficits. Cranial nerves II through XII intact. Gait not assessed. Labs/Diagnostic Data Labs Test 11/01/24 21:30 11/01/24 03:55 10/31/24 10:08 10/31/24 06:08 Range/Units POC Glucose 182 H 70-106 mg/dl Sodium Level 132 L 136-145 mmol/L Potassium Level 4.5 3.5-5.1 mmol/L Chloride Level 97 L 98-107 mmol/L Carbon Dioxide Level 21 20-31 mmol/L Anion Gap 14 5-15 Blood Urea Nitrogen 34 #H 9-23 mg/dL Creatinine 2.28 H 0.700-1.30 mg/dL Glomerular Filtration Rate Calc 35 >90 mL/min BUN/Creatinine Ratio 14.9 10.0-20.0 Serum Glucose 202 H 74-106 mg/dL Calcium Level 10.3 8.7-10.4 mg/dL Troponin I High Sensitivity 204 *H </=54 ng/L B-Type Natriuretic Peptide 1523.85 0-100 pg/mL White Blood Count 7.2 4.4-10.8 10^3/uL Red Blood Count 5.19 4.5-5.90 10^6/uL Hemoglobin 15.4 # 13.5-17.5 g/dL Hematocrit 45.5 # 41.0-53.0 % Mean Corpuscular Volume 87.6 80.0-100.0 fL Mean Corpuscular Hemoglobin 29.6 28.0-32.0 pg Mean Corpuscular Hemoglobin Concent 33.8 32.0-36.0 g/dL Red Cell Distribution Width 14.7 H 11.8-14.3 % Platelet Count 394 140-450 10^3/uL Mean Platelet Volume 8.8 6.9-10.8 fL Neutrophils (%) (Auto) 73.9 37.0-80.0 % Lymphocytes (%) (Auto) 18.0 10.0-50.0 % Monocytes (%) (Auto) 6.8 0.0-12.0 % Eosinophils (%) (Auto) 0.6 0.0-7.0 % Basophils (%) (Auto) 0.7 0.0-2.0 % Neutrophils # (Auto) 5.4 1.6-8.6 10 ^3/uL Lymphocytes # (Auto) 1.3 0.4-5.4 10 ^3/uL Monocytes # (Auto) 0.5 0-1.3 10 ^3/uL Eosinophils # (Auto) 0 0-0.8 10 ^3/uL Basophils # (Auto) 0 0-0.2 10 ^3/uL Nucleated Red Blood Cells 0.1 % Total Bilirubin 0.4 0.2-1.0 mg/dL Aspartate Amino Transferase (AST) 31 13-40 U/L Alanine Aminotransferase (ALT) 31 7-40 U/L Alkaline Phosphatase 82 46-116 U/L Total Protein 9.6 H 5.7-8.2 g/dL Albumin 5.6 H 3.2-4.8 g/dL Test 10/30/24 18:09 10/30/24 09:30 10/30/24 08:30 Range/Units Urine Color Light-yellow Yellow Urine Clarity Clear Clear Urine pH 6.0 5.0-9.0 Urine Specific [place] 1.017 1.001-1.035 Urine Protein 3+ H Negative Urine Ketones 1+ H Negative Urine Blood 1+ H Negative /uL Urine Nitrite Negative Negative Urine Bilirubin Negative Negative Urine Urobilinogen Normal Negative mg/dL Urine Leukocyte Esterase Negative Negative /uL Urine RBC 2 0 - 3 /hpf Urine Microscopic WBC 1 0-3 /HPF Urine Squamous Epithelial Cells Few <5 /hpf Urine Bacteria Few H None Seen /hpf Urine Glucose 4+ H Normal mg/dL Urine Opiates Screen Neg NEGATIVE Urine Fentanyl Screen Neg NEGATIVE Urine Barbiturates Screen Neg NEGATIVE Urine Phencyclidine Screen Neg NEGATIVE Urine Amphetamines Screen Neg NEGATIVE Urine Benzodiazepines Screen Neg NEGATIVE Urine Cocaine Screen Neg NEGATIVE Urine Cannabinoids Screen Pos NEGATIVE Hemoglobin A1c 7.3 H <5.7 % A1C Prothrombin Time 11.5 9.3-11.8 sec Prothrombin Time INR 1.09 0.9-1.15 Activated Partial Thromboplast Time 26.7 24.5-34.5 SEC D-Dimer, Quantitative 0.21 0.0-0.49 mg/L FEU Triglycerides Level 136 < 150 mg/dL Cholesterol Level 180 < 200 mg/dL LDL Cholesterol 105 H < 100 mg/dL HDL Cholesterol 52 40-59 mg/dL Thyroid Stimulating Hormone (TSH) 0.34 L 0.55-4.78 uIU/mL Microbiology Date/Time Source Procedure Growth Status 10/31/24 03:10 Nose MRSA Screen - Final Methicillin Resistant S.aureus Complete Assessment Impression: Acute hypoxic respiratory failure Dependence on supplemental oxygen Hypotension Coronary artery disease, s/p stents Elevated troponin Congestive heart failure Ischemic cardiomyopathy Chronic kidney disease S/p left BKA Plan: Supplemental oxygen 3 LPM NC Titrate to keep O2 sats above 92%. Taper O2 as tolerated. On pressors for hemodynamic support Levophed 3 mcg/min Titrate to keep MAP above 65 mmHg/SBP above 90 mmHg. Hypotension - monitor BP Lasix/spironolactone Cardiology recs appreciated Patient refused CABG. Poor prognosis Accu-Cheks, ISS. Pain control Avoid oversedation Monitor renal function d/t CKD Monitor electrolytes. Supplement as necessary. Monitor ins and outs. Follow up Nephrology recommendations Lovenox for DVT prophylaxis. Protonix for GI prophylaxis. Prognosis: Poor given patient's multiple co-morbidities. Condition: Critical Rest of plan per hospitalist and other consultants. A total of 35 minutes of critical care time was spent reviewing the patient record, examining the patient, making a diagnostic and therapeutic plan, discussing this plan with the medical personnel, following up on diagnostic studies and following the patient for clinical stability excluding any and all procedures. At least 50% of this time was spent in direct, [id number] co ntact. Thank you, CHIP Gotti, for allowing me to participate in this patient's care. Further recommendations will depend on the patient's clinical course. Please do not hesitate to contact me if you have any questions or concerns. This medical document was created using an electronic medical record system with [employer] computerized dictation system. Although these documentations are being carefully reviewed, there may still be some phonetic and typographical changes. The errors are purely typographical, due to imperfection on the software program, and do not reflect any compromise in the patient's medical care. Plan discussed with: Other (JAYY Sher/CHIP Gotti/) KEIRA PADILLA MD Nov 01, 2024 23:10
--- NOTE | 2024-11-01 23:55 | DVHPN2 ---
Consult Progress Note Subjective Other Systems: Patient was seen and evaluated in follow up in the ICU. Patient compliains of intermittent chest pain. Patient is on vasopressors for BP support. NA 132, CL 97, BUN 34, SECRETARY TO THE VICE PRESIDENT 2.28, GLUC 210. Chest x-ray showed NAD. Objective vital signs Vital Sign Date Time Temp Pulse Resp B/P (MAP) Pulse Ox O2 Delivery O2 Flow Rate FiO2 11/01/24 15:15 89 12 107/81 11/01/24 08:30 100 11/01/24 08:00 98.1 98.1 11/01/24 08:00 Nasal Cannula* 3 32 Total Intake and Output 10/31/24 10/31/24 11/01/24 15:00 23:00 07:00 Intake Total 736 ml 1760 ml 262 ml Balance 736 ml 1760 ml 262 ml medications Current Medications Medications Dose Ordered Sig/Sreekanth Route Start Time Stop Time Status Last Admin Dose Admin Acetaminophen/ Hydrocodone Bitart 1 tab Q4HP PRN PO 10/30/24 16:15 Ondansetron HCl 4 mg Q4HP PRN IV 10/30/24 16:15 Acetaminophen 650 mg Q6HP PRN PO 10/30/24 16:15 Diagnostic Test (Pha) 1 strip ACHS 10/30/24 17:00 11/01/24 12:01 1 STRIP Insulin Human Regular ACHS SC 10/30/24 17:00 11/01/24 12:03 4 UNITS Dextrose 50 ml UD PRN IV 10/30/24 16:15 Pantoprazole Sodium 40 mg BID PO 10/30/24 22:00 11/01/24 09:55 40 MG Sucralfate 1 gm QIDACHS PO 10/30/24 17:00 11/01/24 12:00 1 GM Ticagrelor 90 mg BID PO 10/30/24 22:00 11/01/24 09:56 90 MG Atorvastatin Calcium 40 mg DAILY PO 10/31/24 10:00 11/01/24 09:56 40 MG Carvedilol 6.25 mg BID PO 10/30/24 22:00 Hold 10/31/24 11:14 6.25 MG Gabapentin 400 mg TID PO 10/30/24 22:00 11/01/24 13:30 400 MG Sertraline HCl 25 mg DAILY PO 10/31/24 10:00 11/01/24 09:56 25 MG Hydralazine HCl 10 mg Q6HP PRN IV 10/30/24 21:15 10/30/24 21:41 10 MG Nitroglycerin 0.4 mg Q5MINP PRN SL 10/30/24 21:45 Empaglifozin 10 mg QAM PO 11/01/24 07:00 11/01/24 06:53 10 MG Aspirin 81 mg DAILY PO 11/01/24 10:00 11/01/24 09:55 81 MG Norepinephrine Bitartrate 250 ml @ 3.75 mls/hr Q24H IV 10/31/24 17:30 10/31/24 21:00 3.75 MLS/HR Mupirocin 1 applic BID EACHNOSTRI 11/01/24 10:00 11/06/24 09:59 11/01/24 11:01 1 APPLIC Enoxaparin Sodium 120 mg BID SC 11/01/24 22:00 Hydromorphone HCl 0.5 mg Q4HPRN PRN IV 11/01/24 11:15 11/01/24 15:15 0.5 MG Examination: GENERAL:Normal, HEENT:Normal, LUNGS:Normal, CVS:Normal, ABDOMEN:Normal, MSK:Abnormal (1+ RLE pitting edema, Left BKA.) laboratory and microbiology Laboratory Tests 11/01/24 03:55 10/31/24 06:08 Test 11/01/24 03:55 Range/Units Serum Glucose 202 H 74-106 mg/dL Problem List/Assessment/Plan Problem List/Assessment/Plan Elevated trop equivocal. Atypical chest pain. Acute on chronic decompensated HFrEF, NYHA class III. Coronary artery disease s/p PTCA --triple-vessel disease recommended CABG evaluation. Ischemic cardiomyopathy with an EF of 35-40%. BLAKE on CKD. Diabetes type 2 with hyperglycemia. Hypertension. Hyperlipidemia. Gastroparesis. Cannabinoid use. Obesity. Plan/Recommendation Continued all current supportive medical care. Patient has been seen by Ruma Neves NP on my behalf, her and I discussed the plan with the patient. Titrate Levophed off Echocardiogram revealed EF 25% GDMT for CHF and uptitrate as tolerated Continue dual-antiplatelet therapy with Brilinta and aspirin Lipid-lowering agent Monitor kidney function Daily weight and accurate intake and output Atypical chest pain 2/2 to acute abdominal pain/gastroparesis, possible worsening HF, Troponin equivocal, 12 lead ECG does not reveal acute [place]. The patient with significant cardiac history, underwent a cardiac catheterization and coronary angiogram last year 06/2024, revealing a widely patent stent to the LAD as well as the left circumflex artery with a chronically occluded right coronary artery. There is diffuse three-vessel disease involving the ramus intermedius and obtuse marginal branches in addition to the distal LAD and circumflex as well as right coronary artery. The patient eventually will need a coronary artery bypass grafting surgery. The patient reports has an upcoming Cardiology appointment on 11/12/2024. Additional plan as per the hospital course. Critical care time of 45 minutes provided to include time spent evaluation of patient at bedside, when appropriate patient/family education for diagnosis, treatment plan, review of pertinent medical information and discussion of care with specialty providers and PCP. Plan discussed with: Patient Dietary Evaluation Review Comments: 1) Consider stool softener/laxative to promote BM. 2) Initiate MVI @ 1 tb qd 2) Encourage optimal PO intake. If < 50%, consider Glucerna bid 3) Refer to ouptatient RD/CDCES for diabetes education r/t uncontrolled DM 4) Continue to monitor I&O, labs, and skin integrity Expected Outcomes/Goals: 1) appetite and labs to improve 2) wound to improve 3) GI symptoms to resolve 4) f/u in 3-5 days Date of Service: Nov 01, 2024 Billing Provider: MALOU SOFIA MD Cardiology Common Codes: 59612-[id number] CARE 30-74 MIN MALOU SOFIA MD Nov 01, 2024 17:23
[2024-11-02] VITALS (53 sets, daily range): BP systolic 89–160; BP diastolic 24–109; PULSE 59–103; RESP 9–31; TEMP 97–98.7; O2SAT 93–100
[2024-11-02 03:38] LABS: Basophils # (auto) 0.1 10 ^3/uL (0-0.2); Basophils % (auto) 0.8 % (0.0-2.0); Eosinophils # (auto) 0.2 10 ^3/uL (0-0.8); Eosinophils % (auto) 2.7 % (0.0-7.0); Hematocrit 37.2 % (41.0-53.0); Lymphocytes # (auto) 2.7 10 ^3/uL (0.4-5.4); Lymphocytes % (auto) 40.2 % (10.0-50.0); Mean Corpuscular Hemoglobin 30.7 pg (28.0-32.0); Mean Corpuscular Hgb Conc. 34.9 g/dL (32.0-36.0); Monocytes # (auto) 0.7 10 ^3/uL (0-1.3); Monocytes % (auto) 10.7 % (0.0-12.0); Neutrophils # (auto) 3.1 10 ^3/uL (1.6-8.6); Neutrophils % (auto) 45.6 % (37.0-80.0); Platelet Count (auto) 299 10^3/uL (140-450); Red Blood Cells 4.23 10^6/uL (4.5-5.90); Red Cell Distribution Width 14.2 % (11.8-14.3); White Blood Cell 6.7 10^3/uL (4.4-10.8)
[2024-11-02 03:59] LABS: Alanine Aminotransferase 20 U/L (7-40); Albumin 4.4 g/dL (3.2-4.8); Alkaline Phosphatase 59 U/L (46-116); Anion Gap 7 (5-15); Aspartate Aminotransferase 20 U/L (13-40); Calcium 10.1 mg/dL (8.7-10.4); Carbon Dioxide 27 mmol/L (20-31); Chloride 103 mmol/L (98-107); Sodium 137 mmol/L (136-145); Total Protein 7.4 g/dL (5.7-8.2)
[2024-11-02 04:07] LABS: Bilirubin, Total 0.2 mg/dL (0.2-1.0); Blood Urea Nitrogen 40 mg/dL (9-23); Glucose 167 mg/dL (74-106)
--- NOTE | 2024-11-02 09:18 | DVHPN2 ---
Consult Progress Note Date Seen: Nov 02, 2024 Subjective Review of Systems: CVS:Normal, RESPIRATORY:Normal, NEURO:Normal Other Systems: Denies any active cardiac symptoms. Hospitalist requesting evaluation by Dr. Connelly's team Objective vital signs Vital Sign Date Time Temp Pulse Resp B/P (MAP) Pulse Ox O2 Delivery O2 Flow Rate FiO2 11/02/24 08:45 89 13 142/90 (107) 96 11/02/24 08:00 97.6 97.6 11/01/24 20:00 Nasal Cannula* 2 28 Total Intake and Output 11/01/24 11/01/24 11/02/24 15:00 23:00 07:00 Intake Total 528.75 ml 333.75 ml 146.25 ml Output Total 1000 ml 1700 ml Balance 528.75 ml -666.25 ml -1553.75 ml medications Current Medications Medications Dose Ordered Sig/Sreekanth Route Start Time Stop Time Status Last Admin Dose Admin Acetaminophen/ Hydrocodone Bitart 1 tab Q4HP PRN PO 10/30/24 16:15 Ondansetron HCl 4 mg Q4HP PRN IV 10/30/24 16:15 Acetaminophen 650 mg Q6HP PRN PO 10/30/24 16:15 Diagnostic Test (Pha) 1 strip ACHS 10/30/24 17:00 11/02/24 06:31 1 STRIP Insulin Human Regular ACHS SC 10/30/24 17:00 11/02/24 06:32 3 UNITS Dextrose 50 ml UD PRN IV 10/30/24 16:15 Pantoprazole Sodium 40 mg BID PO 10/30/24 22:00 11/01/24 21:31 40 MG Sucralfate 1 gm QIDACHS PO 10/30/24 17:00 11/02/24 06:31 1 GM Ticagrelor 90 mg BID PO 10/30/24 22:00 11/01/24 21:31 90 MG Atorvastatin Calcium 40 mg DAILY PO 10/31/24 10:00 11/01/24 09:56 40 MG Carvedilol 6.25 mg BID PO 10/30/24 22:00 Hold 10/31/24 11:14 6.25 MG Gabapentin 400 mg TID PO 10/30/24 22:00 11/02/24 06:29 400 MG Sertraline HCl 25 mg DAILY PO 10/31/24 10:00 11/01/24 09:56 25 MG Hydralazine HCl 10 mg Q6HP PRN IV 10/30/24 21:15 10/30/24 21:41 10 MG Nitroglycerin 0.4 mg Q5MINP PRN SL 10/30/24 21:45 Empaglifozin 10 mg QAM PO 11/01/24 07:00 11/02/24 06:29 10 MG Aspirin 81 mg DAILY PO 11/01/24 10:00 11/01/24 09:55 81 MG Norepinephrine Bitartrate 250 ml @ 3.75 mls/hr Q24H IV 10/31/24 17:30 10/31/24 21:00 3.75 MLS/HR Mupirocin 1 applic BID EACHNOSTRI 11/01/24 10:00 11/06/24 09:59 11/01/24 21:39 1 APPLIC Enoxaparin Sodium 120 mg BID SC 11/01/24 22:00 11/01/24 21:31 120 MG Hydromorphone HCl 0.5 mg Q4HPRN PRN IV 11/01/24 11:15 11/02/24 07:50 0.5 MG Examination: LUNGS:Normal, CVS:Normal, NEURO:Normal laboratory and microbiology Laboratory Tests 11/02/24 03:05 Test 11/02/24 03:05 Range/Units Serum Glucose 167 H 74-106 mg/dL Problem List/Assessment/Plan Problem List/Assessment/Plan Acute coronary syndrome Non ST-elevation myocardial infarction Acute on chronic decompensated HFrEF, NYHA class III Coronary artery disease s/p PTCA --triple-vessel disease recommended CABG evaluation Ischemic cardiomyopathy with a LVEF of 35-40% Diabetes type 2 with hyperglycemia, HgbA1C 7.3% Hypertension Hyperlipidemia BLAKE on CKD Cannabinoid use Obesity Plan/Recommendation (Dr. Connelly) * Echocardiogram revealed EF 25% * GDMT for CHF and uptitrate as tolerated * Spironolactone and Entresto held given BLAKE * Continue dual-antiplatelet therapy with Brilinta and aspirin * Lipid-lowering agent * Monitor kidney function * Transfer to Telemetry The patient with acute coronary syndrome underwent a cardiac catheterization and coronary angiogram revealing a widely patent stent to the LAD as well as the left circumflex artery with a chronically occluded right coronary artery. There is diffuse three-vessel disease involving the ramus intermedius and obtuse marginal branches in addition to the distal LAD and circumflex as well as right coronary artery on 06/2024. He has been recommended for coronary artery bypass grafting surgery in the past and has been offered yet again during this admission. He is adamant to be transferred to [facility] for CABG evaluation at this time secondary to family issues. He will follow-up with Cardiology, Dr. Connelly, on 11/12/2024 at 1015. Strongly recommend patient to be sent home on NTG SL PRN in addition to HF medications, DAPT, and lipid-lowering agent. There is no further cardiac workup indicated at this time. Please call if you need to re- consult. Thank you for allowing us to care for this patient. This medical document was created using an electronic medical record system with voice recognition software and computerized dictation system. Although this document has been carefully reviewed, there might still be some phonetic and typographical errors. Occasional wrong-word or ``sound-alike substitutions may have occurred due to the inherent limitations of voice recognition software. These areas are purely typographical due to imperfections of the software programs and do not reflect any compromise in the patient's medical care. Please read the chart carefully and recognize, using context, where these substitutions have occurred. Plan discussed with: Patient, Other Dietary Evaluation Review Comments: 1) Consider stool softener/laxative to promote BM. 2) Initiate MVI @ 1 tb qd 2) Encourage optimal PO intake. If < 50%, consider Glucerna bid 3) Refer to ouptatient RD/CDCES for diabetes education r/t uncontrolled DM 4) Continue to monitor I&O, labs, and skin integrity Expected Outcomes/Goals: 1) appetite and labs to improve 2) wound to improve 3) GI symptoms to resolve 4) f/u in 3-5 days Date of Service: Nov 02, 2024 Billing Provider: VIMAL BERRY Cardiology Common Codes: [id number] [facility] VIMAL BERRY Nov 02, 2024 09:18
--- NOTE | 2024-11-02 10:37 | ECG ---
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
[2024-11-02] MEDS ORDERED: NITR0.4S29 SL (10:45)
[2024-11-02] MEDS: CARVEDILOL 3.125 MG TAB PO SCH (11:07)
--- NOTE | 2024-11-02 11:12 | DVHPN2 ---
Subjective Denies any symptoms at this time. Reviewed: Care Plan, H&P, Labs, Medications, Previous Orders, Radiology, Other Changes from previous H/P or p: No Changes General: Per HPI Objective Vitals Vital Signs Date Time Temp Pulse Resp B/P (MAP) Pulse Ox O2 Delivery O2 Flow Rate FiO2 11/02/24 08:45 89 13 142/90 (107) 96 11/02/24 08:00 Room Air* 0 21 11/02/24 08:00 97.6 97.6 Intake/Output Intake and Output 11/02/24 07:00 Intake Total 1008.75 ml Output Total 2700 ml Balance -1691.25 ml Intake Oral 900 ml IV Total 108.75 ml Output Urine Total 2700 ml Stool Total 0 ml # Voids 3 General Appearance: Alert, Oriented X3, Cooperative, No acute distress HEENT: Atraumatic, PERRLA Lungs: Clear to auscultation Cardiovascular: Regular rate, Normal S1, Normal S2 Abdomen: Normal bowel sounds, Soft, No tenderness Extremities: No edema, Other (Right great toe ulceration) Skin: Dry, Intact Psych/Mental Status: Mental status NL, Mood NL Medications Current Medications Medications Dose Ordered Sig/Sreekanth Route Start Time Stop Time Status Last Admin Dose Admin Acetaminophen/ Hydrocodone Bitart 1 tab Q4HP PRN PO 10/30/24 16:15 Ondansetron HCl 4 mg Q4HP PRN IV 10/30/24 16:15 Acetaminophen 650 mg Q6HP PRN PO 10/30/24 16:15 Diagnostic Test (Pha) 1 strip ACHS 10/30/24 17:00 11/02/24 06:31 1 STRIP Insulin Human Regular ACHS SC 10/30/24 17:00 11/02/24 06:32 3 UNITS Dextrose 50 ml UD PRN IV 10/30/24 16:15 Pantoprazole Sodium 40 mg BID PO 10/30/24 22:00 11/02/24 09:49 40 MG Sucralfate 1 gm QIDACHS PO 10/30/24 17:00 11/02/24 06:31 1 GM Ticagrelor 90 mg BID PO 10/30/24 22:00 11/02/24 09:49 90 MG Atorvastatin Calcium 40 mg DAILY PO 10/31/24 10:00 11/02/24 09:49 40 MG Gabapentin 400 mg TID PO 10/30/24 22:00 11/02/24 06:29 400 MG Sertraline HCl 25 mg DAILY PO 10/31/24 10:00 11/02/24 09:49 25 MG Hydralazine HCl 10 mg Q6HP PRN IV 10/30/24 21:15 10/30/24 21:41 10 MG Nitroglycerin 0.4 mg Q5MINP PRN SL 10/30/24 21:45 Empaglifozin 10 mg QAM PO 11/01/24 07:00 11/02/24 06:29 10 MG Aspirin 81 mg DAILY PO 11/01/24 10:00 11/02/24 09:48 81 MG Mupirocin 1 applic BID EACHNOSTRI 11/01/24 10:00 11/06/24 09:59 11/02/24 09:51 1 APPLIC Carvedilol 3.125 mg Q12HR PO 11/02/24 10:00 Hydromorphone HCl 0.5 mg Q4HPRN PRN IV 11/02/24 09:30 Isosorbide Mononitrate 30 mg DAILY PO 11/03/24 10:00 UNV Laboratory Results Laboratory Tests 11/02/24 03:05 Chemistry Test 11/02/24 03:05 Albumin 4.4 g/dL (3.2-4.8) Calcium Level 10.1 mg/dL (8.7-10.4) Total Protein 7.4 g/dL (5.7-8.2) LFT Test 11/02/24 03:05 Alanine Aminotransferase (ALT) 20 U/L (7-40) Alkaline Phosphatase 59 U/L (46-116) Aspartate Amino Transferase (AST) 20 U/L (13-40) Total Bilirubin 0.2 mg/dL (0.2-1.0) Urinalysis Test 10/30/24 18:09 Urine Color Light-yellow (Yellow) Urine Clarity Clear (Clear) Urine pH 6.0 (5.0-9.0) Urine Specific [place] 1.017 (1.001-1.035) Urine Protein 3+ (Negative) H Urine Ketones 1+ (Negative) H Urine Blood 1+ /uL (Negative) H Urine Nitrite Negative (Negative) Urine Bilirubin Negative (Negative) Urine Urobilinogen Normal mg/dL (Negative) Urine Leukocyte Esterase Negative /uL (Negative) Urine RBC 2 /hpf (0 - 3) Urine Microscopic WBC 1 /HPF (0-3) Urine Squamous Epithelial Cells Few /hpf (<5) Urine Bacteria Few /hpf (None Seen) H Urine Glucose 4+ mg/dL (Normal) H Microbiology Microbiology Date/Time Source Procedure Growth Status 10/31/24 03:10 Nose MRSA Screen - Final Methicillin Resistant S.aureus Complete Labs and/or images reviewed: Labs reviewed by me, Image(s) reviewed by me Assessment/Plan Assessment/Plan Impression: -NSTEMI with history of CAD. Troponins downtrending -abdominal pain, probably secondary to constipation -chronic opiate use -diabetes mellitus -right diabetic toe ulcer, rule out osteomyelitis -rule out PND to right lower extremity -Staph aureus to right toe cellulitis -history of left lower extremity BKA -CKD stage IIIB, probable acute kidney injury secondary to vasomotor nephropathy -acute on chronic systolic heart failure -primary hypertension Plan: -transferred to tele unit -continue Coreg, Jardiance. Add Imdur given Bean/arbs being held -start Rocephin, clindamycin -pain management -bowel regimen -regular insulin sliding scale -right foot x-ray -arterial study of right lower extremity -repeat labs in a.m. Total time spent with patient discussing and formulating plan of care: 35 minutes. Total time spent with patient and family regarding advance care plannin minutes. This medical document was created using an electronic medical record system with [employer] dictation system. Although this document has been carefully reviewed, there may still be some phonetic and typographical errors. These areas are purely typographical due to imperfections of the software programs, and do not reflect any compromise in the patient's medical care. Plan discussed with: Patient, Other (RN) My Orders Orders - JOE GUNDERSON NP Procedure Category Date Status Time Isosorbide PHA 11/03/24 Logged Mononitrate Tablet 10:00 Isosorbide PHA 11/02/24 Logged Mononitrate Tablet 10:45 Date of Service: Nov 02, 2024 Billing Provider: JOE GUNDERSON NP Common Visit Codes: 98055-[id number] INP/OBS CARE(HIGH) Secondary Visit Codes: 02781-[id number] CARE PLAN 30 MINUTES JOE GUNDERSON NP Nov 02, 2024 11:12
[2024-11-02] MEDS ORDERED: DOCUSATE SOD 100 MG CAP PO PRN (11:15)
[2024-11-02] MEDS: cefTRIAXone 1GM/50ML D5W 50 ML IV SCH (11:59)
[2024-11-02] MEDS: ISOSORBIDE MONONITRATE ER 60 MG TAB PO ONE (11:59)
[2024-11-02] MEDS: HYDROmorphone HCL 2 MG/ML VL/or syr IV PRN (12:02)
[2024-11-02 12:20] LABS: Erythrocyte Sedimentation Rate 40 mm/hr (0-20)
--- NOTE | 2024-11-02 12:34 | DVH ---
BILATERAL Lower Extremity Arterial Duplex Date: 11/02/2024 11:27 AM Clinical History: PAD Comparison: None Technique: Duplex Doppler evaluation including color Doppler and spectral/pulsed waveform analysis of the lower extremity arteries was performed. 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 IMPRESSION: Possibly occluded posterior tibial vein right lower extremity.
--- NOTE | 2024-11-02 13:44 | DVH ---
EXAM: XY R FOOT 2 VIEW XRAY CLINICAL INDICATION: Right great toe infection, fracture TECHNIQUE: XY R FOOT 2 VIEW XRAY Comparison: None FINDINGS/IMPRESSION: There is no evidence of acute fracture or dislocation. The visualized joint space is well maintained. The alignment is anatomical. Diffuse soft tissue swelling about the 1st digit. If high clinical suspicion for osteomyelitis, consi gustavo MRI examination.
[2024-11-02] MEDS: CLINDAMYCIN HCL 150 MG CAP PO SCH (14:27)
--- NOTE | 2024-11-02 19:30 | DVHPN2 ---
Progress Note - Dictate Date Seen: Nov 02, 2024 Medical Necessity Reason Pt with a Central, PICC or Fol: No Subjective Patient seen and examined at bedside. Remains on supplemental oxygen Overnight events reviewed. vital signs Vital Sign Date Time Temp Pulse Resp B/P (MAP) Pulse Ox O2 Delivery O2 Flow Rate FiO2 11/02/24 18:00 95 11/02/24 17:00 23 125/80 (95) 96 11/02/24 16:00 97.0 97.0 11/02/24 08:00 Room Air* 0 21 Total Intake and Output 11/01/24 11/01/24 11/02/24 15:00 23:00 07:00 Intake Total 528.75 ml 333.75 ml 146.25 ml Output Total 1000 ml 1700 ml Balance 528.75 ml -666.25 ml -1553.75 ml medications Current Medications Medications Dose Ordered Sig/Sreekanth Route Start Time Stop Time Status Last Admin Dose Admin Acetaminophen/ Hydrocodone Bitart 1 tab Q4HP PRN PO 10/30/24 16:15 Ondansetron HCl 4 mg Q4HP PRN IV 10/30/24 16:15 Acetaminophen 650 mg Q6HP PRN PO 10/30/24 16:15 Diagnostic Test (Pha) 1 strip ACHS 10/30/24 17:00 11/02/24 16:07 1 STRIP Insulin Human Regular ACHS SC 10/30/24 17:00 11/02/24 16:15 4 UNITS Dextrose 50 ml UD PRN IV 10/30/24 16:15 Pantoprazole Sodium 40 mg BID PO 10/30/24 22:00 11/02/24 09:49 40 MG Sucralfate 1 gm QIDACHS PO 10/30/24 17:00 11/02/24 16:06 1 GM Ticagrelor 90 mg BID PO 10/30/24 22:00 11/02/24 09:49 90 MG Atorvastatin Calcium 40 mg DAILY PO 10/31/24 10:00 11/02/24 09:49 40 MG Gabapentin 400 mg TID PO 10/30/24 22:00 11/02/24 14:26 400 MG Sertraline HCl 25 mg DAILY PO 10/31/24 10:00 11/02/24 09:49 25 MG Hydralazine HCl 10 mg Q6HP PRN IV 10/30/24 21:15 10/30/24 21:41 10 MG Nitroglycerin 0.4 mg Q5MINP PRN SL 10/30/24 21:45 Empaglifozin 10 mg QAM PO 11/01/24 07:00 11/02/24 06:29 10 MG Aspirin 81 mg DAILY PO 11/01/24 10:00 11/02/24 09:48 81 MG Mupirocin 1 applic BID EACHNOSTRI 11/01/24 10:00 11/06/24 09:59 11/02/24 09:51 1 APPLIC Carvedilol 3.125 mg Q12HR PO 11/02/24 10:00 11/02/24 11:07 3.125 MG Hydromorphone HCl 0.5 mg Q4HPRN PRN IV 11/02/24 09:30 11/02/24 16:09 0.5 MG Isosorbide Mononitrate 30 mg DAILY PO 11/03/24 10:00 Docusate Sodium 100 mg BID PO 11/02/24 22:00 Docusate Sodium 100 mg BIDPRN PRN PO 11/02/24 11:15 Ceftriaxone Sodium 50 ml @ 100 mls/hr DAILY@09 IV 11/02/24 11:15 11/02/24 11:59 100 MLS/HR Clindamycin HCl 300 mg Q8HR PO 11/02/24 14:00 11/02/24 14:27 300 MG Saccharomyces Boulardii 250 mg DAILY PO 11/03/24 10:00 objective Gen.: Patient lying in bed in no apparent distress. On supplemental oxygen. Head: Normocephalic, atraumatic. Eyes: EOMI/PERRLA. Ears: Normal hearing. Normal anatomy. Neck/trachea: Trachea midline, supple. Nose: Normal external anatomy. Mouth: Moist mucous membranes. Chest: Decreased air entry bilaterally. No wheezing or rhonchi. Cardiovascular: Positive S1, positive S2. Regular rate and rhythm. Abdomen: Positive bowel sounds in all 4 quadrants. Soft, non-tender, non- distended. : Deferred. Rectal: Deferred. Skin: Warm, dry. Intact. Extremities: 2+ radial pulses bilaterally. No lower extremity edema. Neuro: Awake, alert, oriented x3. No gross motor or sensory deficits. Cranial nerves II through XII intact. Gait not assessed. laboratory and microbiology Laboratory Tests 11/02/24 03:05 Test 11/02/24 03:05 Range/Units Serum Glucose 167 H 74-106 mg/dL Assessment/Plan Impression: Acute hypoxic respiratory failure Dependence on supplemental oxygen Hypotension Coronary artery disease, s/p stents Elevated troponin Congestive heart failure Ischemic cardiomyopathy Chronic kidney disease S/p left BKA Events: Remains on supplemental oxygen, 2 LPM NC Taper O2 as tolerated Off Levophed, hemodynamically stable. Continue antibiotics Incentive spirometry Bowel regimen Pain control Avoid oversedation Accu-Cheks, ISS Labs and imaging reviewed. Rest of plan as noted below. Plan: Supplemental oxygen Titrate to keep O2 sats above 92%. Pressors if necessary for hemodynamic support Titrate to keep MAP above 65 mmHg/SBP above 90 mmHg. Hypotension - monitor BP Cardiology recs appreciated Patient refused CABG. Poor prognosis Accu-Cheks, ISS. Pain control Avoid oversedation Monitor renal function d/t CKD Monitor electrolytes. Supplement as necessary. Monitor ins and outs. Nephrology recommendations appreciated Maintain euvolemia Lovenox for DVT prophylaxis. Protonix for GI prophylaxis. Prognosis: Poor given patient's multiple co-morbidities. Rest of plan per hospitalist and other consultants. Thank you, LOCOMOTIVE REPAIRER DIESEL Shen, for allowing me to participate in this patient's care. Further recommendations will depend on the patient's clinical course. Please do not hesitate to contact me if you have any questions or concerns. This medical document was created using an electronic medical record system with [employer] dictation system. Although these documentations are being carefully reviewed, there may still be some phonetic and typographical changes. The errors are purely typographical, due to imperfection on the software program, and do not reflect any compromise in the patient's medical care. Dietary Evaluation Review Comments: 1) Consider stool softener/laxative to promote BM. 2) Initiate MVI @ 1 tb qd 2) Encourage optimal PO intake. If < 50%, consider Glucerna bid 3) Refer to ouptatient RD/CDCES for diabetes education r/t uncontrolled DM 4) Continue to monitor I&O, labs, and skin integrity Expected Outcomes/Goals: 1) appetite and labs to improve 2) wound to improve 3) GI symptoms to resolve 4) f/u in 3-5 days Plan discussed with: Patient, Other (RN KEIRA Vides MD Nov 02, 2024 19:30
[2024-11-02] MEDS: DOCUSATE SOD 100 MG CAP PO SCH (22:40)
[2024-11-03] VITALS (10 sets, daily range): BP systolic 108–146; BP diastolic 75–99; PULSE 72–96; RESP 19; TEMP 97.5–98.1; O2SAT 97–100
[2024-11-03 06:02] LABS: Basophils # (auto) 0 10 ^3/uL (0-0.2); Basophils % (auto) 0.8 % (0.0-2.0); Eosinophils # (auto) 0.2 10 ^3/uL (0-0.8); Eosinophils % (auto) 3.4 % (0.0-7.0); Hematocrit 35.4 % (41.0-53.0); Hemoglobin 11.9 g/dL (13.5-17.5); Lymphocytes # (auto) 1.8 10 ^3/uL (0.4-5.4); Lymphocytes % (auto) 37.4 % (10.0-50.0); Mean Corpuscular Hemoglobin 29.4 pg (28.0-32.0); Mean Corpuscular Hgb Conc. 33.7 g/dL (32.0-36.0); Mean Corpuscular Volume 87.3 fL (80.0-100.0); Monocytes # (auto) 0.4 10 ^3/uL (0-1.3); Monocytes % (auto) 8.6 % (0.0-12.0); Neutrophils # (auto) 2.4 10 ^3/uL (1.6-8.6); Neutrophils % (auto) 49.8 % (37.0-80.0); Nucleated Red Blood Cells % 0.1 %; Platelet Count (auto) 263 10^3/uL (140-450); Red Blood Cells 4.06 10^6/uL (4.5-5.90); Red Cell Distribution Width 14.3 % (11.8-14.3); White Blood Cell 4.9 10^3/uL (4.4-10.8)
[2024-11-03 06:25] LABS: Alanine Aminotransferase 16 U/L (7-40); Albumin 4.3 g/dL (3.2-4.8); Alkaline Phosphatase 58 U/L (46-116); Anion Gap 8 (5-15); Aspartate Aminotransferase 19 U/L (13-40); BUN/Creatinine Ratio 25.9 (10.0-20.0); Calcium 9.5 mg/dL (8.7-10.4); Carbon Dioxide 24 mmol/L (20-31); Chloride 104 mmol/L (98-107); Potassium 4.2 mmol/L (3.5-5.1); Total Protein 7.1 g/dL (5.7-8.2)
[2024-11-03 06:26] LABS: Bilirubin, Total 0.3 mg/dL (0.2-1.0); Blood Urea Nitrogen 36 mg/dL (9-23); Glucose 147 mg/dL (74-106); Sodium 136 mmol/L (136-145)
--- NOTE | 2024-11-03 07:11 | ECG ---
[facility] Test Date: 2024-10-30 Test Time: 21:27:29 Pat Name: URIEL DIOP Department: ER Room: 0236T A Gender: M Sampler Pickup: ZEESHAN : 1980 Requested By: DARIO SUNG Order Number: [id number] Reading MD: Jin Connelly Measurements Intervals [place] Rate: 120 P: 88 DE: 133 QRS: 71 QRSD: 92 T: 183 QT: 310 QTc: 438 Interpretive Statements Sinus tachycardia Abnormal T, consider ischemia, diffuse leads Electronically Signed On 11-04-2024 21:15:07 PDT by Jin Connelly Please click the below link to view image of tracing.
[2024-11-03] MEDS: ISOSORBIDE MONONITRATE ER 60 MG TAB PO SCH (09:23)
[2024-11-03] MEDS: FLORASTOR (S. BOULARDII) 250 MG CAP PO SCH (09:28)
[2024-11-03] MEDS ORDERED: CLIN1CAP70 PO (11:46)
[2024-11-03] MEDS ORDERED: SACC250C PO (11:47)
--- NOTE | 2024-11-03 12:21 | DVHDS2 ---
Discharge Summary Date of Admission Oct 30, 2024 at 16:03 Date of Discharge: Nov 03, 2024 Admitting Diagnosis Abdominal pain Labs/Diagnostic Data: Laboratory Results Test 11/03/24 06:44 11/03/24 05:15 11/02/24 03:05 10/31/24 10:08 POC Glucose 158 mg/dl (70-106) White Blood Count 4.9 10^3/uL (4.4-10.8) Red Blood Count 4.06 10^6/uL (4.5-5.90) Hemoglobin 11.9 g/dL (13.5-17.5) Hematocrit 35.4 % (41.0-53.0) Mean Corpuscular Volume 87.3 fL (80.0-100.0) Mean Corpuscular Hemoglobin 29.4 pg (28.0-32.0) Mean Corpuscular Hemoglobin Concent 33.7 g/dL (32.0-36.0) Red Cell Distribution Width 14.3 % (11.8-14.3) Platelet Count 263 10^3/uL (140-450) Mean Platelet Volume 8.4 fL (6.9-10.8) Neutrophils (%) (Auto) 49.8 % (37.0-80.0) Lymphocytes (%) (Auto) 37.4 % (10.0-50.0) Monocytes (%) (Auto) 8.6 % (0.0-12.0) Eosinophils (%) (Auto) 3.4 % (0.0-7.0) Basophils (%) (Auto) 0.8 % (0.0-2.0) Neutrophils # (Auto) 2.4 10 ^3/uL (1.6-8.6) Lymphocytes # (Auto) 1.8 10 ^3/uL (0.4-5.4) Monocytes # (Auto) 0.4 10 ^3/uL (0-1.3) Eosinophils # (Auto) 0.2 10 ^3/uL (0-0.8) Basophils # (Auto) 0 10 ^3/uL (0-0.2) Nucleated Red Blood Cells 0.1 % Sodium Level 136 mmol/L (136-145) Potassium Level 4.2 mmol/L (3.5-5.1) Chloride Level 104 mmol/L (98-107) Carbon Dioxide Level 24 mmol/L (20-31) Anion Gap 8 (5-15) Blood Urea Nitrogen 36 mg/dL (9-23) Creatinine 1.39 mg/dL (0.700-1.30) Glomerular Filtration Rate Calc 64 mL/min (>90) BUN/Creatinine Ratio 25.9 (10.0-20.0) Serum Glucose 147 mg/dL (74-106) Calcium Level 9.5 mg/dL (8.7-10.4) Total Bilirubin 0.3 mg/dL (0.2-1.0) Aspartate Amino Transferase (AST) 19 U/L (13-40) Alanine Aminotransferase (ALT) 16 U/L (7-40) Alkaline Phosphatase 58 U/L (46-116) Total Protein 7.1 g/dL (5.7-8.2) Albumin 4.3 g/dL (3.2-4.8) Erythrocyte Sedimentation Rate 40 mm/hr (0-20) Troponin I High Sensitivity 109 ng/L (</=54) B-Type Natriuretic Peptide 1523.85 pg/mL (0-100) Test 10/30/24 18:09 10/30/24 09:30 10/30/24 08:30 Urine Color Light-yellow (Yellow) Urine Clarity Clear (Clear) Urine pH 6.0 (5.0-9.0) Urine Specific [place] 1.017 (1.001-1.035) Urine Protein 3+ (Negative) Urine Ketones 1+ (Negative) Urine Blood 1+ /uL (Negative) Urine Nitrite Negative (Negative) Urine Bilirubin Negative (Negative) Urine Urobilinogen Normal mg/dL (Negative) Urine Leukocyte Esterase Negative /uL (Negative) Urine RBC 2 /hpf (0 - 3) Urine Microscopic WBC 1 /HPF (0-3) Urine Squamous Epithelial Cells Few /hpf (<5) Urine Bacteria Few /hpf (None Seen) Urine Glucose 4+ mg/dL (Normal) Urine Opiates Screen Neg (NEGATIVE) Urine Fentanyl Screen Neg (NEGATIVE) Urine Barbiturates Screen Neg (NEGATIVE) Urine Phencyclidine Screen Neg (NEGATIVE) Urine Amphetamines Screen Neg (NEGATIVE) Urine Benzodiazepines Screen Neg (NEGATIVE) Urine Cocaine Screen Neg (NEGATIVE) Urine Cannabinoids Screen Pos (NEGATIVE) Hemoglobin A1c 7.3 % A1C (<5.7) Prothrombin Time 11.5 sec (9.3-11.8) Prothrombin Time INR 1.09 (0.9-1.15) Activated Partial Thromboplast Time 26.7 SEC (24.5-34.5) D-Dimer, Quantitative 0.21 mg/L FEU (0.0-0.49) Triglycerides Level 136 mg/dL (< 150) Cholesterol Level 180 mg/dL (< 200) LDL Cholesterol 105 mg/dL (< 100) HDL Cholesterol 52 mg/dL (40-59) Thyroid Stimulating Hormone (TSH) 0.34 uIU/mL (0.55-4.78) Other Laboratory Tests 11/03/24 05:15 Brief Hx & Hospital Course: History of Present Illness Phoenix Rendon is a 43-year-old male with past medical history of CAD, hypertension, hyperlipidemia, diabetes, SC in August 2019 status post PTCA x3, gastroparesis, left foot amputee, left BKA, right toe wound, EGD, and anxiety who presents to the ED with abdominal pain with nausea and vomiting. Upon examination patient points to his epigastric area and states that the pain is 10/10 choking like and constant. Patient denies any recent trauma or injury, recent fever or chills, shortness of breath, lightheadedness, weakness, dizziness, or diarrhea. Course of hospitalization: Patient was found to have elevated troponin. Cardiology consultation was obtained. Apparently, the patient was referred to have CABG as an outpatient for which he has refused on multiple occasions. The patient does have a total of three stents at this time in his currently receiving dual antiplatelet therapy. Patient's abdominal pain has improved. He has a significant history of narcotic use at home with chronic pain management which has led to constipation in the past. In fact, his previous admission was for abdominal pain, for which a bowel regimen relieved his constipation as well as his abdominal pain for which he was subsequently discharged on Colace. Patient was noted to have drainage as well as swelling from his right great toe. Cultures came back positive for MRSA. X-ray of foot reveals no fracture. Arterial study reveals questionable occlusion to his anterior tibialis artery. Patient has adequate blood flow via cap refill. Patient has been treated with antibiotic therapy including clindamycin and Rocephin. He will be discharged home and instructed to follow up with his PCP in 1-2 weeks. He will be continued on antibiotic therapy with clindamycin 300 mg p.o. 3 times a day for 10 days as well as Florastor 250 mg p.o. daily. Patient has instructed to continue all previous home medications as well as avoiding being constipated for greater than two days in a row. While in the hospital he was only had a liquid diet and states that is why he has not had a BM here. Patient also has an appointment with Cardiology on 11/12/2024. Physical examination General: Alert and Oriented x3. No acute distress. Well-nourished. Eyes: EOMI. Anicteric. HENT: Moist mucous membranes. Lungs: Clear to auscultation bilaterally. No accessory muscle use. Cardiovascular: Regular rate and rhythm. No murmur. No JVD. Abdomen: Soft, non-tender and non-distended. No palpable masses. Extremities: No edema. Non-tender. Skin: No rashes or lesions. Warm. Neurologic: No focal neurological deficits. CN II-XII grossly intact, but not individually tested. Psychiatric: Cooperative. Appropriate mood and affect. Total time spent with patient discussing and formulating plan of care: 35 minutes. This medical document was created using an electronic medical record system with [employer] dictation system. Although this document has been carefully reviewed, there may still be some phonetic and typographical errors. These areas are purely typographical due to imperfections of the software programs, and do not reflect any compromise in the patient's medical care. Consults/Reason for consult Cardiology: NSTEMI Condition at Discharge: Poor Final Diagnosis/Problems List Abdominal pain secondary to constipation MRSA cellulits to Right great toe Secondary diagnosis: -NSTEMI with history of CAD. Troponins downtrending -abdominal pain, probably secondary to constipation -chronic opiate use -diabetes mellitus -right diabetic toe ulcer, rule out osteomyelitis -rule out PND to right lower extremity -Staph aureus to right toe cellulitis -history of left lower extremity BKA -CKD stage IIIB, probable acute kidney injury secondary to vasomotor nephropathy -acute on chronic systolic heart failure -primary hypertension Discharge Disposition: Home Discharge Instruct/Medications Diet: Consistent carbohydrate, Cardiac 2g Na,low cholest Activity: No Restrictions, As Tolerated Follow Up/Referral: PCP in 1-2 weeks Cardiology at scheduled appointment Medications: Clindamycin 300mg po TID x 10 days Florastor 250mg po daily Continue all home medications 36 Discharge Statement: "Patient was advised to return to the ER or call 911 if any headaches, dizziness, shortness of breath, chest pain, abdominal pain, bleeding, fevers, or worsening of medical condition. Patient was counseled about treatment plan, medications, possible side effects, patientverbalized understanding. All questions were answered to the best of my ability. This discharge took greater then 30 minutes in planning, reviewing documentation, counseling the patient, and discussing with other team members." ASSESSMENT ASSESSMENT Assessment Abdominal pain secondary to constipation MRSA cellulits to Right great toe Date of Service: Nov 03, 2024 Billing Provider: JOE GUNDERSON NP Common Visit Codes: 63324-PXD/OBS DISCH DAY >30min JOE GUNDERSON NP Nov 03, 2024 12:21
== END 2024-11-03 16:38 | disposition home or self-care (01) | DRG 190 ==
LOC: EDBD 07:33 → EDUNIT# 07:33 → ER 07:36 → OVERFLOW 16:03 → TELE-EAST 22:17 → ICU WEST 10-31 19:04 → TELE-EAST 11-02 21:37
PROVIDERS: ADMIT Nurse Practitioner Acute Care; ATTEND Nurse Practitioner Acute Care
DX: I21.4 Non-ST elevation (NSTEMI) myocardial infarction (principal); N17.0 Acute kidney failure with tubular necrosis; I50.23 Acute on chronic systolic (congestive) heart failure; L03.031 Cellulitis of right toe; L97.519 Non-pressure chronic ulcer of other part of right foot with unspecified severity; M86.9 Osteomyelitis, unspecified; E11.22 Type 2 diabetes mellitus with diabetic chronic kidney disease; A49.02 Methicillin resistant Staphylococcus aureus infection, unspecified site; K56.41 Fecal impaction; E11.43 Type 2 diabetes mellitus with diabetic autonomic (poly)neuropathy; I13.0 Hypertensive heart and chronic kidney disease with heart failure and stage 1 through stage 4 chronic kidney disease, or unspecified chronic kidney disease; E11.69 Type 2 diabetes mellitus with other specified complication; E11.621 Type 2 diabetes mellitus with foot ulcer; K31.84 Gastroparesis; E11.65 Type 2 diabetes mellitus with hyperglycemia; E66.9 Obesity, unspecified; K57.30 Diverticulosis of large intestine without perforation or abscess without bleeding; E78.5 Hyperlipidemia, unspecified; I25.10 Atherosclerotic heart disease of native coronary artery without angina pectoris; N18.32 Chronic kidney disease, stage 3b; I25.5 Ischemic cardiomyopathy; F41.9 Anxiety disorder, unspecified; Z89.512 Acquired absence of left leg below knee; Z79.4 Long term (current) use of insulin; Z79.899 Other long term (current) drug therapy; Z79.84 Long term (current) use of oral hypoglycemic drugs; Z98.61 Coronary angioplasty status; Z68.27 Body mass index [BMI] 27.0-27.9, adult; Z99.81 Dependence on supplemental oxygen
CPT/HCPCS: 36415; 71045; 73620; 74176; 80048; 80053; 80061; 80307; 81001; 82962; 83036; 83880; 84443; 84484; 85025; 85379; 85610; 85652; 85730; 87077; 87081; 87186; 87205; 93005; 93306; 93926; 96361; 96374; 96375; G0378; J1815; J2405; Q0162

== ENCOUNTER 2024-11-06 07:10 | Inpatient (IN) | payer MEDICAID ==
[~2024-11-06] VITALS: Ht 205.7 cm; Wt 114.0 kg
[~2024-11-06 07:10] MED LIST changes: +CLIN1CAP70 PO; -FAMO-12 PO; -GABA800T97 PO; +LOSA-534 PO; +NITR0.4S29 SL; +SACC250C PO; -SUCR1TAB31 OR
[2024-11-06 07:35] VITALS: PULSE 83; RESP 21; O2SAT 98
[2024-11-06 07:46] LABS: Basophils # (auto) 0.1 10 ^3/uL (0-0.2); Basophils % (auto) 0.7 % (0.0-2.0); Chloride 105 mmol/L (98-107); Eosinophils # (auto) 0.2 10 ^3/uL (0-0.8); Eosinophils % (auto) 2.2 % (0.0-7.0); Hematocrit 38.7 % (41.0-53.0); Hemoglobin 13.3 g/dL (13.5-17.5); Lymphocytes # (auto) 1.8 10 ^3/uL (0.4-5.4); Lymphocytes % (auto) 21.7 % (10.0-50.0); Mean Corpuscular Hemoglobin 30.6 pg (28.0-32.0); Mean Corpuscular Hgb Conc. 34.4 g/dL (32.0-36.0); Monocytes # (auto) 0.6 10 ^3/uL (0-1.3); Monocytes % (auto) 7.7 % (0.0-12.0); Neutrophils # (auto) 5.5 10 ^3/uL (1.6-8.6); Neutrophils % (auto) 67.7 % (37.0-80.0); Nucleated Red Blood Cells % 0.1 %; Platelet Count (auto) 313 10^3/uL (140-450); Potassium 5.1 mmol/L (3.5-5.1); Red Blood Cells 4.34 10^6/uL (4.5-5.90); Red Cell Distribution Width 14.5 % (11.8-14.3); White Blood Cell 8.1 10^3/uL (4.4-10.8)
[2024-11-06 07:47] LABS: Anion Gap 9 (5-15); Sodium 133 mmol/L (136-145)
[2024-11-06 07:48] LABS: Calcium 9.8 mg/dL (8.7-10.4)
[2024-11-06 07:51] LABS: Carbon Dioxide 19 mmol/L (20-31)
[2024-11-06 07:52] LABS: BUN/Creatinine Ratio 8.4 (10.0-20.0); Blood Urea Nitrogen 14 mg/dL (9-23)
[2024-11-06 07:53] LABS: Glucose 171 mg/dL (74-106)
--- NOTE | 2024-11-06 07:58 | DVH ---
CHEST RADIOGRAPH Indication: chest pain Technique: Single frontal view of the chest was obtained Comparison: XY CHEST PORTABLE on DOS: 11/01/24 FINDINGS: Lines and Tubes: None Lungs: No focal consolidation. Pleura: No effusion. No pneumothorax. Cardiomediastinal contours: Unremarkable Bones: No acute osseous abnormality. IMPRESSION: 1. No acute cardiopulmonary disease.
[2024-11-06 08:26] VITALS: PULSE 83; RESP 21; O2SAT 98
--- NOTE | 2024-11-06 10:01 | ECG ---
[facility] Test Date: 2024-11-06 Test Time: 07:56:31 Pat Name: URIEL DIOP Department: ER Room: [address] [place] [address] Gender: M Joiner Apprentice: DARIO : 1980 Requested By: PARISA LUCAS Order Number: [id number] Reading MD: Jin Connelly Measurements Intervals [place] Rate: 76 P: 65 [place]: 146 QRS: 61 QRSD: 88 T: 111 QT: 380 QTc: 428 Interpretive Statements Sinus rhythm Repol abnrm suggests ischemia, lateral leads Borderline ST elevation, inferior leads Electronically Signed On 11-06-2024 18:51:47 PDT by Jin Connelly Please click the below link to view image of tracing.
--- NOTE | 2024-11-06 10:24 | ECG ---
[facility] Test Date: 2024-11-06 Test Time: 07:06:14 Pat Name: URIEL DIOP Department: ED Room: [address] [place] [address] Gender: M Chief Technologist: CARLI : 1980 Requested By: PARISA LUCAS Order Number: [id number] Reading MD: Jin Connelly Measurements Intervals [place] Rate: 84 P: 70 ND: 138 QRS: 69 QRSD: 89 T: 105 QT: 363 QTc: 430 Interpretive Statements Sinus rhythm Borderline repolarization abnormality Borderline ST elevation, inferior leads Electronically Signed On 11-06-2024 18:51:43 PDT by Jin Connelly Please click the below link to view image of tracing.
[2024-11-06] MEDS: MORPHINE SULFATE 4 MG/ML SYR/VIAL IV ONE (10:26)
[2024-11-06] MEDS: ONDANSETRON HCL 4 MG/2 ML VIAL IV ONE (10:26)
--- NOTE | 2024-11-06 10:30 | ED.PDOC ---
HPI Comments 43 year old male MICHELLE presents to the ED with chief complaint of chest pain. EMS reports that the patient had recently been discharged from the hospital for cellulitis and left BKA about 1-2 days ago. EMS relays that the patient has since discharge been experiencing left sided 8/10 chest pain with associated epigastric pain and nausea/vomiting. Patient denies any headache, SOB, numbness, weakness, diarrhea, fever, or chills. Chief Complaint: Chest Pain Time Seen by MD: 08:30 Primary Care Provider: DESTINY Reviewed Notes: Nurses Notes, Locomotive Mechanic Notes, Medications, Allergies Allergies: Coded Allergies: NO KNOWN ALLERGIES (Unverified , 12/04/21) Home Meds Active Scripts Yeast (S. Boulardii)(S. Cerevi (Florastor) 250 Mg Cap, 250 MG PO DAILY for 30 Days, #30 CAP Prov:JOE GUNDERSON SUPPORT DIRECTOR 11/03/24 Clindamycin Hcl (Clindamycin Hcl) 300 Mg Cap, 1 CAP PO TID for 10 Days, #30 CAP Prov:JOE GUNDERSON SUPPORT DIRECTOR 11/03/24 Nitroglycerin (NTROSTAT SUBLINGUAL) 0.4 Mg Sl, 0.4 MG SL Q5MINP PRN for 30 Days, #30 TAB Prov:VIMAL BERRY SOCK BOARDER 11/02/24 Sacubitril-Valsartan (Entresto 24-26 mg) 1 Tab Tab, 1 TAB PO BID for 30 Days, #60 TAB 1 Refill Prov:KUNAL LERMA MD 06/06/24 Rosuvastatin Calcium (Crestor) 40 Mg Tab, 1 TAB PO DAILY for 30 Days, #30 TAB 1 Refill Prov:KUNAL LERMA MD 06/06/24 Pantoprazole Sodium Sesquihydr (Pantoprazole Sodium) 40 Mg Tab, 40 MG PO BID for 30 Days, #60 TAB Prov:JOE GUNDERSON NP 07/09/23 Reported Medications Insulin Lispro (Insulin Lispro Kwikpen) 100 Unit/Ml Inj, 5 UNIT SC UD for 75 Days, #9 INJECT 5 UNITS SUBCUTANEOUSLY PER SLIDING SCALE. MAXIMUM DAILY DOSE OF 12 UNITS. 11/02/24 Hydrocodone-Acetaminophen (Hydrocodone/Acetaminophen 5-325 mg) 1 Tab Tab, 1 TAB PO BID PRN for 30 Days, #60 11/02/24 Aspirin (Aspirin Low Dose) 81 Mg Chw, 1 TAB PO DAILY for 90 Days, #90 11/02/24 Famotidine (Famotidine) 40 Mg Tab, 1 TAB PO BID for 90 Days, #180 11/02/24 Dapagliflozin Propanediol (Farxiga) 10 Mg Tab, 5 MG PO DAILY for 90 Days, #90 11/02/24 Cyclobenzaprine HCl (Cyclobenzaprine Hydrochlo) 5 Mg Tab, 1-2 TAB PO BID PRN for 30 Days, #120 11/02/24 Sucralfate (Sucralfate) 1 Gm Tab, 1 TAB PO BID for 90 Days, #180 11/02/24 Gabapentin (Gabapentin) 400 Mg Cap, 1 CAP PO TID for 30 Days, #90 11/02/24 Magnesium Oxide (Magnesium Oxide) 400 Mg Tab, 1 TAB PO HS for 30 Days, #30 10/30/24 Gemfibrozil (Gemfibrozil) 600 Mg Tab, 1 TAB PO BID for 90 Days, #180 10/30/24 Losartan Potassium (Losartan Potassium) 50 Mg Tab, 1 TAB PO BID 10/30/24 Spironolactone (Spironolactone) 25 Mg Tab, 25 MG PO BID, TAB 06/05/24 Nifedipine (Nifedipine Er) 90 Mg Tab, 90 MG PO DAILY, TAB 06/05/24 Insulin Glargine (Basaglar Kwikpen) 100 Unit/Ml Inj, 20 UNIT SC BID for 23 Days, #9 06/05/24 Ticagrelor Base (BRILINTA) 90 Mg Tab, 90 MG PO BID, TAB 06/05/24 Dapagliflozin Propanediol (Farxiga) 10 Mg Tab, 10 MG PO QAM, TAB 06/05/24 Ondansetron HCl (Ondansetron Hydrochloride) 4 Mg Tab, 2 TAB PO DAILYPRN PRN for nausea/vomiting for 90 Days, #180 07/04/23 Atorvastatin Calcium (ATORVASTATIN CALCIUM) 40 Mg Tab, 1 TAB PO DAILY 07/04/23 Metformin Hydrochloride (Metformin Hcl) 1,000 Mg Tab, 1 TAB PO BIDWM for 90 Days, #180 05/24/23 Sertraline Hcl (Sertraline Hcl) 25 Mg Tab, 1 TAB PO DAILY 05/24/23 Carvedilol (Carvedilol) 6.25 Mg Tab, 1 TAB PO BID 05/24/23 Discontinued Reported Medications Gabapentin (Gabapentin) 800 Mg Tab, 1 TAB PO DAILY 05/24/23 Information Source: Patient, Emergency Med Personnel Mode of Arrival: EMS Severity: Moderate Timing: Days Duration: Since onset Prehospital treatment: None Location: Chest (L) Radiation: No Radiation Quality: Pressure Onset: At Rest Cardiac Risk Factors: Hyperlipidemia, HTN, Diabetes PE Risk Factors: None History of: GA Associated Signs and Symptoms: Abdominal Pain, N/V Past Medical History PAST MEDICAL HISTORY: DM, High Lipids, HTN, GA Surgical History: BKA, PTCA Family History Family History: Reviewed,noncontributory to illness, Unknown Social History Smoker: Non-Smoker Alcohol: Denies ETOH Use Drugs: Denies Drug Use Lives In: Home Constitutional: denies: chills, diaphoresis, fatigue, fever, malaise, sweats, weakness, others EENTM: denies: blurred vision, double vision, ear bleeding, ear discharge, ear drainage, ear pain, ear ringing, eye pain, eye redness, hearing loss, mouth pain, mouth swelling, nasal discharge, nose bleeding, nose congestion, nose pain, photophobia, tearing, throat pain, throat swelling, voice changes, others Respiratory: denies: cough, hemoptysis, orthopnea, SOB at rest, shortness of breath, SOB with excertion, stridor, wheezing, others Cardiovascular: reports: chest pain; denies: dizzy spells, diaphoresis, Dyspnea on exertion, edema, irregular heart beat, left arm pain, lightheadedness, palpitations, PND, syncope, others Gastrointestinal: reports: abdominal pain, nausea, vomiting; denies: abdomen distended, blood streaked bowels, constipated, diarrhea, dysphagia, difficulty swallowing, hematemesis, melena, poor appetite, poor fluid intake, rectal bleeding, rectal pain, others Genitourinary: denies: burning, dysuria, flank pain, frequency, hematuria, incontinence, penile discharge, penile sore, pain, testicle pain, testicle swelling, urgency, others Neurological: denies: dizziness, fainting, headache, left sided numbness, left sided weakness, numbness, paresthesia, pre-existing deficit, right sided numbness, right sided weakness, seizure, speech problems, tingling, tremors, weakness, others Musculoskeletal: denies: back pain, gout, joint pain, joint swelling, muscle pain, muscle stiffness, neck pain, others Integumetry: denies: bruises, change in color, change in hair/nails, dryness, laceration, lesions, lumps, rash, wounds, others Allergic/Immunocompromised: denies: Difficulty Healing, Frequent Infections, Hives, Itching, others Hematologic/Lymphatic: denies: anemia, blood clots, easy bleeding, easy bruising, swollen glands, others Endocrine: denies: excessive hunger, excessive sweating, excessive thirst, excessive urination, flushing, intolerance to cold, intolerance to heat, unexplained weight gain, unexplained weight loss, others Psychiatric: denies: anxiety, bipolar disorder, depression, hopeless, panic disorder, schizophrenia, sleepless, suicidal, others All Other Systems: Reviewed and Negative Physical Exam General Appearance: No Apparent Distress, Normal HEENT: Normal ENT Inspection, PERRL/EOMI Neck: Full Range of Motion, Non-Tender, Normal, Normal Inspection Respiratory: Chest Non-Tender, Lungs Clear, No Accessory Muscle Use, No Respiratory Distress, Normal Breath Sounds Cardiovascular: No Edema, No JVD, No Murmur, No Gallop, Normal Peripheral Pulses, Regular Rate/Rhythm Breast Exam: Deferred Gastrointestinal: No Organomegaly, Non Tender, No Pulsatile Mass, Normal Bowel Sounds, Soft Genitalia: Deferred Pelvic: Deferred Rectal: Deferred Extremities: No calf tenderness, Normal capillary refill, Non-tender, No pedal edema, Other (Left BKA noted.) Musculoskeletal : Apperance: Normal Neurologic: Alert, cement crusher operator II-XII nml as Tested, No Motor Deficits, Normal Affect, Normal Mood, No Sensory Deficits Cerebellar Function: Normal Reflexes: Normal Skin: Dry, Normal Color, Warm Lymphatic: No Adenopathy Was a procedure done? Was a procedure done?: No CP Differential Dx Differential Diagnosis: MAT, PAC's, PVC's Differential Diagnosis: HTN Essential, HTN Accelerated Differential Diagnosis: Gastritis, Myocardial Infarction, Pericarditis, Pneumonia X-Ray, Labs, Meds, VS Vital Signs Date Time Temp Pulse Resp B/P (MAP) Pulse Ox O2 Delivery O2 Flow Rate FiO2 11/06/24 10:26 86 16 114/80 11/06/24 10:22 81 11/06/24 08:00 75 11/06/24 07:56 76 11/06/24 07:35 83 21 98 Room Air* 0 21 11/06/24 07:35 98.7 83 21 101/61 (74) 98 98.7 11/06/24 07:18 99.3 87 18 98/67 (77) 98 99.3 11/06/24 07:16 84 Lab Test 11/06/24 10:17 11/06/24 08:07 11/06/24 07:20 Range/Units Troponin I High Sensitivity Pending 31 32 </=54 ng/L White Blood Count 8.1 # 4.4-10.8 10^3/uL Red Blood Count 4.34 L 4.5-5.90 10^6/uL Hemoglobin 13.3 L 13.5-17.5 g/dL Hematocrit 38.7 L 41.0-53.0 % Mean Corpuscular Volume 89.0 80.0-100.0 fL Mean Corpuscular Hemoglobin 30.6 28.0-32.0 pg Mean Corpuscular Hemoglobin Concent 34.4 32.0-36.0 g/dL Red Cell Distribution Width 14.5 H 11.8-14.3 % Platelet Count 313 140-450 10^3/uL Mean Platelet Volume 8.5 6.9-10.8 fL Neutrophils (%) (Auto) 67.7 37.0-80.0 % Lymphocytes (%) (Auto) 21.7 10.0-50.0 % Monocytes (%) (Auto) 7.7 0.0-12.0 % Eosinophils (%) (Auto) 2.2 0.0-7.0 % Basophils (%) (Auto) 0.7 0.0-2.0 % Neutrophils # (Auto) 5.5 1.6-8.6 10 ^3/uL Lymphocytes # (Auto) 1.8 0.4-5.4 10 ^3/uL Monocytes # (Auto) 0.6 0-1.3 10 ^3/uL Eosinophils # (Auto) 0.2 0-0.8 10 ^3/uL Basophils # (Auto) 0.1 0-0.2 10 ^3/uL Nucleated Red Blood Cells 0.1 % Sodium Level 133 L 136-145 mmol/L Potassium Level 5.1 3.5-5.1 mmol/L Chloride Level 105 98-107 mmol/L Carbon Dioxide Level 19 L 20-31 mmol/L Anion Gap 9 5-15 Blood Urea Nitrogen 14 9-23 mg/dL Creatinine 1.66 H 0.700-1.30 mg/dL Glomerular Filtration Rate Calc 51 >90 mL/min BUN/Creatinine Ratio 8.4 L 10.0-20.0 Serum Glucose 171 H 74-106 mg/dL Calcium Level 9.8 8.7-10.4 mg/dL Current Medications Medications (Trade) Dose Ordered Sig/Sreekanth Route Start Time Stop Time Status Last Admin Ondansetron HCl (Zofran) 4 mg ONCE ONCE IV 11/06/24 10:15 11/06/24 10:16 DC 11/06/24 10:26 Morphine Sulfate 4 mg ONCE ONCE IV 11/06/24 10:15 11/06/24 10:16 DC 11/06/24 10:26 Time of 1ST Reevaluation: 09:30 Reevaluation 1ST: Unchanged Patient Education/Counseling: Diagnosis, Treatment Family Education/Counseling: No Family Present Additional Information Previous medical encounters reviewed: 10/30/24 for intractable abdominal pain The following tests were ordered, and results were reviewed by me: CBC, BMP, Troponin, EKG, Chest XR Additional Information was gathered from interviewing the following independent historians: EMS I reviewed and agreed with the following test results read by other providers: Chest XR I discussed treatment and results with medical personnel and: Patient Comprehensive systems review obtained and negative except for what is stated in the HPI. Departure 1 Departure Time of Disposition: 10:35 (Patient presented with chest pain that was concerning for possible STEMI, ACS, PE, Pneumonia, Muscle Strain, COPD, Dissection. Data: 1. I ordered and reviewed the result of at least 3 labs including a CBC, BMP, and Troponin. 2. I independently interpreted the following tests: EKG which shows sinus arrhythmia and Chest X-ray which shows benign chest.Risk:This patient has a high risk of morbidity due to further diagnostic testing or treatment and may suffer from an acute cardiac or respiratory disorder. Workup reveals concern for ACS and patient should be admitted for further workup and possible expert consultation. ) Impression: Primary Impression: Chest pain Qualified Codes: R07.89 - Other chest pain Disposition: ADMITTED INPATIENT Admit to: Med Surg Condition: Serious Critical Care Note Critical Care Time?: Yes Critical care comment: Acute chest pain Authorized and Performed by: Parisa Lucas MD Total critical care time: Approximately 37 minutes Due to a high probability of clinically significant, life threatening deterioration, the patient required my highest level of preparedness to intervene emergently and I personally spent this critical care time directly and personally managing the patient. This critical care time included obtaining a history; examining the patient; pulse oximetry; ordering and review of studies; arranging urgent treatment with development of a management plan; evaluation of patient's response to treatment; frequent reassessment; and, discussions with other providers. This critical care time was performed to assess and manage the high probability of imminent, life-threatening deterioration that could result in multi-organ failure. It was exclusive of separately billable procedures and treating other patients and teaching time. Please see my other sections and the rest of the note for further information on patient assessment and treatment. Stability Stability form required: No Heart Score Heart Score: Heart Score Response (Comments) Value History Highly Suspicious 2 EKG Normal 0 Age <45 0 Risk Factors >3 or Hx ASHD 2 Troponin Normal limit 0 Total 4 I personally scribed for PARISA LUCAS MD ([email or web address]) on 11/06/24 at 10:30. Electronically submitted by Michel Antunez ([email or web address]). PARISA LUCAS MD Nov 06, 2024 10:30
[2024-11-06] MEDS ORDERED: ACETAMINOPHEN 325 MG TAB PO PRN (13:45)
[2024-11-06] MEDS ORDERED: ONDANSETRON HCL 4 MG/2 ML VIAL IV PRN (13:45)
[2024-11-06] MEDS ORDERED: DEXTROSE (50%) 50ML SYRG IV PRN (13:45)
[2024-11-06] MEDS ORDERED: NITROGLYCERIN 0.4 MG SL TAB SL PRN (13:45)
[2024-11-06] MEDS: ASPirin 81 mg TAB PO SCH (13:48)
--- NOTE | 2024-11-06 13:52 | DVHHP2 ---
History of Present Illness Reason for Visit: Chest pain History of Present Illness Phoenix Rendon is a 43-year-old male with past medical history of CAD, hypertension, hyperlipidemia, diabetes, MS in August 2019 status post PTCA x3, gastroparesis, left foot amputee, left BKA, right toe wound, EGD, and anxiety who presents to the ED with chest pain, epigastric pain, nausea, and vomiting. Upon examination patient points to his epigastric area and states that the pain is 8/10 warm, burning, and constant. Patient denies any recent trauma or injury, recent fever or chills, shortness of breath, lightheadedness, weakness, dizziness, or diarrhea. Patient states that he was recently here last week for the same problem. Patient currently requesting for Dilaudid rather than morphine for pain medication he states that the morphine does not work. When asked about taking [place] he says that he hardly takes Montgomery. Cardiovascular: CAD, CHF, HTN, MS, hyperipidemia Psych: Anxiety Endocrine: Diabetes Past Medical History Gastroparesis Right toe wound Past Surgical History: Other (PTCA x3, EGD, left foot amputee, and left BKA) Family History: Other (Both parents ) Smoke: Quit ALCOHOL: none Drugs: None Lives: with Family Domestic Violence: Neg Review of Systems Cardiovascular: Chest Pain Gastrointestinal: Nausea, Vomiting, Abdominal Pain Allergies: Coded Allergies: NO KNOWN ALLERGIES (Unverified , 12/04/21) Medications Current Medications Medications Dose Ordered Sig/Sreekanth Route Start Time Stop Time Status Last Admin Dose Admin Aspirin 81 mg DAILY PO 11/07/24 10:00 UNV Atorvastatin Calcium 40 mg HS PO 11/06/24 22:00 UNV Morphine Sulfate 2 mg Q30MP PRN IV 11/06/24 13:45 UNV Acetaminophen 650 mg Q6HP PRN PO 11/06/24 13:45 UNV Nitroglycerin 0.4 mg Q5MINP PRN SL 11/06/24 13:45 UNV Ondansetron HCl 4 mg Q4HP PRN IV 11/06/24 13:45 UNV Diagnostic Test (Pha) 1 strip ACHS 11/06/24 17:00 UNV Insulin Human Regular ACHS SC 11/06/24 17:00 UNV Dextrose 50 ml UD PRN IV 11/06/24 13:45 UNV Exam Vital Signs Vital Signs Date Time Temp Pulse Resp B/P (MAP) Pulse Ox O2 Delivery O2 Flow Rate FiO2 11/06/24 12:00 77 11/06/24 11:27 15 109/68 (82) 94 11/06/24 07:35 Room Air* 0 21 11/06/24 07:35 98.7 98.7 General Appearance: Alert, Oriented X3, Cooperative, No acute distress HEENT: Atraumatic, PERRLA, EOMI, Mucous membr. moist/pink Respiratory: Clear to auscultation, Normal air movement Cardiovascular: Regular rate, Normal S1, Normal S2, No murmurs Abdominal: Normal bowel sounds, Soft, No tenderness, No hepatospenomegaly, No masses Extremities: No cyanosis Neuro: Normal speech, Strength at 5/5 X4 ext, Normal tone, Sensation intact Psych/Mental Status: Mental status NL, Mood NL Labs/Xrays Labs Test 11/06/24 10:17 11/06/24 07:20 Range/Units Troponin I High Sensitivity 30 </=54 ng/L White Blood Count 8.1 # 4.4-10.8 10^3/uL Red Blood Count 4.34 L 4.5-5.90 10^6/uL Hemoglobin 13.3 L 13.5-17.5 g/dL Hematocrit 38.7 L 41.0-53.0 % Mean Corpuscular Volume 89.0 80.0-100.0 fL Mean Corpuscular Hemoglobin 30.6 28.0-32.0 pg Mean Corpuscular Hemoglobin Concent 34.4 32.0-36.0 g/dL Red Cell Distribution Width 14.5 H 11.8-14.3 % Platelet Count 313 140-450 10^3/uL Mean Platelet Volume 8.5 6.9-10.8 fL Neutrophils (%) (Auto) 67.7 37.0-80.0 % Lymphocytes (%) (Auto) 21.7 10.0-50.0 % Monocytes (%) (Auto) 7.7 0.0-12.0 % Eosinophils (%) (Auto) 2.2 0.0-7.0 % Basophils (%) (Auto) 0.7 0.0-2.0 % Neutrophils # (Auto) 5.5 1.6-8.6 10 ^3/uL Lymphocytes # (Auto) 1.8 0.4-5.4 10 ^3/uL Monocytes # (Auto) 0.6 0-1.3 10 ^3/uL Eosinophils # (Auto) 0.2 0-0.8 10 ^3/uL Basophils # (Auto) 0.1 0-0.2 10 ^3/uL Nucleated Red Blood Cells 0.1 % Sodium Level 133 L 136-145 mmol/L Potassium Level 5.1 3.5-5.1 mmol/L Chloride Level 105 98-107 mmol/L Carbon Dioxide Level 19 L 20-31 mmol/L Anion Gap 9 5-15 Blood Urea Nitrogen 14 9-23 mg/dL Creatinine 1.66 H 0.700-1.30 mg/dL Glomerular Filtration Rate Calc 51 >90 mL/min BUN/Creatinine Ratio 8.4 L 10.0-20.0 Serum Glucose 171 H 74-106 mg/dL Calcium Level 9.8 8.7-10.4 mg/dL CHEST RADIOGRAPH Indication: chest pain Technique: Single frontal view of the chest was obtained Comparison: XY CHEST PORTABLE on DOS: 11/01/24 FINDINGS: Lines and Tubes: None Lungs: No focal consolidation. Pleura: No effusion. No pneumothorax. Cardiomediastinal contours: Unremarkable Bones: No acute osseous abnormality. IMPRESSION: 1. No acute cardiopulmonary disease. Assessment/Plan Assessment/Plan Assessment Chest pain BLAKE Diabetes type 2 Hyponatremia History of anxiety History of CAD History of hypertension History of hyperlipidemia History of MS status post PTCA x3 in August 2022 History of CHF History of gastroparesis History of left foot amputee History of left BKA History of right toe wound History of EGD Plan Admit to [facility] Troponins negative x3 Chest x-ray noted Antiemetics Pain management Last echo in 10/31/2024 EF 25% ISS and Accu-Cheks Monitor CBC and BNP Home medications reconciled Discussed plan of care with patient and nurse DVT prophylaxis-Lovenox PUD prophylaxis-Protonix continue home medication Patient has drug-seeking behavior Plan discussed with: Patient My Orders Orders - JEN CACERES GANG PUSHER Procedure Category Date Status Time Admit ADMIT 11/06/24 Transmitted 13:33 Code Status CODE 11/06/24 Transmitted 13:33 Vital Signs BRADY 11/06/24 In Process 13:33 Manganese Breaker BRADY 11/06/24 In Process 13:33 Cardiac DIET 11/06/24 Transmitted Diet-2gna,Lofat,Lochol Dinner Aspirin Tablet PHA 11/07/24 Logged 10:00 Atorvastatin (Lipitor) PHA 11/06/24 Logged 22:00 Morphine Sulfate PHA 11/06/24 Logged Injection 13:45 Acetaminophen Tablet PHA 11/06/24 Logged (Tylenol Tablet) 13:45 Complete Blood Count LAB 11/07/24 Verified 04:00 Basic Metabolic Panel LAB 11/07/24 Verified 04:00 Magnesium LAB 11/07/24 Verified 04:00 Nitroglycerin PHA 11/06/24 Logged Sublingual (Ntrostat 13:45 Ondansetron Hcl PHA 11/06/24 Logged (Zofran) 13:45 Electrocardigram EKG 11/07/24 Logged 04:00 Troponin-I Hs LAB 11/06/24 Logged 13:33 Cardiac BRADY 11/06/24 In Process Rehabilitation - Outpa Glucose Blood PHA 11/06/24 Logged (Accu-Chek Comfort 17:00 Insulin R (Human) PHA 11/06/24 Logged (Insulin R) 17:00 Dextrose 50% Syringe PHA 11/06/24 Logged 13:45 Date of Service: Nov 06, 2024 Billing Provider: JEN CACERES Common Visit Codes: [id number] INP/OBS CARE (HIGH) JEN CACERES Nov 06, 2024 13:52
[2024-11-06] MEDS ORDERED: ONDANSETRON ODT 4 MG TAB PO PRN (14:45)
[2024-11-06] MEDS: GABAPENTIN 400 MG CAP PO SCH (14:47)
[2024-11-06] MEDS: MORPHINE SULFATE 4 MG/ML SYR/VIAL IV PRN (16:03)
[2024-11-06] MEDS: InsuLIN REG 1unit/0.01ml Soln (100units/ml) SC SCH (17:00)
[2024-11-06] MEDS: ACCU-CHEK COMFORT CURVE STRIP VI SCH (17:16)
[2024-11-06] MEDS: SUCRALFATE 1 GM TAB PO SCH (17:22)
[2024-11-06] MEDS: SPIRONOLACTONE 25 MG TAB PO SCH (18:05)
[2024-11-06 19:20] VITALS: PULSE 83; RESP 12; O2SAT 96
[2024-11-06] MEDS: GEMFIBROZIL 600 MG TAB PO SCH (21:49)
[2024-11-06] MEDS: TICAGRELOR 90 MG TAB PO SCH (21:49)
[2024-11-06] MEDS: CARVEDILOL 3.125 MG TAB PO SCH (21:50)
[2024-11-06] MEDS: LOSARTAN POTASSIUM 50 MG TAB PO SCH (21:50)
[2024-11-06] MEDS: ATORVASTATIN 20 MG TAB PO SCH (21:51)
[2024-11-06] MEDS: MAGNESIUM OXIDE 400 MG TAB PO SCH (21:51)
[2024-11-06] MEDS: FAMOTIDINE 20 MG TAB PO SCH (21:51)
[2024-11-06] MEDS: HYDROcodone-ACET 5/325MG TAB PO ONE (22:05)
[2024-11-07] VITALS (8 sets, daily range): BP systolic 100–110; BP diastolic 55–71; PULSE 62–77; RESP 17–100; TEMP 97.7–98.9; O2SAT 0–100
[2024-11-07] MEDS ORDERED: HYDROcodone-ACET 5/325MG TAB PO PRN (00:15)
[2024-11-07 07:13] LABS: Calcium 9.6 mg/dL (8.7-10.4); Chloride 103 mmol/L (98-107); Potassium 4.6 mmol/L (3.5-5.1)
[2024-11-07 07:14] LABS: Anion Gap 9 (5-15); Carbon Dioxide 24 mmol/L (20-31)
[2024-11-07 07:18] LABS: Sodium 136 mmol/L (136-145)
[2024-11-07 07:19] LABS: BUN/Creatinine Ratio 13.6 (10.0-20.0); Basophils # (auto) 0.1 10 ^3/uL (0-0.2); Basophils % (auto) 1.2 % (0.0-2.0); Eosinophils # (auto) 0.2 10 ^3/uL (0-0.8); Eosinophils % (auto) 3.9 % (0.0-7.0); Hematocrit 33.2 % (41.0-53.0); Hemoglobin 11.2 g/dL (13.5-17.5); Lymphocytes # (auto) 2.2 10 ^3/uL (0.4-5.4); Lymphocytes % (auto) 42.1 % (10.0-50.0); Magnesium 2.5 mg/dL (1.6-2.6); Mean Corpuscular Hemoglobin 29.9 pg (28.0-32.0); Mean Corpuscular Hgb Conc. 33.6 g/dL (32.0-36.0); Mean Corpuscular Volume 88.7 fL (80.0-100.0); Monocytes # (auto) 0.5 10 ^3/uL (0-1.3); Monocytes % (auto) 10.3 % (0.0-12.0); Neutrophils # (auto) 2.3 10 ^3/uL (1.6-8.6); Neutrophils % (auto) 42.5 % (37.0-80.0); Nucleated Red Blood Cells % 0.1 %; Platelet Count (auto) 274 10^3/uL (140-450); Red Blood Cells 3.74 10^6/uL (4.5-5.90); Red Cell Distribution Width 14.2 % (11.8-14.3); White Blood Cell 5.3 10^3/uL (4.4-10.8)
[2024-11-07 07:24] LABS: Blood Urea Nitrogen 27 mg/dL (9-23); Glucose 154 mg/dL (74-106)
[2024-11-07] MEDS: SACUBITRIL-VALSARTAN 24mg/26mg TAB PO SCH (09:29)
[2024-11-07] MEDS: SERTRALINE HCL 50 MG TAB PO SCH (09:30)
[2024-11-07] MEDS: NIFEdipine ER 30 MG TAB PO SCH (09:32)
[2024-11-07] MEDS: ENOXAPARIN SOD 40 MG/0.4 ML SYRINGE SC SCH (09:32)
[2024-11-07] MEDS ORDERED: PATIENTS OWN MEDICATION (Atorvastatin Calcium 1 TAB) PO SCH (10:00)
[2024-11-07] MEDS ORDERED: PATIENTS OWN MEDICATION (Aspirin (Aspirin Low Dose) 1 TAB) PO SCH (10:00)
--- NOTE | 2024-11-07 14:51 | DVHPN2 ---
Subjective Recurrent pains. Chronic pains. He is on [place] from pain management 5 mg twice a day Reviewed: Care Plan, H&P, Labs, Medications, Previous Orders, Radiology Changes from previous H/P or p: No Changes Cardiovascular: Chest Pain Objective Vitals Vital Signs Date Time Temp Pulse Resp B/P (MAP) Pulse Ox O2 Delivery O2 Flow Rate FiO2 11/07/24 13:30 98.3 73 18 101/64 (76) 98 98.3 11/07/24 08:00 Room Air* 0 21 Intake/Output Intake and Output 11/07/24 07:00 Intake Total 0 ml Output Total 0 ml Balance 0 ml Intake Oral 0 ml Output Urine Total 0 ml General Appearance: Alert, Oriented X3, Cooperative, No acute distress HEENT: Atraumatic Lungs: Clear to auscultation Cardiovascular: Regular rate Abdomen: Normal bowel sounds, Soft Medications Current Medications Medications Dose Ordered Sig/Sreekanth Route Start Time Stop Time Status Last Admin Dose Admin Aspirin 81 mg DAILY PO 11/06/24 13:41 11/07/24 09:31 81 MG Atorvastatin Calcium 40 mg HS PO 11/06/24 22:00 11/06/24 21:51 40 MG Morphine Sulfate 2 mg Q30MP PRN IV 11/06/24 13:45 11/06/24 16:03 2 MG Acetaminophen 650 mg Q6HP PRN PO 11/06/24 13:45 Nitroglycerin 0.4 mg Q5MINP PRN SL 11/06/24 13:45 Ondansetron HCl 4 mg Q4HP PRN IV 11/06/24 13:45 Diagnostic Test (Pha) 1 strip ACHS 11/06/24 17:00 11/07/24 11:37 1 STRIP Insulin Human Regular ACHS SC 11/06/24 17:00 11/07/24 11:41 2 UNITS Dextrose 50 ml UD PRN IV 11/06/24 13:45 Enoxaparin Sodium 40 mg DAILY SC 11/07/24 10:00 11/07/24 09:32 40 MG Gabapentin 400 mg TID PO 11/06/24 14:00 11/07/24 14:04 400 MG Gemfibrozil 600 mg BID PO 11/06/24 22:00 11/07/24 09:30 600 MG Losartan Potassium 50 mg BID PO 11/06/24 22:00 Hold 11/06/24 21:50 50 MG Sacubitril/ Valsartan 1 tab BID PO 11/07/24 10:00 11/07/24 09:29 1 TAB Spironolactone 25 mg BIDD PO 11/06/24 18:00 11/07/24 05:24 25 MG Sucralfate 1 gm BIDAC PO 11/06/24 17:00 11/07/24 05:23 1 GM Ticagrelor 90 mg BID PO 11/06/24 22:00 11/07/24 09:30 90 MG Carvedilol 6.25 mg BID PO 11/06/24 22:00 11/06/24 21:50 6.25 MG Famotidine 40 mg BID PO 11/06/24 22:00 11/07/24 09:31 40 MG Magnesium Oxide 400 mg HS PO 11/06/24 22:00 11/06/24 21:51 400 MG Nifedipine 90 mg DAILY PO 11/07/24 10:00 Ondansetron HCl 8 mg DAILYPRN PRN PO 11/06/24 14:45 Hold Sertraline HCl 25 mg DAILY PO 11/07/24 10:00 11/07/24 09:30 25 MG Acetaminophen/ Hydrocodone Bitart 1 tab Q6HPRN PRN PO 11/07/24 00:15 Laboratory Results Laboratory Tests 11/07/24 05:10 Chemistry Test 11/07/24 05:10 Calcium Level 9.6 mg/dL (8.7-10.4) Magnesium Level 2.5 mg/dL (1.6-2.6) Coagulation Test 11/07/24 10:27 D-Dimer, Quantitative < 0.19 mg/L FEU (0.0-0.49) Microbiology Microbiology Date/Time Source Procedure Growth Status 11/07/24 03:45 Nose MRSA Screen - Final Complete Assessment/Plan Assessment/Plan Recurrent chest pain/negative troponin at this time Coronary artery disease with history of PTCAs and stent placement Hypertension Dyslipidemia Diabetes History of gastroparesis Diverticulosis Status post left BKA Cannabinoid use Chronic kidney disease stage 3 Heart failure with reduced ejection fraction Atherosclerotic vascular disease Plan: Cardiology consultation. Resume Michelle. Further plan per orders Plan discussed with: Patient Date of Service: Nov 07, 2024 Billing Provider: FRANCES DAVEY MD Common Visit Codes: [id number] INP/OBS CARE(HIGH) FRANCES DAVEY MD Nov 07, 2024 14:51
[2024-11-07] MEDS: HYDROmorphone HCL 2 MG/ML VL/or syr IV PRN (16:13)
[2024-11-08] VITALS (8 sets, daily range): BP systolic 100–112; BP diastolic 58–67; PULSE 66–85; RESP 16–20; TEMP 97.5–97.9; O2SAT 94–100
--- NOTE | 2024-11-08 06:20 | ECG ---
[facility] Test Date: 2024-11-06 Test Time: 17:12:59 Pat Name: URIEL DIOP Department: ER Room: 0214T A Gender: M Center Receptionist: DARIO : 1980 Requested By: JEN CACERES Order Number: [id number] Reading MD: Jin Connelly Measurements Intervals [place] Rate: 78 P: 33 DE: 142 QRS: 59 QRSD: 98 T: 116 QT: 400 QTc: 456 Interpretive Statements Sinus rhythm Abnormal inferior Q waves Abnormal T, consider ischemia, lateral leads Electronically Signed On 11-08-2024 14:19:44 PDT by Jin Connelly Please click the below link to view image of tracing.
--- NOTE | 2024-11-08 06:20 | ECG ---
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
[2024-11-08] MEDS: Pro-Stat SF 30ml Vanilla PO SCH (10:00)
[2024-11-08] MEDS: ASCORBIC ACID 500 MG TAB PO SCH (11:04)
[2024-11-08] MEDS: MULTIPLE VITAMINS W/ MINERALS TAB PO SCH (11:04)
--- NOTE | 2024-11-08 15:08 | DVHPN2 ---
Subjective Recurrent pains. Chronic pains. He is on [place] from pain management 5 mg twice a day Reviewed: Care Plan, H&P, Labs, Medications, Previous Orders, Radiology Changes from previous H/P or p: No Changes Cardiovascular: Chest Pain Objective Vitals Vital Signs Date Time Temp Pulse Resp B/P (MAP) Pulse Ox O2 Delivery O2 Flow Rate FiO2 11/08/24 13:00 97.9 77 18 108/65 (79) 98 97.9 11/08/24 08:00 Room Air* 0 21 Intake/Output Intake and Output 11/08/24 07:00 Intake Total 2280 ml Output Total 1800 ml Balance 480 ml Intake Oral 1680 ml Tube Feeding 600 ml Output Urine Total 1800 ml General Appearance: Alert, Oriented X3, Cooperative, No acute distress HEENT: Atraumatic Lungs: Clear to auscultation Cardiovascular: Regular rate Abdomen: Normal bowel sounds, Soft Medications Current Medications Medications Dose Ordered Sig/Sreekanth Route Start Time Stop Time Status Last Admin Dose Admin Aspirin 81 mg DAILY PO 11/06/24 13:41 11/08/24 09:49 81 MG Atorvastatin Calcium 40 mg HS PO 11/06/24 22:00 11/07/24 22:02 40 MG Morphine Sulfate 2 mg Q30MP PRN IV 11/06/24 13:45 11/06/24 16:03 2 MG Acetaminophen 650 mg Q6HP PRN PO 11/06/24 13:45 Nitroglycerin 0.4 mg Q5MINP PRN SL 11/06/24 13:45 Ondansetron HCl 4 mg Q4HP PRN IV 11/06/24 13:45 Diagnostic Test (Pha) 1 strip ACHS 11/06/24 17:00 11/08/24 11:19 1 STRIP Insulin Human Regular ACHS SC 11/06/24 17:00 11/08/24 11:20 2 UNITS Dextrose 50 ml UD PRN IV 11/06/24 13:45 Enoxaparin Sodium 40 mg DAILY SC 11/07/24 10:00 11/08/24 09:48 40 MG Gabapentin 400 mg TID PO 11/06/24 14:00 11/08/24 13:44 400 MG Gemfibrozil 600 mg BID PO 11/06/24 22:00 11/08/24 09:48 600 MG Losartan Potassium 50 mg BID PO 11/06/24 22:00 Hold 11/06/24 21:50 50 MG Sacubitril/ Valsartan 1 tab BID PO 11/07/24 10:00 11/08/24 09:49 1 TAB Spironolactone 25 mg BIDD PO 11/06/24 18:00 11/08/24 05:51 25 MG Sucralfate 1 gm BIDAC PO 11/06/24 17:00 11/08/24 05:51 1 GM Ticagrelor 90 mg BID PO 11/06/24 22:00 11/08/24 09:48 90 MG Carvedilol 6.25 mg BID PO 11/06/24 22:00 11/08/24 09:49 6.25 MG Famotidine 40 mg BID PO 11/06/24 22:00 11/08/24 09:48 40 MG Magnesium Oxide 400 mg HS PO 11/06/24 22:00 11/07/24 22:04 400 MG Nifedipine 90 mg DAILY PO 11/07/24 10:00 Ondansetron HCl 8 mg DAILYPRN PRN PO 11/06/24 14:45 Hold Sertraline HCl 25 mg DAILY PO 11/07/24 10:00 11/08/24 09:48 25 MG Acetaminophen/ Hydrocodone Bitart 1 tab Q6HPRN PRN PO 11/07/24 00:15 Hydromorphone HCl 0.5 mg Q4HPRN PRN IV 11/07/24 15:45 11/08/24 11:04 0.5 MG Amino Acid Protein 30 ml BID PO 11/08/24 10:00 Ascorbic Acid 500 mg BID PO 11/08/24 10:00 11/08/24 11:04 500 MG Multivitamins/ Minerals 1 tab DAILY PO 11/08/24 10:00 11/08/24 11:04 1 TAB Laboratory Results Laboratory Tests 11/07/24 05:10 Microbiology Microbiology Date/Time Source Procedure Growth Status 11/07/24 03:45 Nose MRSA Screen - Final Complete Assessment/Plan Assessment/Plan Recurrent chest pain/negative troponin at this time Coronary artery disease with history of PTCAs and stent placement Hypertension Dyslipidemia Diabetes History of gastroparesis Diverticulosis Status post left BKA Cannabinoid use Chronic kidney disease stage 3 Heart failure with reduced ejection fraction Atherosclerotic vascular disease Plan: Continue current plan of care. Awaiting cardiology re-evaluation Plan discussed with: Patient My Orders Orders - FRANCES DAVEY MD Procedure Category Date Status Time Hydromorphone PHA 11/07/24 In Process Injection (Dilaudid 15:45 Clean Wound With: ORDERS 11/07/24 Transmitted 18:16 Date of Service: Nov 08, 2024 Billing Provider: FRANCES DAVEY MD Common Visit Codes: [id number] INP/OBS CARE(MOD) FRANCES DAVEY MD Nov 08, 2024 15:08
[2024-11-09] VITALS (7 sets, daily range): BP systolic 103–129; BP diastolic 56–83; PULSE 67–78; RESP 16–18; TEMP 36.2; O2SAT 98–100
--- NOTE | 2024-11-09 09:26 | DVHINCON2 ---
VIMAL BERRY [facility] 11/09/24 0926: Date Seen: Nov 09, 2024 Referring Physician MD Marcos Reason for Consultation Chest pain History of Present Illness This is a 43 year old male who presented to the emergency room via EMS with a chief complaint of chest pain. The patient reports he was shopping at [email or web address] at the onset of symptoms. Describes his chest pain as use substernal, nonradiating, pressure-like, and associated with nausea, vomiting, and mild shortness of breath. States he self administered NTG SL 0.4 mg x 1 with mild relief of symptoms. He was also medicated with ASA 324 mg and Zofran 4 mg IV EN route to the hospital by EMS. Upon arrival to the emergency room he underwent multiple 12 lead electrocardiograms x 4 revealing a sinus rhythm with T-wave inversion to lateral leads and inferior Q-waves. The patient underwent a cardiac catheterization without catheter based intervention given widely patent stent to the LAD as well as a left circumflex artery with a chronically occluded right coronary artery and found with diffuse three-vessel disease involving the ramus intermedius and obtuse marginal branches in addition to the distal LAD and circumflex as well as right coronary artery with recommendations for an eventual CABG on 06/2024. He is currently on dual antiplatelet therapy with Brilinta and ASA. Significant past medical history includes severe coronary artery disease status post PTCA X 4 EMPERATRIZ (on ASA and Brilinta) at [facility] on 08/2023, myocardial infarction, congestive heart failure, ischemic car diomyopathy, hypertension, hyperlipidemia, insulin-dependent type 2 diabetes mellitus, gastroparesis, left [id number] amputation with current wound, cannabinoid use, and obesity. Past Medical History Past medical history reviewed. No other significant than mentioned above. Past Surgical History PTCA with four EMPERATRIZ, on 08/2023 Left [id number] amputation Family History: FH: multiple sclerosis G8 MOTHER Family History Family history reviewed. Social History Denies the use of alcohol or tobacco use. Admits to cannabinoid use. Allergies: Coded Allergies: NO KNOWN ALLERGIES (Unverified , 12/04/21) Home Meds Active Scripts Yeast (S. Boulardii)(S. Cerevi (Florastor) 250 Mg Cap, 250 MG PO DAILY for 30 Days, #30 CAP Prov:JOE GUNDERSON FLOOR INSTALLATION MECHANIC 11/03/24 Clindamycin Hcl (Clindamycin Hcl) 300 Mg Cap, 1 CAP PO TID for 10 Days, #30 CAP Prov:JOE GUNDERSON FLOOR INSTALLATION MECHANIC 11/03/24 Nitroglycerin (NTROSTAT SUBLINGUAL) 0.4 Mg Sl, 0.4 MG SL Q5MINP PRN for 30 Days, #30 TAB Prov:VIMAL BERRY STARS SPECIALIST 11/02/24 Sacubitril-Valsartan (Entresto 24-26 mg) 1 Tab Tab, 1 TAB PO BID for 30 Days, #60 TAB 1 Refill Prov:KUNAL LERMA MD 06/06/24 Rosuvastatin Calcium (Crestor) 40 Mg Tab, 1 TAB PO DAILY for 30 Days, #30 TAB 1 Refill Prov:KUNAL LERMA MD 06/06/24 Pantoprazole Sodium Sesquihydr (Pantoprazole Sodium) 40 Mg Tab, 40 MG PO BID for 30 Days, #60 TAB Prov:JOE GUNDERSON FLOOR INSTALLATION MECHANIC 07/09/23 Reported Medications Insulin Lispro (Insulin Lispro Kwikpen) 100 Unit/Ml Inj, 5 UNIT SC UD for 75 Days, #9 INJECT 5 UNITS SUBCUTANEOUSLY PER SLIDING SCALE. MAXIMUM DAILY DOSE OF 12 UNITS. 11/02/24 Hydrocodone-Acetaminophen (Hydrocodone/Acetaminophen 5-325 mg) 1 Tab Tab, 1 TAB PO BID PRN for 30 Days, #60 11/02/24 Aspirin (Aspirin Low Dose) 81 Mg Chw, 1 TAB PO DAILY for 90 Days, #90 11/02/24 Famotidine (Famotidine) 40 Mg Tab, 1 TAB PO BID for 90 Days, #180 11/02/24 Dapagliflozin Propanediol (Farxiga) 10 Mg Tab, 5 MG PO DAILY for 90 Days, #90 11/02/24 Cyclobenzaprine HCl (Cyclobenzaprine Hydrochlo) 5 Mg Tab, 1-2 TAB PO BID PRN for 30 Days, #120 11/02/24 Sucralfate (Sucralfate) 1 Gm Tab, 1 TAB PO BID for 90 Days, #180 11/02/24 Gabapentin (Gabapentin) 400 Mg Cap, 1 CAP PO TID for 30 Days, #90 11/02/24 Magnesium Oxide (Magnesium Oxide) 400 Mg Tab, 1 TAB PO HS for 30 Days, #30 10/30/24 Gemfibrozil (Gemfibrozil) 600 Mg Tab, 1 TAB PO BID for 90 Days, #180 10/30/24 Losartan Potassium (Losartan Potassium) 50 Mg Tab, 1 TAB PO BID 10/30/24 Spironolactone (Spironolactone) 25 Mg Tab, 25 MG PO BID, TAB 06/05/24 Nifedipine (Nifedipine Er) 90 Mg Tab, 90 MG PO DAILY, TAB 06/05/24 Insulin Glargine (Basaglar Kwikpen) 100 Unit/Ml Inj, 20 UNIT SC BID for 23 Days, #9 06/05/24 Ticagrelor Base (BRILINTA) 90 Mg Tab, 90 MG PO BID, TAB 06/05/24 Dapagliflozin Propanediol (Farxiga) 10 Mg Tab, 10 MG PO QAM, TAB 06/05/24 Ondansetron HCl (Ondansetron Hydrochloride) 4 Mg Tab, 2 TAB PO DAILYPRN PRN for nausea/vomiting for 90 Days, #180 07/04/23 Atorvastatin Calcium (ATORVASTATIN CALCIUM) 40 Mg Tab, 1 TAB PO DAILY 07/04/23 Metformin Hydrochloride (Metformin Hcl) 1,000 Mg Tab, 1 TAB PO BIDWM for 90 Days, #180 05/24/23 Sertraline Hcl (Sertraline Hcl) 25 Mg Tab, 1 TAB PO DAILY 05/24/23 Carvedilol (Carvedilol) 6.25 Mg Tab, 1 TAB PO BID 05/24/23 Discontinued Reported Medications Gabapentin (Gabapentin) 800 Mg Tab, 1 TAB PO DAILY 05/24/23 Home Meds Home medications reviewed. Current Medications Current Medications Medications (Trade) Dose Ordered Sig/Sreekanth Route PRN Reason Start Time Stop Time Status Last Admin Amino Acid Protein (Pro-Stat Sugar Free) 30 ml BID PO 11/08/24 10:00 Ascorbic Acid (Vitamin C Tablet) 500 mg BID PO 11/08/24 10:00 11/08/24 22:30 Multivitamins/ Minerals (Mvi W/ Minerals Tablet) 1 tab DAILY PO 11/08/24 10:00 11/08/24 11:04 Review of Systems Constitutional: No symptom reported Ears, Nose, & Throat: No symptom reported Eyes: No symptom reported Neurological: No symptoms reported Pulmonary/Respiratory: SOB Cardiovascular: Chest pain Gastrointestinal: No symptom reported Genitourinary: No symptom reported Musculoskeletal: No symptom reported Skin: No symptom reported Psychiatric: No symptom reported Endocrine: No symptom reported Hemotologic/Lymphatic: No symptom reported Vital Signs Vital Signs Date Time Temp Pulse Resp B/P (MAP) Pulse Ox O2 Delivery O2 Flow Rate FiO2 11/09/24 05:00 97.7 69 17 107/64 (78) 99 97.7 11/08/24 20:00 Room Air* 0 21 Physical Exam General Appearance: Cooperative. Well developed. Well nourished. In no acute distress Head Exam: Normal inspection Neck Exam: Normal inspection. Non-tender. Normal alignment Pulmonary/Respiratory: Chest non-tender. Clear bilateral breath sounds Cardiovascular/Chest: Regular rate and rhythm. S1, S2. No murmurs. No JVD. Peripheral Pulses: 2+ Radial (R). 2+ Radial (L). 2+ Pedal (R). Abdominal Exam: Normal bowel sounds. Soft. Nontender. No hepatospenomegaly. No masses Ankle Exam: Negative ankle edema Lower extremities: Negative lower extremity edema Neuro/Mental Status: A&O x4. Coherent Thoughts/Psych: Normal thought pattern. Appropriate mood and affect. Good judgement and insight Appearance: In no acute distress Skin Exam: Left stump wound Labs/Diagnostic Data Labs Test 11/09/24 06:06 11/07/24 10:27 11/07/24 05:10 11/06/24 13:44 Range/Units POC Glucose 164 H 70-106 mg/dl D-Dimer, Quantitative < 0.19 0.0-0.49 mg/L FEU White Blood Count 5.3 # 4.4-10.8 10^3/uL Red Blood Count 3.74 L 4.5-5.90 10^6/uL Hemoglobin 11.2 #L 13.5-17.5 g/dL Hematocrit 33.2 #L 41.0-53.0 % Mean Corpuscular Volume 88.7 80.0-100.0 fL Mean Corpuscular Hemoglobin 29.9 28.0-32.0 pg Mean Corpuscular Hemoglobin Concent 33.6 32.0-36.0 g/dL Red Cell Distribution Width 14.2 11.8-14.3 % Platelet Count 274 140-450 10^3/uL Mean Platelet Volume 8.8 6.9-10.8 fL Neutrophils (%) (Auto) 42.5 37.0-80.0 % Lymphocytes (%) (Auto) 42.1 10.0-50.0 % Monocytes (%) (Auto) 10.3 0.0-12.0 % Eosinophils (%) (Auto) 3.9 0.0-7.0 % Basophils (%) (Auto) 1.2 0.0-2.0 % Neutrophils # (Auto) 2.3 1.6-8.6 10 ^3/uL Lymphocytes # (Auto) 2.2 0.4-5.4 10 ^3/uL Monocytes # (Auto) 0.5 0-1.3 10 ^3/uL Eosinophils # (Auto) 0.2 0-0.8 10 ^3/uL Basophils # (Auto) 0.1 0-0.2 10 ^3/uL Nucleated Red Blood Cells 0.1 % Sodium Level 136 136-145 mmol/L Potassium Level 4.6 3.5-5.1 mmol/L Chloride Level 103 98-107 mmol/L Carbon Dioxide Level 24 20-31 mmol/L Anion Gap 9 5-15 Blood Urea Nitrogen 27 #H 9-23 mg/dL Creatinine 1.99 H 0.700-1.30 mg/dL Glomerular Filtration Rate Calc 41 >90 mL/min BUN/Creatinine Ratio 13.6 10.0-20.0 Serum Glucose 154 H 74-106 mg/dL Calcium Level 9.6 8.7-10.4 mg/dL Magnesium Level 2.5 1.6-2.6 mg/dL Troponin I High Sensitivity 34 </=54 ng/L Microbiology Date/Time Source Procedure Growth Status 11/07/24 03:45 Nose MRSA Screen - Final Complete Assessment Acute coronary syndrome Acute on chronic compensated HFrEF, NYHA class III Coronary artery disease s/p PTCA --triple-vessel disease recommended CABG evaluation Ischemic cardiomyopathy with a LVEF of 35-40% ?Peripheral arterial disease involving the RLE [employer]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 Castro) * Echocardiogram revealed EF 25% * GDMT for CHF and uptitrate as tolerated * Spironolactone and Entresto held given BLAKE * Dual-antiplatelet therapy with Brilinta and aspirin & lipid-lowering agent * Monitor kidney function. Consider renal evaluation * Repeat morning labs given BLAKE * Initiate clindamycin for LLE wound The patient with multivessel disease has been recommended for coronary artery bypass grafting surgery in the past and has been offered transfer to [facility] for cardiothoracic evaluation. He is adamant to be transferred secondary to family issues and constraints and prefers to follow-up as outpatient. He is scheduled for a follow-up with Cardiology, Dr. Ruiz, on 11/12/2024 at 1015. Chest pain precautions were given including the use of NTG and EMS services. He understands the risks from withholding from further invasive cardiac work-up including a massive myocardial infarction and . There is no further cardiac workup indicated at this time. Please call if you need to re-consult. Thank you for allowing us to care for this patient. Of note: questionable PAD to RLE AGILE PROJECT MANAGER: Possibly occluded posterior tibial vein right lower extremity. This is to be clarified with radiology at this time. Spoke to [employer] telecommunications technician who will reach out to radiologist for further clarification. This medical document was created using an electronic medical record system with voice recognition software and computerized dictation system. Although this document has been carefully reviewed, there might still be some phonetic and typographical errors. Occasional wrong-word or ``sound-alike substitutions ma y have occurred due to the inherent limitations of voice recognition software. These areas are purely typographical due to imperfections of the software programs and do not reflect any compromise in the patient's medical care. Please read the chart carefully and recognize, using context, where these substitutions have occurred. Plan discussed with: Patient, Other NYHA Physical activity limitations: Class2(Slight)fatigue,sob Date of Service: Nov 09, 2024 Billing Provider: VIMAL BERRY STARS SPECIALIST Cardiology Common Codes: [id number] INP/OBS CARE (High) NOAH CASTRO MD 11/09/24 1417: Family History: FH: multiple sclerosis G8 MOTHER Allergies: Coded Allergies: NO KNOWN ALLERGIES (Unverified , 12/04/21) Home Meds Active Scripts Yeast (S. Boulardii)(S. Cerevi (Florastor) 250 Mg Cap, 250 MG PO DAILY for 30 Days, #30 CAP Prov:JOE GUNDERSON FLOOR INSTALLATION MECHANIC 11/03/24 Clindamycin Hcl (Clindamycin Hcl) 300 Mg Cap, 1 CAP PO TID for 10 Days, #30 CAP Prov:JOE GUNDERSON FLOOR INSTALLATION MECHANIC 11/03/24 Nitroglycerin (NTROSTAT SUBLINGUAL) 0.4 Mg Sl, 0.4 MG SL Q5MINP PRN for 30 Days, #30 TAB Prov:VIMAL BERRY STARS SPECIALIST 11/02/24 Sacubitril-Valsartan (Entresto 24-26 mg) 1 Tab Tab, 1 TAB PO BID for 30 Days, #60 TAB 1 Refill Prov:KUNAL LERMA MD 06/06/24 Rosuvastatin Calcium (Crestor) 40 Mg Tab, 1 TAB PO DAILY for 30 Days, #30 TAB 1 Refill Prov:KUNAL LERMA MD 06/06/24 Pantoprazole Sodium Sesquihydr (Pantoprazole Sodium) 40 Mg Tab, 40 MG PO BID for 30 Days, #60 TAB Prov:JOE GUNDERSON FLOOR INSTALLATION MECHANIC 07/09/23 Reported Medications Insulin Lispro (Insulin Lispro Kwikpen) 100 Unit/Ml Inj, 5 UNIT SC UD for 75 Days, #9 INJECT 5 UNITS SUBCUTANEOUSLY PER SLIDING SCALE. MAXIMUM DAILY DOSE OF 12 UNITS. 11/02/24 Hydrocodone-Acetaminophen (Hydrocodone/Acetaminophen 5-325 mg) 1 Tab Tab, 1 TAB PO BID PRN for 30 Days, #60 11/02/24 Aspirin (Aspirin Low Dose) 81 Mg Chw, 1 TAB PO DAILY for 90 Days, #90 11/02/24 Famotidine (Famotidine) 40 Mg Tab, 1 TAB PO BID for 90 Days, #180 11/02/24 Dapagliflozin Propanediol (Farxiga) 10 Mg Tab, 5 MG PO DAILY for 90 Days, #90 11/02/24 Cyclobenzaprine HCl (Cyclobenzaprine Hydrochlo) 5 Mg Tab, 1-2 TAB PO BID PRN for 30 Days, #120 11/02/24 Sucralfate (Sucralfate) 1 Gm Tab, 1 TAB PO BID for 90 Days, #180 11/02/24 Gabapentin (Gabapentin) 400 Mg Cap, 1 CAP PO TID for 30 Days, #90 11/02/24 Magnesium Oxide (Magnesium Oxide) 400 Mg Tab, 1 TAB PO HS for 30 Days, #30 10/30/24 Gemfibrozil (Gemfibrozil) 600 Mg Tab, 1 TAB PO BID for 90 Days, #180 10/30/24 Losartan Potassium (Losartan Potassium) 50 Mg Tab, 1 TAB PO BID 10/30/24 Spironolactone (Spironolactone) 25 Mg Tab, 25 MG PO BID, TAB 06/05/24 Nifedipine (Nifedipine Er) 90 Mg Tab, 90 MG PO DAILY, TAB 06/05/24 Insulin Glargine (Basaglar Kwikpen) 100 Unit/Ml Inj, 20 UNIT SC BID for 23 Days, #9 06/05/24 Ticagrelor Base (BRILINTA) 90 Mg Tab, 90 MG PO BID, TAB 06/05/24 Dapagliflozin Propanediol (Farxiga) 10 Mg Tab, 10 MG PO QAM, TAB 06/05/24 Ondansetron HCl (Ondansetron Hydrochloride) 4 Mg Tab, 2 TAB PO DAILYPRN PRN for nausea/vomiting for 90 Days, #180 07/04/23 Atorvastatin Calcium (ATORVASTATIN CALCIUM) 40 Mg Tab, 1 TAB PO DAILY 07/04/23 Metformin Hydrochloride (Metformin Hcl) 1,000 Mg Tab, 1 TAB PO BIDWM for 90 Days, #180 05/24/23 Sertraline Hcl (Sertraline Hcl) 25 Mg Tab, 1 TAB PO DAILY 05/24/23 Carvedilol (Carvedilol) 6.25 Mg Tab, 1 TAB PO BID 05/24/23 Discontinued Reported Medications Gabapentin (Gabapentin) 800 Mg Tab, 1 TAB PO DAILY 05/24/23 Plan/Recommendation PATIENT LEFT BEFORE ME SEEING HIM PT HAS SEVERE 3V CAD, I REVIEWED HIS IMAGES HES REFUSD CABG FOR 4 MONTHS NOW 2/2 TO FAMILY ISSUES HIGH RISK FOR CV EVENT OR REFUSED TRANSFER TO HIGHER LEVEL DR RUIZ HIS PRIMARY CARDS IS AWARE HE HAS PAD AND WOUND WELL, PT AWARE OF HIS HIGH RISK NATURE AND NEEDS URGENT CABG TREATMENT BUT HAS REFUSED VIMAL BERRY Nov 09, 2024 09:26 NOAH CASTRO MD Nov 09, 2024 14:17
[2024-11-09] MEDS: TICAGRELOR 90 MG TAB PO SCH (10:00)
[2024-11-09] MEDS: CLINDAMYCIN 300MG IV 50 ML IV ONE (10:06)
[2024-11-09 10:59] LABS: Basophils # (auto) 0.1 10 ^3/uL (0-0.2); Basophils % (auto) 0.9 % (0.0-2.0); Chloride 102 mmol/L (98-107); Eosinophils # (auto) 0.1 10 ^3/uL (0-0.8); Eosinophils % (auto) 2.1 % (0.0-7.0); Hematocrit 37.9 % (41.0-53.0); Hemoglobin 12.7 g/dL (13.5-17.5); Lymphocytes # (auto) 1.7 10 ^3/uL (0.4-5.4); Lymphocytes % (auto) 29.4 % (10.0-50.0); Mean Corpuscular Hemoglobin 30.4 pg (28.0-32.0); Mean Corpuscular Hgb Conc. 33.5 g/dL (32.0-36.0); Mean Corpuscular Volume 90.8 fL (80.0-100.0); Monocytes # (auto) 0.5 10 ^3/uL (0-1.3); Monocytes % (auto) 9.4 % (0.0-12.0); Neutrophils # (auto) 3.3 10 ^3/uL (1.6-8.6); Neutrophils % (auto) 58.2 % (37.0-80.0); Platelet Count (auto) 304 10^3/uL (140-450); Potassium 4.8 mmol/L (3.5-5.1); Red Blood Cells 4.18 10^6/uL (4.5-5.90); Red Cell Distribution Width 14.3 % (11.8-14.3); White Blood Cell 5.7 10^3/uL (4.4-10.8)
[2024-11-09 11:00] LABS: Anion Gap 11 (5-15); Carbon Dioxide 23 mmol/L (20-31)
[2024-11-09 11:05] LABS: BUN/Creatinine Ratio 14.1 (10.0-20.0); Blood Urea Nitrogen 20 mg/dL (9-23); Calcium 10.4 mg/dL (8.7-10.4); Glucose 180 mg/dL (74-106); Sodium 136 mmol/L (136-145)
[2024-11-09] MEDS: EMPAGLIFLOZIN 10 MG TAB PO SCH (11:23)
[2024-11-09] MEDS: CLINDAMYCIN 300MG IV 50 ML IV SCH (14:32)
== END 2024-11-09 16:00 | disposition home or self-care (01) | DRG 194 ==
LOC: ER 07:10 → OVERFLOW 13:33 → TELE-CENTR 11-07 02:59
PROVIDERS: ADMIT Hospitalist; ATTEND Hospitalist
DX: I13.0 Hypertensive heart and chronic kidney disease with heart failure and stage 1 through stage 4 chronic kidney disease, or unspecified chronic kidney disease (principal); N17.9 Acute kidney failure, unspecified; I24.9 Acute ischemic heart disease, unspecified; E11.22 Type 2 diabetes mellitus with diabetic chronic kidney disease; I50.23 Acute on chronic systolic (congestive) heart failure; Z68.26 Body mass index [BMI] 26.0-26.9, adult; E78.5 Hyperlipidemia, unspecified; N18.30 Chronic kidney disease, stage 3 unspecified; K57.30 Diverticulosis of large intestine without perforation or abscess without bleeding; G89.29 Other chronic pain; F41.9 Anxiety disorder, unspecified; E66.9 Obesity, unspecified; E11.65 Type 2 diabetes mellitus with hyperglycemia; E11.51 Type 2 diabetes mellitus with diabetic peripheral angiopathy without gangrene; E11.43 Type 2 diabetes mellitus with diabetic autonomic (poly)neuropathy; I25.5 Ischemic cardiomyopathy; I25.2 Old myocardial infarction; Z98.61 Coronary angioplasty status; Z95.1 Presence of aortocoronary bypass graft; Z82.0 Family history of epilepsy and other diseases of the nervous system; Z79.4 Long term (current) use of insulin; Z76.5 Malingerer [conscious simulation]; Z89.512 Acquired absence of left leg below knee; Z79.899 Other long term (current) drug therapy; Z79.84 Long term (current) use of oral hypoglycemic drugs; Z79.82 Long term (current) use of aspirin
CPT/HCPCS: 36415; 71045; 80048; 82962; 83735; 84484; 85025; 85379; 87081; 93005; 96374; 96375; 99291; G0378; J1815; J2405; J3490

== ENCOUNTER 2024-11-23 12:21 | Inpatient (IN) | payer MEDICAID ==
[~2024-11-23] VITALS: Ht 205.7 cm; Wt 114.5 kg
--- NOTE | 2024-11-23 12:38 | ED.PDOC ---
History of Present Illness HPI Comments 43 y/o M is BIBA for c/o chest and abdominal pain with shortness of breath w/exertion, today. Per EMS report patient endorses on having symptoms, intermittently, since stent placement in August,, with most recent onset taking place, today. Patient reports on pain being localized to his sternal and epigastric area and rates it a 7/10 in severity. He also c/o worsening chronic right foot cellulitis pain and swelling with associated discharge for the past 3x days. On scene, patient was found with a blood glucose of 109. En route, patient was stated to have been given 1x NTG and 324mg ASA. Patient admits to current Cidomycin antibiotic use and reports on being informed on his "stents no longer working" following his last hospitalization. Patient has a history of CHF, CKF, DMII w/neuropathy, HLD, HTN, hypotension, GA, PTCA, pulmonary edema, previous CPAP, and left BKA. Patient denies any palpitations, left-arm pain, nausea, vomiting, fever, chills, or other associated symptoms or modifiers at this time. Time Seen by MD: 12:20 Primary Care Provider: DESTINY Reviewed Notes: Nurses Notes, Computer Security Specialist Notes, Medications, Allergies Allergies: Coded Allergies: NO KNOWN ALLERGIES (Unverified , 12/04/21) Home Meds Active Scripts Yeast (S. Boulardii)(S. Cerevi (Florastor) 250 Mg Cap, 250 MG PO DAILY for 30 Days, #30 CAP Prov:JOE GUNDERSON LOG OPERATIONS COORDINATOR 11/03/24 Clindamycin Hcl (Clindamycin Hcl) 300 Mg Cap, 1 CAP PO TID for 10 Days, #30 CAP Prov:JOE GUNDERSON LOG OPERATIONS COORDINATOR 11/03/24 Nitroglycerin (NTROSTAT SUBLINGUAL) 0.4 Mg Sl, 0.4 MG SL Q5MINP PRN for 30 Days, #30 TAB Prov:VIMAL BERRY 11/02/24 Sacubitril-Valsartan (Entresto 24-26 mg) 1 Tab Tab, 1 TAB PO BID for 30 Days, #60 TAB 1 Refill Prov:KUNAL LERMA MD 06/06/24 Rosuvastatin Calcium (Crestor) 40 Mg Tab, 1 TAB PO DAILY for 30 Days, #30 TAB 1 Refill Prov:KUNAL LERMA MD 06/06/24 Pantoprazole Sodium Sesquihydr (Pantoprazole Sodium) 40 Mg Tab, 40 MG PO BID for 30 Days, #60 TAB Prov:JOE GUNDERSON NP 07/09/23 Reported Medications Insulin Lispro (Insulin Lispro Kwikpen) 100 Unit/Ml Inj, 5 UNIT SC UD for 75 Days, #9 INJECT 5 UNITS SUBCUTANEOUSLY PER SLIDING SCALE. MAXIMUM DAILY DOSE OF 12 UNITS. 11/02/24 Hydrocodone-Acetaminophen (Hydrocodone/Acetaminophen 5-325 mg) 1 Tab Tab, 1 TAB PO BID PRN for 30 Days, #60 11/02/24 Aspirin (Aspirin Low Dose) 81 Mg Chw, 1 TAB PO DAILY for 90 Days, #90 11/02/24 Famotidine (Famotidine) 40 Mg Tab, 1 TAB PO BID for 90 Days, #180 11/02/24 Dapagliflozin Propanediol (Farxiga) 10 Mg Tab, 5 MG PO DAILY for 90 Days, #90 11/02/24 Cyclobenzaprine HCl (Cyclobenzaprine Hydrochlo) 5 Mg Tab, 1-2 TAB PO BID PRN for 30 Days, #120 11/02/24 Sucralfate (Sucralfate) 1 Gm Tab, 1 TAB PO BID for 90 Days, #180 11/02/24 Gabapentin (Gabapentin) 400 Mg Cap, 1 CAP PO TID for 30 Days, #90 11/02/24 Magnesium Oxide (Magnesium Oxide) 400 Mg Tab, 1 TAB PO HS for 30 Days, #30 10/30/24 Gemfibrozil (Gemfibrozil) 600 Mg Tab, 1 TAB PO BID for 90 Days, #180 10/30/24 Losartan Potassium (Losartan Potassium) 50 Mg Tab, 1 TAB PO BID 10/30/24 Spironolactone (Spironolactone) 25 Mg Tab, 25 MG PO BID, TAB 06/05/24 Nifedipine (Nifedipine Er) 90 Mg Tab, 90 MG PO DAILY, TAB 06/05/24 Insulin Glargine (Basaglar Kwikpen) 100 Unit/Ml Inj, 20 UNIT SC BID for 23 Days, #9 06/05/24 Ticagrelor Base (BRILINTA) 90 Mg Tab, 90 MG PO BID, TAB 06/05/24 Dapagliflozin Propanediol (Farxiga) 10 Mg Tab, 10 MG PO QAM, TAB 06/05/24 Ondansetron HCl (Ondansetron Hydrochloride) 4 Mg Tab, 2 TAB PO DAILYPRN PRN for nausea/vomiting for 90 Days, #180 07/04/23 Atorvastatin Calcium (ATORVASTATIN CALCIUM) 40 Mg Tab, 1 TAB PO DAILY 07/04/23 Metformin Hydrochloride (Metformin Hcl) 1,000 Mg Tab, 1 TAB PO BIDWM for 90 Days, #180 05/24/23 Sertraline Hcl (Sertraline Hcl) 25 Mg Tab, 1 TAB PO DAILY 05/24/23 Carvedilol (Carvedilol) 6.25 Mg Tab, 1 TAB PO BID 05/24/23 Information Source: Patient, Emergency Med Personnel Mode of Arrival: EMS Severity: Moderate Timing: Hours Duration: Since onset Prehospital treatment: 12 Lead EKG, Accucheck (109), ASA, Calenderer, NTG Past Medical History PAST MEDICAL HISTORY: CHF, CKF, DM (type II w/neuropathy ), High Lipids, HTN, Hypotension, GA Past Medical History (Other): Pulmonary Edema Previous CPAP Surgical History: BKA (Left ), PTCA Surgical History (Other): foot wound debridemen Family History Family History: Reviewed,noncontributory to illness, Unknown Social History Smoker: Non-Smoker Alcohol: Denies ETOH Use Drugs: Marijuana Lives In: Home Constitutional: denies: chills, diaphoresis, fatigue, fever, malaise, sweats, weakness, others EENTM: denies: blurred vision, double vision, ear bleeding, ear discharge, ear drainage, ear pain, ear ringing, eye pain, eye redness, hearing loss, mouth pain, mouth swelling, nasal discharge, nose bleeding, nose congestion, nose pain, photophobia, tearing, throat pain, throat swelling, voice changes, others Respiratory: reports: SOB with excertion; denies: cough, hemoptysis, orthopnea, SOB at rest, shortness of breath, stridor, wheezing, others Cardiovascular: reports: chest pain; denies: dizzy spells, diaphoresis, Dyspnea on exertion, edema, irregular heart beat, left arm pain, lightheadedness, palpitations, PND, syncope, others Gastrointestinal: reports: abdominal pain; denies: abdomen distended, blood streaked bowels, constipated, diarrhea, dysphagia, difficulty swallowing, hematemesis, melena, nausea, poor appetite, poor fluid intake, rectal bleeding, rectal pain, vomiting, others Genitourinary: denies: burning, dysuria, flank pain, frequency, hematuria, incontinence, penile discharge, penile sore, pain, testicle pain, testicle swelling, urgency, others Neurological: denies: dizziness, fainting, headache, left sided numbness, left sided weakness, numbness, paresthesia, pre-existing deficit, right sided numbness, right sided weakness, seizure, speech problems, tingling, tremors, weakness, others Musculoskeletal: reports: others (right foot pain and swelling ); denies: back pain, gout, joint pain, joint swelling, muscle pain, muscle stiffness, neck pain Integumetry: denies: bruises, change in color, change in hair/nails, dryness, laceration, lesions, lumps, rash, wounds, others Allergic/Immunocompromised: denies: Difficulty Healing, Frequent Infections, Hives, Itching, others Hematologic/Lymphatic: denies: anemia, blood clots, easy bleeding, easy bruising, swollen glands, others Endocrine: denies: excessive hunger, excessive sweating, excessive thirst, excessive urination, flushing, intolerance to cold, intolerance to heat, unexplained weight gain, unexplained weight loss, others Psychiatric: denies: anxiety, bipolar disorder, depression, hopeless, panic disorder, schizophrenia, sleepless, suicidal, others All Other Systems: Reviewed and Negative Physical Exam General Appearance: Moderate Distress HEENT: Pale Conjuntivae (L), Pale Conjuntivae (R), Pharynx Normal, TMs Normal Neck: Full Range of Motion, Non-Tender, Normal, Normal Inspection Respiratory: Chest Non-Tender, Lungs Clear, No Accessory Muscle Use, No Respiratory Distress, Normal Breath Sounds Cardiovascular: No Edema, No JVD, No Murmur, No Gallop, Normal Peripheral Pulses, Regular Rate/Rhythm Breast Exam: Deferred Gastrointestinal: No Organomegaly, Non Tender, No Pulsatile Mass, Normal Bowel Sounds, Soft Genitalia: Deferred Pelvic: Deferred Rectal: Deferred Extremities: No calf tenderness, Normal capillary refill, Other (The patient has a left BKA. The right foot is significantly swollen with redness and some drainage from the area) Musculoskeletal : Apperance: Normal Neurologic: Alert, jewelry store manager II-XII nml as Tested, Motor Weakness, Normal Affect, Normal Mood, No Sensory Deficits Cerebellar Function: Normal Reflexes: Normal Skin: Dry, Pallor, Warm Lymphatic: No Adenopathy Was a procedure done? Was a procedure done?: No EKG EKG : Pulse Rate (adult): 109 [place]: Normal Cardiac Rhythm: ST Block: None Hypertrophy: None ST: Normal Differential Dx Considerations may include: GA, PE, ACS, URI, PNA, viral syndrome, anxiety, angina, gastritis, sepsis, unhealing cellulitic foot wound, among others X-Ray, Labs, Meds, VS Vital Signs Date Time Temp Pulse Resp B/P (MAP) Pulse Ox O2 Delivery O2 Flow Rate FiO2 11/23/24 13:54 70 15 132/84 11/23/24 13:24 86 17 128/86 11/23/24 13:21 97 11/23/24 12:38 109 11/23/24 12:31 97.6 106 16 112/83 (93) 97 97.6 11/23/24 12:24 106 Lab Test 11/23/24 15:45 11/23/24 14:02 11/23/24 13:06 Range/Units Troponin I High Sensitivity Pending 15 15 </=54 ng/L White Blood Count 5.4 4.4-10.8 10^3/uL Red Blood Count 3.60 L 4.5-5.90 10^6/uL Hemoglobin 11.1 L 13.5-17.5 g/dL Hematocrit 32.4 L 41.0-53.0 % Mean Corpuscular Volume 90.0 80.0-100.0 fL Mean Corpuscular Hemoglobin 30.8 28.0-32.0 pg Mean Corpuscular Hemoglobin Concent 34.3 32.0-36.0 g/dL Red Cell Distribution Width 15.6 H 11.8-14.3 % Platelet Count 392 140-450 10^3/uL Mean Platelet Volume 7.8 6.9-10.8 fL Neutrophils (%) (Auto) 58.6 37.0-80.0 % Lymphocytes (%) (Auto) 30.8 10.0-50.0 % Monocytes (%) (Auto) 6.7 0.0-12.0 % Eosinophils (%) (Auto) 3.0 0.0-7.0 % Basophils (%) (Auto) 0.9 0.0-2.0 % Neutrophils # (Auto) 3.2 1.6-8.6 10 ^3/uL Lymphocytes # (Auto) 1.7 0.4-5.4 10 ^3/uL Monocytes # (Auto) 0.4 0-1.3 10 ^3/uL Eosinophils # (Auto) 0.2 0-0.8 10 ^3/uL Basophils # (Auto) 0 0-0.2 10 ^3/uL Nucleated Red Blood Cells 0.1 % Sodium Level 140 136-145 mmol/L Potassium Level 4.8 3.5-5.1 mmol/L Chloride Level 106 98-107 mmol/L Carbon Dioxide Level 26 20-31 mmol/L Anion Gap 8 5-15 Blood Urea Nitrogen 19 9-23 mg/dL Creatinine 0.97 0.700-1.30 mg/dL Glomerular Filtration Rate Calc 98 >90 mL/min BUN/Creatinine Ratio 19.6 10.0-20.0 Serum Glucose 83 74-106 mg/dL Calcium Level 9.8 8.7-10.4 mg/dL B-Type Natriuretic Peptide 175.73 0-100 pg/mL Current Medications Medications (Trade) Dose Ordered Sig/Sreekanth Route Start Time Stop Time Status Last Admin Morphine Sulfate 4 mg ONCE ONCE IV 11/23/24 12:30 11/23/24 12:31 DC 11/23/24 13:24 Ondansetron HCl (Zofran) 4 mg ONCE ONCE IV 11/23/24 12:30 11/23/24 12:31 DC 11/23/24 13:25 Vancomycin HCl 200 ml @ 200 mls/hr ONCE ONCE IV 11/23/24 12:30 11/23/24 13:29 DC 11/23/24 13:24 PROCEDURE(s): CXRP - CHEST PORTABLE IMPRESSION: No acute disease. The patient's CBC shows anemia with a hemoglobin of 11.1 hematocrit of 32.4 The BNP is 175.73 The troponin level x2 is negative At this time, the patient was started on vancomycin for the right foot. The patient was given morphine 4 mg IV push for the pain The patient was given Zofran 4 mg IV push for the nausea. The chest x-ray is negative The CAT scan of the right foot does not show any sign of any osteomyelitis At this time, the patient was being admitted to the hospitalist Images Reviewed?: Images reviewed and evaluated by me Time of 1ST Reevaluation: 12:50 Reevaluation 1ST: Unchanged Patient Education/Counseling: Diagnosis, Treatment, Prognosis Family Education/Counseling: No Family Present Departure 1 Departure Time of Disposition: 16:24 Impression: Primary Impression: Acute myocardial ischemia Additional Impressions: Right foot infection Acute chest pain Generalized weakness Disposition: ADMITTED INPATIENT Admit to: Tele Condition: Fair Critical Care Note Critical Care Time?: Yes (55 min-critical care time only) Stability Stability form required: Yes Unstable for transfer: Telemetry monitoring (Telemetry monitoring required), ED Physician Assesment (Clinical assesment) Heart Score Heart Score: Heart Score Response (Comments) Value History Highly Suspicious 2 EKG Normal 0 Age 45-64 1 Risk Factors >3 or Hx ASHD 2 Troponin Normal limit 0 Total 5 I personally scribed for PORSHA GARDUNO MD ([email or web address]) on 11/23/24 at 12:38. Electronically submitted by Cole Daniels ([email or web address]). I personally scribed for PORSHA GARDUNO MD ([email or web address]) on 11/23/24 at 13:58. Electronically submitted by Cole Daniels [email or web address]). PORSHA GARDUNO MD Nov 23, 2024 12:38
[2024-11-23] MEDS: VANCOMYCIN 1GM/200ML PM 200 ML IV ONE (13:24)
[2024-11-23] MEDS: MORPHINE SULFATE 4 MG/ML SYR/VIAL IV ONE (13:24)
[2024-11-23] MEDS: ONDANSETRON HCL 4 MG/2 ML VIAL IV ONE (13:25)
[2024-11-23 13:26] LABS: Chloride 106 mmol/L (98-107); Potassium 4.8 mmol/L (3.5-5.1); Sodium 140 mmol/L (136-145)
[2024-11-23 13:27] LABS: Anion Gap 8 (5-15); Carbon Dioxide 26 mmol/L (20-31)
[2024-11-23 13:28] LABS: Basophils # (auto) 0 10 ^3/uL (0-0.2); Basophils % (auto) 0.9 % (0.0-2.0); Calcium 9.8 mg/dL (8.7-10.4); Eosinophils # (auto) 0.2 10 ^3/uL (0-0.8); Hematocrit 32.4 % (41.0-53.0); Hemoglobin 11.1 g/dL (13.5-17.5); Lymphocytes # (auto) 1.7 10 ^3/uL (0.4-5.4); Lymphocytes % (auto) 30.8 % (10.0-50.0); Mean Corpuscular Hemoglobin 30.8 pg (28.0-32.0); Mean Corpuscular Hgb Conc. 34.3 g/dL (32.0-36.0); Monocytes # (auto) 0.4 10 ^3/uL (0-1.3); Monocytes % (auto) 6.7 % (0.0-12.0); Neutrophils # (auto) 3.2 10 ^3/uL (1.6-8.6); Neutrophils % (auto) 58.6 % (37.0-80.0); Nucleated Red Blood Cells % 0.1 %; Platelet Count (auto) 392 10^3/uL (140-450); Red Cell Distribution Width 15.6 % (11.8-14.3); White Blood Cell 5.4 10^3/uL (4.4-10.8)
[2024-11-23 13:33] LABS: BUN/Creatinine Ratio 19.6 (10.0-20.0); Blood Urea Nitrogen 19 mg/dL (9-23); Glucose 83 mg/dL (74-106)
--- NOTE | 2024-11-23 13:46 | DVH ---
CHEST RADIOGRAPH Indication: cp Technique: Single frontal view of the chest was obtained COMPARISON: XY CHEST PORTABLE on DOS: 11/06/24, XY CHEST PORTABLE on DOS: 11/01/24, XY CHEST PORTABLE on DOS: 10/30/24, XY CHEST PORTABLE on DOS: 10/07/24, XY CHEST PORTABLE on DOS: 06/03/24 FINDINGS: Lines and Tubes: None Lungs: Clear Pleura: No effusion. No pneumothorax. Cardiomediastinal contours: Unremarkable Bones: Unremarkable IMPRESSION: No acute disease.
--- NOTE | 2024-11-23 15:00 | DVH ---
EXAM: CT CT R FOOT WO CONTRAST INDICATION: infection EXAM DATE: 11/23/2024 01:04 PM COMPARISON: None TECHNIQUE: Multiple axial CT images of the right foot were obtained using bone algorithm. Axial and c oronal reformatting was done. Bone and soft tissue windows were reviewed. Radiation Dose Information: CT Dose: CTDI volume is 7.75 mGy. Dose-length product is 257.46 mGy*cm Findings/Impression: Limited evaluation given noncontrast technique. There is no evidence of an acute fracture, dislocation, osseous erosions, blastic, or lytic lesions. No radiopaque foreign bodies. [id number]-[id number] dorsal soft tissue edema. No focal fluid collections or subcutaneous emphysema.
[2024-11-23] MEDS ORDERED: VANCOMYCIN PER PHARMACY 0 MG IV SCH (19:00)
[2024-11-23] MEDS ORDERED: NITROGLYCERIN 0.4 MG SL TAB SL PRN (19:00)
[2024-11-23] MEDS ORDERED: MORPHINE SULFATE INJ 2 MG/ml SYRG IV PRN (19:00)
[2024-11-23] MEDS ORDERED: DEXTROSE (50%) 50ML SYRG IV PRN (19:00)
[2024-11-23] MEDS ORDERED: ACETAMINOPHEN 325 MG TAB PO PRN (19:00)
--- NOTE | 2024-11-23 21:13 | DVHHP2 ---
History of Present Illness Reason for Visit: Chest pain History of Present Illness 43-year-old male presents for evaluation of chest pain. Patient reports a three day history of substernal chest pain. He also reports an infection on his right foot which chest progressively gotten worse. Denies fever or chills. No other acute complaints reported. Review of Systems Review of Systems Review of systems are currently negative otherwise addressed in HPI Allergies: Coded Allergies: NO KNOWN ALLERGIES (Unverified , 12/04/21) Medications Current Medications Medications Dose Ordered Sig/Sreekanth Route Start Time Stop Time Status Last Admin Dose Admin Spironolactone 25 mg BIDD PO 11/24/24 06:00 Atorvastatin Calcium 40 mg HS PO 11/23/24 22:00 Carvedilol 6.25 mg Q12HR PO 11/23/24 22:00 Losartan Potassium 50 mg DAILY PO 11/24/24 10:00 Nifedipine 90 mg DAILY PO 11/24/24 10:00 Pantoprazole Sodium 40 mg DAILY@0600 PO 11/24/24 06:00 Ticagrelor 90 mg BID PO 11/23/24 22:00 Aspirin 81 mg DAILY PO 11/24/24 10:00 Ceftriaxone Sodium 50 ml @ 100 mls/hr DAILY@09 IV 11/24/24 09:00 Vancomycin HCl 0 ml @ 0 mls/hr UD IV 11/23/24 19:00 Diagnostic Test (Pha) 1 strip ACHS 11/23/24 22:00 Insulin Human Regular ACHS SC 11/23/24 22:00 Dextrose 50 ml UD PRN IV 11/23/24 19:00 Ondansetron HCl 4 mg Q4HP PRN IV 11/23/24 19:00 Acetaminophen 650 mg Q6HP PRN PO 11/23/24 19:00 Nitroglycerin 0.4 mg Q5MINP PRN SL 11/23/24 19:00 Morphine Sulfate 2 mg Q30M PRN IV 11/23/24 19:00 Vancomycin HCl 200 ml @ 200 mls/hr Q8H IV 11/23/24 20:00 Exam Vital Signs Vital Signs Date Time Temp Pulse Resp B/P (MAP) Pulse Ox O2 Delivery O2 Flow Rate FiO2 11/23/24 13:54 70 15 132/84 11/23/24 12:31 97.6 97 97.6 Exam Gen: 43-year-old in no apparent distress. Skin: Warm, dry, normal color and texture, no rash. HEENT: Normocephalic atraumatic, mucous membranes moist and pink. Neck: Cervical and supraclavicular nodes normal without enlargement, trachea is midline, thyroid gland is normal without masses. Pulmonary: Clear to auscultation and percussion bilaterally. Cardiac: Regular rate and rhythm. No murmur Abdomen: Soft, nontender, nondistended, bowel sounds present all 4 quadrants, no guarding, no rigidity, no organomegaly. Extremities: No cyanosis, clubbing, right foot with mild cellulitis. Neuro: Cranial nerves II through XII grossly intact, normal affect and speech, no focal motor deficits. Labs/Xrays ORDERING PHYSICIAN: JEN CACERES PROCEDURE(s): ECIDC - ECHO 2D MODE CARDIAC DOP REASON: chest pain ORDER NUMBER(s): [id number], ACCESSION NUMBER(s): [id number] APPROVED REPORT EXAM: LIMITED Two-dimensional and M-mode echocardiogram with Doppler and color Doppler. Blood Pressure: 135/87 mmHg INDICATION Chest Pain RISK FACTORS Obesity: Height: 5'9, Weight: 257 DIMENSIONS LVDd 4.1 (3.8-5.7cm) LA (2D) 3.7 (1.9-4.0cm) Aortic Root 3.5 (2.0- 3.7cm) LVDs 3.3 (2.5-4.0cm) LA (MM) (1.9-4.0cm) Aortic Cusp Exc 1.8 (1.5- 2.0cm) EF (%) 47.0 (55-70%) Rt. Atrium 3.7 (1.9-4.0cm) Asc. Aorta cm IVSd 1.1 (0.7-1.1cm) RV (D) 4.1 (1.8-2.4cm) PWd 1.3 (0.7-1.1cm) Mitral Valve Mitral Mitral Stenosis E wave 0.42m/s MV Mean GR. mmHg A wave 0.59m/s MV Peak GR. mmHg E/A ratio 0.7 2D MVA cm2 DECEL Time 241ms PRESS 1/2 Time ms Aortic Valve Aortic Valve Aortic Stenosis V1 0.85m/s AO Mean GR. mmHg V2 1.20m/s AO Peak GR. 6mmHg LVOT Diameter 1.9 (1.8-2.4cm) Doppler SHRUTHI 2.01cm2 Conclusion GLOBAL LV HYPOKINESIS LV EF IS IN RANGE OF ONLY 25% NORMAL VALVES NO EFFUSION SIGNED BY: MALOU SOFIA MD SIGNED DATE/TIME: 11/01/24 0217 CC: ORDERING PHYSICIAN: PORSHA GARDUNO MD PROCEDURE(s): CXRP - CHEST PORTABLE REASON: cp ORDER NUMBER(s): [id number], ACCESSION NUMBER(s): [id number] CHEST RADIOGRAPH Indication: cp Technique: Single frontal view of the chest was obtained COMPARISON: XY CHEST PORTABLE on DOS: 11/06/24, XY CHEST PORTABLE on DOS: 11/01/24, XY CHEST PORTABLE on DOS: 10/30/24, XY CHEST PORTABLE on DOS: 10/07/24, XY CHEST PORTABLE on DOS: 06/03/24 FINDINGS: Lines and Tubes: None Lungs: Clear Pleura: No effusion. No pneumothorax. Cardiomediastinal contours: Unremarkable Bones: Unremarkable IMPRESSION: No acute disease. RING PHYSICIAN: PORSHA GARDUNO MD PROCEDURE(s): RFTCT - CT R FOOT WO CONTRAST REASON: infection ORDER NUMBER(s): [id number], ACCESSION NUMBER(s): [id number] EXAM: CT CT R FOOT WO CONTRAST INDICATION: infection EXAM DATE: 11/23/2024 01:04 PM COMPARISON: None TECHNIQUE: Multiple axial CT images of the right foot were obtained using bone algorithm. Axial and coronal reformatting was done. Bone and soft tissue windows were reviewed. Radiation Dose Information: CT Dose: CTDI volume is 7.75 mGy. Dose-length product is 257.46 mGy*cm Findings/Impression: Limited evaluation given noncontrast technique. There is no evidence of an acute fracture, dislocation, osseous erosions, blastic, or lytic lesions. No radiopaque foreign bodies. Xpkp-ho-whsqhdby dorsal soft tissue edema. No focal fluid collections or subcutaneous emphysema. ATED BY: ABBY STARKEY DO Labs Test 11/23/24 15:45 11/23/24 13:06 Range/Units Troponin I High Sensitivity 16 </=54 ng/L White Blood Count 5.4 4.4-10.8 10^3/uL Red Blood Count 3.60 L 4.5-5.90 10^6/uL Hemoglobin 11.1 L 13.5-17.5 g/dL Hematocrit 32.4 L 41.0-53.0 % Mean Corpuscular Volume 90.0 80.0-100.0 fL Mean Corpuscular Hemoglobin 30.8 28.0-32.0 pg Mean Corpuscular Hemoglobin Concent 34.3 32.0-36.0 g/dL Red Cell Distribution Width 15.6 H 11.8-14.3 % Platelet Count 392 140-450 10^3/uL Mean Platelet Volume 7.8 6.9-10.8 fL Neutrophils (%) (Auto) 58.6 37.0-80.0 % Lymphocytes (%) (Auto) 30.8 10.0-50.0 % Monocytes (%) (Auto) 6.7 0.0-12.0 % Eosinophils (%) (Auto) 3.0 0.0-7.0 % Basophils (%) (Auto) 0.9 0.0-2.0 % Neutrophils # (Auto) 3.2 1.6-8.6 10 ^3/uL Lymphocytes # (Auto) 1.7 0.4-5.4 10 ^3/uL Monocytes # (Auto) 0.4 0-1.3 10 ^3/uL Eosinophils # (Auto) 0.2 0-0.8 10 ^3/uL Basophils # (Auto) 0 0-0.2 10 ^3/uL Nucleated Red Blood Cells 0.1 % Sodium Level 140 136-145 mmol/L Potassium Level 4.8 3.5-5.1 mmol/L Chloride Level 106 98-107 mmol/L Carbon Dioxide Level 26 20-31 mmol/L Anion Gap 8 5-15 Blood Urea Nitrogen 19 9-23 mg/dL Creatinine 0.97 0.700-1.30 mg/dL Glomerular Filtration Rate Calc 98 >90 mL/min BUN/Creatinine Ratio 19.6 10.0-20.0 Serum Glucose 83 74-106 mg/dL Calcium Level 9.8 8.7-10.4 mg/dL B-Type Natriuretic Peptide 175.73 0-100 pg/mL Assessment/Plan Assessment/Plan Assessment Chest pain rule out ACS Right foot cellulitis Diabetes mellitus Plan Admit the patient to telemetry to the hospitalist Rocephin/vancomycin Podiatry consultation Resume home medications Continue treatment per orders. Plan discussed with: Patient My Orders Orders - JOJO BETHEA Procedure Category Date Status Time Spironolactone PHA 11/24/24 In Process (Aldactone) 06:00 Atorvastatin (Lipitor) PHA 11/23/24 In Process 22:00 Carvedilol Tablet PHA 11/23/24 In Process (Coreg Tablet) 22:00 Losartan Tablet PHA 11/24/24 In Process (Cozaar Tablet) 10:00 Nifedipine Er PHA 11/24/24 In Process (Procardia Xl 10:00 Pantoprazole Tablet PHA 11/24/24 In Process (Protonix Tablet) 06:00 Ticagrelor (Brilinta) PHA 11/23/24 In Process 22:00 Aspirin Tablet PHA 11/24/24 In Process 10:00 Ceftriaxone 1gm/50ml PHA 11/24/24 In Process D5w (Rocephin) 09:00 Vancomycin Per PHA 11/23/24 In Process Pharmacy 19:00 Glucose Blood PHA 11/23/24 In Process (Accu-Chek Comfort 22:00 Insulin R (Human) PHA 11/23/24 In Process (Insulin R) 22:00 Dextrose 50% Syringe PHA 11/23/24 In Process 19:00 Admit ADMIT 11/23/24 Transmitted 18:59 Ondansetron Hcl PHA 11/23/24 In Process (Zofran) 19:00 Cardiac DIET 11/24/24 Transmitted Diet-2gna,Lofat,Lochol Breakfast Condition: Fair BRADY 11/23/24 In Process 18:59 Acetaminophen Tablet PHA 11/23/24 In Process (Tylenol Tablet) 19:00 Bedrest With Bathroom BRADY 11/23/24 In Process Privileg 18:59 Nitroglycerin PHA 11/23/24 In Process Sublingual (Ntrostat 19:00 Morphine Sulfate PHA 11/23/24 In Process Injection 19:00 Stat Ekg For Chest BRADY 11/23/24 In Process Pain 18:59 Notify Of Changes [facility] 11/23/24 In Process From Base 18:59 [address] [facility] 11/23/24 In Process 24 Hours 18:[address] [facility] 11/23/24 In Process Protocol 18:59 [address] [facility] 11/23/24 In Process Every Shift 18:59 Oxygen By Nasal RT 11/23/24 Transmitted Cannula 18:59 Vancomycin 1gm/200ml PHA 11/23/24 In Process Pm 20:00 Vancomycin,Trough LAB 11/24/24 Verified 11:[address] [facility] 11/24/24 In Process Pharmacy Protoc 11:00 Complete Blood Count LAB 11/24/24 Verified 04:00 Creatinine LAB 11/24/24 Verified 04:00 Podiatry Consult CONS 11/23/24 Verified 21:09 Date of Service: Nov 23, 2024 Billing Provider: JOJO BETHEA Common Visit Codes: [id number] INP/OBS CARE (HIGH) JOJO BETHEA Nov 23, 2024 21:13
[2024-11-23] MEDS: cefTRIAXone 1GM/50ML D5W 50 ML IV ONE (21:14)
[2024-11-23] MEDS: HYDROcodone-ACET 5/325MG TAB PO ONE (21:47)
[2024-11-23] MEDS: InsuLIN REG 1unit/0.01ml Soln (100units/ml) SC SCH (21:48)
[2024-11-23] MEDS: ACCU-CHEK COMFORT CURVE STRIP VI SCH (21:48)
[2024-11-23] MEDS: CARVEDILOL 3.125 MG TAB PO SCH (22:00)
[2024-11-23] MEDS: VANCOMYCIN 1GM/200ML PM 200 ML IV SCH (22:02)
[2024-11-23] MEDS: TICAGRELOR 90 MG TAB PO SCH (22:16)
[2024-11-23] MEDS: ATORVASTATIN 20 MG TAB PO SCH (22:16)
[2024-11-23 23:16] LABS: Urine Bacteria None Seen /hpf (None Seen)
[2024-11-23 23:34] LABS: Urine Blood Negative /uL (Negative); Urine Clarity Clear (Clear); Urine Color Light-Yellow (Yellow); Urine Protein, UAD 1+ (Negative); Urine Specific Gravity 1.015 (1.001-1.035); Urine Squamous Epithelial Cell FEW /hpf (<5); Urine Urobilinogen Normal (Negative); Urine WBC 1 /HPF (0-3); Urine pH 5.5 (5.0-9.0)
[2024-11-24 04:34] LABS: Basophils # (auto) 0 10 ^3/uL (0-0.2); Basophils % (auto) 0.8 % (0.0-2.0); Eosinophils # (auto) 0.2 10 ^3/uL (0-0.8); Eosinophils % (auto) 3.5 % (0.0-7.0); Hematocrit 33.9 % (41.0-53.0); Hemoglobin 11.3 g/dL (13.5-17.5); Lymphocytes # (auto) 1.9 10 ^3/uL (0.4-5.4); Lymphocytes % (auto) 44.2 % (10.0-50.0); Mean Corpuscular Hemoglobin 30.3 pg (28.0-32.0); Mean Corpuscular Hgb Conc. 33.2 g/dL (32.0-36.0); Mean Corpuscular Volume 91.3 fL (80.0-100.0); Monocytes # (auto) 0.4 10 ^3/uL (0-1.3); Monocytes % (auto) 9.4 % (0.0-12.0); Neutrophils # (auto) 1.8 10 ^3/uL (1.6-8.6); Neutrophils % (auto) 42.1 % (37.0-80.0); Platelet Count (auto) 360 10^3/uL (140-450); Red Blood Cells 3.72 10^6/uL (4.5-5.90); White Blood Cell 4.4 10^3/uL (4.4-10.8)
[2024-11-24] MEDS: KETOROLAC TROMETH 30 MG/ML 1ML VIAL IV ONE (04:45)
[2024-11-24] MEDS: HYDROcodone-ACET 5/325MG TAB PO PRN (04:47)
[2024-11-24] MEDS: VANCOMYCIN 1GM/200ML PM 200 ML IV SCH (05:47)
[2024-11-24] MEDS: PANTOPRAZOLE 40 MG TAB PO SCH (05:54)
[2024-11-24] MEDS: SPIRONOLACTONE 25 MG TAB PO SCH (05:54)
[2024-11-24 06:16] VITALS: PULSE 86; RESP 20; O2SAT 98
[2024-11-24 08:21] VITALS: RESP 20
[2024-11-24] MEDS: cefTRIAXone 1GM/50ML D5W 50 ML IV SCH (09:45)
[2024-11-24] MEDS: ASPirin 81 mg TAB PO SCH (09:46)
[2024-11-24] MEDS: NIFEdipine ER 30 MG TAB PO SCH (09:47)
[2024-11-24] MEDS: LOSARTAN POTASSIUM 50 MG TAB PO SCH (09:48)
--- NOTE | 2024-11-24 10:12 | ECG ---
[facility] Test Date: 2024-11-23 Test Time: 12:18:40 Pat Name: URIEL DIOP Department: ED Room: 0284 Gender: M Transportation Technician: LISHA : 1980 Requested By: PORSHA GARDUNO Order Number: [id number] Reading MD: Jin Connelly Measurements Intervals [place] Rate: 106 P: 66 LA: 138 QRS: 61 QRSD: 92 T: 167 QT: 318 QTc: 423 Interpretive Statements Sinus tachycardia Borderline repolarization abnormality Electronically Signed On 11-25-2024 13:06:18 PDT by Jin Connelly Please click the below link to view image of tracing.
--- NOTE | 2024-11-24 10:12 | ECG ---
[facility] Test Date: 2024-11-23 Test Time: 13:20:19 Pat Name: URIEL DIOP Department: ED Room: 0284 Gender: M Blood Donor Unit Assistant: LISHA : 1980 Requested By: PORSHA GARDUNO Order Number: [id number] Reading MD: Jin Connelly Measurements Intervals [place] Rate: P: 0 [place]: 0 QRS: 0 QRSD: 0 T: 0 QT: 0 QTc: 0 Interpretive Statements All 12 leads are missing Electronically Signed On 11-25-2024 13:06:35 PDT by Jin Connelly Please click the below link to view image of tracing.
--- NOTE | 2024-11-24 10:13 | ECG ---
[facility] Test Date: 2024-11-23 Test Time: 13:21:45 Pat Name: URIEL DIOP Department: ED Room: 0284 Gender: M Jack Winder: LISHA : 1980 Requested By: PORSHA GARDUNO Order Number: [id number] Reading MD: Jin Connelly Measurements Intervals [place] Rate: 97 P: 42 [place]: 142 QRS: 66 QRSD: 95 T: 122 QT: 330 QTc: 419 Interpretive Statements Sinus rhythm Nonspecific T abnormalities, lateral leads Electronically Signed On 11-25-2024 13:06:39 PDT by Jin Connelly Please click the below link to view image of tracing.
[2024-11-24] MEDS ORDERED: HYDROcodone-ACET 10/325MG TAB PO PRN ×2 (11:00→15:00)
--- NOTE | 2024-11-24 14:16 | DVH ---
Right lower extremity venous duplex Clinical History: leg swelling Comparison: US LT LOWER DVT on DOS: 05/17/23 Findings: Duplex Doppler evaluation of the deep venous system of the right lower extremity from the common femo ral vein to the popliteal vein including color Doppler and spectral/pulsed waveform analysis was perf ormed. The common femoral vein demonstrates appropriate compressibility and waveform variability. There is compressibility/patency of the great saphenous vein at the proximal thigh. The femoral vein demonstrates appropriate compressibility and waveform variability. The deep femoral vein demonstrates appropriate compressibility and waveform variability. The popliteal vein demonstrates appropriate compressibility and waveform variability. There is normal compressibility at the tibioperoneal trunk. Impression: No right femoropopliteal venous thrombosis. Right inguinal lymph node measuring 4.3 cm If clinical concern/symptoms persist or worsen, short-interval follow-up study is suggested.
[2024-11-24] MEDS: HYDROmorphone HCL 2 MG/ML VL/or syr IV PRN (15:13)
--- NOTE | 2024-11-24 17:58 | DVHPNRES ---
Progress Note Date Seen: Nov 24, 2024 Resident Creating Document: LILIANA BERNARD RESIDENT Medical Necessity Reason Pt with a Central, PICC or Fol: No Subjective Review of Systems Patient is 43 years old male past medical history CAD,[place] in August 2019 status post PTCA x3, hypertension, hyperlipidemia, diabetes, CKD stage IIIB, neuropathy, HFrEF-25%, hypokinesia, gastroparesis, left foot amputee, left BKA, right toe wound,and anxiety came with a complaint of chest pain and worsening right foot infection and abdominal pain. Has worsening right foot infection which is also involving the other toe beside grade 2. His right foot is getting swollen for last 3-4 days. Patient was endorsed chronic central chest pain intermittent, no acute exacerbation. On further discussion patient also endorsed abdominal pain crampy in nature with the oxygen nausea that has been going on for a while. Patient denied any shortness of breath, fever, dysarthria or change in vision. CXR no acute disease. CT scan of the right foot [id number]-moderate dorsal soft tissue edema. No focal fluid collections or subcutaneous emphysema. Venous Doppler study of the lower extremity revealed- No right femoropopliteal venous thrombosis. Right inguinal lymph node measuring 4.3 cm PMH-CAD,WA in August 2019 status post PTCA x3, hypertension, hyperlipidemia, diabetes, CKD stage IIIB, neuropathy, HFrEF-25%, hypokinesia, gastroparesis, left foot amputee, left BKA, right toe wound, EGD, and anxiety PSH- left below-knee amputation, PTCA x3 Allergy- smoker, ex alcoholic, denies substance abuse Personal History/ Social History- Patient was seen today at the bedside. Patient Cardiovascular- deny acute chest pain or shortness of breath or cough or palpitation Respiratory denies cough or short of breath or wheezing Gastrointestinal- denies any rectal bleeding, nausea or vomiting Musculoskeletal-denies acute joint swelling or tenderness or redness Neurological- denies acute dysarthria, dysphagia, change in vision Psychiatry- denies depression or SI or HI Skin- denies acute rash or purpura Patient Was seen today for clinical evaluation. Labs and chart reviewed. Patient denied acute chest pain in the morning. Patient reported he gets occasional abdominal pain. Patient also reported that his right foot wound has gotten worse especially beside grade 2 other to the getting swollen red and tender. On physical exam patient is all toes on the right foot is swollen, edematous, rate. Right lower extremity swollen and edematous+++. Doppler study of the right lower extremity negative for DVT. Objective vital signs Vital Sign Date Time Temp Pulse Resp B/P (MAP) Pulse Ox O2 Delivery O2 Flow Rate FiO2 11/24/24 16:22 87 17 151/115 (127) 93 11/24/24 08:21 Room Air* 0 21 11/24/24 08:00 98.8 98.8 Total Intake and Output 11/23/24 11/23/24 11/24/24 15:00 23:00 07:00 Intake Total 50 ml 200 ml Balance 50 ml 200 ml medications Current Medications Medications Dose Ordered Sig/Sreekanth Route Start Time Stop Time Status Last Admin Dose Admin Spironolactone 25 mg BIDD PO 11/24/24 06:00 11/24/24 17:15 25 MG Atorvastatin Calcium 40 mg HS PO 11/23/24 22:00 11/23/24 22:16 40 MG Carvedilol 6.25 mg Q12HR PO 11/23/24 22:00 11/24/24 09:49 6.25 MG Losartan Potassium 50 mg DAILY PO 11/24/24 10:00 11/24/24 09:48 50 MG Nifedipine 90 mg DAILY PO 11/24/24 10:00 11/24/24 09:47 90 MG Pantoprazole Sodium 40 mg DAILY@0600 PO 11/24/24 06:00 11/24/24 05:54 40 MG Ticagrelor 90 mg BID PO 11/23/24 22:00 11/24/24 09:45 90 MG Aspirin 81 mg DAILY PO 11/24/24 10:00 11/24/24 09:46 81 MG Ceftriaxone Sodium 50 ml @ 100 mls/hr DAILY@09 IV 11/24/24 09:00 11/24/24 09:45 100 MLS/HR Vancomycin HCl 0 ml @ 0 mls/hr UD IV 11/23/24 19:00 Diagnostic Test (Pha) 1 strip ACHS 11/23/24 22:00 11/24/24 17:05 1 STRIP Insulin Human Regular ACHS SC 11/23/24 22:00 Dextrose 50 ml UD PRN IV 11/23/24 19:00 Ondansetron HCl 4 mg Q4HP PRN IV 11/23/24 19:00 Acetaminophen 650 mg Q6HP PRN PO 11/23/24 19:00 Nitroglycerin 0.4 mg Q5MINP PRN SL 11/23/24 19:00 Morphine Sulfate 2 mg Q30M PRN IV 11/23/24 19:00 Vancomycin HCl 200 ml @ 200 mls/hr Q8H IV 11/24/24 06:00 11/24/24 14:45 200 MLS/HR Hydromorphone HCl 0.25 mg Q6HPRN PRN IV 11/24/24 14:30 11/24/24 15:13 0.25 MG Acetaminophen/ Hydrocodone Bitart 1 tab Q6HP PRN PO 11/24/24 15:00 Examination General examination- awake, alert, oriented, conversant HEENT- PEERLA, no acute nasal discharge Cardiovascular- S1-S2 audible, rate and rhythm regular, no murmur Respiratory- CTAB, no wheeze or rhonchi Gastrointestinal-nontender, bowel sound+. Nondistended Musculoskeletal-no acute joint swelling or tenderness or redness Lower extremity- right lower leg edema+++, years all the toes the swollen, red, edematous. Neurological- cranial nerves intact, no acute dysarthria or dysphagia Psychiatry- denies depression or SI or HI Skin- no acute rash or purpura laboratory and microbiology Laboratory Tests 11/24/24 04:13 11/23/24 13:06 Test 11/23/24 13:06 Range/Units Serum Glucose 83 74-106 mg/dL Problem List/Assessment/Plan Problem List/Assessment/Plan Assessment and plan Acute right foot cellulitis Chronic stable angina Chronic abdominal pain likely due to gastroparesis CAD,[place] in August 2019 status post PTCA x3, hypertension, hyperlipidemia, diabetes, CKD stage IIIB, neuropathy, HFrEF-25%, global hypokinesia, gastroparesis, left foot amputee, left BKA, anxiety CXR no acute disease. CT scan of the right foot [id number]-moderate dorsal soft tissue edema. No focal fluid collections or subcutaneous emphysema. Venous Doppler study of the lower extremity revealed- No right femoropopliteal venous thrombosis. Right inguinal lymph node measuring 4.3 cm Plan Continue Ceftriaxone and vancomycin as prescribed Continue aspirin 80 mg p.o. daily Continue atorvastatin 40 mg p.o. q.h.s. Continue carvedilol 6.25 mg p.o. q.12 hours Continue losartan 50 mg p.o. Daily continue nifedipine ER 90 mg p.o. daily Continue pantoprazole as prescribed Spironolactone 25 mg p.o. b.i.d. Brilinta 90 mg p.o. b.i.d. Podiatry consult in place Pending blood culture and wound culture Goals of care, Code status ; discussed with >15 minutes PUD prophylaxis: Pantoprazole DVT prophylaxis: Plan discussed with Dr. Carrillo , nursing staff, Total time spent on patient evaluation, chart review, assessment and plan, discussion discussion >35 minutes Plan discussed with: Patient, Other (RN) My Orders My Orders Orders - LILIANA BERNARD Procedure Category Date Status Time Rt Lower Dvt US 11/24/24 Resulted 12:54 Hydrocodone-Acet PHA 11/24/24 In Process 10/325mg Tab ([place] 15:00 Date of Service: Nov 24, 2024 Billing Provider: KUNAL LERMA MD Common Visit Codes: [id number] INP/OBS CARE(HIGH) LILIANA BERNARD Nov 24, 2024 17:58 KUNAL LERMA MD Nov 25, 2024 00:44
[2024-11-24 20:00] VITALS: PULSE 88; RESP 16
[2024-11-24] MEDS: ENOXAPARIN SOD 40 MG/0.4 ML SYRINGE SC ONE (21:08)
[2024-11-24 22:00] VITALS: BP 127/74; PULSE 93; RESP 20; TEMP 98.6; O2SAT 99
[2024-11-24 23:28] VITALS: BP 127/74; PULSE 93; RESP 20; TEMP 98.6; O2SAT 99
[2024-11-25] VITALS (9 sets, daily range): BP systolic 115–137; BP diastolic 76–92; PULSE 76–97; RESP 18–19; TEMP 98–98.8; O2SAT 96–100
[2024-11-25 07:13] LABS: Basophils # (auto) 0 10 ^3/uL (0-0.2); Eosinophils # (auto) 0.2 10 ^3/uL (0-0.8); Eosinophils % (auto) 4.2 % (0.0-7.0); Hematocrit 37.5 % (41.0-53.0); Hemoglobin 11.4 g/dL (13.5-17.5); Lymphocytes # (auto) 1.6 10 ^3/uL (0.4-5.4); Lymphocytes % (auto) 38.7 % (10.0-50.0); Mean Corpuscular Hemoglobin 29.5 pg (28.0-32.0); Mean Corpuscular Hgb Conc. 30.5 g/dL (32.0-36.0); Mean Corpuscular Volume 96.9 fL (80.0-100.0); Monocytes # (auto) 0.4 10 ^3/uL (0-1.3); Neutrophils % (auto) 47.1 % (37.0-80.0); Nucleated Red Blood Cells % 0.3 %; Platelet Count (auto) 348 10^3/uL (140-450); Red Blood Cells 3.87 10^6/uL (4.5-5.90); Red Cell Distribution Width 16.5 % (11.8-14.3); White Blood Cell 4.2 10^3/uL (4.4-10.8)
[2024-11-25 08:45] LABS: Alanine Aminotransferase 10 U/L (7-40); Alkaline Phosphatase 55 U/L (46-116); Anion Gap 14 (5-15); Aspartate Aminotransferase 14 U/L (13-40); BUN/Creatinine Ratio 14.9 (10.0-20.0); Blood Urea Nitrogen 14 mg/dL (9-23); Calcium 9.9 mg/dL (8.7-10.4); Glucose 94 mg/dL (74-106); Potassium 4.9 mmol/L (3.5-5.1); Sodium 138 mmol/L (136-145); Total Protein 6.8 g/dL (5.7-8.2)
[2024-11-25 08:51] LABS: Bilirubin, Total 0.2 mg/dL (0.2-1.0); Carbon Dioxide 15 mmol/L (20-31); Chloride 109 mmol/L (98-107)
[2024-11-25] MEDS: ENOXAPARIN SOD 40 MG/0.4 ML SYRINGE SC SCH (09:39)
[2024-11-25 12:19] LABS: Opiate Scree,Urine Neg (NEGATIVE)
[2024-11-25 12:22] LABS: Amphetamine Screen, Urine Neg (NEGATIVE); Barbiturate Scree,Urine Neg (NEGATIVE); Benzodiazephine Screen, Urine Neg (NEGATIVE); Cannabinoid Screen, Urine Pos (NEGATIVE); Cocaine Screen, Urine Neg (NEGATIVE); Phencyclidine Screen, Urine Neg (NEGATIVE)
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
[2024-11-25] MEDS: VANCOMYCIN 1.5GM/300ML 300 ML IV SCH (17:34)
--- NOTE | 2024-11-25 19:52 | DVHPNRES ---
Progress Note Date Seen: Nov 25, 2024 Resident Creating Document: LILIANA BERNARD RESIDENT Medical Necessity Reason Pt with a Central, PICC or Fol: No Subjective Review of Systems Patient is 43 years old male past medical history CAD,[place] in August 2019 status post PTCA x3, hypertension, hyperlipidemia, diabetes, CKD stage IIIB, neuropathy, HFrEF-25%, hypokinesia, gastroparesis, left foot amputee, left BKA, right toe wound,and anxiety came with a complaint of chest pain and worsening right foot infection and abdominal pain. Has worsening right foot infection which is also involving the other toe beside grade 2. His right foot is getting swollen for last 3-4 days. Patient was endorsed chronic central chest pain intermittent, no acute exacerbation. On further discussion patient also endorsed abdominal pain crampy in nature with the oxygen nausea that has been going on for a while. Patient denied any shortness of breath, fever, dysarthria or change in vision. CXR no acute disease. UDS positive for cannabinoids. CT scan of the right foot vbyguaes-Xryw-sm-moderate dorsal soft tissue edema. No focal fluid collections or subcutaneous emphysema. Venous Doppler study of the lower extremity revealed- No right femoropopliteal venous thrombosis. Right inguinal lymph node measuring 4.3 cm PMH-CAD,[place] in August 2019 status post PTCA x3, hypertension, hyperlipidemia, diabetes, CKD stage IIIB, neuropathy, HFrEF-25%, hypokinesia, gastroparesis, left foot amputee, left BKA, right toe wound, EGD, and anxiety PSH- left below-knee amputation, PTCA x3 Allergy- smoker, ex alcoholic, denies substance abuse Personal History/ Social History- Patient was seen today at the bedside. Patient Cardiovascular- deny acute chest pain or shortness of breath or cough or palpitation Respiratory denies cough or short of breath or wheezing Gastrointestinal- denies any rectal bleeding, nausea or vomiting Musculoskeletal-denies acute joint swelling or tenderness or redness Neurological- denies acute dysarthria, dysphagia, change in vision Psychiatry- denies depression or SI or HI Skin- denies acute rash or purpura Patient Was seen today for clinical evaluation. Labs and chart reviewed. Patient reported feeling better today. Patient was seen by Podiatry. No surgical intervention recommended. Objective vital signs Vital Sign Date Time Temp Pulse Resp B/P (MAP) Pulse Ox O2 Delivery O2 Flow Rate FiO2 11/25/24 16:27 98.3 77 19 126/92 (103) 96 98.3 11/25/24 08:08 Room Air* 0 21 Total Intake and Output 11/24/24 11/24/24 11/25/24 15:00 23:00 07:00 Intake Total 200 ml Output Total 0 ml Balance 200 ml medications Current Medications Medications Dose Ordered Sig/Sreekanth Route Start Time Stop Time Status Last Admin Dose Admin Spironolactone 25 mg BIDD PO 11/24/24 06:00 11/25/24 17:46 25 MG Atorvastatin Calcium 40 mg HS PO 11/23/24 22:00 11/24/24 22:49 40 MG Carvedilol 6.25 mg Q12HR PO 11/23/24 22:00 11/25/24 10:35 6.25 MG Losartan Potassium 50 mg DAILY PO 11/24/24 10:00 11/25/24 09:38 50 MG Nifedipine 90 mg DAILY PO 11/24/24 10:00 11/25/24 09:58 90 MG Pantoprazole Sodium 40 mg DAILY@0600 PO 11/24/24 06:00 11/25/24 05:38 40 MG Ticagrelor 90 mg BID PO 11/23/24 22:00 11/25/24 09:34 90 MG Aspirin 81 mg DAILY PO 11/24/24 10:00 11/25/24 09:38 81 MG Ceftriaxone Sodium 50 ml @ 100 mls/hr DAILY@09 IV 11/24/24 09:00 11/25/24 09:44 100 MLS/HR Vancomycin HCl 0 ml @ 0 mls/hr UD IV 11/23/24 19:00 Diagnostic Test (Pha) 1 strip ACHS 11/23/24 22:00 11/25/24 17:41 1 STRIP Insulin Human Regular ACHS SC 11/23/24 22:00 Dextrose 50 ml UD PRN IV 11/23/24 19:00 Ondansetron HCl 4 mg Q4HP PRN IV 11/23/24 19:00 Acetaminophen 650 mg Q6HP PRN PO 11/23/24 19:00 Nitroglycerin 0.4 mg Q5MINP PRN SL 11/23/24 19:00 Morphine Sulfate 2 mg Q30M PRN IV 11/23/24 19:00 Hydromorphone HCl 0.25 mg Q6HPRN PRN IV 11/24/24 14:30 11/25/24 15:36 0.25 MG Acetaminophen/ Hydrocodone Bitart 1 tab Q6HP PRN PO 11/24/24 15:00 Enoxaparin Sodium 40 mg DAILY SC 11/25/24 10:00 11/25/24 09:39 40 MG Vancomycin HCl 300 ml @ 200 mls/hr Q12H IV 11/25/24 15:00 11/25/24 17:34 200 MLS/HR Examination General examination- awake, alert, oriented, conversant HEENT- PEERLA, no acute nasal discharge Cardiovascular- S1-S2 audible, rate and rhythm regular, no murmur Respiratory- CTAB, no wheeze or rhonchi Gastrointestinal-nontender, bowel sound+. Nondistended Musculoskeletal-no acute joint swelling or tenderness or redness Lower extremity- right lower leg edema+++, years DrRaheel all the toes the swollen, red, edematous. Neurological- cranial nerves intact, no acute dysarthria or dysphagia Psychiatry- denies depression or SI or HI Skin- no acute rash or purpura laboratory and microbiology Laboratory Tests 11/25/24 06:07 Test 11/25/24 06:07 Range/Units Serum Glucose 94 74-106 mg/dL Problem List/Assessment/Plan Problem List/Assessment/Plan Assessment and plan Acute right foot cellulitis Chronic stable angina Chronic abdominal pain likely due to gastroparesis CAD,[place] in August 2019 status post PTCA x3, hypertension, hyperlipidemia, diabetes, CKD stage IIIB, neuropathy, HFrEF-25%, global hypokinesia, gastroparesis, left foot amputee, left BKA, anxiety Substance abuse CXR no acute disease. CT scan of the right foot qairqpvl-Vcsn-mz-moderate dorsal soft tissue edema. No focal fluid collections or subcutaneous emphysema. Venous Doppler study of the lower extremity revealed- No right femoropopliteal venous thrombosis. Right inguinal lymph node measuring 4.3 cm Plan Continue Ceftriaxone and vancomycin as prescribed Continue aspirin 80 mg p.o. daily Continue atorvastatin 40 mg p.o. q.h.s. Continue carvedilol 6.25 mg p.o. q.12 hours Continue losartan 50 mg p.o. Daily continue nifedipine ER 90 mg p.o. daily Continue pantoprazole as prescribed Spironolactone 25 mg p.o. b.i.d. Brilinta 90 mg p.o. b.i.d. Podiatry consult in place Pending blood culture and wound culture Patient was counseled about the effect of substance abuse on health. Goals of care, Code status ; discussed with >15 minutes PUD prophylaxis: Pantoprazole DVT prophylaxis: Plan discussed with Dr. Carrillo , nursing staff, Total time spent on patient evaluation, chart review, assessment and plan, discussion discussion >35 minutes Plan discussed with: Patient, Other (RN) My Orders My Orders Orders - LILIANA BERNARD Procedure Category Date Status Time Cleanse Wound With BRADY 11/25/24 In Process Wound Clean 11:34 Dietary Evaluation Review Comments: 1) CCHO 90gm + cardiac 2) Misael 1 pk BID (ordered per [facility]NS protocol) 3) Refer to CDE on DC 4) Continue current plan of care Expected Outcomes/Goals: To meet >75% estimated needs Fu 3-5 days LILIANA BERNARD RESIDENT Nov 25, 2024 19:52
[2024-11-26] VITALS (7 sets, daily range): BP systolic 101–130; BP diastolic 58–88; PULSE 66–89; RESP 17–20; TEMP 97.5–98.1; O2SAT 97–100
[2024-11-26] MEDS: ONDANSETRON HCL 4 MG/2 ML VIAL IV PRN (05:39)
[2024-11-26 05:58] LABS: Calcium 10.1 mg/dL (8.7-10.4); Chloride 105 mmol/L (98-107); Potassium 4.2 mmol/L (3.5-5.1); Sodium 137 mmol/L (136-145)
[2024-11-26 05:59] LABS: Anion Gap 11 (5-15); Carbon Dioxide 21 mmol/L (20-31)
[2024-11-26 06:04] LABS: BUN/Creatinine Ratio 18.9 (10.0-20.0); Blood Urea Nitrogen 17 mg/dL (9-23)
[2024-11-26 06:26] LABS: Glucose 118 mg/dL (74-106)
--- NOTE | 2024-11-26 08:32 | CONS ---
Pharmacy Clinical Information: From Heart Failure Potential Fallout Report on CQM Application, Phoenix Rendon is a 43 year old male with PMH of CAD, [place] s/p PTCA x3, HTN, HLD, DM, CKD, HFrEF, gastroparesis, left BKA. His home medications for heart failure include dapagliflozin, carvedilol, and losartan. His inpatient medications include carvedilol, losartan, and spironolactone. SGLT2i not recommended at this time due to worsening right foot infection. SGLT2i have been associated with increased risk of lower limb amputations. SANDEEP HUNTER PHARMACIST Nov 26, 2024 08:32
--- NOTE | 2024-11-26 18:04 | DVHPNRES ---
Progress Note Date Seen: Nov 26, 2024 Resident Creating Document: LILIANA BERNARD RESIDENT Medical Necessity Reason Pt with a Central, PICC or Fol: No Subjective Review of Systems Patient is 43 years old male past medical history CAD,[place] in August 2019 status post PTCA x3, hypertension, hyperlipidemia, diabetes, CKD stage IIIB, neuropathy, HFrEF-25%, hypokinesia, gastroparesis, left foot amputee, left BKA, right toe wound,and anxiety came with a complaint of chest pain and worsening right foot infection and abdominal pain. Has worsening right foot infection which is also involving the other toe beside grade 2. His right foot is getting swollen for last 3-4 days. Patient was endorsed chronic central chest pain intermittent, no acute exacerbation. On further discussion patient also endorsed abdominal pain crampy in nature with the oxygen nausea that has been going on for a while. Patient denied any shortness of breath, fever, dysarthria or change in vision. CXR no acute disease. UDS positive for cannabinoids. CT scan of the right foot [id number]-[id number]-ce-moderate dorsal soft tissue edema. No focal fluid collections or subcutaneous emphysema. Venous Doppler study of the lower extremity revealed- No right femoropopliteal venous thrombosis. Right inguinal lymph node measuring 4.3 cm PMH-CAD,[place] in August 2019 status post PTCA x3, hypertension, hyperlipidemia, diabetes, CKD stage IIIB, neuropathy, HFrEF-25%, hypokinesia, gastroparesis, left foot amputee, left BKA, right toe wound, EGD, and anxiety PSH- left below-knee amputation, PTCA x3 Allergy- smoker, ex alcoholic, denies substance abuse Personal History/ Social History- Patient was seen today at the bedside. Patient Cardiovascular- deny acute chest pain or shortness of breath or cough or palpitation Respiratory denies cough or short of breath or wheezing Gastrointestinal- denies any rectal bleeding, nausea or vomiting Musculoskeletal-denies acute joint swelling or tenderness or redness Neurological- denies acute dysarthria, dysphagia, change in vision Psychiatry- denies depression or SI or HI Skin- denies acute rash or purpura Patient Was seen today for clinical evaluation. Labs and chart reviewed. Patient reported feeling better today. Pending wound culture. Blood culture negative Objective vital signs Vital Sign Date Time Temp Pulse Resp B/P (MAP) Pulse Ox O2 Delivery O2 Flow Rate FiO2 11/26/24 17:00 98.0 89 17 122/87 (99) 99 98.0 11/26/24 08:00 Room Air* 0 21 Total Intake and Output 11/25/24 11/25/24 11/26/24 15:00 23:00 07:00 Intake Total 50 ml 300 ml 800 ml Balance 50 ml 300 ml 800 ml medications Current Medications Medications Dose Ordered Sig/Sreekanth Route Start Time Stop Time Status Last Admin Dose Admin Spironolactone 25 mg BIDD PO 11/24/24 06:00 11/26/24 17:39 25 MG Atorvastatin Calcium 40 mg HS PO 11/23/24 22:00 11/25/24 21:34 40 MG Carvedilol 6.25 mg Q12HR PO 11/23/24 22:00 11/26/24 10:15 6.25 MG Losartan Potassium 50 mg DAILY PO 11/24/24 10:00 11/26/24 10:14 50 MG Nifedipine 90 mg DAILY PO 11/24/24 10:00 11/26/24 10:14 90 MG Pantoprazole Sodium 40 mg DAILY@0600 PO 11/24/24 06:00 11/26/24 05:39 40 MG Ticagrelor 90 mg BID PO 11/23/24 22:00 11/26/24 10:13 90 MG Aspirin 81 mg DAILY PO 11/24/24 10:00 11/26/24 10:13 81 MG Ceftriaxone Sodium 50 ml @ 100 mls/hr DAILY@09 IV 11/24/24 09:00 11/26/24 10:10 100 MLS/HR Vancomycin HCl 0 ml @ 0 mls/hr UD IV 11/23/24 19:00 Diagnostic Test (Pha) 1 strip ACHS 11/23/24 22:00 11/26/24 17:00 1 STRIP Insulin Human Regular ACHS SC 11/23/24 22:00 Dextrose 50 ml UD PRN IV 11/23/24 19:00 Ondansetron HCl 4 mg Q4HP PRN IV 11/23/24 19:00 11/26/24 05:39 4 MG Acetaminophen 650 mg Q6HP PRN PO 11/23/24 19:00 Nitroglycerin 0.4 mg Q5MINP PRN SL 11/23/24 19:00 Morphine Sulfate 2 mg Q30M PRN IV 11/23/24 19:00 Hydromorphone HCl 0.25 mg Q6HPRN PRN IV 11/24/24 14:30 11/26/24 16:18 0.25 MG Acetaminophen/ Hydrocodone Bitart 1 tab Q6HP PRN PO 11/24/24 15:00 Enoxaparin Sodium 40 mg DAILY SC 11/25/24 10:00 11/26/24 10:11 40 MG Vancomycin HCl 300 ml @ 200 mls/hr Q12H IV 11/25/24 15:00 11/26/24 16:12 200 MLS/HR Examination General examination- awake, alert, oriented, conversant HEENT- PEERLA, no acute nasal discharge Cardiovascular- S1-S2 audible, rate and rhythm regular, no murmur Respiratory- CTAB, no wheeze or rhonchi Gastrointestinal-nontender, bowel sound+. Nondistended Musculoskeletal-no acute joint swelling or tenderness or redness Lower extremity- right lower leg edema+++, years all the toes the swollen, red, edematous. Neurological- cranial nerves intact, no acute dysarthria or dysphagia Psychiatry- denies depression or SI or HI Skin- no acute rash or purpura laboratory and microbiology Laboratory Tests 11/26/24 05:05 11/25/24 06:07 Test 11/26/24 05:05 Range/Units Serum Glucose 118 H 74-106 mg/dL Microbiology Date/Time Source Procedure Growth Status 11/25/24 15:28 Nose MRSA Screen - Final Complete 11/24/24 20:55 Blood Blood Culture - Preliminary NO GROWTH AFTER 24 HOURS OF INCUBATION. Resulted Problem List/Assessment/Plan Problem List/Assessment/Plan Assessment and plan Acute right foot cellulitis Chronic stable angina Chronic abdominal pain likely due to gastroparesis CAD,[place] in August 2019 status post PTCA x3, hypertension, hyperlipidemia, diabetes, CKD stage IIIB, neuropathy, HFrEF-25%, global hypokinesia, gastroparesis, left foot amputee, left BKA, anxiety Substance abuse CXR no acute disease. CT scan of the right foot [id number]-[id number]-rq-moderate dorsal soft tissue edema. No focal fluid collections or subcutaneous emphysema. Venous Doppler study of the lower extremity revealed- No right femoropopliteal venous thrombosis. Right inguinal lymph node measuring 4.3 cm Plan Continue Ceftriaxone and vancomycin as prescribed Continue aspirin 80 mg p.o. daily Continue atorvastatin 40 mg p.o. q.h.s. Continue carvedilol 6.25 mg p.o. q.12 hours Continue losartan 50 mg p.o. Daily continue nifedipine ER 90 mg p.o. daily Continue pantoprazole as prescribed Spironolactone 25 mg p.o. b.i.d. Brilinta 90 mg p.o. b.i.d. Podiatry consult in place Pending blood culture and wound culture Patient was counseled about the effect of substance abuse on health. Goals of care, Code status ; discussed with >15 minutes PUD prophylaxis: Pantoprazole DVT prophylaxis: Plan discussed with Dr. Carrillo , nursing staff, Total time spent on patient evaluation, chart review, assessment and plan, discussion discussion >35 minutes Plan discussed with: Patient, Other (RN) Dietary Evaluation Review Comments: 1) CCHO 90gm + cardiac 2) Misael 1 pk BID (ordered per [facility] protocol) 3) Refer to CDE on DC 4) Continue current plan of care Expected Outcomes/Goals: To meet >75% estimated needs Fu 3-5 days LILIANA BERNARD RESIDENT Nov 26, 2024 18:04
[2024-11-27 01:00] VITALS: BP 119/62; PULSE 91; RESP 18; TEMP 98; O2SAT 97
[2024-11-27 05:00] VITALS: BP 115/60; PULSE 88; RESP 18; TEMP 98.2; O2SAT 97
[2024-11-27 06:37] LABS: Basophils # (auto) 0 10 ^3/uL (0-0.2); Eosinophils # (auto) 0.2 10 ^3/uL (0-0.8); Eosinophils % (auto) 5.5 % (0.0-7.0); Hematocrit 32.3 % (41.0-53.0); Lymphocytes # (auto) 1.4 10 ^3/uL (0.4-5.4); Lymphocytes % (auto) 36.4 % (10.0-50.0); Mean Corpuscular Hemoglobin 30.2 pg (28.0-32.0); Mean Corpuscular Hgb Conc. 34.1 g/dL (32.0-36.0); Mean Corpuscular Volume 88.8 fL (80.0-100.0); Monocytes # (auto) 0.5 10 ^3/uL (0-1.3); Monocytes % (auto) 11.7 % (0.0-12.0); Neutrophils # (auto) 1.8 10 ^3/uL (1.6-8.6); Neutrophils % (auto) 45.4 % (37.0-80.0); Nucleated Red Blood Cells % 0.1 %; Platelet Count (auto) 332 10^3/uL (140-450); Red Blood Cells 3.63 10^6/uL (4.5-5.90); White Blood Cell 3.9 10^3/uL (4.4-10.8)
[2024-11-27 09:00] VITALS: BP 128/81; PULSE 90; RESP 17; TEMP 97.8; O2SAT 100
[2024-11-27] MEDS: INSULIN LANTUS (GLARGINE) 1 /0.01ml (100units/ml) SC ONE (11:15)
[2024-11-27] MEDS ORDERED: HYDROcodone-ACET 10/325MG TAB PO PRN (11:15)
[2024-11-27 13:00] VITALS: BP 108/68; PULSE 82; RESP 16; TEMP 97.7; O2SAT 100
--- NOTE | 2024-11-27 15:47 | DVHPNRES ---
Progress Note Date Seen: Nov 27, 2024 Resident Creating Document: LILIANA BERNARD RESIDENT Medical Necessity Reason Pt with a Central, PICC or Fol: No Subjective Review of Systems Patient is 43 years old male past medical history CAD,[place] in August 2019 status post PTCA x3, hypertension, hyperlipidemia, diabetes, CKD stage IIIB, neuropathy, HFrEF-25%, hypokinesia, gastroparesis, left foot amputee, left BKA, right toe wound,and anxiety came with a complaint of chest pain and worsening right foot infection and abdominal pain. Has worsening right foot infection which is also involving the other toe beside grade 2. His right foot is getting swollen for last 3-4 days. Patient was endorsed chronic central chest pain intermittent, no acute exacerbation. On further discussion patient also endorsed abdominal pain crampy in nature with the oxygen nausea that has been going on for a while. Patient denied any shortness of breath, fever, dysarthria or change in vision. CXR no acute disease. UDS positive for cannabinoids. CT scan of the right foot cbepacdy-Rvhq-eq-moderate dorsal soft tissue edema. No focal fluid collections or subcutaneous emphysema. Venous Doppler study of the lower extremity revealed- No right femoropopliteal venous thrombosis. Right inguinal lymph node measuring 4.3 cm PMH-CAD,[place] in August 2019 status post PTCA x3, hypertension, hyperlipidemia, diabetes, CKD stage IIIB, neuropathy, HFrEF-25%, hypokinesia, gastroparesis, left foot amputee, left BKA, right toe wound, EGD, and anxiety PSH- left below-knee amputation, PTCA x3 Allergy- smoker, ex alcoholic, denies substance abuse Personal History/ Social History- Patient was seen today at the bedside. Patient Cardiovascular- deny acute chest pain or shortness of breath or cough or palpitation Respiratory denies cough or short of breath or wheezing Gastrointestinal- denies any rectal bleeding, nausea or vomiting Musculoskeletal-denies acute joint swelling or tenderness or redness Neurological- denies acute dysarthria, dysphagia, change in vision Psychiatry- denies depression or SI or HI Skin- denies acute rash or purpura Patient Was seen today for clinical evaluation. Labs and chart reviewed. Patient reported feeling better today. Blood culture negative. Increase D ilaudid 2 q.4h prn. Objective vital signs Vital Sign Date Time Temp Pulse Resp B/P (MAP) Pulse Ox O2 Delivery O2 Flow Rate FiO2 11/27/24 13:00 97.7 82 16 108/68 (81) 100 97.7 11/27/24 08:00 Room Air* 0 21 Total Intake and Output 11/26/24 11/26/24 11/27/24 15:00 23:00 07:00 Intake Total 500 ml 800 ml Output Total 700 ml Balance -200 ml 800 ml medications Current Medications Medications Dose Ordered Sig/Sreekanth Route Start Time Stop Time Status Last Admin Dose Admin Spironolactone 25 mg BIDD PO 11/24/24 06:00 11/27/24 05:40 25 MG Atorvastatin Calcium 40 mg HS PO 11/23/24 22:00 11/26/24 21:53 40 MG Carvedilol 6.25 mg Q12HR PO 11/23/24 22:00 11/27/24 09:36 6.25 MG Losartan Potassium 50 mg DAILY PO 11/24/24 10:00 11/27/24 09:36 50 MG Nifedipine 90 mg DAILY PO 11/24/24 10:00 11/27/24 09:35 90 MG Pantoprazole Sodium 40 mg DAILY@0600 PO 11/24/24 06:00 11/27/24 05:40 40 MG Ticagrelor 90 mg BID PO 11/23/24 22:00 11/27/24 09:36 90 MG Aspirin 81 mg DAILY PO 11/24/24 10:00 11/27/24 09:36 81 MG Ceftriaxone Sodium 50 ml @ 100 mls/hr DAILY@09 IV 11/24/24 09:00 11/27/24 09:33 100 MLS/HR Vancomycin HCl 0 ml @ 0 mls/hr UD IV 11/23/24 19:00 Diagnostic Test (Pha) 1 strip ACHS 11/23/24 22:00 11/27/24 11:52 1 STRIP Insulin Human Regular ACHS SC 11/23/24 22:00 11/27/24 05:45 3 UNITS Dextrose 50 ml UD PRN IV 11/23/24 19:00 Ondansetron HCl 4 mg Q4HP PRN IV 11/23/24 19:00 11/26/24 05:39 4 MG Acetaminophen 650 mg Q6HP PRN PO 11/23/24 19:00 Nitroglycerin 0.4 mg Q5MINP PRN SL 11/23/24 19:00 Morphine Sulfate 2 mg Q30M PRN IV 11/23/24 19:00 Hydromorphone HCl 0.25 mg Q6HPRN PRN IV 11/24/24 14:30 11/27/24 11:11 0.25 MG Enoxaparin Sodium 40 mg DAILY SC 11/25/24 10:00 11/27/24 09:33 40 MG Acetaminophen/ Hydrocodone Bitart 1 tab Q4HP PRN PO 11/27/24 11:15 Insulin Glargine 20 units DAILY@1000 SC 11/28/24 10:00 Examination General examination- awake, alert, oriented, conversant HEENT- PEERLA, no acute nasal discharge Cardiovascular- S1-S2 audible, rate and rhythm regular, no murmur Respiratory- CTAB, no wheeze or rhonchi Gastrointestinal-nontender, bowel sound+. Nondistended Musculoskeletal-no acute joint swelling or tenderness or redness Lower extremity- right lower leg edema+++, years Dr. all the toes the swollen, red, edematous. Neurological- cranial nerves intact, no acute dysarthria or dysphagia Psychiatry- denies depression or SI or HI Skin- no acute rash or purpura laboratory and microbiology Laboratory Tests 11/27/24 05:55 11/26/24 05:05 Test 11/26/24 05:05 Range/Units Serum Glucose 118 H 74-106 mg/dL Microbiology Date/Time Source Procedure Growth Status 11/25/24 15:28 Nose MRSA Screen - Final Complete 11/24/24 20:55 Blood Blood Culture - Preliminary NO GROWTH AFTER 48 HOURS OF INCUBATION. Resulted Problem List/Assessment/Plan Problem List/Assessment/Plan Assessment and plan Acute right foot cellulitis Chronic stable angina Chronic abdominal pain likely due to gastroparesis CAD,[place] in August 2019 status post PTCA x3, hypertension, hyperlipidemia, diabetes, CKD stage IIIB, neuropathy, HFrEF-25%, global hypokinesia, gastroparesis, left foot amputee, left BKA, anxiety Substance abuse CXR no acute disease. CT scan of the right foot [id number]-Nvvo-pd-moderate dorsal soft tissue edema. No focal fluid collections or subcutaneous emphysema. Venous Doppler study of the lower extremity revealed- No right femoropopliteal venous thrombosis. Right inguinal lymph node measuring 4.3 cm Plan Continue Ceftriaxone and vancomycin as prescribed Continue aspirin 80 mg p.o. daily Continue atorvastatin 40 mg p.o. q.h.s. Continue carvedilol 6.25 mg p.o. q.12 hours Continue losartan 50 mg p.o. Daily continue nifedipine ER 90 mg p.o. daily Continue pantoprazole as prescribed Spironolactone 25 mg p.o. b.i.d. Brilinta 90 mg p.o. b.i.d. Podiatry consult in place Pending blood culture and wound culture Patient was counseled about the effect of substance abuse on health. Goals of care, Code status ; discussed with >15 minutes PUD prophylaxis: Pantoprazole DVT prophylaxis: Plan discussed with Dr. Carrillo , nursing staff, Total time spent on patient evaluation, chart review, assessment and plan, discussion discussion >35 minutes Plan discussed with: Patient, Other (RN) My Orders My Orders Orders - LILIANA BERNARD Procedure Category Date Status Time Hydrocodone-Acet PHA 11/27/24 In Process 10/325mg Tab ([place] 11:15 Insulin Lantus PHA 11/28/24 In Process (Glargine) (Lantus) 10:00 Dietary Evaluation Review Comments: 1) CCHO 90gm + cardiac 2) Misael 1 pk BID (ordered per [facility] protocol) 3) Refer to CDE on DC 4) Continue current plan of care Expected Outcomes/Goals: To meet >75% estimated needs Fu 3-5 days LILIANA BERNARD Nov 27, 2024 15:47
[2024-11-27 17:00] VITALS: BP 117/76; PULSE 87; RESP 16; TEMP 97.7; O2SAT 100
[2024-11-27] MEDS: HYDROmorphone HCL 2 MG/ML VL/or syr IV PRN (18:06)
[2024-11-27 21:00] VITALS: BP 117/71; PULSE 124; RESP 18; TEMP 98; O2SAT 98
[2024-11-28] VITALS (7 sets, daily range): BP systolic 107–128; BP diastolic 67–86; PULSE 64–91; RESP 17–19; TEMP 97.8–98; O2SAT 95–100
[2024-11-28 06:31] LABS: Anion Gap 10 (5-15); Carbon Dioxide 23 mmol/L (20-31); Chloride 105 mmol/L (98-107); Potassium 4.6 mmol/L (3.5-5.1); Sodium 138 mmol/L (136-145)
[2024-11-28 06:32] LABS: Calcium 9.9 mg/dL (8.7-10.4)
[2024-11-28 06:37] LABS: BUN/Creatinine Ratio 22.3 (10.0-20.0)
[2024-11-28 06:43] LABS: Blood Urea Nitrogen 27 mg/dL (9-23); Glucose 127 mg/dL (74-106)
[2024-11-28] MEDS: INSULIN LANTUS (GLARGINE) 1 /0.01ml (100units/ml) SC SCH (09:53)
--- NOTE | 2024-11-28 12:52 | DVHDSRES ---
Discharge Summary Date of Admission Resident Creating Document: LILIANA BERNARD RESIDENT Nov 23, 2024 at 18:59 Date of Discharge: Nov 28, 2024 Admitting Diagnosis Acute right foot pain and swelling likely due to cellulitis, Labs/Diagnostic Data: Laboratory Results Test 11/28/24 11:31 11/28/24 04:48 11/27/24 05:55 11/27/24 02:11 POC Glucose 134 mg/dl (70-106) Sodium Level 138 mmol/L (136-145) Potassium Level 4.6 mmol/L (3.5-5.1) Chloride Level 105 mmol/L (98-107) Carbon Dioxide Level 23 mmol/L (20-31) Anion Gap 10 (5-15) Blood Urea Nitrogen 27 mg/dL (9-23) Creatinine 1.21 mg/dL (0.700-1.30) Glomerular Filtration Rate Calc 75 mL/min (>90) BUN/Creatinine Ratio 22.3 (10.0-20.0) Serum Glucose 127 mg/dL (74-106) Calcium Level 9.9 mg/dL (8.7-10.4) Random Vancomycin Level 14.3 ug/mL (5-10) White Blood Count 3.9 10^3/uL (4.4-10.8) Red Blood Count 3.63 10^6/uL (4.5-5.90) Hemoglobin 11.0 g/dL (13.5-17.5) Hematocrit 32.3 % (41.0-53.0) Mean Corpuscular Volume 88.8 fL (80.0-100.0) Mean Corpuscular Hemoglobin 30.2 pg (28.0-32.0) Mean Corpuscular Hemoglobin Concent 34.1 g/dL (32.0-36.0) Red Cell Distribution Width 15.0 % (11.8-14.3) Platelet Count 332 10^3/uL (140-450) Mean Platelet Volume 7.6 fL (6.9-10.8) Neutrophils (%) (Auto) 45.4 % (37.0-80.0) Lymphocytes (%) (Auto) 36.4 % (10.0-50.0) Monocytes (%) (Auto) 11.7 % (0.0-12.0) Eosinophils (%) (Auto) 5.5 % (0.0-7.0) Basophils (%) (Auto) 1.0 % (0.0-2.0) Neutrophils # (Auto) 1.8 10 ^3/uL (1.6-8.6) Lymphocytes # (Auto) 1.4 10 ^3/uL (0.4-5.4) Monocytes # (Auto) 0.5 10 ^3/uL (0-1.3) Eosinophils # (Auto) 0.2 10 ^3/uL (0-0.8) Basophils # (Auto) 0 10 ^3/uL (0-0.2) Nucleated Red Blood Cells 0.1 % Vancomycin Level Trough 28.6 ug/mL (5-10) Test 11/25/24 08:30 11/25/24 06:07 11/24/24 04:13 11/23/24 22:55 Urine Opiates Screen Neg (NEGATIVE) Urine Fentanyl Screen Neg (NEGATIVE) Urine Barbiturates Screen Neg (NEGATIVE) Urine Phencyclidine Screen Neg (NEGATIVE) Urine Amphetamines Screen Neg (NEGATIVE) Urine Benzodiazepines Screen Neg (NEGATIVE) Urine Cocaine Screen Neg (NEGATIVE) Urine Cannabinoids Screen Pos (NEGATIVE) Total Bilirubin 0.2 mg/dL (0.2-1.0) Aspartate Amino Transferase (AST) 14 U/L (13-40) Alanine Aminotransferase (ALT) 10 U/L (7-40) Alkaline Phosphatase 55 U/L (46-116) Total Protein 6.8 g/dL (5.7-8.2) Albumin 4.0 g/dL (3.2-4.8) Plasma/Serum Blood Alcohol < 3.0 mg/dL (<10) Urine Color Light-yellow (Yellow) Urine Clarity Clear (Clear) Urine pH 5.5 (5.0-9.0) Urine Specific [place] 1.015 (1.001-1.035) Urine Protein 1+ (Negative) Urine Ketones Negative (Negative) Urine Blood Negative /uL (Negative) Urine Nitrite Negative (Negative) Urine Bilirubin Negative (Negative) Urine Urobilinogen Normal mg/dL (Negative) Urine Leukocyte Esterase Negative /uL (Negative) Urine RBC 1 /hpf (0 - 3) Urine Microscopic WBC 1 /HPF (0-3) Urine Squamous Epithelial Cells Few /hpf (<5) Urine Bacteria None seen /hpf (None Seen) Urine Glucose 3+ mg/dL (Normal) Test 11/23/24 15:45 11/23/24 13:06 Troponin I High Sensitivity 16 ng/L (</=54) B-Type Natriuretic Peptide 175.73 pg/mL (0-100) Other Laboratory Tests 11/28/24 04:48 11/27/24 05:55 Brief Hx & Hospital Course: Patient is 43 years old male past medical history CAD,DC in August 2019 status post PTCA x3, hypertension, hyperlipidemia, diabetes, CKD stage IIIB, neuropathy, HFrEF-25%, hypokinesia, gastroparesis, left foot amputee, left BKA, right toe wound,and anxiety came with a complaint of chest pain and worsening right foot infection and abdominal pain. Has worsening right foot infection which is also involving the other toe beside grade 2. His right foot is getting swollen for last 3-4 days. Patient was endorsed chronic central chest pain intermittent, no acute exacerbation. On further discussion patient also endorsed abdominal pain crampy in nature with the oxygen nausea that has been going on for a while. Patient denied any shortness of breath, fever, dysarthria or change in vision. CXR no acute disease. UDS positive for cannabinoids. CT scan of the right foot gkdtmged-Rusk-nm-moderate dorsal soft tissue edema. No focal fluid collections or subcutaneous emphysema. Venous Doppler study of the lower extremity revealed- No right femoropopliteal venous thrombosis. Right inguinal lymph node measuring 4.3 cm Hospital course Patient is 43 years old male past medical history CAD,DC in August 2019 status post PTCA x3, hypertension, hyperlipidemia, diabetes, CKD stage IIIB, neuropathy, HFrEF-25%, hypokinesia, gastroparesis, left foot amputee, left BKA, right toe wound,and anxiety came with a complaint of chest pain and worsening right foot infection and abdominal pain. Has worsening right foot infection which is also involving the other toe beside grade 2. His right foot is getting swollen for last 3-4 days. Patient was endorsed chronic central chest pain intermittent, no acute exacerbation. On further discussion patient also endorsed abdominal pain crampy in nature with the oxygen nausea that has been going on for a while. Patient denied any shortness of breath, fever, dysarthria or change in vision. CXR no acute disease. UDS positive for cannabinoids. CT scan of the right foot [place]-Atbs-ro-moderate dorsal soft tissue edema. No focal fluid collections or subcutaneous emphysema. Venous Doppler study of the lower extremity revealed- No right femoropopliteal venous thrombosis. Right inguinal lymph node measuring 4.3 cm. Patient was seen by Podiatry, recommended for conservative management with the antibiotic. Wound culture grew Enterococcus. Patient is being discharged home with Augmentin 875 mg p.o. t.i.d. for 2 weeks. Patient was advised to follow up with the Podiatry Dr. Putnam in 1 week. Patient's meds were sent to the pharmacy electronically. Patient was hemodynamically stable on discharge. Assessment Acute right foot cellulitis Chronic stable angina Chronic abdominal pain likely due to gastroparesis CAD,DC in August 2019 status post PTCA x3, hypertension, hyperlipidemia, diabetes, CKD stage IIIB, neuropathy, HFrEF-25%, global hypokinesia, gastroparesis, left foot amputee, left BKA, anxiety Substance abuse Plan Augmentin 875 mg p.o. t.i.d. for 2 weeks Please resume other home medications Please follow up with your network administrator Dr. Farley in 1 week Please resume other home medications Please follow up with the primary care physician in 1 week Condition at Discharge: Stable Final Diagnosis/Problems List Acute right foot cellulitis Chronic stable angina Chronic abdominal pain likely due to gastroparesis CAD,DC in August 2019 status post PTCA x3, hypertension, hyperlipidemia, diabetes, CKD stage IIIB, neuropathy, HFrEF-25%, global hypokinesia, gastroparesis, left foot amputee, left BKA, anxiety Substance abuse Discharge Disposition: Home Discharge Instruct/Medications Diet: Consistent carbohydrate, Cardiac 2g Na,low cholest Follow Up/Referral: Please follow up with the network administrator Dr. fuentes in 1week Please follow up with the primary care physician in 1 week Medications: Augmentin 875 mg t.i.d. to 2 weeks Resume other home medications please Discharge Statement: "Patient was advised to return to the ER or call 911 if any headaches, dizziness, shortness of breath, chest pain, abdominal pain, bleeding, fevers, or worsening of medical condition. Patient was counseled about treatment plan, medications, possible side effects, patientverbalized understanding. All questions were answered to the best of my ability. This discharge took greater then 30 minutes in planning, reviewing documentation, counseling the patient, and discussing with other team members." ASSESSMENT ASSESSMENT Assessment LILIANA BERNARD RESIDENT Nov 28, 2024 12:52
[2024-11-28] MEDS ORDERED: AMOX500T86 PO (12:55)
== END 2024-11-28 16:45 | disposition home or self-care (01) | DRG 48 ==
LOC: EDBD 12:21 → ER 12:21 → OVERFLOW 18:59 → TELE-WESTW 11-24 21:09 → WEST WING 11-25 10:23
PROVIDERS: ADMIT Student in an Organized Health Care Education/Training Program; ATTEND Student in an Organized Health Care Education/Training Program
DX: E11.43 Type 2 diabetes mellitus with diabetic autonomic (poly)neuropathy (principal); I13.0 Hypertensive heart and chronic kidney disease with heart failure and stage 1 through stage 4 chronic kidney disease, or unspecified chronic kidney disease; E11.22 Type 2 diabetes mellitus with diabetic chronic kidney disease; I50.22 Chronic systolic (congestive) heart failure; L03.115 Cellulitis of right lower limb; E11.40 Type 2 diabetes mellitus with diabetic neuropathy, unspecified; K31.84 Gastroparesis; I20.9 Angina pectoris, unspecified; F41.9 Anxiety disorder, unspecified; F19.10 Other psychoactive substance abuse, uncomplicated; E78.5 Hyperlipidemia, unspecified; N18.32 Chronic kidney disease, stage 3b; Z89.432 Acquired absence of left foot; Z89.512 Acquired absence of left leg below knee; Z82.0 Family history of epilepsy and other diseases of the nervous system; Z79.82 Long term (current) use of aspirin; Z79.84 Long term (current) use of oral hypoglycemic drugs; Z79.899 Other long term (current) drug therapy; Z79.4 Long term (current) use of insulin; Z95.5 Presence of coronary angioplasty implant and graft; I25.2 Old myocardial infarction
CPT/HCPCS: 36415; 71045; 73700; 80048; 80053; 80202; 80307; 80320; 81001; 82565; 82962; 83880; 84484; 85025; 87040; 87077; 87081; 87186; 87205; 93005; 93971; 96365; 96375; 99291; G0378; J1815; J1885; J2405

== ENCOUNTER 2024-12-28 18:17 | Inpatient (IN) | payer MEDICAID, MEDICARE, OTHER ==
[~2024-12-28] VITALS: Ht 175.3 cm; Wt 116.6 kg
[~2024-12-28 18:17] MED LIST changes: +AMOX500T86 PO
--- NOTE | 2024-12-28 18:35 | ED.PDOC ---
GI ASSESSMENT HPI Comments 44 y.o male with PMHx of DM, HTN, CHF, and CT x2, presents to the ED via EMS for a chief complaint of nausea, vomiting, abdominal pain that started today. Patient reports continuous vomiting today with no hematemesis, diarrhea, fever, chills, rectal bleeding. Patient had a normal bowel movement earlier today. Patient denies any substance, alcohol or tobacco use. EMS administrated 4mg of Zofran but has no relief. Chief Complaint: Nausea/Vomiting Time Seen by MD: 18:30 Reviewed Notes: Nurses Notes, Electronic Integrated Systems Mechanic Notes, Medications, Allergies Allergies: Coded Allergies: NO KNOWN ALLERGIES (Unverified , 12/28/24) Information Source: Patient Mode of Arrival: EMS Timing: Hours Duration: Since onset Prehospital treatment: Accucheck (147), Treatment (zofran ) Quality: Aching Vomitus: Hard Stool: Normal Severity: Moderate Recent: None Recent Hx of: None Pain Location: Diffuse Modifying Factors: Nothing Associated sign and symptoms: Nausea, Vomiting, Abdominal Pain Past Medical History PAST MEDICAL HISTORY: CHF, DM, HTN, CT (2) Surgical History: BKA (left ) Family History Family History: Reviewed,noncontributory to illness Social History Smoker: Non-Smoker Alcohol: Denies ETOH Use Drugs: Denies Drug Use Lives In: Home Constitutional: denies: chills, diaphoresis, fatigue, fever, malaise, sweats, weakness, others EENTM: denies: blurred vision, double vision, ear bleeding, ear discharge, ear drainage, ear pain, ear ringing, eye pain, eye redness, hearing loss, mouth pain, mouth swelling, nasal discharge, nose bleeding, nose congestion, nose pain, photophobia, tearing, throat pain, throat swelling, voice changes, others Respiratory: denies: cough, hemoptysis, orthopnea, SOB at rest, shortness of breath, SOB with excertion, stridor, wheezing, others Cardiovascular: denies: chest pain, dizzy spells, diaphoresis, Dyspnea on exe rtion, edema, irregular heart beat, left arm pain, lightheadedness, palpitations, PND, syncope, others Gastrointestinal: reports: abdominal pain, nausea, vomiting; denies: abdomen distended, blood streaked bowels, constipated, diarrhea, dysphagia, difficulty swallowing, hematemesis, melena, poor appetite, poor fluid intake, rectal bleeding, rectal pain, others Genitourinary: denies: burning, dysuria, flank pain, frequency, hematuria, incontinence, penile discharge, penile sore, pain, testicle pain, testicle swelling, urgency, others Neurological: denies: dizziness, fainting, headache, left sided numbness, left sided weakness, numbness, paresthesia, pre-existing deficit, right sided numbness, right sided weakness, seizure, speech problems, tingling, tremors, weakness, others Musculoskeletal: denies: back pain, gout, joint pain, joint swelling, muscle pain, muscle stiffness, neck pain, others Integumetry: denies: bruises, change in color, change in hair/nails, dryness, laceration, lesions, lumps, rash, wounds, others Allergic/Immunocompromised: denies: Difficulty Healing, Frequent Infections, Hives, Itching, others Hematologic/Lymphatic: denies: anemia, blood clots, easy bleeding, easy bruising, swollen glands, others Endocrine: denies: excessive hunger, excessive sweating, excessive thirst, excessive urination, flushing, intolerance to cold, intolerance to heat, unexplained weight gain, unexplained weight loss, others Psychiatric: denies: anxiety, bipolar disorder, depression, hopeless, panic disorder, schizophrenia, sleepless, suicidal, others All Other Systems: Reviewed and Negative Physical Exam General Appearance: Moderate Distress HEENT: Normal ENT Inspection, Pharynx Normal, TMs Normal Neck: Full Range of Motion, Non-Tender, Normal, Normal Inspection Respiratory: Chest Non-Tender, Lungs Clear, No Accessory Muscle Use, No Respiratory Distress, Normal Breath Sounds Cardiovascular: No Edema, No JVD, No Murmur, No Gallop, Normal Peripheral Pulses, Regular Rate/Rhythm Breast Exam: Deferred Gastrointestinal: Diffuse, No Organomegaly, No Pulsatile Mass, Normal Bowel Sounds, Soft, Tenderness Genitalia: Deferred Pelvic: Deferred Rectal: Deferred Extremities: No calf tenderness, Normal capillary refill, Normal inspection, Normal range of motion, Non-tender, No pedal edema Musculoskeletal : Apperance: Normal Neurologic: Alert, ruby on rails software developer II-XII nml as Tested, No Motor Deficits, Normal Affect, Normal Mood, No Sensory Deficits Cerebellar Function: Normal Reflexes: Normal Skin: Dry, Normal Color, Warm Lymphatic: No Adenopathy EKG EKG : Pulse Rate (adult): 106 Cardiac Rhythm: ST Was a procedure done? Was a procedure done?: No GI differential Dx Differential Diagnosis: Esophagitis, Gastroenteritis, Electrolyte Imbalance, Food Poisoning, Viral X-Ray, Labs, Meds, VS Vital Signs Date Time Temp Pulse Resp B/P (MAP) Pulse Ox O2 Delivery O2 Flow Rate FiO2 12/28/24 20:20 96 12 198/113 12/28/24 18:59 100 18 180/106 12/28/24 18:38 106 12/28/24 18:32 98.5 103 16 180/106 (130) 97 98.5 12/28/24 18:29 106 12/28/24 18:26 98.5 103 16 180/106 (130) 97 98.5 Lab Test 12/28/24 18:47 Range/Units White Blood Count 9.3 4.4-10.8 10^3/uL Red Blood Count 4.36 L 4.5-5.90 10^6/uL Hemoglobin 13.3 L 13.5-17.5 g/dL Hematocrit 39.8 L 41.0-53.0 % Mean Corpuscular Volume 91.3 80.0-100.0 fL Mean Corpuscular Hemoglobin 30.4 28.0-32.0 pg Mean Corpuscular Hemoglobin Concent 33.4 32.0-36.0 g/dL Red Cell Distribution Width 14.8 H 11.8-14.3 % Platelet Count 306 140-450 10^3/uL Mean Platelet Volume 9.1 6.9-10.8 fL Neutrophils (%) (Auto) 77.7 37.0-80.0 % Lymphocytes (%) (Auto) 13.9 10.0-50.0 % Monocytes (%) (Auto) 5.6 0.0-12.0 % Eosinophils (%) (Auto) 2.0 0.0-7.0 % Basophils (%) (Auto) 0.8 0.0-2.0 % Neutrophils # (Auto) 7.2 1.6-8.6 10 ^3/uL Lymphocytes # (Auto) 1.3 0.4-5.4 10 ^3/uL Monocytes # (Auto) 0.5 0-1.3 10 ^3/uL Eosinophils # (Auto) 0.2 0-0.8 10 ^3/uL Basophils # (Auto) 0.1 0-0.2 10 ^3/uL Nucleated Red Blood Cells 0.1 % Sodium Level 140 136-145 mmol/L Potassium Level 4.6 3.5-5.1 mmol/L Chloride Level 107 98-107 mmol/L Carbon Dioxide Level 19 L 20-31 mmol/L Anion Gap 14 5-15 Blood Urea Nitrogen 17 9-23 mg/dL Creatinine 0.92 0.700-1.30 mg/dL Glomerular Filtration Rate Calc 104 >90 mL/min BUN/Creatinine Ratio 18.5 10.0-20.0 Serum Glucose 179 H 74-106 mg/dL Lactic Acid Level 1.5 0.4-2.0 mmol/L Calcium Level 10.8 H 8.7-10.4 mg/dL Total Bilirubin 0.3 0.2-1.0 mg/dL Aspartate Amino Transferase (AST) 14 13-40 U/L Alanine Aminotransferase (ALT) 13 7-40 U/L Alkaline Phosphatase 95 46-116 U/L Total Protein 8.8 H 5.7-8.2 g/dL Albumin 5.5 H 3.2-4.8 g/dL Current Medications Medications (Trade) Dose Ordered Sig/Sreekanth Route Start Time Stop Time Status Last Admin Sodium Chloride 500 ml @ 500 mls/hr Q1H ONCE IV 12/28/24 18:45 12/28/24 19:44 DC 12/28/24 19:01 Morphine Sulfate 4 mg ONCE ONCE IV 12/28/24 18:45 12/28/24 18:46 DC 12/28/24 18:59 Prochlorperazine Edisylate (Compazine Inj) 10 mg ONCE ONCE IV 12/28/24 18:45 12/28/24 18:46 DC 12/28/24 19:00 Hydromorphone HCl (Dilaudid Injection) 1 mg ONCE ONCE IV 12/28/24 20:15 12/28/24 20:24 DC 12/28/24 20:20 The patient's CBC is within normal limits The chemistry panel is within normal limits The patient was still having persistent pain despite the morphine in the Compazine. The patient was given a bolus of normal saline at 500 cc At this time, we are going to give the patient Dilaudid for the pain The CAT scan of the abdomen and pelvis show no sign of any acute disease The patient was still having persistent pain so is being admitted to the hospitalist The patient understands and agrees with the management. Images Reviewed?: Images reviewed and evaluated by me Time of 1ST Reevaluation: 18:35 Reevaluation 1ST: Unchanged Patient Education/Counseling: Diagnosis, Treatment, Prognosis Family Education/Counseling: No Family Present Sepsis Sepsis Reasesment Focused Exam Orders: Laboratory Tests 12/28/24 18:47: Lactic Acid Level 1.5 Departure 1 Departure Time of Disposition: 20:40 Impression: Primary Impression: Intractable abdominal pain Additional Impressions: Intractable vomiting Generalized weakness Disposition: ADMITTED INPATIENT Admit to: Med Surg Condition: Fair Critical Care Note Critical Care Time?: No Stability Stability form required: Yes Unstable for transfer: ED Physician Assesment (Clinical assesment) I personally scribed for PORSHA GARDUNO MD ([email or web address]) on 12/28/24 at 18:35. Electronically submitted by Katerina Henriquez ([facility]). I personally scribed for PORSHA GARDUNO MD ([email or web address]) on 12/28/24 at 18:38. Electronically submitted by Katerina Henriquez ([facility]). PORSHA GARDUNO MD December 28, 2024 18:35
[2024-12-28] MEDS: MORPHINE SULFATE 4 MG/ML SYR/VIAL IV ONE (18:59)
[2024-12-28] MEDS: PROCHLORPERAZINE EDISYLATE 5 MG/ML 2ML VIAL IV ONE ×2 (19:00→22:17)
[2024-12-28] MEDS: SODIUM CHLORIDE 0.9% 500 ML IV ONE (19:01)
[2024-12-28 19:03] LABS: Basophils # (auto) 0.1 10 ^3/uL (0-0.2); Basophils % (auto) 0.8 % (0.0-2.0); Eosinophils # (auto) 0.2 10 ^3/uL (0-0.8); Hematocrit 39.8 % (41.0-53.0); Hemoglobin 13.3 g/dL (13.5-17.5); Lymphocytes # (auto) 1.3 10 ^3/uL (0.4-5.4); Lymphocytes % (auto) 13.9 % (10.0-50.0); Mean Corpuscular Hemoglobin 30.4 pg (28.0-32.0); Mean Corpuscular Hgb Conc. 33.4 g/dL (32.0-36.0); Mean Corpuscular Volume 91.3 fL (80.0-100.0); Monocytes # (auto) 0.5 10 ^3/uL (0-1.3); Monocytes % (auto) 5.6 % (0.0-12.0); Neutrophils # (auto) 7.2 10 ^3/uL (1.6-8.6); Neutrophils % (auto) 77.7 % (37.0-80.0); Nucleated Red Blood Cells % 0.1 %; Platelet Count (auto) 306 10^3/uL (140-450); Red Blood Cells 4.36 10^6/uL (4.5-5.90); Red Cell Distribution Width 14.8 % (11.8-14.3); White Blood Cell 9.3 10^3/uL (4.4-10.8)
[2024-12-28 19:15] LABS: Alanine Aminotransferase 13 U/L (7-40); Alkaline Phosphatase 95 U/L (46-116); Anion Gap 14 (5-15); Aspartate Aminotransferase 14 U/L (13-40); BUN/Creatinine Ratio 18.5 (10.0-20.0); Blood Urea Nitrogen 17 mg/dL (9-23); Potassium 4.6 mmol/L (3.5-5.1); Sodium 140 mmol/L (136-145)
[2024-12-28 19:16] LABS: Bilirubin, Total 0.3 mg/dL (0.2-1.0)
[2024-12-28 19:19] LABS: Albumin 5.5 g/dL (3.2-4.8); Calcium 10.8 mg/dL (8.7-10.4); Carbon Dioxide 19 mmol/L (20-31); Chloride 107 mmol/L (98-107); Glucose 179 mg/dL (74-106); Total Protein 8.8 g/dL (5.7-8.2)
[2024-12-28 19:30] VITALS: PULSE 90; O2SAT 93
[2024-12-28] MEDS: ONDANSETRON HCL 4 MG/2 ML VIAL IV ONE (20:20)
[2024-12-28] MEDS: HYDROmorphone HCL 2 MG/ML VL/or syr IV ONE ×2 (20:20→22:17)
--- NOTE | 2024-12-28 20:20 | DVH ---
Exam: CT CT AB PEL WO CON-NO ORAL OR IV History: Severe abdominal pain rule out infection Comparison Study: None TECHNIQUE: Multidetector CT of the abdomen was performed from lung bases to pubic symphysis. Imaging was performed without IV contrast. Axial, coronal and sagittal multiplanar reformats were obtained fr om the axial data set by the technologist. Radiation Dose Information: CT Dose: CTDI volume is 22.74 mGy. Dose-length product is 1399.5 mGy*cm FINDINGS: Evaluation of solid organs is limited due to lack of intravenous contrast use. Findings: Lung Bases: No acute or significant lung base finding. Normal heart size. No pleural or pericardial effusion. Liver: The liver is normal in size. No focal lesions. Gallbladder and Biliary Tree: Unremarkable Spleen: Unremarkable Pancreas: The pancreas is grossly normal in appearance. Adrenal Glands: Unremarkable Kidneys: Kidneys are grossly normal without calculi or hydronephrosis. Bladder: Grossly unremarkable for degree of distention. Bowel: The stomach is grossly normal in appearance. Small bowel and colon are normal in caliber and d istribution. The appendix is visualized and there is no calcified appendicolith or periappendiceal inflammatory changes. Correlate clinical setting to exclude appendicitis.; however, no secondary find ings of acute appendicitis identified. Ascites: Absent Lymphadenopathy: No mesenteric, retroperitoneal or periportal lymphadenopathy. Abdominal Wall and Mesentery: Unremarkable. Vasculature: The visualized abdominal aorta is normal in size and caliber. Evaluation of abdominal a nd pelvic vessels is limited due to lack of intravenous contrast. Pelvic Organs: Calcified seminal vesicles. This may be associated with the adult diabetes. Psoas mus cles are symmetrical. Musculoskeletal: No aggressive focal bony lesions, acute fractures or dislocation. Degenerative disc changes at L3-4 and L4-5. Soft tissues: Unremarkable IMPRESSION: 1. No findings to suggest bowel obstruction. 2. Appendix is prominent diameter measuring 10-11 mm however there is no calcified appendicoliths or periappendiceal inflammatory changes. Correlate clinical setting for possible appendicitis. 3. Calcified seminal vesicles often associated with the adult diabetes. 4. Extensive renal vascular calcifications. 5. Degenerative disc changes at L3-4 and L4-5. Radiation optimization: All CT scans at this facility use at least one of these dose optimization te chniques: automated exposure control mA and/or kV adjustment per patient size (includes targeted exa ms where dose is matched to clinical indication) or iterative reconstruction.
[2024-12-28] MEDS ORDERED: ACETAMINOPHEN 325 MG TAB PO PRN (21:45)
[2024-12-28] MEDS ORDERED: DEXTROSE (50%) 50ML SYRG IV PRN (21:45)
[2024-12-28] MEDS: SODIUM CHLORIDE 0.9% 1,000 ML IV ONE (22:00)
[2024-12-28] MEDS: TICAGRELOR 90 MG TAB PO SCH (22:32)
[2024-12-28] MEDS: CARVEDILOL 3.125 MG TAB PO SCH (22:33)
[2024-12-28] MEDS: GABAPENTIN 400 MG CAP PO SCH (22:33)
[2024-12-28] MEDS: ATORVASTATIN 20 MG TAB PO SCH (22:33)
[2024-12-28] MEDS: ACCU-CHEK COMFORT CURVE STRIP VI SCH (22:35)
[2024-12-28 22:41] LABS: Urine Bacteria None Seen /hpf (None Seen)
[2024-12-28] MEDS: InsuLIN REG 1unit/0.01ml Soln (100units/ml) SC SCH (22:56)
[2024-12-28 23:01] LABS: Urine Blood 1+ /uL (Negative); Urine Clarity Clear (Clear); Urine Color Light-Yellow (Yellow); Urine Protein, UAD 2+ (Negative); Urine Specific Gravity 1.017 (1.001-1.035); Urine Squamous Epithelial Cell FEW /hpf (<5); Urine Urobilinogen Normal (Negative); Urine WBC < 1 /HPF (0-3)
[2024-12-28 23:08] LABS: Cannabinoid Screen, Urine Pos (NEGATIVE); Opiate Scree,Urine Pos (NEGATIVE)
[2024-12-28 23:13] LABS: Amphetamine Screen, Urine Neg (NEGATIVE); Barbiturate Scree,Urine Neg (NEGATIVE); Benzodiazephine Screen, Urine Neg (NEGATIVE); Cocaine Screen, Urine Neg (NEGATIVE); Phencyclidine Screen, Urine Neg (NEGATIVE)
--- NOTE | 2024-12-28 23:39 | ECG ---
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
[2024-12-28] MEDS: hydrALAZINE HCL 20 MG/ML VL IV PRN (23:58)
[2024-12-29] VITALS (8 sets, daily range): BP systolic 38–203; BP diastolic 69–104; PULSE 87–115; RESP 16–23; TEMP 97.7–99; O2SAT 98–99
[2024-12-29] MEDS: ONDANSETRON HCL 4 MG/2 ML VIAL IV PRN (00:30)
[2024-12-29] MEDS: MORPHINE SULFATE INJ 2 MG/ml SYRG IV PRN (00:31)
[2024-12-29] MEDS: HYDROcodone-ACET 5/325MG TAB PO PRN (00:58)
--- NOTE | 2024-12-29 04:11 | DVHHP2 ---
History of Present Illness Reason for Visit: Abdominal pain History of Present Illness 44-year-old male presents for evaluation of abdominal pain. Patient reports a three day history of diffuse abdominal pain with associated nausea and vomiting. Denies fever or chills. No diarrhea or constipation. Patient reports having intermittent episodes of these symptoms over the past months. No other acute complaints reported. Past Medical History Hypertension, mi, diabetes mellitus, CHF Past Surgical History BKA Family History Noncontributory Smoke: No ALCOHOL: none Drugs: Marijuana Lives: with Family Review of Systems Review of Systems Review of systems are currently negative otherwise addressed in HPI. Allergies: Coded Allergies: NO KNOWN ALLERGIES (Unverified , 12/28/24) Medications Current Medications Medications Dose Ordered Sig/Sreekanth Route Start Time Stop Time Status Last Admin Dose Admin Carvedilol 6.25 mg Q12HR PO 12/28/24 22:00 12/28/24 22:33 6.25 MG Atorvastatin Calcium 40 mg HS PO 12/28/24 22:00 12/28/24 22:33 40 MG Gabapentin 400 mg TID PO 12/28/24 22:00 12/28/24 22:33 400 MG Ticagrelor 90 mg BID PO 12/28/24 22:00 12/28/24 22:32 90 MG Nifedipine 90 mg DAILY PO 12/29/24 10:00 Losartan Potassium 50 mg DAILY PO 12/29/24 10:00 Spironolactone 50 mg DAILY PO 12/29/24 10:00 Hydralazine HCl 10 mg Q6HP PRN IV 12/28/24 21:45 12/28/24 23:58 10 MG Diagnostic Test (Pha) 1 strip ACHS 12/28/24 22:00 12/28/24 22:35 1 STRIP Insulin Human Regular ACHS SC 12/28/24 22:00 12/28/24 22:56 3 UNITS Dextrose 50 ml UD PRN IV 12/28/24 21:45 Acetaminophen/ Hydrocodone Bitart 1 tab Q4HP PRN PO 12/28/24 21:45 12/29/24 00:58 1 TAB Ondansetron HCl 4 mg Q4HP PRN IV 12/28/24 21:45 12/29/24 00:30 4 MG Acetaminophen 650 mg Q6HP PRN PO 12/28/24 21:45 Morphine Sulfate 2 mg Q4HPRN PRN IV 12/28/24 21:45 12/29/24 00:31 2 MG Exam Vital Signs Vital Signs Date Time Temp Pulse Resp B/P (MAP) Pulse Ox O2 Delivery O2 Flow Rate FiO2 12/29/24 01:15 100 23 170/98 (122) 95 12/28/24 19:30 Room Air* 0 21 12/28/24 19:30 97.7 97.7 Exam Gen: 44-year-old male in mild distress Skin: Warm, dry, normal color and texture, no rash. HEENT: Normocephalic atraumatic, mucous membranes moist and pink. Neck: Cervical and supraclavicular nodes normal without enlargement, trachea is midline, thyroid gland is normal without masses. Pulmonary: Clear to auscultation and percussion bilaterally. Cardiac: Regular rate and rhythm. No murmur Abdomen: Soft, diffuse tenderness, nondistended, bowel sounds present all 4 quadrants, no guarding, no rigidity, no organomegaly. Extremities: No cyanosis, clubbing, no edema Neuro: Cranial nerves II through XII grossly intact, normal affect and speech, no focal motor deficits. Labs/Xrays ORDERING PHYSICIAN: NIKO SAMANIEGO MD PROCEDURE(s): ABPL - CT AB PEL WO CON-NO ORAL OR IV REASON: Severe abdominal pain rule out infection ORDER NUMBER(s): [id number], ACCESSION NUMBER(s): [id number] Exam: CT CT AB PEL WO CON-NO ORAL OR IV History: Severe abdominal pain rule out infection Comparison Study: None TECHNIQUE: Multidetector CT of the abdomen was performed from lung bases to pubic symphysis. Imaging was performed without IV contrast. Axial, coronal and sagittal multiplanar reformats were obtained from the axial data set by the technologist. Radiation Dose Information: CT Dose: CTDI volume is 22.74 mGy. Dose-length product is 1399.5 mGy*cm FINDINGS: Evaluation of solid organs is limited due to lack of intravenous contrast use. Findings: Lung Bases: No acute or significant lung base finding. Normal heart size. No pleural or pericardial effusion. Liver: The liver is normal in size. No focal lesions. Gallbladder and Biliary Tree: Unremarkable Spleen: Unremarkable Pancreas: The pancreas is grossly normal in appearance. Adrenal Glands: Unremarkable Kidneys: Kidneys are grossly normal without calculi or hydronephrosis. Bladder: Grossly unremarkable for degree of distention. Bowel: The stomach is grossly normal in appearance. Small bowel and colon are normal in caliber and distribution. The appendix is visualized and there is no calcified appendicolith or periappendiceal inflammatory changes. Correlate clinical setting to exclude appendicitis.; however, no secondary findings of acute appendicitis identified. Ascites: Absent Lymphadenopathy: No mesenteric, retroperitoneal or periportal lymphadenopathy. Abdominal Wall and Mesentery: Unremarkable. Vasculature: The visualized abdominal aorta is normal in size and caliber. Evaluation of abdominal and pelvic vessels is limited due to lack of intravenous contrast. Pelvic Organs: Calcified seminal vesicles. This may be associated with the adult diabetes. Psoas muscles are symmetrical. Musculoskeletal: No aggressive focal bony lesions, acute fractures or dislocation. Degenerative disc changes at L3-4 and L4-5. Soft tissues: Unremarkable IMPRESSION: 1. No findings to suggest bowel obstruction. 2. Appendix is prominent diameter measuring 10-11 mm however there is no calcified appendicoliths or periappendiceal inflammatory changes. Correlate clinical setting for possible appendicitis. 3. Calcified seminal vesicles often associated with the adult diabetes. 4. Extensive renal vascular calcifications. 5. Degenerative disc changes at L3-4 and L4-5. Radiation optimization: All CT scans at this facility use at least one of these dose optimization techniques: automated exposure control mA and/or kV adjustment per patient size (includes targeted exams where dose is matched to clinical indication) or iterative reconstruction. Labs Test 12/28/24 22:30 12/28/24 18:47 Range/Units Urine Color Light-yellow Yellow Urine Clarity Clear Clear Urine pH 6.0 5.0-9.0 Urine Specific [place] 1.017 1.001-1.035 Urine Protein 2+ H Negative Urine Ketones 1+ H Negative Urine Blood 1+ H Negative /uL Urine Nitrite Negative Negative Urine Bilirubin Negative Negative Urine Urobilinogen Normal Negative mg/dL Urine Leukocyte Esterase Negative Negative /uL Urine RBC 4 0 - 3 /hpf Urine Microscopic WBC < 1 0-3 /HPF Urine Squamous Epithelial Cells Few <5 /hpf Urine Bacteria None seen None Seen /hpf Urine Glucose 4+ H Normal mg/dL Urine Opiates Screen Pos NEGATIVE Urine Fentanyl Screen Neg NEGATIVE Urine Barbiturates Screen Neg NEGATIVE Urine Phencyclidine Screen Neg NEGATIVE Urine Amphetamines Screen Neg NEGATIVE Urine Benzodiazepines Screen Neg NEGATIVE Urine Cocaine Screen Neg NEGATIVE Urine Cannabinoids Screen Pos NEGATIVE White Blood Count 9.3 4.4-10.8 10^3/uL Red Blood Count 4.36 L 4.5-5.90 10^6/uL Hemoglobin 13.3 L 13.5-17.5 g/dL Hematocrit 39.8 L 41.0-53.0 % Mean Corpuscular Volume 91.3 80.0-100.0 fL Mean Corpuscular Hemoglobin 30.4 28.0-32.0 pg Mean Corpuscular Hemoglobin Concent 33.4 32.0-36.0 g/dL Red Cell Distribution Width 14.8 H 11.8-14.3 % Platelet Count 306 140-450 10^3/uL Mean Platelet Volume 9.1 6.9-10.8 fL Neutrophils (%) (Auto) 77.7 37.0-80.0 % Lymphocytes (%) (Auto) 13.9 10.0-50.0 % Monocytes (%) (Auto) 5.6 0.0-12.0 % Eosinophils (%) (Auto) 2.0 0.0-7.0 % Basophils (%) (Auto) 0.8 0.0-2.0 % Neutrophils # (Auto) 7.2 1.6-8.6 10 ^3/uL Lymphocytes # (Auto) 1.3 0.4-5.4 10 ^3/uL Monocytes # (Auto) 0.5 0-1.3 10 ^3/uL Eosinophils # (Auto) 0.2 0-0.8 10 ^3/uL Basophils # (Auto) 0.1 0-0.2 10 ^3/uL Nucleated Red Blood Cells 0.1 % Sodium Level 140 136-145 mmol/L Potassium Level 4.6 3.5-5.1 mmol/L Chloride Level 107 98-107 mmol/L Carbon Dioxide Level 19 L 20-31 mmol/L Anion Gap 14 5-15 Blood Urea Nitrogen 17 9-23 mg/dL Creatinine 0.92 0.700-1.30 mg/dL Glomerular Filtration Rate Calc 104 >90 mL/min BUN/Creatinine Ratio 18.5 10.0-20.0 Serum Glucose 179 H 74-106 mg/dL Lactic Acid Level 1.5 0.4-2.0 mmol/L Calcium Level 10.8 H 8.7-10.4 mg/dL Total Bilirubin 0.3 0.2-1.0 mg/dL Aspartate Amino Transferase (AST) 14 13-40 U/L Alanine Aminotransferase (ALT) 13 7-40 U/L Alkaline Phosphatase 95 46-116 U/L Total Protein 8.8 H 5.7-8.2 g/dL Albumin 5.5 H 3.2-4.8 g/dL Assessment/Plan Assessment/Plan Assessment Acute abdominal pain Possible gastroenteritis Accelerated hypertension [place] [facility] [place] Clear liquid diet GI consult Resume home medications Continue treatment per orders. Plan discussed with: Patient My Orders Orders - JOJO BETHEA AGACNMargaret Procedure Category Date Status Time * Gi Dvh [employer] CONS 12/28/24 Transmitted 21:40 Sodium Chloride 0.9% PHA 12/28/24 In Process 21:45 Carvedilol Tablet PHA 12/28/24 In Process (Coreg Tablet) 22:00 Atorvastatin (Lipitor) PHA 12/28/24 In Process 22:00 Gabapentin Capsule PHA 12/28/24 In Process (Neurontin Capsule) 22:00 Ticagrelor (Brilinta) PHA 12/28/24 In Process 22:00 Nifedipine Er PHA 12/29/24 In Process (Procardia Xl 10:00 Losartan Tablet PHA 12/29/24 In Process (Cozaar Tablet) 10:00 Spironolactone PHA 12/29/24 In Process (Aldactone) 10:00 Hydralazine Injection PHA 12/28/24 In Process (Apresoline Inject 21:45 Basic Metabolic Panel LAB 12/29/24 Logged 04:00 Glucose Blood PHA 12/28/24 In Process (Accu-Chek Comfort 22:00 Insulin R (Human) PHA 12/28/24 In Process (Insulin R) 22:00 Dextrose 50% Syringe PHA 12/28/24 In Process 21:45 Admit ADMIT 12/28/24 Transmitted 21:40 Hydrocodone-Acet PHA 12/28/24 In Process /325mg Tab (Godfrey 21:45 Ondansetron Hcl PHA 12/28/24 In Process (Zofran) 21:45 Complete Blood Count LAB 12/29/24 Logged 04:00 Condition: Stable BRADY 12/28/24 In Process 21:40 Acetaminophen Tablet PHA 12/28/24 In Process (Tylenol Tablet) 21:45 Clear Liq Diet DIET 12/29/24 Transmitted Breakfast Bedrest With Bathroom BRADY 12/28/24 In Process Privileg 21:40 Morphine Sulfate PHA 12/28/24 In Process Injection 21:45 * Wound Consult CONS 12/29/24 Transmitted Pantoprazole PHA 12/29/24 Verified (Protonix) 10:00 Date of Service: December 28, 2024 Billing Provider: JOJO BETHEA Common Visit Codes: [id number] INP/OBS CARE (MOD) JOJO BETHEA December 29, 2024 04:11
[2024-12-29 06:08] LABS: Basophils # (auto) 0 10 ^3/uL (0-0.2); Basophils % (auto) 0.4 % (0.0-2.0); Eosinophils # (auto) 0 10 ^3/uL (0-0.8); Eosinophils % (auto) 0.1 % (0.0-7.0); Hematocrit 41.1 % (41.0-53.0); Hemoglobin 13.4 g/dL (13.5-17.5); Lymphocytes # (auto) 0.8 10 ^3/uL (0.4-5.4); Lymphocytes % (auto) 10.3 % (10.0-50.0); Mean Corpuscular Hemoglobin 29.8 pg (28.0-32.0); Mean Corpuscular Hgb Conc. 32.5 g/dL (32.0-36.0); Mean Corpuscular Volume 91.8 fL (80.0-100.0); Monocytes # (auto) 0.3 10 ^3/uL (0-1.3); Monocytes % (auto) 3.7 % (0.0-12.0); Neutrophils # (auto) 6.9 10 ^3/uL (1.6-8.6); Neutrophils % (auto) 85.5 % (37.0-80.0); Platelet Count (auto) 313 10^3/uL (140-450); Red Blood Cells 4.48 10^6/uL (4.5-5.90); Red Cell Distribution Width 15.4 % (11.8-14.3)
[2024-12-29 06:25] LABS: Chloride 103 mmol/L (98-107); Potassium 4.4 mmol/L (3.5-5.1); Sodium 136 mmol/L (136-145)
[2024-12-29 06:26] LABS: Anion Gap 17 (5-15); Calcium 9.9 mg/dL (8.7-10.4)
[2024-12-29 06:28] LABS: Carbon Dioxide 16 mmol/L (20-31)
[2024-12-29 06:31] LABS: BUN/Creatinine Ratio 18.9 (10.0-20.0); Blood Urea Nitrogen 17 mg/dL (9-23); Glucose 180 mg/dL (74-106)
[2024-12-29] MEDS: PANTOPRAZOLE 40 MG/10 ML VIAL INJ IV SCH (10:22)
[2024-12-29] MEDS: SPIRONOLACTONE 25 MG TAB PO SCH (10:29)
[2024-12-29] MEDS: LOSARTAN POTASSIUM 50 MG TAB PO SCH (10:31)
[2024-12-29] MEDS: NIFEdipine ER 30 MG TAB PO SCH (10:31)
--- NOTE | 2024-12-29 13:38 | DVHPN2 ---
Reviewed: Care Plan, H&P, Labs, Medications, Previous Orders, Radiology Changes from previous H/P or p: No Changes Objective Vitals Vital Signs Date Time Temp Pulse Resp B/P (MAP) Pulse Ox O2 Delivery O2 Flow Rate FiO2 12/29/24 10:33 111 118/102 12/29/24 09:00 97.8 16 98 97.8 12/29/24 08:00 Room Air* 0 21 Intake/Output Intake and Output 12/29/24 07:00 Intake Total 1350 ml Balance 1350 ml Intake Oral 550 ml IV Total 800 ml Medications Current Medications Medications Dose Ordered Sig/Sreekanth Route Start Time Stop Time Status Last Admin Dose Admin Carvedilol 6.25 mg Q12HR PO 12/28/24 22:00 12/29/24 10:33 6.25 MG Atorvastatin Calcium 40 mg HS PO 12/28/24 22:00 12/28/24 22:33 40 MG Gabapentin 400 mg TID PO 12/28/24 22:00 12/29/24 06:11 400 MG Ticagrelor 90 mg BID PO 12/28/24 22:00 12/29/24 10:32 90 MG Nifedipine 90 mg DAILY PO 12/29/24 10:00 12/29/24 10:31 90 MG Losartan Potassium 50 mg DAILY PO 12/29/24 10:00 12/29/24 10:31 50 MG Spironolactone 50 mg DAILY PO 12/29/24 10:00 12/29/24 10:29 50 MG Hydralazine HCl 10 mg Q6HP PRN IV 12/28/24 21:45 12/29/24 06:14 10 MG Diagnostic Test (Pha) 1 strip ACHS 12/28/24 22:00 12/29/24 11:47 1 STRIP Insulin Human Regular ACHS SC 12/28/24 22:00 12/29/24 12:01 3 UNITS Dextrose 50 ml UD PRN IV 12/28/24 21:45 Acetaminophen/ Hydrocodone Bitart 1 tab Q4HP PRN PO 12/28/24 21:45 12/29/24 00:58 1 TAB Ondansetron HCl 4 mg Q4HP PRN IV 12/28/24 21:45 12/29/24 06:13 4 MG Acetaminophen 650 mg Q6HP PRN PO 12/28/24 21:45 Morphine Sulfate 2 mg Q4HPRN PRN IV 12/28/24 21:45 12/29/24 08:06 2 MG Pantoprazole Sodium 40 mg DAILY IV 12/29/24 10:00 12/29/24 10:22 40 MG Laboratory Results Laboratory Tests 12/29/24 05:20 Chemistry Test 12/28/24 18:47 12/29/24 05:20 Albumin 5.5 g/dL (3.2-4.8) H Calcium Level 10.8 mg/dL (8.7-10.4) H 9.9 mg/dL (8.7-10.4) Total Protein 8.8 g/dL (5.7-8.2) H LFT Test 12/28/24 18:47 Alanine Aminotransferase (ALT) 13 U/L (7-40) Alkaline Phosphatase 95 U/L (46-116) Aspartate Amino Transferase (AST) 14 U/L (13-40) Total Bilirubin 0.3 mg/dL (0.2-1.0) Urinalysis Test 12/28/24 22:30 Urine Color Light-yellow (Yellow) Urine Clarity Clear (Clear) Urine pH 6.0 (5.0-9.0) Urine Specific [place] 1.017 (1.001-1.035) Urine Protein 2+ (Negative) H Urine Ketones 1+ (Negative) H Urine Blood 1+ /uL (Negative) H Urine Nitrite Negative (Negative) Urine Bilirubin Negative (Negative) Urine Urobilinogen Normal mg/dL (Negative) Urine Leukocyte Esterase Negative /uL (Negative) Urine RBC 4 /hpf (0 - 3) Urine Microscopic WBC < 1 /HPF (0-3) Urine Squamous Epithelial Cells Few /hpf (<5) Urine Bacteria None seen /hpf (None Seen) Urine Glucose 4+ mg/dL (Normal) H Labs and/or images reviewed: Labs reviewed by me, Image(s) reviewed by me Assessment/Plan Assessment/Plan Acute abdominal pain possible appendicitis: Yuval Molina consult for surgeon Dr. Marroquin Accelerated Hypertension Diabetes History of DC Acute congestive heart failure exacerbation Time spent 45 minutes Patient is full code Advanced care planning time 20 minutes Plan discussed with: Patient Date of Service: December 29, 2024 Billing Provider: NINI MELVIN MD Common Visit Codes: [id number] INP/OBS CARE(HIGH) Secondary Visit Codes: [id number] CARE PLAN 30 MINUTES NINI MELVIN MD December 29, 2024 13:38
--- NOTE | 2024-12-29 13:42 | DVHINCON2 ---
GI Consult Consult Note Addendum Patient also has a secondary chart and in the name of Phoenix Rendon date of 11/27/2078 GI consult note Date of Consultation: 12/29/2024 Chief Complaint: Abdominal pain Referring Physician: Brandin SAUNDERS H&P: 44-year-old male presents to ER for abdominal pain. Patient complains of diffuse abdominal pain which is worsening in the last four days. Patient also complains of nausea vomiting, mostly bile that he is throwing up. No hematemesis. Patient has history of gastroparesis. Takes PPI and Carafate which does not seem to be helping at this time. Last BM one day ago, denies melena or red blood in stool Patient has been seen in clinic by Dr. Ingram for possible EGD, pending cardiac clearance Past Medical History: Hypertension, mi, diabetes mellitus, CHF Past Surgical History: BKA Social History: Smoke: No ALCOHOL: none Drugs: Marijuana Lives: with Family Family History: Noncontributory Review of Systems: Constitutional: no fever, chill, weight loss HEENT: no eye pain, no hearing loss, no oral lesion, no scleral icterus Heart: no chest pain, no chest pressure Lung: no cough, no dyspnea with exertion Abdomen: see HPI : no pain with urination, normal appearing urine Physical exam: General: NAD, AAOX3 Chest: lung fuentes clear to auscultation Heart: RRR, no murmur Abdomen: non-distended, no tenderness to palpation, +BS Labs: Labs Test 12/29/24 11:48 12/29/24 05:20 12/28/24 22:30 12/28/24 18:47 Range/Units POC Glucose 180 H 70-106 mg/dl White Blood Count 8.0 4.4-10.8 10^3/uL Red Blood Count 4.48 L 4.5-5.90 10^6/uL Hemoglobin 13.4 L 13.5-17.5 g/dL Hematocrit 41.1 41.0-53.0 % Mean Corpuscular Volume 91.8 80.0-100.0 fL Mean Corpuscular Hemoglobin 29.8 28.0-32.0 pg Mean Corpuscular Hemoglobin Concent 32.5 32.0-36.0 g/dL Red Cell Distribution Width 15.4 H 11.8-14.3 % Platelet Count 313 140-450 10^3/uL Mean Platelet Volume 8.9 6.9-10.8 fL Neutrophils (%) (Auto) 85.5 H 37.0-80.0 % Lymphocytes (%) (Auto) 10.3 10.0-50.0 % Monocytes (%) (Auto) 3.7 0.0-12.0 % Eosinophils (%) (Auto) 0.1 0.0-7.0 % Basophils (%) (Auto) 0.4 0.0-2.0 % Neutrophils # (Auto) 6.9 1.6-8.6 10 ^3/uL Lymphocytes # (Auto) 0.8 0.4-5.4 10 ^3/uL Monocytes # (Auto) 0.3 0-1.3 10 ^3/uL Eosinophils # (Auto) 0 0-0.8 10 ^3/uL Basophils # (Auto) 0 0-0.2 10 ^3/uL Nucleated Red Blood Cells 0.0 % Sodium Level 136 136-145 mmol/L Potassium Level 4.4 3.5-5.1 mmol/L Chloride Level 103 98-107 mmol/L Carbon Dioxide Level 16 L 20-31 mmol/L Anion Gap 17 H 5-15 Blood Urea Nitrogen 17 9-23 mg/dL Creatinine 0.90 0.700-1.30 mg/dL Glomerular Filtration Rate Calc 107 >90 mL/min BUN/Creatinine Ratio 18.9 10.0-20.0 Serum Glucose 180 H 74-106 mg/dL Calcium Level 9.9 8.7-10.4 mg/dL Urine Color Light-yellow Yellow Urine Clarity Clear Clear Urine pH 6.0 5.0-9.0 Urine Specific [place] 1.017 1.001-1.035 Urine Protein 2+ H Negative Urine Ketones 1+ H Negative Urine Blood 1+ H Negative /uL Urine Nitrite Negative Negative Urine Bilirubin Negative Negative Urine Urobilinogen Normal Negative mg/dL Urine Leukocyte Esterase Negative Negative /uL Urine RBC 4 0 - 3 /hpf Urine Microscopic WBC < 1 0-3 /HPF Urine Squamous Epithelial Cells Few <5 /hpf Urine Bacteria None seen None Seen /hpf Urine Glucose 4+ H Normal mg/dL Urine Opiates Screen Pos NEGATIVE Urine Fentanyl Screen Neg NEGATIVE Urine Barbiturates Screen Neg NEGATIVE Urine Phencyclidine Screen Neg NEGATIVE Urine Amphetamines Screen Neg NEGATIVE Urine Benzodiazepines Screen Neg NEGATIVE Urine Cocaine Screen Neg NEGATIVE Urine Cannabinoids Screen Pos NEGATIVE Lactic Acid Level 1.5 0.4-2.0 mmol/L Total Bilirubin 0.3 0.2-1.0 mg/dL Aspartate Amino Transferase (AST) 14 13-40 U/L Alanine Aminotransferase (ALT) 13 7-40 U/L Alkaline Phosphatase 95 46-116 U/L Total Protein 8.8 H 5.7-8.2 g/dL Albumin 5.5 H 3.2-4.8 g/dL Imaging: CT abdomen pelvis IMPRESSION: 1. No findings to suggest bowel obstruction. 2. Appendix is prominent diameter measuring 10-11 mm however there is no calcified appendicoliths or periappendiceal inflammatory changes. Correlate clinical setting for possible appendicitis. 3. Calcified seminal vesicles often associated with the adult diabetes. 4. Extensive renal vascular calcifications. 5. Degenerative disc changes at L3-4 and L4-5. Assessment: Abdominal pain Nausea and vomiting History of gastroparesis Abnormal findings of appendix on CT Plan: Discussed with Dr. Ingram Ultrasound of appendix Continue Zofran Protonix and Carafate Monitor labs We will continue to follow patient Thank you for this consult Date of Service: December 29, 2024 Billing Provider: RON MELVIN Common Visit Codes: CONSULT ONLY Consultation Codes: [id number] CONSULT <60MIN RON MELVIN December 29, 2024 13:42
--- NOTE | 2024-12-29 14:58 | DVH ---
INDICATION: appendix TECHNIQUE: Graded compression technique along with Multiple real-time sonographic images were obtain ed for evaluation of the right lower quadrant. FINDINGS: Appendix measures 8 mm in the right lower quadrant. Acute cholecystitis can not be excluded. on this exam. IMPRESSION: 1. Appendix measures 8 mm in the right lower quadrant. Acute cholecystitis can not be excluded.
--- NOTE | 2024-12-29 15:07 | DVHPN2 ---
Progress Note Date Seen: December 29, 2024 Medical Necessity Reason Pt with a Central, PICC or Fol: No Objective vital signs Vital Sign Date Time Temp Pulse Resp B/P (MAP) Pulse Ox O2 Delivery O2 Flow Rate FiO2 12/29/24 13:00 98.1 102 16 38/88 (72) 98 98.1 12/29/24 08:00 Room Air* 0 21 Total Intake and Output 12/28/24 12/28/24 12/29/24 15:00 23:00 07:00 Intake Total 600 ml 750 ml Balance 600 ml 750 ml medications Current Medications Medications Dose Ordered Sig/Sreekanth Route Start Time Stop Time Status Last Admin Dose Admin Carvedilol 6.25 mg Q12HR PO 12/28/24 22:00 12/29/24 10:33 6.25 MG Atorvastatin Calcium 40 mg HS PO 12/28/24 22:00 12/28/24 22:33 40 MG Gabapentin 400 mg TID PO 12/28/24 22:00 12/29/24 06:11 400 MG Ticagrelor 90 mg BID PO 12/28/24 22:00 12/29/24 10:32 90 MG Nifedipine 90 mg DAILY PO 12/29/24 10:00 12/29/24 10:31 90 MG Losartan Potassium 50 mg DAILY PO 12/29/24 10:00 12/29/24 10:31 50 MG Spironolactone 50 mg DAILY PO 12/29/24 10:00 12/29/24 10:29 50 MG Hydralazine HCl 10 mg Q6HP PRN IV 12/28/24 21:45 12/29/24 06:14 10 MG Diagnostic Test (Pha) 1 strip ACHS 12/28/24 22:00 12/29/24 11:47 1 STRIP Insulin Human Regular ACHS SC 12/28/24 22:00 12/29/24 12:01 3 UNITS Dextrose 50 ml UD PRN IV 12/28/24 21:45 Acetaminophen/ Hydrocodone Bitart 1 tab Q4HP PRN PO 12/28/24 21:45 12/29/24 00:58 1 TAB Ondansetron HCl 4 mg Q4HP PRN IV 12/28/24 21:45 12/29/24 06:13 4 MG Acetaminophen 650 mg Q6HP PRN PO 12/28/24 21:45 Morphine Sulfate 2 mg Q4HPRN PRN IV 12/28/24 21:45 12/29/24 08:06 2 MG Pantoprazole Sodium 40 mg DAILY IV 12/29/24 10:00 12/29/24 10:22 40 MG Ceftriaxone Sodium 50 ml @ 100 mls/hr DAILY@09 IV 12/30/24 09:00 Metronidazole 100 ml @ 100 mls/hr Q8HR IV 12/29/24 14:00 laboratory and microbiology Laboratory Tests 12/29/24 05:20 Test 12/29/24 05:20 Range/Units Serum Glucose 180 H 74-106 mg/dL Problem List/Assessment/Plan Problem List/Assessment/Plan 12/29/24I was notified that patient is having diffuse abdominal pain, will await ultrasound , wbc normal, pain of protracted duration. will fully evaluate aftyer ultrasound. Plan discussed with: CELESTE Oreilly MD December 29, 2024 15:07
[2024-12-29] MEDS: metroNIDAZOLE 500MG/100ML 100 ML IV SCH (15:22)
[2024-12-29] MEDS: cefTRIAXone 1GM/50ML D5W 50 ML IV ONE (15:22)
--- NOTE | 2024-12-29 17:22 | DVH ---
INDICATION: r/o cholelithiasis TECHNIQUE: Multiple real-time sonographic images were obtained of the right upper quadrant. COMPARISON: US RIGHT LOWER QUAD on DOS: 12/29/24 FINDINGS: The liver demonstrates homogenous echotexture without focal mass lesions. There is no intr ahepatic or extrahepatic ductal dilatation. The liver length is 17.5 cm. The common duct measures 3 .8 mm. The gallbladder is without evidence of stone or sludge. The gallbladder wall measures 1.9 mm and is within normal limits. The right kidney measures 11.8 cm. The right kidney is normal in contour, size, and shape. The ech ogenicity is normal. There is no hydronephrosis. The pancreas tail is not well visualized due to overlying bowel gas. Otherwise a pancreas head and [place] appears normal echotexture IMPRESSION: 1. Unremarkable right upper quadrant sonogram.
[2024-12-30] VITALS (7 sets, daily range): BP systolic 102–129; BP diastolic 65–79; PULSE 64–88; RESP 17–18; TEMP 36.8; O2SAT 98–99
--- NOTE | 2024-12-30 08:34 | DVHPN2 ---
Reviewed: Care Plan, H&P, Labs, Medications, Previous Orders, Radiology Changes from previous H/P or p: No Changes Objective Vitals Vital Signs Date Time Temp Pulse Resp B/P (MAP) Pulse Ox O2 Delivery O2 Flow Rate FiO2 12/30/24 05:54 75 18 110/62 12/30/24 05:00 98.2 99 98.2 12/29/24 20:00 Room Air* 0 21 Intake/Output Intake and Output 12/30/24 07:00 Intake Total 1100 ml Balance 1100 ml Intake Oral 800 ml IV Total 300 ml # Voids 2 Medications Current Medications Medications Dose Ordered Sig/Sreekanth Route Start Time Stop Time Status Last Admin Dose Admin Carvedilol 6.25 mg Q12HR PO 12/28/24 22:00 12/30/24 00:11 6.25 MG Atorvastatin Calcium 40 mg HS PO 12/28/24 22:00 12/30/24 00:12 40 MG Gabapentin 400 mg TID PO 12/28/24 22:00 12/30/24 05:29 400 MG Ticagrelor 90 mg BID PO 12/28/24 22:00 12/30/24 00:10 90 MG Nifedipine 90 mg DAILY PO 12/29/24 10:00 12/29/24 10:31 90 MG Losartan Potassium 50 mg DAILY PO 12/29/24 10:00 12/29/24 10:31 50 MG Spironolactone 50 mg DAILY PO 12/29/24 10:00 12/29/24 10:29 50 MG Hydralazine HCl 10 mg Q6HP PRN IV 12/28/24 21:45 12/29/24 06:14 10 MG Diagnostic Test (Pha) 1 strip ACHS 12/28/24 22:00 12/30/24 06:41 1 STRIP Insulin Human Regular ACHS SC 12/28/24 22:00 12/30/24 06:43 2 UNITS Dextrose 50 ml UD PRN IV 12/28/24 21:45 Acetaminophen/ Hydrocodone Bitart 1 tab Q4HP PRN PO 12/28/24 21:45 12/30/24 00:13 1 TAB Ondansetron HCl 4 mg Q4HP PRN IV 12/28/24 21:45 12/29/24 06:13 4 MG Acetaminophen 650 mg Q6HP PRN PO 12/28/24 21:45 Morphine Sulfate 2 mg Q4HPRN PRN IV 12/28/24 21:45 12/30/24 05:24 2 MG Pantoprazole Sodium 40 mg DAILY IV 12/29/24 10:00 12/29/24 10:22 40 MG Ceftriaxone Sodium 50 ml @ 100 mls/hr DAILY@09 IV 12/30/24 09:00 Metronidazole 100 ml @ 100 mls/hr Q8HR IV 12/29/24 14:00 12/30/24 05:30 100 MLS/HR Laboratory Results Laboratory Tests 12/29/24 05:20 Urinalysis Test 12/28/24 22:30 Urine Color Light-yellow (Yellow) Urine Clarity Clear (Clear) Urine pH 6.0 (5.0-9.0) Urine Specific [place] 1.017 (1.001-1.035) Urine Protein 2+ (Negative) H Urine Ketones 1+ (Negative) H Urine Blood 1+ /uL (Negative) H Urine Nitrite Negative (Negative) Urine Bilirubin Negative (Negative) Urine Urobilinogen Normal mg/dL (Negative) Urine Leukocyte Esterase Negative /uL (Negative) Urine RBC 4 /hpf (0 - 3) Urine Microscopic WBC < 1 /HPF (0-3) Urine Squamous Epithelial Cells Few /hpf (<5) Urine Bacteria None seen /hpf (None Seen) Urine Glucose 4+ mg/dL (Normal) H Labs and/or images reviewed: Labs reviewed by me, Image(s) reviewed by me Assessment/Plan Assessment/Plan Acute diffuse abdominal pain , acute appendicitis ruled out, acute cholecystitis ruled out, continue Rocephin Flagyl consult for surgeon Dr Maradiaga appreciated Accelerated Hypertension Diabetes History of [place] Acute congestive heart failure exacerbation Time spent 45 minutes Patient is full code Advanced care planning time 20 minutes Patient feels better and wants to go home Will DC after clearance by surgeon Plan discussed with: Patient My Orders Orders - NINI MELVIN MD Procedure Category Date Status Time Ceftriaxone 1gm/50ml PHA 12/30/24 In Process D5w (Rocephin) 09:00 Metronidazole PHA 12/29/24 In Process 500mg/100ml (Flagyl 14:00 * Surgical Consult CONS 12/29/24 Transmitted Date of Service: December 30, 2024 Billing Provider: NNII MELVIN MD Common Visit Codes: [id number] INP/OBS CARE(HIGH) NINI MELVIN MD December 30, 2024 08:34
[2024-12-30] MEDS: cefTRIAXone 1GM/50ML D5W 50 ML IV SCH (09:59)
--- NOTE | 2024-12-30 13:23 | DVHPN2 ---
Subjective Patient admits to feeling better Tolerating diet Reviewed: Care Plan, H&P, Labs, Medications, Previous Orders, Radiology Changes from previous H/P or p: No Changes Objective Vitals Vital Signs Date Time Temp Pulse Resp B/P (MAP) Pulse Ox O2 Delivery O2 Flow Rate FiO2 12/30/24 13:00 98.3 72 18 129/79 (96) 98 98.3 12/30/24 08:00 Room Air* 0 21 Intake/Output Intake and Output 12/30/24 07:00 Intake Total 1100 ml Balance 1100 ml Intake Oral 800 ml IV Total 300 ml # Voids 2 General Appearance: Alert, Oriented X3, No acute distress Lungs: Clear to auscultation, Normal air movement, Other Cardiovascular: Regular rate, Normal S1, Normal S2, No murmurs, Gallops, Rubs, Other Abdomen: Normal bowel sounds, Soft, No tenderness, No hepatospenomegaly, No masses, Other Medications Current Medications Medications Dose Ordered Sig/Sreekanth Route Start Time Stop Time Status Last Admin Dose Admin Carvedilol 6.25 mg Q12HR PO 12/28/24 22:00 12/30/24 10:01 6.25 MG Atorvastatin Calcium 40 mg HS PO 12/28/24 22:00 12/30/24 00:12 40 MG Gabapentin 400 mg TID PO 12/28/24 22:00 12/30/24 05:29 400 MG Ticagrelor 90 mg BID PO 12/28/24 22:00 12/30/24 12:11 90 MG Nifedipine 90 mg DAILY PO 12/29/24 10:00 12/30/24 10:00 90 MG Losartan Potassium 50 mg DAILY PO 12/29/24 10:00 12/30/24 09:59 50 MG Spironolactone 50 mg DAILY PO 12/29/24 10:00 12/30/24 09:59 50 MG Hydralazine HCl 10 mg Q6HP PRN IV 12/28/24 21:45 12/29/24 06:14 10 MG Diagnostic Test (Pha) 1 strip ACHS 12/28/24 22:00 12/30/24 13:04 1 STRIP Insulin Human Regular ACHS SC 12/28/24 22:00 12/30/24 13:04 3 UNITS Dextrose 50 ml UD PRN IV 12/28/24 21:45 Acetaminophen/ Hydrocodone Bitart 1 tab Q4HP PRN PO 12/28/24 21:45 12/30/24 00:13 1 TAB Ondansetron HCl 4 mg Q4HP PRN IV 12/28/24 21:45 12/29/24 06:13 4 MG Acetaminophen 650 mg Q6HP PRN PO 12/28/24 21:45 Morphine Sulfate 2 mg Q4HPRN PRN IV 12/28/24 21:45 12/30/24 09:57 2 MG Pantoprazole Sodium 40 mg DAILY IV 12/29/24 10:00 12/30/24 09:59 40 MG Ceftriaxone Sodium 50 ml @ 100 mls/hr DAILY@09 IV 12/30/24 09:00 12/30/24 09:59 100 MLS/HR Metronidazole 100 ml @ 100 mls/hr Q8HR IV 12/29/24 14:00 12/30/24 05:30 100 MLS/HR Laboratory Results Laboratory Tests 12/29/24 05:20 Urinalysis Test 12/28/24 22:30 Urine Color Light-yellow (Yellow) Urine Clarity Clear (Clear) Urine pH 6.0 (5.0-9.0) Urine Specific [place] 1.017 (1.001-1.035) Urine Protein 2+ (Negative) H Urine Ketones 1+ (Negative) H Urine Blood 1+ /uL (Negative) H Urine Nitrite Negative (Negative) Urine Bilirubin Negative (Negative) Urine Urobilinogen Normal mg/dL (Negative) Urine Leukocyte Esterase Negative /uL (Negative) Urine RBC 4 /hpf (0 - 3) Urine Microscopic WBC < 1 /HPF (0-3) Urine Squamous Epithelial Cells Few /hpf (<5) Urine Bacteria None seen /hpf (None Seen) Urine Glucose 4+ mg/dL (Normal) H Labs and/or images reviewed: Labs reviewed by me, Image(s) reviewed by me Assessment/Plan Assessment/Plan Abdominal pain improving Nausea and vomiting improving History of gastroparesis. Plan Discussed with Dr. Ingram Reviewed ultrasound of appendix and right upper quadrant Recommend Protonix Outpatient GI follow-up recommended for GI procedures as needed Plan discussed with: Patient My Orders Orders - RON MELVIN Procedure Category Date Status Time Right Lower Quad US 12/29/24 Resulted 13:42 Regular Diet DIET 12/30/24 Transmitted Lunch Date of Service: December 30, 2024 Billing Provider: RON MELVIN Common Visit Codes: [id number] INP/OBS CARE(HIGH) RON MELVIN December 30, 2024 13:23
--- NOTE | 2024-12-30 14:10 | DVHINCON2 ---
Date of service: December 30, 2024 Family History: Patient reports no known family medical history. Allergies: Coded Allergies: NO KNOWN ALLERGIES (Unverified , 12/28/24) Home Meds Unable to Obtain Active Prescriptions or Reported Meds Current Medications Current Medications Medications (Trade) Dose Ordered Sig/Sreekanth Route PRN Reason Start Time Stop Time Status Last Admin Ceftriaxone Sodium 50 ml @ 100 mls/hr DAILY@09 IV 12/30/24 09:00 12/30/24 09:59 Vital Signs Vital Signs Date Time Temp Pulse Resp B/P (MAP) Pulse Ox O2 Delivery O2 Flow Rate FiO2 12/30/24 13:00 98.3 72 18 129/79 (96) 98 98.3 12/30/24 08:00 Room Air* 0 21 Labs/Diagnostic Data Labs Test 12/30/24 12:51 12/29/24 05:20 12/28/24 22:30 12/28/24 18:47 Range/Units POC Glucose 196 H 70-106 mg/dl White Blood Count 8.0 4.4-10.8 10^3/uL Red Blood Count 4.48 L 4.5-5.90 10^6/uL Hemoglobin 13.4 L 13.5-17.5 g/dL Hematocrit 41.1 41.0-53.0 % Mean Corpuscular Volume 91.8 80.0-100.0 fL Mean Corpuscular Hemoglobin 29.8 28.0-32.0 pg Mean Corpuscular Hemoglobin Concent 32.5 32.0-36.0 g/dL Red Cell Distribution Width 15.4 H 11.8-14.3 % Platelet Count 313 140-450 10^3/uL Mean Platelet Volume 8.9 6.9-10.8 fL Neutrophils (%) (Auto) 85.5 H 37.0-80.0 % Lymphocytes (%) (Auto) 10.3 10.0-50.0 % Monocytes (%) (Auto) 3.7 0.0-12.0 % Eosinophils (%) (Auto) 0.1 0.0-7.0 % Basophils (%) (Auto) 0.4 0.0-2.0 % Neutrophils # (Auto) 6.9 1.6-8.6 10 ^3/uL Lymphocytes # (Auto) 0.8 0.4-5.4 10 ^3/uL Monocytes # (Auto) 0.3 0-1.3 10 ^3/uL Eosinophils # (Auto) 0 0-0.8 10 ^3/uL Basophils # (Auto) 0 0-0.2 10 ^3/uL Nucleated Red Blood Cells 0.0 % Sodium Level 136 136-145 mmol/L Potassium Level 4.4 3.5-5.1 mmol/L Chloride Level 103 98-107 mmol/L Carbon Dioxide Level 16 L 20-31 mmol/L Anion Gap 17 H 5-15 Blood Urea Nitrogen 17 9-23 mg/dL Creatinine 0.90 0.700-1.30 mg/dL Glomerular Filtration Rate Calc 107 >90 mL/min BUN/Creatinine Ratio 18.9 10.0-20.0 Serum Glucose 180 H 74-106 mg/dL Calcium Level 9.9 8.7-10.4 mg/dL Urine Color Light-yellow Yellow Urine Clarity Clear Clear Urine pH 6.0 5.0-9.0 Urine Specific [place] 1.017 1.001-1.035 Urine Protein 2+ H Negative Urine Ketones 1+ H Negative Urine Blood 1+ H Negative /uL Urine Nitrite Negative Negative Urine Bilirubin Negative Negative Urine Urobilinogen Normal Negative mg/dL Urine Leukocyte Esterase Negative Negative /uL Urine RBC 4 0 - 3 /hpf Urine Microscopic WBC < 1 0-3 /HPF Urine Squamous Epithelial Cells Few <5 /hpf Urine Bacteria None seen None Seen /hpf Urine Glucose 4+ H Normal mg/dL Urine Opiates Screen Pos NEGATIVE Urine Fentanyl Screen Neg NEGATIVE Urine Barbiturates Screen Neg NEGATIVE Urine Phencyclidine Screen Neg NEGATIVE Urine Amphetamines Screen Neg NEGATIVE Urine Benzodiazepines Screen Neg NEGATIVE Urine Cocaine Screen Neg NEGATIVE Urine Cannabinoids Screen Pos NEGATIVE Lactic Acid Level 1.5 0.4-2.0 mmol/L Total Bilirubin 0.3 0.2-1.0 mg/dL Aspartate Amino Transferase (AST) 14 13-40 U/L Alanine Aminotransferase (ALT) 13 7-40 U/L Alkaline Phosphatase 95 46-116 U/L Total Protein 8.8 H 5.7-8.2 g/dL Albumin 5.5 H 3.2-4.8 g/dL Assessment abdominal pain resolved, patient having normal bowel and bladder activity, tolerating po, no nausea, abdomen soft. non tender, pt cleared for discharge to f/u with his primary MD. return to ER if pain returns Plan discussed with: Patient CELESTE CISSE MD December 30, 2024 14:10
[2024-12-30] MEDS: MORPHINE SULFATE 4 MG/ML SYR/VIAL IV PRN (14:59)
--- NOTE | 2024-12-31 08:09 | DVHDS2 ---
Discharge Summary Date of Admission December 28, 2024 at 21:40 Date of Discharge: December 30, 2024 Admitting Diagnosis Abdominal pain Wounds: None Labs/Diagnostic Data: Laboratory Results Test 12/30/24 12:51 12/29/24 05:20 12/28/24 22:30 12/28/24 18:47 POC Glucose 196 mg/dl (70-106) White Blood Count 8.0 10^3/uL (4.4-10.8) Red Blood Count 4.48 10^6/uL (4.5-5.90) Hemoglobin 13.4 g/dL (13.5-17.5) Hematocrit 41.1 % (41.0-53.0) Mean Corpuscular Volume 91.8 fL (80.0-100.0) Mean Corpuscular Hemoglobin 29.8 pg (28.0-32.0) Mean Corpuscular Hemoglobin Concent 32.5 g/dL (32.0-36.0) Red Cell Distribution Width 15.4 % (11.8-14.3) Platelet Count 313 10^3/uL (140-450) Mean Platelet Volume 8.9 fL (6.9-10.8) Neutrophils (%) (Auto) 85.5 % (37.0-80.0) Lymphocytes (%) (Auto) 10.3 % (10.0-50.0) Monocytes (%) (Auto) 3.7 % (0.0-12.0) Eosinophils (%) (Auto) 0.1 % (0.0-7.0) Basophils (%) (Auto) 0.4 % (0.0-2.0) Neutrophils # (Auto) 6.9 10 ^3/uL (1.6-8.6) Lymphocytes # (Auto) 0.8 10 ^3/uL (0.4-5.4) Monocytes # (Auto) 0.3 10 ^3/uL (0-1.3) Eosinophils # (Auto) 0 10 ^3/uL (0-0.8) Basophils # (Auto) 0 10 ^3/uL (0-0.2) Nucleated Red Blood Cells 0.0 % Sodium Level 136 mmol/L (136-145) Potassium Level 4.4 mmol/L (3.5-5.1) Chloride Level 103 mmol/L (98-107) Carbon Dioxide Level 16 mmol/L (20-31) Anion Gap 17 (5-15) Blood Urea Nitrogen 17 mg/dL (9-23) Creatinine 0.90 mg/dL (0.700-1.30) Glomerular Filtration Rate Calc 107 mL/min (>90) BUN/Creatinine Ratio 18.9 (10.0-20.0) Serum Glucose 180 mg/dL (74-106) Calcium Level 9.9 mg/dL (8.7-10.4) Urine Color Light-yellow (Yellow) Urine Clarity Clear (Clear) Urine pH 6.0 (5.0-9.0) Urine Specific [place] 1.017 (1.001-1.035) Urine Protein 2+ (Negative) Urine Ketones 1+ (Negative) Urine Blood 1+ /uL (Negative) Urine Nitrite Negative (Negative) Urine Bilirubin Negative (Negative) Urine Urobilinogen Normal mg/dL (Negative) Urine Leukocyte Esterase Negative /uL (Negative) Urine RBC 4 /hpf (0 - 3) Urine Microscopic WBC < 1 /HPF (0-3) Urine Squamous Epithelial Cells Few /hpf (<5) Urine Bacteria None seen /hpf (None Seen) Urine Glucose 4+ mg/dL (Normal) Urine Opiates Screen Pos (NEGATIVE) Urine Fentanyl Screen Neg (NEGATIVE) Urine Barbiturates Screen Neg (NEGATIVE) Urine Phencyclidine Screen Neg (NEGATIVE) Urine Amphetamines Screen Neg (NEGATIVE) Urine Benzodiazepines Screen Neg (NEGATIVE) Urine Cocaine Screen Neg (NEGATIVE) Urine Cannabinoids Screen Pos (NEGATIVE) Lactic Acid Level 1.5 mmol/L (0.4-2.0) Total Bilirubin 0.3 mg/dL (0.2-1.0) Aspartate Amino Transferase (AST) 14 U/L (13-40) Alanine Aminotransferase (ALT) 13 U/L (7-40) Alkaline Phosphatase 95 U/L (46-116) Total Protein 8.8 g/dL (5.7-8.2) Albumin 5.5 g/dL (3.2-4.8) Other Laboratory Tests 12/29/24 05:20 Brief Hx & Hospital Course: 44-year-old male with a history of hypertension diabetes [place] CHF came in for diffuse abdominal pain. Labs normal CT head lipase normal. CT abdomen pelvis without contrast negative for any acute pathology gallbladder ultrasound negative. Appendix ultrasound negative. Seen by GI Dr. Delores Ingram and surgeon . Patient has improved and afebrile with stable vital signs and eating regular diet . Cleared by surgeon for discharge discharged home. No new medications. Consults/Reason for consult GI Dr. Delores Ingram Surgeon Dr. Maradiaga Operations or Procedures CT abdomen pelvis without contrast appendix ultrasound Gallbladder altered Condition at Discharge: Fair Final Diagnosis/Problems List Non-specific abdominal pain Discharge Disposition: Home Discharge Instruct/Medications Diet: Regular Activity: No Restrictions, As Tolerated Follow Up/Referral: follow up with PCP in 1-2 weeks follow up with GI in 2 weeks 35 (Time taken for discharge summary 35 minutes) Discharge Statement: "Patient was advised to return to the ER or call 911 if any headaches, dizziness, shortness of breath, chest pain, abdominal pain, bleeding, fevers, or worsening of medical condition. Patient was counseled about treatment plan, medications, possible side effects, patientverbalized understanding. All questions were answered to the best of my ability. This discharge took greater then 30 minutes in planning, reviewing documentation, counseling the patient, and discussing with other team members." ASSESSMENT ASSESSMENT Hospital Course Uneventful Assessment Non-specific abdominal pain Date of Service: December 31, 2024 Billing Provider: NINI MELVIN MD Common Visit Codes: [id number] DISCH DAY >30min NINI MELVIN MD December 31, 2024 08:09
== END 2024-12-30 17:58 | disposition home or self-care (01) | DRG 251 ==
LOC: EDBD 18:17 → ER 18:30 → OVERFLOW 21:40 → MERGE 21:40 → CENTRAL 23:40
PROVIDERS: ADMIT Family Medicine; ATTEND Family Medicine
DX: R10.9 Unspecified abdominal pain (principal); I11.0 Hypertensive heart disease with heart failure; I50.9 Heart failure, unspecified; E11.9 Type 2 diabetes mellitus without complications; Z89.512 Acquired absence of left leg below knee; I25.2 Old myocardial infarction; Z79.899 Other long term (current) drug therapy
CPT/HCPCS: 36415; 74176; 76705; 80048; 80053; 80307; 81001; 82962; 83605; 85025; 93005; 96374; 96375; G0378; J1815; J2405; J2470; J3490

== ENCOUNTER 2025-01-13 08:53 | Day surgery (SDC) | payer MEDICAID ==
[2025-01-11 15:19] LABS: Basophils # (auto) 0.1 10 ^3/uL (0-0.2); Basophils % (auto) 1.3 % (0.0-2.0); Eosinophils # (auto) 0.4 10 ^3/uL (0-0.8); Eosinophils % (auto) 5.3 % (0.0-7.0); Hemoglobin 12.3 g/dL (13.5-17.5); Lymphocytes # (auto) 2.2 10 ^3/uL (0.4-5.4); Lymphocytes % (auto) 31.9 % (10.0-50.0); Mean Corpuscular Hemoglobin 30.3 pg (28.0-32.0); Mean Corpuscular Hgb Conc. 33.2 g/dL (32.0-36.0); Mean Corpuscular Volume 91.3 fL (80.0-100.0); Monocytes # (auto) 0.6 10 ^3/uL (0-1.3); Monocytes % (auto) 8.4 % (0.0-12.0); Neutrophils # (auto) 3.6 10 ^3/uL (1.6-8.6); Neutrophils % (auto) 53.1 % (37.0-80.0); Platelet Count (auto) 359 10^3/uL (140-450); Red Blood Cells 4.06 10^6/uL (4.5-5.90); Red Cell Distribution Width 14.1 % (11.8-14.3); White Blood Cell 6.8 10^3/uL (4.4-10.8)
[2025-01-11 15:32] LABS: Partial Thromboplastin Time 26.8 SEC (24.5-34.5); Prothrombin Time 10.6 sec (9.3-11.8)
[2025-01-11 15:51] LABS: Alanine Aminotransferase 14 U/L (7-40); Alkaline Phosphatase 80 U/L (46-116); Anion Gap 12 (5-15); Aspartate Aminotransferase 15 U/L (13-40); BUN/Creatinine Ratio 13.1 (10.0-20.0); Blood Urea Nitrogen 13 mg/dL (9-23); Calcium 10.1 mg/dL (8.7-10.4); Carbon Dioxide 23 mmol/L (20-31); Glucose 98 mg/dL (74-106); Potassium 4.4 mmol/L (3.5-5.1); Sodium 143 mmol/L (136-145); Total Protein 7.7 g/dL (5.7-8.2)
[2025-01-11 15:54] LABS: Albumin 4.8 g/dL (3.2-4.8); Bilirubin, Total 0.3 mg/dL (0.2-1.0); Chloride 108 mmol/L (98-107)
[~2025-01-13] VITALS: Ht 205.7 cm; Wt 119.3 kg
[2025-01-13] VITALS (12 sets, daily range): BP systolic 133–161; BP diastolic 81–106; PULSE 76–84; RESP 11–16; TEMP 97.8; O2SAT 97–100
[2025-01-13] MEDS: IODIXANOL 320MG/ML 100ML BTL IV ONE ×4 (12:07→14:42)
[2025-01-13] MEDS: HEPARIN SODIUM (PORCINE) 5000 UNITS/ML 1ML VIAL ONE (12:48)
[2025-01-13] MEDS: fentaNYL CITRATE 100 MCG/2 ML VL ONE (12:48)
[2025-01-13] MEDS: ANGIOMAX 250 MG VIAL IV ONE ×2 (12:48→13:48)
[2025-01-13] MEDS: VERAPAMIL 2.5MG/ML INJ 2ML VIAL IV ONE (12:48)
[2025-01-13] MEDS: LIDOCAINE 2%HCL (LOCAL ANESTH.) INJ 20ML MDV ONE (12:49)
[2025-01-13] MEDS: NITROGLYCERIN 50MG/250ML 250 ML IV ONE (12:49)
[2025-01-13] MEDS: MIDAZOLAM HCL 2MG/2ML 2ml VIAL (1mg/ml) ONE (12:49)
[2025-01-13] MEDS: SODIUM CHL 0.9% 50 ML ONE ×2 (12:49→13:48)
[2025-01-13] MEDS: SODIUM CHLORIDE 0.9% 1,000 ML IV SCH (14:37)
[2025-01-13] MEDS: ASPirin 81 mg TAB ONE (14:47)
[2025-01-13] MEDS: HYDROcodone-ACET 10/325MG TAB PO ONE (14:48)
[2025-01-13] MEDS ORDERED: SODIUM CHLORIDE 0.9% 1,000 ML IV SCH (15:45)
--- NOTE | 2025-01-13 15:46 | DVHOP2 ---
Operative Report - 2 Report Details Date: 01/13/25 Preop Diagnosis: CAD. Postop Diagnosis: CORONARY ARTERY DISEASE. Surgeon: Minerva Connelly MD Anesthesiologist: CONSCIOUS SEDATION Anesthesia: Mac, Local Consent: The patient was informed of the risks and benefits of the procedure. These include but are not limited to complications of anesthesia, postoperative infection, incomplete relief of symptoms, recurrence of symptoms, damage to blood vessels, nerves and tendons, deep venous thrombosis, pulmonary embolism and possible need for repeat surgery in the future. Complications: No complications Findings: Coronary artery disease Occluded RCA. Stenotic circumflex. Indications for Surgery: Chest pain. Name of Procedure Performed Left heart catheterization. Bilateral cine coronary angiography. Left ventriculography. PTCA and stenting with intravascular ultrasound evaluation of the RCA PTCA and stenting of the circumflex. Fractional flow reserve evaluation of the circumflex Procedure Details Procedure Details: Prior local anesthesia with 2% lidocaine to the right wrist and full informed co nsent obtained patient was prepped and draped in usual fashion followed by placement of a six Turkish sheath into the radial artery and a multipurpose catheter for evaluation of RCA left main and ventriculography without complications. Hemodynamics: Aortic blood pressure was 130/70 end-diastolic pressure was 12. There was no gradient across the aortic valve on pullback. Coronary anatomy. The RCA is a large vessel is on% occluded proximally. Mild collateralization from an acute marginal branch to the distal RCA. The left main is large and normal. Left anterior descending has been stented. No in stent restenosis. Mid and distal segments are normal. The intermediate artery is a small vessel it is diffusely disease. The 1st diagonal artery is a small vessel was diffusely diseased. Circumflex is a large vessel. The marginal has a 95% stenosis. Fractional flow reserve evaluation with Omni wire revealed a 0.72 FFR. This is consistent with severe CAD. Angioplasty performed. A 3.5 EBU guiding catheter was then placed into the left main. Over the Omni wire previously used to perform FFR evaluation we then placed a two five balloon and pre-dilated the area of stenosis with a mid marginal. We then placed a two 5 x 15 mm stent. There was excellent antegrade flow without thrombus formation and/or dissection. We re directed the 3.5 EBU guide into the RCA. We placed a quick cross catheter 0 one for incised into the ostium of the RCA and placed a see on wire. The C- arm wire was then used to form a channel into the proximal RCA within the 014 quick cross catheter. We were able to push through which channel and obtain access into the true lumen of the distal RCA. We then performed intravascular ultrasound revealing the size of the vessel with multiple lesions throughout. We then pre-dilated with a 3-0 balloon. We placed a three five by 38 mm stent into the proximal and mid RCA. We then noticed that there was a distal dissection. Intravascular ultrasound with chroma flow revealed the dissection at the distal stent edge. We then placed a three five by 22 mm Medtronic iban drug-eluting stent and proximally 12 atmospheres. We post dilated to 18 atmospheres proximal to that. It was notable improvement in flow. There was no evidence of dissection distal to the lesion. The distal posterolateral branches and PDA were found to be of large caliber. there was excellent flow to these vessels. Impression: Successful PTCA and stenting of the circumflex and aperture of chronic total occlusion of the RCA. Successful evaluation with ultrasound and fractional flow reserve evaluation of the circumflex and RCA respectively. No complications. Recommendations: Dual antiplatelet therapy. Continue with risk factor modification. Condition Good Disposition Home Date of Service: Jan 13, 2025 Billing Provider: MINERVA CONNELLY Sr., MD Cardiology Common Codes: [id number] INP/OBS CARE (High) Cardiology Procedure Codes: 19097 -PTCA W/STENT PLACEMENT, 32139-LFOE ADD CORONARY BRANCH ( Intravascular ultrasound evaluation. Fractional flow reserve evaluation.) MINERVA CONNELLY Sr., MD Jan 13, 2025 15:45
== END 2025-01-13 18:12 | disposition home or self-care (01) ==
LOC: CATH 08:53
PROVIDERS: ATTEND Internal Medicine
DX: I25.10 Atherosclerotic heart disease of native coronary artery without angina pectoris (principal); I25.82 Chronic total occlusion of coronary artery; I13.0 Hypertensive heart and chronic kidney disease with heart failure and stage 1 through stage 4 chronic kidney disease, or unspecified chronic kidney disease; I50.9 Heart failure, unspecified; E11.22 Type 2 diabetes mellitus with diabetic chronic kidney disease; N18.9 Chronic kidney disease, unspecified; G47.30 Sleep apnea, unspecified; F41.8 Other specified anxiety disorders; Z79.4 Long term (current) use of insulin; Z79.84 Long term (current) use of oral hypoglycemic drugs; Z79.82 Long term (current) use of aspirin; Z79.899 Other long term (current) drug therapy; Z95.5 Presence of coronary angioplasty implant and graft; Z82.0 Family history of epilepsy and other diseases of the nervous system; Z80.8 Family history of malignant neoplasm of other organs or systems
CPT/HCPCS: 36415; 80053; 85025; 85610; 85730; 92978; 93458; 93571; C1725; C1753; C1769; C1874; C1887; C1894; C9600; J0583; J1644; J2250; J3010; J7030; Q9967; 92979; 99152; 99153

== ENCOUNTER 2025-02-25 14:35 | Emergency (ER) | payer MEDICAID ==
[~2025-02-25] VITALS: Ht 205.7 cm; Wt 118.0 kg
[2025-02-25] MEDS: LIDOCAINE 1% HCL (LOCAL ANESTH.) INJ 20ML MDV IJ ONE (15:01)
--- NOTE | 2025-02-25 15:28 | ED.PDOC ---
History of Present Illness HPI Comments A 44 Y/O F PRESENTS WITH 2X WEEKS HISTORY OF ABSCESS TO THE POSTERIOR ASPECT OF HEAD. PATIENT REPORTS ABSCESS GROWING IN SIZE FOLLOWING UNPROVOKED AND ATRAUMATIC ONSET. SUSPECTS ON ABSCESS BEING AN INGROWN HAIR. PT DENIES FEVER, SOB, CHEST PAIN, HEADACHE, DIZZINESS, NAUSEA, VOMITING AND OTHER COMPLAINTS. NPO OTHER SYMPTOMS REPORTED AT THIS TIME OF CARE. Chief Complaint: Abscess Time Seen by MD: 14:40 Primary Care Provider: DESTINY Fraire Notes: Nurses Notes, Medications, Allergies Allergies: Coded Allergies: NO KNOWN ALLERGIES (Unverified , 12/04/21) Home Meds Active Scripts Sulfamethoxazole W/Trimethopri (Bactrim Ds Tablet) 1 Tab Tb, 1 TAB PO BID for 10 Days, #20 TAB Prov:SHAWNEE PEARSON 02/25/25 Amoxicillin & Pot Clavulanate (Augmentin) 500 Mg Tab, 875 MG PO TID for 14 Days, #42 TAB Prov:LILIANA BERNARD RESIDENT 11/28/24 Yeast (S. Boulardii)(S. Cerevi (Florastor) 250 Mg Cap, 250 MG PO DAILY for 30 Days, #30 CAP Prov:JOE GUNDERSON BRUSHER HAND 11/03/24 Clindamycin Hcl (Clindamycin Hcl) 300 Mg Cap, 1 CAP PO TID for 10 Days, #30 CAP Prov:JOE GUNDERSON BRUSHER HAND 11/03/24 Nitroglycerin (NTROSTAT SUBLINGUAL) 0.4 Mg Sl, 0.4 MG SL Q5MINP PRN for 30 Days, #30 TAB Prov:VIMAL BERRY AMMONIA REFRIGERATION TECHNICIAN 11/02/24 Sacubitril-Valsartan (Entresto 24-26 mg) 1 Tab Tab, 1 TAB PO BID for 30 Days, #60 TAB 1 Refill Prov:KUNAL LERMA MD 06/06/24 Rosuvastatin Calcium (Crestor) 40 Mg Tab, 1 TAB PO DAILY for 30 Days, #30 TAB 1 Refill Prov:KUNAL LERMA MD 06/06/24 Pantoprazole Sodium Sesquihydr (Pantoprazole Sodium) 40 Mg Tab, 40 MG PO BID for 30 Days, #60 TAB Prov:JOE GUNDERSON BRUSHER HAND 07/09/23 Reported Medications Insulin Lispro (Insulin Lispro Kwikpen) 100 Unit/Ml Inj, 5 UNIT SC UD for 75 Days, #9 INJECT 5 UNITS SUBCUTANEOUSLY PER SLIDING SCALE. MAXIMUM DAILY DOSE OF 12 UNITS. 11/02/24 Hydrocodone-Acetaminophen (Hydrocodone/Acetaminophen 5-325 mg) 1 Tab Tab, 1 TAB PO BID PRN for 30 Days, #60 11/02/24 Aspirin (Aspirin Low Dose) 81 Mg Chw, 1 TAB PO DAILY for 90 Days, #90 11/02/24 Famotidine (Famotidine) 40 Mg Tab, 1 TAB PO BID for 90 Days, #180 11/02/24 Dapagliflozin Propanediol (Farxiga) 10 Mg Tab, 5 MG PO DAILY for 90 Days, #90 11/02/24 Cyclobenzaprine HCl (Cyclobenzaprine Hydrochlo) 5 Mg Tab, 1-2 TAB PO BID PRN for 30 Days, #120 11/02/24 Sucralfate (Sucralfate) 1 Gm Tab, 1 TAB PO BID for 90 Days, #180 11/02/24 Gabapentin (Gabapentin) 400 Mg Cap, 1 CAP PO TID for 30 Days, #90 11/02/24 Magnesium Oxide (Magnesium Oxide) 400 Mg Tab, 1 TAB PO HS for 30 Days, #30 10/30/24 Gemfibrozil (Gemfibrozil) 600 Mg Tab, 1 TAB PO BID for 90 Days, #180 10/30/24 Losartan Potassium (Losartan Potassium) 50 Mg Tab, 1 TAB PO BID 10/30/24 Spironolactone (Spironolactone) 25 Mg Tab, 25 MG PO BID, TAB 06/05/24 Nifedipine (Nifedipine Er) 90 Mg Tab, 90 MG PO DAILY, TAB 06/05/24 Insulin Glargine (Basaglar Kwikpen) 100 Unit/Ml Inj, 20 UNIT SC BID for 23 Days, #9 06/05/24 Ticagrelor Base (BRILINTA) 90 Mg Tab, 90 MG PO BID, TAB 06/05/24 Dapagliflozin Propanediol (Farxiga) 10 Mg Tab, 10 MG PO QAM, TAB 06/05/24 Ondansetron HCl (Ondansetron Hydrochloride) 4 Mg Tab, 2 TAB PO DAILYPRN PRN for nausea/vomiting for 90 Days, #180 07/04/23 Atorvastatin Calcium (ATORVASTATIN CALCIUM) 40 Mg Tab, 1 TAB PO DAILY 07/04/23 Metformin Hydrochloride (Metformin Hcl) 1,000 Mg Tab, 1 TAB PO BIDWM for 90 Days, #180 05/24/23 Sertraline Hcl (Sertraline Hcl) 25 Mg Tab, 1 TAB PO DAILY 05/24/23 Carvedilol (Carvedilol) 6.25 Mg Tab, 1 TAB PO BID 05/24/23 Information Source: Patient Mode of Arrival: Ambulatory Severity: Moderate Timing: Weeks Duration: Since onset Prehospital treatment: None Medication Refill: For: Other (ABSCESS ON BACK OF SCALP) Past Medical History PAST MEDICAL HISTORY: CHF, CKF, DM, High Lipids, HTN, Hypotension, [place] Surgical History: BKA (LEFT ), PTCA Family History Family History: Reviewed,noncontributory to illness, Unknown Social History Smoker: Non-Smoker Alcohol: Denies ETOH Use Drugs: Marijuana Lives In: Home Constitutional: denies: chills, diaphoresis, fatigue, fever, malaise, sweats, weakness, others EENTM: denies: blurred vision, double vision, ear bleeding, ear discharge, ear drainage, ear pain, ear ringing, eye pain, eye redness, hearing loss, mouth pain, mouth swelling, nasal discharge, nose bleeding, nose congestion, nose pain, photophobia, tearing, throat pain, throat swelling, voice changes, others Respiratory: denies: cough, hemoptysis, orthopnea, SOB at rest, shortness of breath, SOB with excertion, stridor, wheezing, others Cardiovascular: denies: chest pain, dizzy spells, diaphoresis, Dyspnea on exertion, edema, irregular heart beat, left arm pain, lightheadedness, palpitations, PND, syncope, others Gastrointestinal: denies: abdomen distended, abdominal pain, blood streaked bowels, constipated, diarrhea, dysphagia, difficulty swallowing, hematemesis, melena, nausea, poor appetite, poor fluid intake, rectal bleeding, rectal pain, vomiting, others Genitourinary: denies: burning, dysuria, flank pain, frequency, hematuria, incontinence, penile discharge, penile sore, pain, testicle pain, testicle swelling, urgency, others Neurological: denies: dizziness, fainting, headache, left sided numbness, left sided weakness, numbness, paresthesia, pre-existing deficit, right sided numbness, right sided weakness, seizure, speech problems, tingling, tremors, weakness, others Musculoskeletal: denies: back pain, gout, joint pain, joint swelling, muscle pain, muscle stiffness, neck pain, others Integumetry: reports: lumps (BACK OF SCALP ), wounds (BACK OF SCALP), others (ABSCESS TO POSTERIOR SIDE OF HEAD); denies: bruises, change in color, change in hair/nails, dryness, laceration, lesions, rash Allergic/Immunocompromised: denies: Difficulty Healing, Frequent Infections, Hives, Itching, others Hematologic/Lymphatic: denies: anemia, blood clots, easy bleeding, easy bruising, swollen glands, others Endocrine: denies: excessive hunger, excessive sweating, excessive thirst, excessive urination, flushing, intolerance to cold, intolerance to heat, unexplained weight gain, unexplained weight loss, others Psychiatric: denies: anxiety, bipolar disorder, depression, hopeless, panic disorder, schizophrenia, sleepless, suicidal, others All Other Systems: Reviewed and Negative Physical Exam General Appearance: No Apparent Distress, Normal HEENT: Head (A ABSCESS ON THE BACK OF SCALP, NO BONY TENDERNESS AND DEFORMITY. ), Normal ENT Inspection, PERRL/EOMI, Pharynx Normal, TMs Normal Neck: Full Range of Motion, Non-Tender, Normal, Normal Inspection Respiratory: Chest Non-Tender, Lungs Clear, No Accessory Muscle Use, No Respiratory Distress, Normal Breath Sounds Cardiovascular: No Edema, No JVD, No Murmur, No Gallop, Normal Peripheral Pulses, Regular Rate/Rhythm Breast Exam: Deferred Gastrointestinal: No Organomegaly, Non Tender, No Pulsatile Mass, Normal Bowel Sounds, Soft Genitalia: Deferred Pelvic: Deferred Rectal: Deferred Extremities: No calf tenderness, Normal capillary refill, Normal inspection, Normal range of motion, Non-tender, No pedal edema Musculoskeletal : Apperance: Normal Neurologic: Alert, sanitation officer II-XII nml as Tested, No Motor Deficits, Normal Affect, Normal Mood, No Sensory Deficits Cerebellar Function: Normal Reflexes: Normal Skin: Dry, Warm, Wounds ([id number] ABSCESS WITH LOCALIZED REDNESS AND FLUCTUANCE, SURROUNDING INDURATION ON THE BACK OF SCALP. +ABSCESS. ) Peripheral Pulses: 2+ carotid (R), 2+ carotid (L) Lymphatic: No Adenopathy Was a procedure done? Was a procedure done?: Yes Sedation Sedation?: No Informed consent obtained: No Incision and Drainage Incision and Drainage: Abscess Location POSTERIOR SCALP Anesthetic: Lidocaine Preparation: Betadine, Saline, Wound basting cleaner Incision and Wound: Pus, Blood, Amount, Irrigated, Packed Informed consent obtained: No Risks/benefits/alt described: Yes Images 1 - Differential Dx Considerations may include: ABSCESS, INGROWN HAIR, CELLULITIS, DERMATITIS, AMONG OTHERS X-Ray, Labs, Meds, VS Vital Signs Date Time Temp Pulse Resp B/P (MAP) Pulse Ox O2 Delivery O2 Flow Rate FiO2 02/25/25 14:45 98.9 97 20 135/80 (98) 100 98.9 Current Medications Medications (Trade) Dose Ordered Sig/Sreekanth Route Start Time Stop Time Status Last Admin Ceftriaxone Sodium (Rocephin) 1,000 mg ONCE ONCE IM 02/25/25 15:30 02/25/25 15:42 DC 02/25/25 15:39 X-Ray, Labs, Meds, VS Comment INCISION AND DRAINAGE OF ABSCESS YIELDED PUSS AND BLOOD DISCHARGE. SUCCESSFUL PROCEDURE TREATMENT: ROCEPHIN 1GM IM RX ANTIBIOTIC, SEPTRA DS Time of 1ST Reevaluation: 16:00 Reevaluation 1ST: Improved Patient Education/Counseling: Diagnosis, Treatment, Need For Follow Up Family Education/Counseling: Diagnosis, Treatment, Need For Follow Up, No Family Present Medical Screening: No EMC Exist At This Time SEPSIS Sepsis Screen Physician Orders 4X4 (02/25/25 14:48) Disposable Chux (02/25/25 14:48) Lac Tray (02/25/25 14:48) Wound Culture W/ Gs (02/25/25 15:23) Vital Signs Date Time Temp Pulse Resp B/P (MAP) Pulse Ox O2 Delivery O2 Flow Rate FiO2 02/25/25 14:45 98.9 97 20 135/80 (98) 100 98.9 Medications Medications Dose Ordered Sig/Sreekanth Route Start Time Stop Time Status Last Admin Dose Admin Ceftriaxone Sodium 1,000 mg ONCE ONCE IM 02/25/25 15:30 02/25/25 15:42 DC 02/25/25 15:39 Departure 1 Departure Time of Disposition: 16:00 Impression: Primary Impression: Abscess of scalp Disposition: 01 HOME / SELF CARE / HOMELESS Condition: Fair Additional Instructions: F/U WITH PCP IN 24-48 HOURS. TAKE MEDICATIONS PRESRIBED e-Prescriptions Sulfamethoxazole W/Trimethopri (Bactrim Ds Tablet) 1 Tab Tb 1 TAB PO BID for 10 Days, #20 TAB Prov: SHAWNEE PEARSON 02/25/25 Discharged With: Self Critical Care Note Critical Care Time?: No Stability Stability form required: No Heart Score Heart Score: Heart Score Response (Comments) Value History N/A 0 EKG N/A 0 Age N/A 0 Risk Factors N/A 0 Troponin N/A 0 Total 0 I personally scribed for SHAWNEE PEARSON ([email or web address]) on 02/25/25 at 15:28. Electronically submitted by Cole Daniels ([email or web address]). SHAWNEE PEARSON Feb 25, 2025 15:28
[2025-02-25] MEDS ORDERED: BACDST PO (15:29)
[2025-02-25] MEDS: cefTRIAXone SOD 1,000 MG VL IM ONE (15:39)
[2025-02-25 15:50] VITALS: BP 118/69; PULSE 90; RESP 16; TEMP 98.8; O2SAT 96
== END 2025-02-25 15:52 | disposition home or self-care (01) ==
LOC: ER 14:35
DX: L02.811 Cutaneous abscess of head [any part, except face] (principal); I11.0 Hypertensive heart disease with heart failure; E11.9 Type 2 diabetes mellitus without complications; I50.9 Heart failure, unspecified; Z79.82 Long term (current) use of aspirin; Z79.84 Long term (current) use of oral hypoglycemic drugs; Z79.899 Other long term (current) drug therapy; Z89.512 Acquired absence of left leg below knee; Z98.890 Other specified postprocedural states
CPT/HCPCS: 10060; 87077; 87186; 87205; 96372; 99283; J0696; J2003

== ENCOUNTER 2025-02-27 12:20 | Emergency (ER) | payer MEDICAID ==
[~2025-02-27] VITALS: Ht 205.7 cm; Wt 118.2 kg
[~2025-02-27 12:20] MED LIST changes: +BACDST PO
[2025-02-27 12:33] VITALS: BP 108/60; PULSE 85; RESP 17; TEMP 99.1; O2SAT 96
--- NOTE | 2025-02-27 12:35 | ED.PDOC ---
History of Present Illness HPI Comments A 44 YEAR OLD MALE PRESENTS TO THE ED WITH COMPLAINT OF ABSCESS WOUND RECHECK. PATIENT STATES HE HAD AN ABSCESS DRAINED ON HIS SCALP 2 DAYS AGO HERE IN THIS ED AND IS HERE IN THE ED TODAY TO HAVE THE PACKING REMOVED AND FOR THIS WOUND TO BE CHECKED. PATIENT DENIES FEVER, CHILLS, SHORTNESS OF BREATH, CHEST PAIN, ABDOMINAL PAIN, NAUSEA, VOMITING, HEADACHE, OR OTHER COMPLAINTS. NO OTHER SYMPTOMS OR MODIFYING FACTORS AT THIS TIME. PATIENT IS ALERT, ORIENTED X 4, AND HAS STEADY GAIT. Time Seen by MD: 12:26 Primary Care Provider: DESTINY Reviewed Notes: Nurses Notes, Medications, Allergies Allergies: Coded Allergies: NO KNOWN ALLERGIES (Unverified , 12/04/21) Home Meds Active Scripts Sulfamethoxazole W/Trimethopri (Bactrim Ds Tablet) 1 Tab Tb, 1 TAB PO BID for 10 Days, #20 TAB Prov:SHAWNEE PEARSON PA 02/25/25 Amoxicillin & Pot Clavulanate (Augmentin) 500 Mg Tab, 875 MG PO TID for 14 Days, #42 TAB Prov:LILIANA BERNARD RESIDENT 11/28/24 Yeast (S. Boulardii)(S. Cerevi (Florastor) 250 Mg Cap, 250 MG PO DAILY for 30 Days, #30 CAP Prov:JOE GUNDERSON SAVINGS COUNSELOR 11/03/24 Clindamycin Hcl (Clindamycin Hcl) 300 Mg Cap, 1 CAP PO TID for 10 Days, #30 CAP Prov:JOE GUNDERSON SAVINGS COUNSELOR 11/03/24 Nitroglycerin (NTROSTAT SUBLINGUAL) 0.4 Mg Sl, 0.4 MG SL Q5MINP PRN for 30 Days, #30 TAB Prov:VIMAL BERRY CALCULATOR OPERATOR 11/02/24 Sacubitril-Valsartan (Entresto 24-26 mg) 1 Tab Tab, 1 TAB PO BID for 30 Days, #60 TAB 1 Refill Prov:KUNAL LERMA MD 06/06/24 Rosuvastatin Calcium (Crestor) 40 Mg Tab, 1 TAB PO DAILY for 30 Days, #30 TAB 1 Refill Prov:KUNAL LERMA MD 06/06/24 Pantoprazole Sodium Sesquihydr (Pantoprazole Sodium) 40 Mg Tab, 40 MG PO BID for 30 Days, #60 TAB Prov:JOE GUNDERSON SAVINGS COUNSELOR 07/09/23 Reported Medications Insulin Lispro (Insulin Lispro Kwikpen) 100 Unit/Ml Inj, 5 UNIT SC UD for 75 Days, #9 INJECT 5 UNITS SUBCUTANEOUSLY PER SLIDING SCALE. MAXIMUM DAILY DOSE OF 12 UNITS. 11/02/24 Hydrocodone-Acetaminophen (Hydrocodone/Acetaminophen 5-325 mg) 1 Tab Tab, 1 TAB PO BID PRN for 30 Days, #60 11/02/24 Aspirin (Aspirin Low Dose) 81 Mg Chw, 1 TAB PO DAILY for 90 Days, #90 11/02/24 Famotidine (Famotidine) 40 Mg Tab, 1 TAB PO BID for 90 Days, #180 11/02/24 Dapagliflozin Propanediol (Farxiga) 10 Mg Tab, 5 MG PO DAILY for 90 Days, #90 11/02/24 Cyclobenzaprine HCl (Cyclobenzaprine Hydrochlo) 5 Mg Tab, 1-2 TAB PO BID PRN for 30 Days, #120 11/02/24 Sucralfate (Sucralfate) 1 Gm Tab, 1 TAB PO BID for 90 Days, #180 11/02/24 Gabapentin (Gabapentin) 400 Mg Cap, 1 CAP PO TID for 30 Days, #90 11/02/24 Magnesium Oxide (Magnesium Oxide) 400 Mg Tab, 1 TAB PO HS for 30 Days, #30 10/30/24 Gemfibrozil (Gemfibrozil) 600 Mg Tab, 1 TAB PO BID for 90 Days, #180 10/30/24 Losartan Potassium (Losartan Potassium) 50 Mg Tab, 1 TAB PO BID 10/30/24 Spironolactone (Spironolactone) 25 Mg Tab, 25 MG PO BID, TAB 06/05/24 Nifedipine (Nifedipine Er) 90 Mg Tab, 90 MG PO DAILY, TAB 06/05/24 Insulin Glargine (Basaglar Kwikpen) 100 Unit/Ml Inj, 20 UNIT SC BID for 23 Days, #9 06/05/24 Ticagrelor Base (BRILINTA) 90 Mg Tab, 90 MG PO BID, TAB 06/05/24 Dapagliflozin Propanediol (Farxiga) 10 Mg Tab, 10 MG PO QAM, TAB 06/05/24 Ondansetron HCl (Ondansetron Hydrochloride) 4 Mg Tab, 2 TAB PO DAILYPRN PRN for nausea/vomiting for 90 Days, #180 07/04/23 Atorvastatin Calcium (ATORVASTATIN CALCIUM) 40 Mg Tab, 1 TAB PO DAILY 07/04/23 Metformin Hydrochloride (Metformin Hcl) 1,000 Mg Tab, 1 TAB PO BIDWM for 90 Days, #180 05/24/23 Sertraline Hcl (Sertraline Hcl) 25 Mg Tab, 1 TAB PO DAILY 05/24/23 Carvedilol (Carvedilol) 6.25 Mg Tab, 1 TAB PO BID 05/24/23 Information Source: Patient Mode of Arrival: Ambulatory Severity: Mild, Moderate Timing: Days Duration: Since onset, Days Prehospital treatment: None Medication Refill: For: Other (ABSCESS WOUND RECHECK) Past Medical History PAST MEDICAL HISTORY: CHF, CKF, DM, High Lipids, HTN, Hypotension, [place] Surgical History: BKA, PTCA Family History Family History: Reviewed,noncontributory to illness Social History Smoker: Non-Smoker Alcohol: Denies ETOH Use Drugs: Marijuana Lives In: Home Constitutional: denies: chills, diaphoresis, fatigue, fever, malaise, sweats, weakness, others EENTM: denies: blurred vision, double vision, ear bleeding, ear discharge, ear drainage, ear pain, ear ringing, eye pain, eye redness, hearing loss, mouth pain, mouth swelling, nasal discharge, nose bleeding, nose congestion, nose pain, photophobia, tearing, throat pain, throat swelling, voice changes, others Respiratory: denies: cough, hemoptysis, orthopnea, SOB at rest, shortness of breath, SOB with excertion, stridor, wheezing, others Cardiovascular: denies: chest pain, dizzy spells, diaphoresis, Dyspnea on exertion, edema, irregular heart beat, left arm pain, lightheadedness, palpitations, PND, syncope, others Gastrointestinal: denies: abdomen distended, abdominal pain, blood streaked bowels, constipated, diarrhea, dysphagia, difficulty swallowing, hematemesis, melena, nausea, poor appetite, poor fluid intake, rectal bleeding, rectal pain, vomiting, others Genitourinary: denies: burning, dysuria, flank pain, frequency, hematuria, incontinence, penile discharge, penile sore, pain, testicle pain, testicle swell ing, urgency, others Neurological: denies: dizziness, fainting, headache, left sided numbness, left sided weakness, numbness, paresthesia, pre-existing deficit, right sided numbness, right sided weakness, seizure, speech problems, tingling, tremors, weakness, others Musculoskeletal: denies: back pain, gout, joint pain, joint swelling, muscle pain, muscle stiffness, neck pain, others Integumetry: reports: wounds (SCALP ); denies: bruises, change in color, change in hair/nails, dryness, laceration, lesions, lumps, rash, others Allergic/Immunocompromised: denies: Difficulty Healing, Frequent Infections, Hives, Itching, others Hematologic/Lymphatic: denies: anemia, blood clots, easy bleeding, easy bruising, swollen glands, others Endocrine: denies: excessive hunger, excessive sweating, excessive thirst, excessive urination, flushing, intolerance to cold, intolerance to heat, unexplained weight gain, unexplained weight loss, others Psychiatric: denies: anxiety, bipolar disorder, depression, hopeless, panic disorder, schizophrenia, sleepless, suicidal, others All Other Systems: Reviewed and Negative Physical Exam General Appearance: No Apparent Distress, Normal HEENT: Normal ENT Inspection, PERRL/EOMI, Pharynx Normal, TMs Normal Neck: Full Range of Motion, Non-Tender, Normal, Normal Inspection Respiratory: Chest Non-Tender, Lungs Clear, No Accessory Muscle Use, No Respiratory Distress, Normal Breath Sounds Cardiovascular: No Edema, No JVD, No Murmur, No Gallop, Normal Peripheral Pulses, Regular Rate/Rhythm Breast Exam: Deferred Gastrointestinal: No Organomegaly, Non Tender, No Pulsatile Mass, Normal Bowel Sounds, Soft Genitalia: Deferred Pelvic: Deferred Rectal: Deferred Extremities: No calf tenderness, Normal capillary refill, Normal inspection, Normal range of motion, Non-tender, No pedal edema Musculoskeletal : Apperance: Normal Neurologic: Alert, it portfolio manager II-XII nml as Tested, No Motor Deficits, Normal Affect, Normal Mood, No Sensory Deficits Cerebellar Function: Normal Reflexes: Normal Skin: Dry, Normal Color, Warm, Wounds (ABSCESS WOUND ON THE SCALP, HEALING, NO REDNESS, SWELLING AND PUS DRAINAGE. ) Peripheral Pulses: 2+ carotid (R), 2+ carotid (L) Lymphatic: No Adenopathy Was a procedure done? Was a procedure done?: No Differential Dx Considerations may include: ABSCESS WOUND RECHECKED, WOUND INFECTION, PACKING REMOVAL X-Ray, Labs, Meds, VS Vital Signs Date Time Temp Pulse Resp B/P (MAP) Pulse Ox O2 Delivery O2 Flow Rate FiO2 02/27/25 12:33 99.1 85 17 108/60 (76) 96 99.1 X-Ray, Labs, Meds, VS Comment EXTERNAL MEDICAL RECORDS REVIEWED: [NONE] INDEPENDENT HISTORIANS: [NONE] SOCIAL DETERMINANTS OF HEALTH: [NONE] LABS ORDERED: NONE REVIEWED AND INTERPRETED RESULTS: NONE IMAGING ORDERED: NONE TREATMENTS ORDERED: PATIENT'S PACKING WAS REMOVED AND HIS ABSCESS WOUND WAS CLEANED USING NORMAL SALINE. PROCEDURES PERFORMED: NONE CRITICAL CARE TIME: NONE I HAVE DISCUSSED THE PATIENT WITH THE ATTENDING PHYSICIAN DR. ABREU AND HE AGREES WITH THE PATIENT'S PLAN OF CARE AND DISPOSITION. BASED ON HISTORY OF PRESENT ILLNESS, AND PHYSICAL EXAM, PATIENT WILL BE DISCHARGED HOME. SHARED DECISION MAKING: PATIENT INSTRUCTED TO FOLLOW UP WITH PRIMARY CARE PROVIDER IN 1-2 DAYS FOR RE-EVALUATION OF SYMPTOMS. PATIENT VERBALIZES UNDERSTANDING TO RETURN TO ED FOR NEW OR WORSENING SYMPTOMS OR IF FOLLOW UP WITH PCP CANNOT BE OBTAINED. PATIENT FEELS COMFORTABLE GOING HOME AT THIS TIME. ALL QUESTIONS ADDRESSED AT TIME OF DISCHARGE. Time of 1ST Reevaluation: 13:00 Reevaluation 1ST: Improved Patient Education/Counseling: Diagnosis, Treatment, Need For Follow Up Family Education/Counseling: Diagnosis, Treatment, Need For Follow Up Medical Screening: No EMC Exist At This Time SEPSIS Sepsis Screen Vital Signs Date Time Temp Pulse Resp B/P (MAP) Pulse Ox O2 Delivery O2 Flow Rate FiO2 02/27/25 12:33 99.1 85 17 108/60 (76) 96 99.1 Departure 1 Departure Time of Disposition: 13:00 Impression: Primary Impression: Encounter for wound re-check Disposition: HOME / SELF CARE / HOMELESS Condition: Stable Additional Instructions: FOLLOW-UP WITH PCP IN 1 TO 2 DAYS. RETURN TO ED FOR ANY NEW OR WORSENING SYMPTOMS. Discharged With: Self Critical Care Note Critical Care Time?: No Stability Stability form required: No I personally scribed for SHAWNEE PEARSON ([email or web address]) on 02/27/25 at 12:35. Electronically submitted by Balaji Valadez ([email or web address]). SHAWNEE PEARSON Feb 27, 2025 12:35
== END 2025-02-27 12:44 | disposition home or self-care (01) ==
LOC: ER 12:28
DX: L02.811 Cutaneous abscess of head [any part, except face] (principal); I11.0 Hypertensive heart disease with heart failure; I50.9 Heart failure, unspecified; E11.9 Type 2 diabetes mellitus without complications; Z48.00 Encounter for change or removal of nonsurgical wound dressing; Z79.82 Long term (current) use of aspirin; Z79.84 Long term (current) use of oral hypoglycemic drugs; Z79.899 Other long term (current) drug therapy; Z98.890 Other specified postprocedural states

== ENCOUNTER 2025-03-03 12:32 | Emergency (ER) | payer MEDICAID ==
[~2025-03-03] VITALS: Ht 205.7 cm; Wt 116.0 kg
--- NOTE | 2025-03-03 13:00 | ED.PDOC ---
History of Present Illness(SKN HPI Comments THIS IS A 44 YEAR OLD MALE PRESENTING TO THE ED WITH CHIEF COMPLAINT OF WOUND CHECK. PATIENT REPORTS THAT HE HAD AN ABSCESS PACKED INTO HIS SCALP 4 DAYS AGO, ADVISED TO COME BACK FOR A RECHECK. PATIENT RELAYS THAT THE WOUND IS STILL CONTINUING TO HAVE DISCHARGE. PATIENT DENIES ANY BLEEDING, FEVER, OR CHILLS. NO FURTHER SYMPTOMS OR CONCERNS AT THIS TIME. Chief Complaint: Wound Check Time Seen by MD: 12:56 Primary Care Provider: DESTINY History of Present Illness: Nurses Notes, Medications, Allergies Allergies: Coded Allergies: NO KNOWN ALLERGIES (Unverified , 12/04/21) Home Meds Active Scripts Sulfamethoxazole W/Trimethopri (Bactrim Ds Tablet) 1 Tab Tb, 1 TAB PO BID for 10 Days, #20 TAB Prov:SHAWNEE PEARSON 03/03/25 Sulfamethoxazole W/Trimethopri (Bactrim Ds Tablet) 1 Tab Tb, 1 TAB PO BID for 10 Days, #20 TAB Prov:SHAWNEE PEARSON 02/25/25 Amoxicillin & Pot Clavulanate (Augmentin) 500 Mg Tab, 875 MG PO TID for 14 Days, #42 TAB Prov:LILIANA BERNARD RESIDENT 11/28/24 Yeast (S. Boulardii)(S. Cerevi (Florastor) 250 Mg Cap, 250 MG PO DAILY for 30 Days, #30 CAP Prov:JOE GUNDERSON AUTO SERVICE INSTRUCTOR 11/03/24 Clindamycin Hcl (Clindamycin Hcl) 300 Mg Cap, 1 CAP PO TID for 10 Days, #30 CAP Prov:JOE GUNDERSON AUTO SERVICE INSTRUCTOR 11/03/24 Nitroglycerin (NTROSTAT SUBLINGUAL) 0.4 Mg Sl, 0.4 MG SL Q5MINP PRN for 30 Days, #30 TAB Prov:VIMAL BERRY HEALTH PROFESSIONAL 11/02/24 Sacubitril-Valsartan (Entresto 24-26 mg) 1 Tab Tab, 1 TAB PO BID for 30 Days, #60 TAB 1 Refill Prov:KUNAL LERMA MD 06/06/24 Rosuvastatin Calcium (Crestor) 40 Mg Tab, 1 TAB PO DAILY for 30 Days, #30 TAB 1 Refill Prov:KUNAL LERMA MD 06/06/24 Pantoprazole Sodium Sesquihydr (Pantoprazole Sodium) 40 Mg Tab, 40 MG PO BID for 30 Days, #60 TAB Prov:JOE GUNDERSON AUTO SERVICE INSTRUCTOR 07/09/23 Reported Medications Insulin Lispro (Insulin Lispro Kwikpen) 100 Unit/Ml Inj, 5 UNIT SC UD for 75 Days, #9 INJECT 5 UNITS SUBCUTANEOUSLY PER SLIDING SCALE. MAXIMUM DAILY DOSE OF 12 UNITS. 11/02/24 Hydrocodone-Acetaminophen (Hydrocodone/Acetaminophen 5-325 mg) 1 Tab Tab, 1 TAB PO BID PRN for 30 Days, #60 11/02/24 Aspirin (Aspirin Low Dose) 81 Mg Chw, 1 TAB PO DAILY for 90 Days, #90 11/02/24 Famotidine (Famotidine) 40 Mg Tab, 1 TAB PO BID for 90 Days, #180 11/02/24 Dapagliflozin Propanediol (Farxiga) 10 Mg Tab, 5 MG PO DAILY for 90 Days, #90 11/02/24 Cyclobenzaprine HCl (Cyclobenzaprine Hydrochlo) 5 Mg Tab, 1-2 TAB PO BID PRN for 30 Days, #120 11/02/24 Sucralfate (Sucralfate) 1 Gm Tab, 1 TAB PO BID for 90 Days, #180 11/02/24 Gabapentin (Gabapentin) 400 Mg Cap, 1 CAP PO TID for 30 Days, #90 11/02/24 Magnesium Oxide (Magnesium Oxide) 400 Mg Tab, 1 TAB PO HS for 30 Days, #30 10/30/24 Gemfibrozil (Gemfibrozil) 600 Mg Tab, 1 TAB PO BID for 90 Days, #180 10/30/24 Losartan Potassium (Losartan Potassium) 50 Mg Tab, 1 TAB PO BID 10/30/24 Spironolactone (Spironolactone) 25 Mg Tab, 25 MG PO BID, TAB 06/05/24 Nifedipine (Nifedipine Er) 90 Mg Tab, 90 MG PO DAILY, TAB 06/05/24 Insulin Glargine (Basaglar Kwikpen) 100 Unit/Ml Inj, 20 UNIT SC BID for 23 Days, #9 06/05/24 Ticagrelor Base (BRILINTA) 90 Mg Tab, 90 MG PO BID, TAB 06/05/24 Dapagliflozin Propanediol (Farxiga) 10 Mg Tab, 10 MG PO QAM, TAB 06/05/24 Ondansetron HCl (Ondansetron Hydrochloride) 4 Mg Tab, 2 TAB PO DAILYPRN PRN for nausea/vomiting for 90 Days, #180 07/04/23 Atorvastatin Calcium (ATORVASTATIN CALCIUM) 40 Mg Tab, 1 TAB PO DAILY 07/04/23 Metformin Hydrochloride (Metformin Hcl) 1,000 Mg Tab, 1 TAB PO BIDWM for 90 Days, #180 05/24/23 Sertraline Hcl (Sertraline Hcl) 25 Mg Tab, 1 TAB PO DAILY 05/24/23 Carvedilol (Carvedilol) 6.25 Mg Tab, 1 TAB PO BID 05/24/23 Information Source: Patient Mode of Arrival: Wheelchair Severity: Moderate Timing: Days Duration: Since onset Prehospital treatment: None Location: Head Mechanism: Preceding Wound Object: None Condition of Object: None Retained Foreign Body: No Wound Type: Abscess Associated Signs and Symptoms: Redness Past Medical History PAST MEDICAL HISTORY: CHF, DM, HTN, [place] Surgical History: BKA, PTCA Family History Family History: Reviewed,noncontributory to illness Social History Smoker: Non-Smoker Alcohol: Denies ETOH Use Drugs: Denies Drug Use Lives In: Home Constitutional: denies: chills, diaphoresis, fatigue, fever, malaise, sweats, weakness, others EENTM: denies: blurred vision, double vision, ear bleeding, ear discharge, ear drainage, ear pain, ear ringing, eye pain, eye redness, hearing loss, mouth pain, mouth swelling, nasal discharge, nose bleeding, nose congestion, nose pain, photophobia, tearing, throat pain, throat swelling, voice changes, others Respiratory: denies: cough, hemoptysis, orthopnea, SOB at rest, shortness of breath, SOB with excertion, stridor, wheezing, others Cardiovascular: denies: chest pain, dizzy spells, diaphoresis, Dyspnea on exert ion, edema, irregular heart beat, left arm pain, lightheadedness, palpitations, PND, syncope, others Gastrointestinal: denies: abdomen distended, abdominal pain, blood streaked bowels, constipated, diarrhea, dysphagia, difficulty swallowing, hematemesis, melena, nausea, poor appetite, poor fluid intake, rectal bleeding, rectal pain, vomiting, others Genitourinary: denies: burning, dysuria, flank pain, frequency, hematuria, incontinence, penile discharge, penile sore, pain, testicle pain, testicle swelling, urgency, others Neurological: denies: dizziness, fainting, headache, left sided numbness, left sided weakness, numbness, paresthesia, pre-existing deficit, right sided numbness, right sided weakness, seizure, speech problems, tingling, tremors, weakness, others Musculoskeletal: denies: back pain, gout, joint pain, joint swelling, muscle pain, muscle stiffness, neck pain, others Integumetry: reports: wounds (TO SCALP); denies: bruises, change in color, change in hair/nails, dryness, laceration, lesions, lumps, rash, others Allergic/Immunocompromised: denies: Difficulty Healing, Frequent Infections, Hives, Itching, others Hematologic/Lymphatic: denies: anemia, blood clots, easy bleeding, easy bruising, swollen glands, others Endocrine: denies: excessive hunger, excessive sweating, excessive thirst, excessive urination, flushing, intolerance to cold, intolerance to heat, unexplained weight gain, unexplained weight loss, others Psychiatric: denies: anxiety, bipolar disorder, depression, hopeless, panic disorder, schizophrenia, sleepless, suicidal, others All Other Systems: Reviewed and Negative Physical Exam General Appearance: No Apparent Distress, Normal HEENT: Normal ENT Inspection, PERRL/EOMI, Pharynx Normal, TMs Normal Neck: Full Range of Motion, Non-Tender, Normal, Normal Inspection Respiratory: Chest Non-Tender, Lungs Clear, No Accessory Muscle Use, No Respiratory Distress, Normal Breath Sounds Cardiovascular: No Edema, No JVD, No Murmur, No Gallop, Normal Peripheral Pulses, Regular Rate/Rhythm Breast Exam: Deferred Gastrointestinal: No Organomegaly, Non Tender, No Pulsatile Mass, Normal Bowel Sounds, Soft Genitalia: Deferred Pelvic: Deferred Rectal: Deferred Extremities: No calf tenderness, Normal capillary refill, Normal inspection, Normal range of motion, Non-tender, No pedal edema Musculoskeletal : Apperance: Normal Neurologic: Alert, allied health teacher II-XII nml as Tested, No Motor Deficits, Normal Affect, Normal Mood, No Sensory Deficits Cerebellar Function: Normal Reflexes: Normal Skin: Dry, Warm, Wounds (ABSCESS WOUND ON THE BACK OF SCALP WITH MILD LOCALIZED REDNESS AND PUS DRAINAGE. ) Peripheral Pulses: 2+ carotid (R), 2+ carotid (L) Lymphatic: No Adenopathy Was a procedure done? Was a procedure done?: No Sedation Sedation?: No Incision and Drainage Location SCALP Incision and Wound: Packed Differential Diagnosis (INTG) Differential Diagnosis: Abrasion, Other (ABSCESS WOUND RECHECK ) Differential Diagnosis: Abscess Abscess: Abscess, Cellulitis X-Ray, Labs, Meds, VS Vital Signs Date Time Temp Pulse Resp B/P (MAP) Pulse Ox O2 Delivery O2 Flow Rate FiO2 03/03/25 12:33 98.1 82 16 115/41 97 98.1 X-Ray, Labs, Meds, VS Comment EXTERNAL MEDICAL RECORDS REVIEWED: [NONE] INDEPENDENT HISTORIANS: [NONE] SOCIAL DETERMINANTS OF HEALTH: [NONE] LABS ORDERED: NONE REVIEWED AND INTERPRETED RESULTS: NONE IMAGING ORDERED: NONE TREATMENTS ORDERED: ABSCESS WOUND CLEANED WITH NORMAL SALINE, PUS DRAINED AND REPACKED WOUND OF SCALP. PROCEDURES PERFORMED: NONE CRITICAL CARE TIME: NONE I HAVE DISCUSSED THE PATIENT WITH THE ATTENDING PHYSICIAN DR. LUCAS AND HE AGREES WITH THE PATIENT'S PLAN OF CARE AND DISPOSITION. BASED ON HISTORY OF PRESENT ILLNESS, AND PHYSICAL EXAM, PATIENT WILL BE DISCHARGED HOME. DISCUSSED PLAN FOR DISCHARGE HOME WITH RX [[facility]]. MEDICATION WARNINGS GIVEN. SHARED DECISION MAKING: DISCUSSED WITH PATIENT THAT THEIR WORKUP WAS NORMAL. NIKOLAS PÉREZ INSTRUCTED TO FOLLOW UP WITH PRIMARY CARE PROVIDER IN 1-2 DAYS FOR RE- EVALUATION OF SYMPTOMS. PATIENT VERBALIZES UNDERSTANDING TO RETURN TO ED FOR NEW OR WORSENING SYMPTOMS OR IF FOLLOW UP WITH PCP CANNOT BE OBTAINED. PATIENT FEELS COMFORTABLE GOING HOME AT THIS TIME. ALL QUESTIONS ADDRESSED AT TIME OF DISCHARGE. Time of 1ST Reevaluation: 13:15 Reevaluation 1ST: Improved Patient Education/Counseling: Diagnosis, Treatment, Need For Follow Up Family Education/Counseling: Diagnosis, Treatment, No Family Present Medical Screening: No EMC Exist At This Time SEPSIS Sepsis Screen Date sepsis recognized/suspect: Mar 03, 2025 Time Sepsis recognized/suspect: 1233 Recent Procedure: No On Antibiotic Therapy: No Respiratory Rate >20: No Heart Rate >90: No Temp<36 C (96.8 F) or >38.3 C: No SBP <90 or MAP <65 mmHG: No New Acute Mental Status Change: No Is the patient on CPAP, BIPAP,: No Vital Signs Date Time Temp Pulse Resp B/P (MAP) Pulse Ox O2 Delivery O2 Flow Rate FiO2 03/03/25 12:33 98.1 82 16 115/41 97 98.1 Departure 1 Departure Time of Disposition: 13:10 Impression: Primary Impression: Encounter for wound re-check Disposition: HOME / SELF CARE / HOMELESS Condition: Stable Additional Instructions: FOLLOW-UP WITH PCP IN 1 TO 2 DAYS. TAKE MEDICATIONS PRESCRIBED. RETURN TO ED FOR ANY NEW OR WORSENING SYMPTOMS. e-Prescriptions Sulfamethoxazole W/Trimethopri (Bactrim Ds Tablet) 1 Tab Tb 1 TAB PO BID for 10 Days, #20 TAB Prov: SHAWNEE PEARSON 03/03/25 Discharged With: Self Critical Care Note Critical Care Time?: No Stability Stability form required: No Heart Score Heart Score: Heart Score Response (Comments) Value History N/A 0 EKG N/A 0 Age N/A 0 Risk Factors N/A 0 Troponin N/A 0 Total 0 I personally scribed for SHAWNEE PEARSON ([email or web address]) on 03/03/25 at 13:00. Electronically submitted by Michel Antunez ([email or web address]). SHAWNEE PEARSON Mar 03, 2025 13:00
[2025-03-03 13:02] VITALS: BP 106/63; PULSE 79; RESP 18; TEMP 99.2; O2SAT 97
== END 2025-03-03 13:06 | disposition home or self-care (01) ==
LOC: ER 12:32
DX: Z48.00 Encounter for change or removal of nonsurgical wound dressing (principal); I11.0 Hypertensive heart disease with heart failure; I50.9 Heart failure, unspecified; E11.9 Type 2 diabetes mellitus without complications; I21.9 Acute myocardial infarction, unspecified; Z79.899 Other long term (current) drug therapy; Z79.84 Long term (current) use of oral hypoglycemic drugs; Z79.82 Long term (current) use of aspirin; Z79.4 Long term (current) use of insulin

== ENCOUNTER 2025-03-05 12:39 | Emergency (ER) | payer MEDICAID ==
[~2025-03-05] VITALS: Ht 205.7 cm; Wt 116.0 kg
--- NOTE | 2025-03-05 12:52 | ED.PDOC ---
History of Present Illness HPI Comments A 44 YEAR OLD MALE PRESENTS TO THE ED WITH COMPLAINT OF WOUND RECHECK. PATIENT STATES HE HAD A SCALP ABSCESS DRAINED 1 WEEK AGO AND HAD PACKING PLACED. PATIENT REPORTS HE HAD IN HIS PACKING REMOVED AND WAS INSTRUCTED TO COME TO THE ED FOR ANOTHER WOUND RECHECK. PATIENT DENIES FEVER, CHILLS, SHORTNESS OF [place] ATH, CHEST PAIN, ABDOMINAL PAIN, NAUSEA, VOMITING, HEADACHE, OR OTHER COMPLAINTS. NO OTHER SYMPTOMS OR MODIFYING FACTORS AT THIS TIME. PATIENT IS ALERT, ORIENTED X 4, AND HAS STEADY GAIT. Chief Complaint: Wound Check Time Seen by MD: 12:45 Primary Care Provider: DESTINY Reviewed Notes: Nurses Notes, Medications, Allergies Allergies: Coded Allergies: NO KNOWN ALLERGIES (Unverified , 12/04/21) Home Meds Active Scripts Sulfamethoxazole W/Trimethopri (Bactrim Ds Tablet) 1 Tab Tb, 1 TAB PO BID for 10 Days, #20 TAB Prov:SHAWNEE PEARSON 03/03/25 Sulfamethoxazole W/Trimethopri (Bactrim Ds Tablet) 1 Tab Tb, 1 TAB PO BID for 10 Days, #20 TAB Prov:SHAWNEE PEARSON 02/25/25 Amoxicillin & Pot Clavulanate (Augmentin) 500 Mg Tab, 875 MG PO TID for 14 Days, #42 TAB Prov:LILIANA BERNARD RESIDENT 11/28/24 Yeast (S. Boulardii)(S. Cerevi (Florastor) 250 Mg Cap, 250 MG PO DAILY for 30 Days, #30 CAP Prov:JOE GUNDERSON WATER RESOURCES BUSINESS SEGMENT LEADER 11/03/24 Clindamycin Hcl (Clindamycin Hcl) 300 Mg Cap, 1 CAP PO TID for 10 Days, #30 CAP Prov:JOE GUNDERSON [employer] RESOURCES BUSINESS SEGMENT LEADER 11/03/24 Nitroglycerin (NTROSTAT SUBLINGUAL) 0.4 Mg Sl, 0.4 MG SL Q5MINP PRN for 30 Days, #30 TAB Prov:VIMAL BERRY 11/02/24 Sacubitril-Valsartan (Entresto 24-26 mg) 1 Tab Tab, 1 TAB PO BID for 30 Days, #60 TAB 1 Refill Prov:KUNAL LERMA MD 06/06/24 Rosuvastatin Calcium (Crestor) 40 Mg Tab, 1 TAB PO DAILY for 30 Days, #30 TAB 1 Refill Prov:KUNAL LERMA MD 06/06/24 Pantoprazole Sodium Sesquihydr (Pantoprazole Sodium) 40 Mg Tab, 40 MG PO BID for 30 Days, #60 TAB Prov:JOE GUNDERSON NP 07/09/23 Reported Medications Insulin Lispro (Insulin Lispro Kwikpen) 100 Unit/Ml Inj, 5 UNIT SC UD for 75 Days, #9 INJECT 5 UNITS SUBCUTANEOUSLY PER SLIDING SCALE. MAXIMUM DAILY DOSE OF 12 UNITS. 11/02/24 Hydrocodone-Acetaminophen (Hydrocodone/Acetaminophen 5-325 mg) 1 Tab Tab, 1 TAB PO BID PRN for 30 Days, #60 11/02/24 Aspirin (Aspirin Low Dose) 81 Mg Chw, 1 TAB PO DAILY for 90 Days, #90 11/02/24 Famotidine (Famotidine) 40 Mg Tab, 1 TAB PO BID for 90 Days, #180 11/02/24 Dapagliflozin Propanediol (Farxiga) 10 Mg Tab, 5 MG PO DAILY for 90 Days, #90 11/02/24 Cyclobenzaprine HCl (Cyclobenzaprine Hydrochlo) 5 Mg Tab, 1-2 TAB PO BID PRN for 30 Days, #120 11/02/24 Sucralfate (Sucralfate) 1 Gm Tab, 1 TAB PO BID for 90 Days, #180 11/02/24 Gabapentin (Gabapentin) 400 Mg Cap, 1 CAP PO TID for 30 Days, #90 11/02/24 Magnesium Oxide (Magnesium Oxide) 400 Mg Tab, 1 TAB PO HS for 30 Days, #30 10/30/24 Gemfibrozil (Gemfibrozil) 600 Mg Tab, 1 TAB PO BID for 90 Days, #180 10/30/24 Losartan Potassium (Losartan Potassium) 50 Mg Tab, 1 TAB PO BID 10/30/24 Spironolactone (Spironolactone) 25 Mg Tab, 25 MG PO BID, TAB 06/05/24 Nifedipine (Nifedipine Er) 90 Mg Tab, 90 MG PO DAILY, TAB 06/05/24 Insulin Glargine (Basaglar Kwikpen) 100 Unit/Ml Inj, 20 UNIT SC BID for 23 Days, #9 06/05/24 Ticagrelor Base (BRILINTA) 90 Mg Tab, 90 MG PO BID, TAB 06/05/24 Dapagliflozin Propanediol (Farxiga) 10 Mg Tab, 10 MG PO QAM, TAB 06/05/24 Ondansetron HCl (Ondansetron Hydrochloride) 4 Mg Tab, 2 TAB PO DAILYPRN PRN for nausea/vomiting for 90 Days, #180 07/04/23 Atorvastatin Calcium (ATORVASTATIN CALCIUM) 40 Mg Tab, 1 TAB PO DAILY 07/04/23 Metformin Hydrochloride (Metformin Hcl) 1,000 Mg Tab, 1 TAB PO BIDWM for 90 Days, #180 05/24/23 Sertraline Hcl (Sertraline Hcl) 25 Mg Tab, 1 TAB PO DAILY 05/24/23 Carvedilol (Carvedilol) 6.25 Mg Tab, 1 TAB PO BID 05/24/23 Information Source: Patient Mode of Arrival: Ambulatory Severity: Mild Timing: Days Duration: Since onset, Days Prehospital treatment: None Medication Refill: For: Other (WOUND RECHECK) Past Medical History PAST MEDICAL HISTORY: CHF, DM, HTN, [place] Surgical History: BKA, PTCA Family History Family History: Reviewed,noncontributory to illness Social History Smoker: Non-Smoker Alcohol: Denies ETOH Use Drugs: Denies Drug Use Lives In: Home Constitutional: denies: chills, diaphoresis, fatigue, fever, malaise, sweats, weakness, others EENTM: denies: blurred vision, double vision, ear bleeding, ear discharge, ear drainage, ear pain, ear ringing, eye pain, eye redness, hearing loss, mouth pain, mouth swelling, nasal discharge, nose bleeding, nose congestion, nose pain, photophobia, tearing, throat pain, throat swelling, voice changes, others Respiratory: denies: cough, hemoptysis, orthopnea, SOB at rest, shortness of breath, SOB with excertion, stridor, wheezing, others Cardiovascular: denies: chest pain, dizzy spells, diaphoresis, Dyspnea on ex ertion, edema, irregular heart beat, left arm pain, lightheadedness, palpitations, PND, syncope, others Gastrointestinal: denies: abdomen distended, abdominal pain, blood streaked bowels, constipated, diarrhea, dysphagia, difficulty swallowing, hematemesis, melena, nausea, poor appetite, poor fluid intake, rectal bleeding, rectal pain, vomiting, others Genitourinary: denies: burning, dysuria, flank pain, frequency, hematuria, incontinence, penile discharge, penile sore, pain, testicle pain, testicle swelling, urgency, others Neurological: denies: dizziness, fainting, headache, left sided numbness, left sided weakness, numbness, paresthesia, pre-existing deficit, right sided numbness, right sided weakness, seizure, speech problems, tingling, tremors, weakness, others Musculoskeletal: denies: back pain, gout, joint pain, joint swelling, muscle pain, muscle stiffness, neck pain, others Integumetry: reports: wounds (TOP OF SCALP ); denies: bruises, change in color, change in hair/nails, dryness, laceration, lesions, lumps, rash, others Allergic/Immunocompromised: denies: Difficulty Healing, Frequent Infections, Hi ves, Itching, others Hematologic/Lymphatic: denies: anemia, blood clots, easy bleeding, easy bruising, swollen glands, others Endocrine: denies: excessive hunger, excessive sweating, excessive thirst, excessive urination, flushing, intolerance to cold, intolerance to heat, unexplained weight gain, unexplained weight loss, others Psychiatric: denies: anxiety, bipolar disorder, depression, hopeless, panic disorder, schizophrenia, sleepless, suicidal, others All Other Systems: Reviewed and Negative Physical Exam General Appearance: No Apparent Distress, Normal HEENT: Normal ENT Inspection, PERRL/EOMI, Pharynx Normal, TMs Normal Neck: Full Range of Motion, Non-Tender, Normal, Normal Inspection Respiratory: Chest Non-Tender, Lungs Clear, No Accessory Muscle Use, No Respiratory Distress, Normal Breath Sounds Cardiovascular: No Edema, No JVD, No Murmur, No Gallop, Normal Peripheral Pulses, Regular Rate/Rhythm Breast Exam: Deferred Gastrointestinal: No Organomegaly, Non Tender, No Pulsatile Mass, Normal Bowel Sounds, Soft Genitalia: Deferred Pelvic: Deferred Rectal: Deferred Extremities: No calf tenderness, Normal capillary refill, Normal inspection, Normal range of motion, Non-tender, No pedal edema Musculoskeletal : Apperance: Normal Neurologic: Alert, central office trouble shooter II-XII nml as Tested, No Motor Deficits, Normal Affect, Normal Mood, No Sensory Deficits Cerebellar Function: Normal Reflexes: Normal Skin: Dry, Normal Color, Warm, Wounds (ABSCESS WOUND ON THE TOP OF SCALP, HEALING WOUND, NO REDNESS AND SWELLING, NO PUS DRAINAGE. ) Peripheral Pulses: 2+ carotid (R), 2+ carotid (L) Lymphatic: No Adenopathy Was a procedure done? Was a procedure done?: No Differential Dx Considerations may include: ABSCESS WOUND RECHECK, WOUND INFECTION, PACKING REMOVAL X-Ray, Labs, Meds, VS Vital Signs Date Time Temp Pulse Resp B/P (MAP) Pulse Ox O2 Delivery O2 Flow Rate FiO2 03/05/25 12:41 97.7 99 147/78 99 97.7 X-Ray, Labs, Meds, VS Comment EXTERNAL MEDICAL RECORDS REVIEWED: [NONE] INDEPENDENT HISTORIANS: [NONE] SOCIAL DETERMINANTS OF HEALTH: [NONE] LABS ORDERED: NONE REVIEWED AND INTERPRETED RESULTS: NONE IMAGING ORDERED: NONE TREATMENTS ORDERED: PATIENT'S WOUND WAS CLEANED WITH NORMAL SALINE. REPACKED AND WRAPPED. PROCEDURES PERFORMED: NONE CRITICAL CARE TIME: NONE I HAVE DISCUSSED THE PATIENT WITH THE ATTENDING PHYSICIAN DR. ABREU AND HE AGREES WITH THE PATIENT'S PLAN OF CARE AND DISPOSITION. BASED ON HISTORY OF PRESENT ILLNESS, AND PHYSICAL EXAM, PATIENT WILL BE DISCHARGED HOME. SHARED DECISION MAKING: PATIENT INSTRUCTED TO FOLLOW UP WITH PRIMARY CARE PROVIDER IN 1-2 DAYS FOR RE-EVALUATION OF SYMPTOMS. PATIENT VERBALIZES UNDERSTANDING TO RETURN TO ED FOR NEW OR WORSENING SYMPTOMS OR IF FOLLOW UP WITH PCP CANNOT BE OBTAINED. PATIENT FEELS COMFORTABLE GOING HOME AT THIS TIME. ALL QUESTIONS ADDRESSED AT TIME OF DISCHARGE. Time of 1ST Reevaluation: 13:05 Reevaluation 1ST: Improved Patient Education/Counseling: Diagnosis, Treatment, Need For Follow Up Family Education/Counseling: Diagnosis, Treatment, Need For Follow Up Medical Screening: No EMC Exist At This Time SEPSIS Sepsis Screen Date sepsis recognized/suspect: Mar 05, 2025 Time Sepsis recognized/suspect: 1243 Recent Procedure: No On Antibiotic Therapy: No Respiratory Rate >20: No Heart Rate >90: Yes Temp<36 C (96.8 F) or >38.3 C: No SBP <90 or MAP <65 mmHG: No New Acute Mental Status Change: No Is the patient on CPAP, BIPAP,: No Vital Signs Date Time Temp Pulse Resp B/P (MAP) Pulse Ox O2 Delivery O2 Flow Rate FiO2 03/05/25 12:41 97.7 99 19 147/78 99 97.7 Departure 1 Departure Time of Disposition: 13:10 Impression: Primary Impression: Encounter for wound re-check Disposition: 01 HOME / SELF CARE / HOMELESS Condition: Stable Additional Instructions: FOLLOW-UP WITH PCP IN 1 TO 2 DAYS. TAKE MEDICATIONS PRESCRIBED. RETURN TO ED FOR ANY NEW OR WORSENING SYMPTOMS. Discharged With: Self Critical Care Note Critical Care Time?: No Stability Stability form required: No I personally scribed for SHAWNEE PEARSON ([email or web address]) on 03/05/25 at 12:52. Electronically submitted by Balaji Valadez ([email or web address]). SHAWNEE PEARSON Mar 05, 2025 12:52
[2025-03-05 13:05] VITALS: BP 147/78; PULSE 99; RESP 19; TEMP 97.7; O2SAT 99
== END 2025-03-05 13:07 | disposition home or self-care (01) ==
LOC: ER 12:39
DX: Z48.00 Encounter for change or removal of nonsurgical wound dressing (principal); I11.0 Hypertensive heart disease with heart failure; I50.9 Heart failure, unspecified; E11.9 Type 2 diabetes mellitus without complications; Z79.899 Other long term (current) drug therapy

== ENCOUNTER 2025-03-08 11:32 | Emergency (ER) | payer MEDICAID ==
[~2025-03-08] VITALS: Ht 205.7 cm; Wt 115.0 kg
[2025-03-08 11:45] VITALS: BP 122/81; PULSE 119; RESP 15; TEMP 99; O2SAT 99
== END 2025-03-08 15:28 | disposition left against medical advice (07) ==
LOC: ER 11:32
DX: Z48.00 Encounter for change or removal of nonsurgical wound dressing (principal); Z53.21 Procedure and treatment not carried out due to patient leaving prior to being seen by health care provider

== ENCOUNTER 2025-07-14 08:31 | Emergency (ER) | payer MEDICAID ==
[~2025-07-14] VITALS: Ht 205.7 cm; Wt 96.1 kg
[2025-07-14 09:49] VITALS: BP 157/103; PULSE 89; RESP 16; TEMP 98.9; O2SAT 99
--- NOTE | 2025-07-14 10:19 | DVH ---
EXAM: XY L KNEE 2V XRAY HISTORY: pain, no injury COMPARISON: None TECHNIQUE: AP and lateral views of the left knee were performed. FINDINGS: No acute fracture is identified about the left knee. There are postoperative changes of left below-knee amputation. No significant joint space narrowing. Probable small joint effusion. IMPRESSION: 1. No acute fracture of the left knee. 2. Postoperative changes of left below-knee amputation. 3. Probable small left knee effusion.
[2025-07-14 10:22] LABS: Hematocrit 34.7 % (41.0-53.0); Hemoglobin 11.1 g/dL (13.5-17.5); Mean Corpuscular Hemoglobin 27.7 pg (28.0-32.0); Mean Corpuscular Volume 86.5 fL (80.0-100.0); Nucleated Red Blood Cells % 0.0 %
--- NOTE | 2025-07-14 10:32 | DVH ---
EXAM: CT HEAD WITHOUT CONTRAST HISTORY: 44-year-old male with headache. COMPARISON: HEAD WITHOUT CONTRAST on DOS: 09/18/21 TECHNIQUE: Noncontrast axial CT images of the head were performed. Sagittal and coronal reformatted images were obtained. This CT exam was performed using 1 or more of the following dose reduction techniques: Automated exposure control, adjustment of the mA and/or kv according to patient size, or the use of iterative reconstruction techniques. Radiation Dose: CTDI volume is 68.96 mGy. Dose-length product is 1494.84 mGy*cm FINDINGS: No intracranial hemorrhage, mass, midline shift, hydrocephalus, or evidence of acute large vessel infarct. There is a tiny cavum septum pellucidum. There are postoperative changes of Bilateral cataract extraction surgery. There is mildly divergent optic gaze. There is a mucous retention cyst in the left maxillary sinus. There is mild mucosal thickening of the bilateral maxillary sinuses. There is a metallic tongue piercing. The bilateral mastoid air cells and middle ear spaces are clear. No cranial fracture or scalp edema. IMPRESSION: 1. No acute intracranial process. 2. Mild bilateral maxillary sinus disease.
[2025-07-14 10:33] LABS: Chloride 102 mmol/L (98-107); Potassium 5.1 mmol/L (3.5-5.1)
--- NOTE | 2025-07-14 10:33 | DVH ---
CHEST RADIOGRAPH INDICATION: chest pain TECHNIQUE: Single frontal view of the chest was obtained COMPARISON: XY CHEST PORTABLE on DOS: 11/23/24, XY CHEST PORTABLE on DOS: 11/06/24, XY CHEST PORTABLE on DOS: 11/01/24, XY CHEST PORTABLE on DOS: 10/30/24, XY CHEST PORTABLE on DOS: 10/07/24 FINDINGS: Lungs and pleural spaces are clear. Cardiac silhouette and karen are within normal limits. Bones and soft tissues demonstrate no significant abnormality. IMPRESSION: No acute disease.
[2025-07-14 10:34] LABS: Anion Gap 12 (5-15); Carbon Dioxide 21 mmol/L (20-31)
[2025-07-14 10:35] LABS: Calcium 9.3 mg/dL (8.7-10.4)
[2025-07-14 10:36] LABS: Sodium 135 mmol/L (136-145)
[2025-07-14 10:39] LABS: BUN/Creatinine Ratio 13.2 (10.0-20.0); Blood Urea Nitrogen 20 mg/dL (9-23)
--- NOTE | 2025-07-14 10:40 | ED.PDOC ---
History of Present Illness HPI Comments A 44 YEAR OLD FEMALE PRESENTS TO THE ED WITH COMPLAINT OF LOWER EXTREMITY/CHEST/HEAD PAIN. PATIENT REPORTS THAT HE HAS BEEN EXPERIENCING LEFT SIDED CHEST PAIN WITH ASSOCIATED LEFT KNEE PAIN FOR THE PAST 2 DAYS WITH ASSOCIATED HEADACHE, DIZZINESS, AND NAUSEA/VOMITING SINCE SATURDAY. PATIENT RELAYS THAT HE HAD CHEST PAIN INITIALLY, BUT DOES NOT HAVE ANY CHEST PAIN AT THIS TIME. PATIENT NOTES HISTORY OF PA AND CARDIAC STENTS. PATIENT DENIES FEVER, CHILLS, SHORTNESS OF BREATH, ABDOMINAL PAIN, OR OTHER COMPLAINTS. NO OTHER SYMPTOMS OR MODIFYING FACTORS AT THIS TIME. PATIENT IS ALERT, ORIENTED X 4, AND HAS STEADY GAIT. Chief Complaint: Lower Extremity Time Seen by MD: 10:39 Primary Care Provider: DESTINY Reviewed Notes: Nurses Notes, Medications, Allergies Allergies: Coded Allergies: NO KNOWN ALLERGIES (Unverified , 12/04/21) Home Meds Active Scripts Tramadol HCl (Tramadol HCl) 50 Mg Tab, 50 MG PO BID, #24 TAB Prov:SHAWNEE PEARSON 07/14/25 Sulfamethoxazole W/Trimethopri (Bactrim Ds Tablet) 1 Tab Tb, 1 TAB PO BID for 10 Days, #20 TAB Prov:SHAWNEE PEARSON PA 03/03/25 Sulfamethoxazole W/Trimethopri (Bactrim Ds Tablet) 1 Tab Tb, 1 TAB PO BID for 10 Days, #20 TAB Prov:SHAWNEE PEARSON PA 02/25/25 Amoxicillin & Pot Clavulanate (Augmentin) 500 Mg Tab, 875 MG PO TID for 14 Days, #42 TAB Prov:LILIANA BERNARD RESIDENT 11/28/24 Yeast (S. Boulardii)(S. Cerevi (Florastor) 250 Mg Cap, 250 MG PO DAILY for 30 Days, #30 CAP Prov:JOE GUNDERSON SHIP UNLOADER 11/03/24 Clindamycin Hcl (Clindamycin Hcl) 300 Mg Cap, 1 CAP PO TID for 10 Days, #30 CAP Prov:JOE GUNDERSON SHIP UNLOADER 11/03/24 Nitroglycerin (NTROSTAT SUBLINGUAL) 0.4 Mg Sl, 0.4 MG SL Q5MINP PRN for 30 Days, #30 TAB Prov:VIMAL BERRY SKI MOLDER 11/02/24 Sacubitril-Valsartan (Entresto 24-26 mg) 1 Tab Tab, 1 TAB PO BID for 30 Days, #60 TAB 1 Refill Prov:KUNAL LERMA MD 06/06/24 Rosuvastatin Calcium (Crestor) 40 Mg Tab, 1 TAB PO DAILY for 30 Days, #30 TAB 1 Refill Prov:KUNAL LERMA MD 06/06/24 Pantoprazole Sodium Sesquihydr (Pantoprazole Sodium) 40 Mg Tab, 40 MG PO BID for 30 Days, #60 TAB Prov:JOE GUNDERSON NP 07/09/23 Reported Medications Insulin Lispro (Insulin Lispro Kwikpen) 100 Unit/Ml Inj, 5 UNIT SC UD for 75 Days, #9 INJECT 5 UNITS SUBCUTANEOUSLY PER SLIDING SCALE. MAXIMUM DAILY DOSE OF 12 UNITS. 11/02/24 Hydrocodone-Acetaminophen (Hydrocodone/Acetaminophen 5-325 mg) 1 Tab Tab, 1 TAB PO BID PRN for 30 Days, #60 11/02/24 Aspirin (Aspirin Low Dose) 81 Mg Chw, 1 TAB PO DAILY for 90 Days, #90 11/02/24 Famotidine (Famotidine) 40 Mg Tab, 1 TAB PO BID for 90 Days, #180 11/02/24 Dapagliflozin Propanediol (Farxiga) 10 Mg Tab, 5 MG PO DAILY for 90 Days, #90 11/02/24 Cyclobenzaprine HCl (Cyclobenzaprine Hydrochlo) 5 Mg Tab, 1-2 TAB PO BID PRN for 30 Days, #120 11/02/24 Sucralfate (Sucralfate) 1 Gm Tab, 1 TAB PO BID for 90 Days, #180 11/02/24 Gabapentin (Gabapentin) 400 Mg Cap, 1 CAP PO TID for 30 Days, #90 11/02/24 Magnesium Oxide (Magnesium Oxide) 400 Mg Tab, 1 TAB PO HS for 30 Days, #30 10/30/24 Gemfibrozil (Gemfibrozil) 600 Mg Tab, 1 TAB PO BID for 90 Days, #180 10/30/24 Losartan Potassium (Losartan Potassium) 50 Mg Tab, 1 TAB PO BID 10/30/24 Spironolactone (Spironolactone) 25 Mg Tab, 25 MG PO BID, TAB 06/05/24 Nifedipine (Nifedipine Er) 90 Mg Tab, 90 MG PO DAILY, TAB 06/05/24 Insulin Glargine (Basaglar Kwikpen) 100 Unit/Ml Inj, 20 UNIT SC BID for 23 Days, #9 06/05/24 Ticagrelor Base (BRILINTA) 90 Mg Tab, 90 MG PO BID, TAB 06/05/24 Dapagliflozin Propanediol (Farxiga) 10 Mg Tab, 10 MG PO QAM, TAB 06/05/24 Ondansetron HCl (Ondansetron Hydrochloride) 4 Mg Tab, 2 TAB PO DAILYPRN PRN for nausea/vomiting for 90 Days, #180 07/04/23 Atorvastatin Calcium (ATORVASTATIN CALCIUM) 40 Mg Tab, 1 TAB PO DAILY 07/04/23 Metformin Hydrochloride (Metformin Hcl) 1,000 Mg Tab, 1 TAB PO BIDWM for 90 Days, #180 05/24/23 Sertraline Hcl (Sertraline Hcl) 25 Mg Tab, 1 TAB PO DAILY 05/24/23 Carvedilol (Carvedilol) 6.25 Mg Tab, 1 TAB PO BID 05/24/23 Information Source: Patient Mode of Arrival: Wheelchair Severity: Moderate Timing: Days Duration: Since onset, Days Prehospital treatment: None Medication Refill: For: Other (HEADACHE, LEFT KNEE PAIN AND CHEST PAIN ) Past Medical History PAST MEDICAL HISTORY: CHF, DM, HTN, PA Surgical History: BKA, PTCA Family History Family History: Reviewed,noncontributory to illness Social History Smoker: Non-Smoker Alcohol: Denies ETOH Use Drugs: Denies Drug Use Lives In: Home Constitutional: denies: chills, diaphoresis, fatigue, fever, malaise, sweats, weakness, others EENTM: denies: blurred vision, double vision, ear bleeding, ear discharge, ear drainage, ear pain, ear ringing, eye pain, eye redness, hearing loss, mouth pain, mouth swelling, nasal discharge, nose bleeding, nose congestion, nose pain, photophobia, tearing, throat pain, throat swelling, voice changes, others Respiratory: denies: cough, hemoptysis, orthopnea, SOB at rest, shortness of breath, SOB with excertion, stridor, wheezing, others Cardiovascular: reports: chest pain; denies: dizzy spells, diaphoresis, Dyspnea on exertion, edema, irregular heart beat, left arm pain, lightheadedness, palpitations, PND, syncope, others Gastrointestinal: reports: nausea, vomiting; denies: abdomen distended, abdominal pain, blood streaked bowels, constipated, diarrhea, dysphagia, difficulty swallowing, hematemesis, melena, poor appetite, poor fluid intake, rectal bleeding, rectal pain, others Genitourinary: denies: burning, dysuria, flank pain, frequency, hematuria, incontinence, penile discharge, penile sore, pain, testicle pain, testicle swelling, urgency, others Neurological: reports: dizziness, headache; denies: fainting, left sided numbness, left sided weakness, numbness, paresthesia, pre-existing deficit, right sided numbness, right sided weakness, seizure, speech problems, tingling, tremors, weakness, others Musculoskeletal: reports: joint pain, others (LEFT KNEE PAIN); denies: back pain, gout, joint swelling, muscle pain, muscle stiffness, neck pain Integumetry: denies: bruises, change in color, change in hair/nails, dryness, laceration, lesions, lumps, rash, wounds, others Allergic/Immunocompromised: denies: Difficulty Healing, Frequent Infections, Hives, Itching, others Hematologic/Lymphatic: denies: anemia, blood clots, easy bleeding, easy bruising, swollen glands, others Endocrine: denies: excessive hunger, excessive sweating, excessive thirst, excessive urination, flushing, intolerance to cold, intolerance to heat, unexplained weight gain, unexplained weight loss, others Psychiatric: denies: anxiety, bipolar disorder, depression, hopeless, panic disorder, schizophrenia, sleepless, suicidal, others All Other Systems: Reviewed and Negative Physical Exam General Appearance: No Apparent Distress, Normal HEENT: Normal ENT Inspection, PERRL/EOMI, Pharynx Normal, TMs Normal Neck: Full Range of Motion, Non-Tender, Normal, Normal Inspection Respiratory: Chest Non-Tender, Lungs Clear, No Accessory Muscle Use, No Respiratory Distress, Normal Breath Sounds Cardiovascular: No Edema, No JVD, No Murmur, No Gallop, Normal Peripheral Pulses, Regular Rate/Rhythm Breast Exam: Deferred Gastrointestinal: No Organomegaly, Non Tender, No Pulsatile Mass, Normal Bowel Sounds, Soft Genitalia: Deferred Pelvic: Deferred Rectal: Deferred Extremities: No calf tenderness, Normal capillary refill, Normal range of motion, No pedal edema, Tender (ON LEFT KNEE, NO BONY TENDERNESS AND DEFORMITY. ) Musculoskeletal : Apperance: Normal Neurologic: Alert, wind up operator II-XII nml as Tested, No Motor Deficits, Normal Affect, Normal Mood, No Sensory Deficits Cerebellar Function: Normal Reflexes: Normal Skin: Dry, Normal Color, Warm Peripheral Pulses: 2+ carotid (R), 2+ carotid (L) Lymphatic: No Adenopathy Was a procedure done? Was a procedure done?: No Differential Dx Considerations may include: INTERNAL DERANGEMENT OF KNEE, ATYPICAL CHEST PAIN, NONCARDIAC CHEST PAIN, PA, ANXIETY REACTION, HYPERVENTILATION SYNDROME, TENSION HEADACHE, MIGRAINE HEADACHE, BRAIN MASS, BRAIN BLEED, SINUSITIS X-Ray, Labs, Meds, VS Vital Signs Date Time Temp Pulse Resp B/P (MAP) Pulse Ox O2 Delivery O2 Flow Rate FiO2 07/14/25 09:49 98.9 89 16 157/103 (121) 99 98.9 07/14/25 08:34 97.2 91 15 158/86 99 97.2 Lab Test 07/14/25 10:03 Range/Units White Blood Count 7.0 4.4-10.8 10^3/uL Red Blood Count 4.01 L 4.5-5.90 10^6/uL Hemoglobin 11.1 L 13.5-17.5 g/dL Hematocrit 34.7 L 41.0-53.0 % Mean Corpuscular Volume 86.5 80.0-100.0 fL Mean Corpuscular Hemoglobin 27.7 L 28.0-32.0 pg Mean Corpuscular Hemoglobin Concent 32.0 32.0-36.0 g/dL Red Cell Distribution Width 15.7 H 11.8-14.3 % Platelet Count 411 140-450 10^3/uL Mean Platelet Volume 8.1 6.9-10.8 fL Neutrophils (%) (Auto) 63.2 37.0-80.0 % Lymphocytes (%) (Auto) 22.3 10.0-50.0 % Monocytes (%) (Auto) 10.1 0.0-12.0 % Eosinophils (%) (Auto) 3.4 0.0-7.0 % Basophils (%) (Auto) 1.0 0.0-2.0 % Neutrophils # (Auto) 4.4 1.6-8.6 10 ^3/uL Lymphocytes # (Auto) 1.6 0.4-5.4 10 ^3/uL Monocytes # (Auto) 0.7 0-1.3 10 ^3/uL Eosinophils # (Auto) 0.2 0-0.8 10 ^3/uL Basophils # (Auto) 0.1 0-0.2 10 ^3/uL Nucleated Red Blood Cells 0.0 % Sodium Level 135 L 136-145 mmol/L Potassium Level 5.1 3.5-5.1 mmol/L Chloride Level 102 98-107 mmol/L Carbon Dioxide Level 21 20-31 mmol/L Anion Gap 12 5-15 Blood Urea Nitrogen 20 9-23 mg/dL Creatinine 1.51 H 0.700-1.30 mg/dL Glomerular Filtration Rate Calc 57 >90 mL/min BUN/Creatinine Ratio 13.2 10.0-20.0 Serum Glucose 142 H 74-106 mg/dL Calcium Level 9.3 8.7-10.4 mg/dL Troponin I High Sensitivity 14 </=54 ng/L EXAM: CT HEAD WITHOUT CONTRAST HISTORY: 44-year-old male with headache. COMPARISON: HEAD WITHOUT CONTRAST on DOS: 09/18/21 TECHNIQUE: Noncontrast axial CT images of the head were performed. Sagittal and coronal reformatted images were obtained. This CT exam was performed using 1 or more of the following dose reduction techniques: Automated exposure control, adjustment of the mA and/or kv according to patient size, or the use of iterative reconstruction techniques. Radiation Dose: CTDI volume is 68.96 mGy. Dose-length product is 1494.84 mGy*cm FINDINGS: No intracranial hemorrhage, mass, midline shift, hydrocephalus, or evidence of acute large vessel infarct. There is a tiny cavum septum pellucidum. There are postoperative changes of Bilateral cataract extraction surgery. There is mildly divergent optic gaze. There is a mucous retention cyst in the left maxillary sinus. There is mild mucosal thickening of the bilateral maxillary sinuses. There is a metallic tongue piercing. The bilateral mastoid air cells and middle ear spaces are clear. No cranial fracture or scalp edema. IMPRESSION: 1. No acute intracranial process. 2. Mild bilateral maxillary sinus disease. ATED BY: AMANDA PLATA MD DICTATED DATE/TIME: 07/14/25 103 SIGNED BY: AMANDA PLATA MD SIGNED DATE/TIME: 07/14/25 103 CC: EXAM: XY L KNEE 2V XRAY HISTORY: pain, no injury COMPARISON: None TECHNIQUE: AP and lateral views of the left knee were performed. FINDINGS: No acute fracture is identified about the left knee. There are postoperative changes of left below-knee amputation. No significant joint space narrowing. Probable small joint effusion. IMPRESSION: 1. No acute fracture of the left knee. 2. Postoperative changes of left below-knee amputation. 3. Probable small left knee effusion. ATED BY: AMANDA PLATA MD DICTATED DATE/TIME: 07/14/251016 SIGNED BY: AMANDA PLATA MD SIGNED DATE/TIME: 07/14/25 101 CC: CHEST RADIOGRAPH INDICATION: chest pain TECHNIQUE: Single frontal view of the chest was obtained COMPARISON: XY CHEST PORTABLE on DOS: 11/23/24, XY CHEST PORTABLE on DOS: 11/06/24, XY CHEST PORTABLE on DOS: 11/01/24, XY CHEST PORTABLE on DOS: 10/30/24, XY CHEST PORTABLE on DOS: 10/07/24 FINDINGS: Lungs and pleural spaces are clear. Cardiac silhouette and karen are within normal limits. Bones and soft tissues demonstrate no significant abnormality. IMPRESSION: No acute disease. ATED BY: ARLEY JACOBSEN MD DICTATED DATE/TIME: 07/14/25 103 SIGNED BY: ARLEY JACOBSEN MD SIGNED DATE/TIME: 07/14/25 103 CC: X-Ray, Labs, Meds, VS Comment EXTERNAL MEDICAL RECORDS REVIEWED: [NONE] INDEPENDENT HISTORIANS: [NONE] SOCIAL DETERMINANTS OF HEALTH: [NONE] LABS ORDERED: CBC, BMP, TROPONIN REVIEWED AND INTERPRETED RESULTS: NORMAL IMAGING ORDERED: CT HEAD, CHEST XR, XR KNEE LT TREATMENTS ORDERED: NONE PATIENT NOTES THAT ALL OF HIS SYMPTOMS EXCEPT FOR HIS HEADACHE HAVE RESOLVED, AND DOES NOT WANT ANY TREATMENT HERE IN THE ED. PROCEDURES PERFORMED: NONE CRITICAL CARE TIME: NONE I HAVE DISCUSSED THE PATIENT WITH THE ATTENDING PHYSICIAN AND HE AGREES WITH THE PATIENT'S PLAN OF CARE AND DISPOSITION. BASED ON HISTORY OF PRESENT ILLNESS, AND PHYSICAL EXAM, PATIENT WILL BE DISCHARGED HOME. DISCUSSED PLAN FOR DISCHARGE HOME WITH RX [ULTRAM]. MEDICATION WARNINGS GIVEN. SHARED DECISION MAKING: PATIENT INSTRUCTED TO FOLLOW UP WITH PRIMARY CARE PROV IDER IN 1-2 DAYS FOR RE-EVALUATION OF SYMPTOMS. PATIENT VERBALIZES UNDERSTANDING TO RETURN TO ED FOR NEW OR WORSENING SYMPTOMS OR IF FOLLOW UP WITH PCP CANNOT BE OBTAINED. PATIENT FEELS COMFORTABLE GOING HOME AT THIS TIME. ALL QUESTIONS ADDRESSED AT TIME OF DISCHARGE. Images Reviewed?: Images reviewed and evaluated by me Time of 1ST Reevaluation: 11:30 Reevaluation 1ST: Improved Patient Education/Counseling: Diagnosis, Treatment, Need For Follow Up Family Education/Counseling: Diagnosis, Treatment, Need For Follow Up Medical Screening: No EMC Exist At This Time SEPSIS Sepsis Screen Date sepsis recognized/suspect: Jul 14, 2025 Time Sepsis recognized/suspect: 835 Recent Procedure: No On Antibiotic Therapy: No Respiratory Rate >20: No Heart Rate >90: No Temp<36 C (96.8 F) or >38.3 C: No SBP <90 or MAP <65 mmHG: No New Acute Mental Status Change: No Is the patient on CPAP, BIPAP,: No Physician Orders Chest Xray 1 View (07/14/25 09:41) Electrocardigram (07/14/25 09:41) Head Without Contrast (07/14/25 09:41) L Knee 2v Xray (07/14/25 09:41) Vital Signs Date Time Temp Pulse Resp B/P (MAP) Pulse Ox O2 Delivery O2 Flow Rate FiO2 07/14/25 09:49 98.9 89 16 157/103 (121) 99 98.9 07/14/25 08:34 97.2 91 15 158/86 99 97.2 Laboratory Tests Test 07/14/25 10:03 White Blood Count 7.0 10^3/uL (4.4-10.8) Departure 1 Departure Time of Disposition: 11:30 Impression: Primary Impression: Tension headache Additional Impressions: Internal derangement of left knee Atypical chest pain Disposition: 01 HOME / SELF CARE / HOMELESS Condition: Stable Additional Instructions: FOLLOW-UP WITH PCP IN 1 TO 2 DAYS. TAKE MEDICATIONS PRESCRIBED. RETURN TO ED FOR ANY NEW OR WORSENING SYMPTOMS. e-Prescriptions Tramadol HCl (Tramadol HCl) 50 Mg Tab 50 MG PO BID, #24 TAB Prov: SHAWNEE PEARSON 07/14/25 Discharged With: Self Critical Care Note Critical Care Time?: No Stability Stability form required: No Heart Score Heart Score: Heart Score Response (Comments) Value History N/A 0 EKG N/A 0 Age N/A 0 Risk Factors N/A 0 Troponin N/A 0 Total 0 I personally scribed for SHAWNEE PEARSON ([email or web address]) on 07/14/25 at 10:39. Electronically submitted by Michel Antunez ([email or web address]). I personally scribed for SHAWNEE PEARSON ([email or web address]) on 07/15/25 at 07:15. Electronically submitted by Balaji Valadez ([email or web address]). SHAWNEE PEARSON Jul 14, 2025 10:39
[2025-07-14 10:41] LABS: Glucose 142 mg/dL (74-106)
[2025-07-14] MEDS ORDERED: TRAM-626 PO (11:22)
== END 2025-07-14 11:27 | disposition home or self-care (01) ==
LOC: ER 08:31
DX: G44.209 Tension-type headache, unspecified, not intractable (principal); M23.92 Unspecified internal derangement of left knee; R07.89 Other chest pain; I11.0 Hypertensive heart disease with heart failure; I50.9 Heart failure, unspecified; E11.9 Type 2 diabetes mellitus without complications; Z79.899 Other long term (current) drug therapy; Z95.5 Presence of coronary angioplasty implant and graft; Z89.512 Acquired absence of left leg below knee; Z79.84 Long term (current) use of oral hypoglycemic drugs; Z79.82 Long term (current) use of aspirin; Z79.4 Long term (current) use of insulin
CPT/HCPCS: 36415; 70450; 71045; 73560; 80048; 84484; 85025